=== PATIENT | female | born 1965 | race Caucasian/White ===

== ENCOUNTER → 2016-08-06 | Outpatient (CLI) | payer MEDICAID, OTHER ==
[~2016-08-06] MED LIST: AMIT50TA3 PO; AZIT250T5 PO; BPR75T PO; BSP10T PO; BUDE10.22; BUDE10.22 IH; BUSP30TA2 PO; BUSPAR; CETI10CA PO; CIPR500T78 PO; COMPOUND; CRAN450C PO; CYCL10TA9 PO; DESIPRAMINE; DICY20TA10 PO; DOXE10CA29 PO; FAMO-119 PO; FEXO1TAB40 PO; FLC100T1 PO; FLUO40CA PO; FLUT16SP22; HORMONE; HYDR-2890 PO; KETO-22 PO; LORA10TA7; METO-333; MONT10TA24; NF-ESOM40C PO; NITR100C10 PO; OMEP-83 PO; OMEP20CA12 PO; ONDAN4ODT PO; OXYB10TA PO; OXYB5TAB9 PO; PANT20TA3 PO; PERM60CR4 TP; PRAV40TA PO; PRD20T PO; PRM25T PO; RANITIDINE; RT-ALBUINH INH; SOLI5TAB4 PO; SULF-222 PO; SULF1TAB38 PO; THYROID; TOLT1TAB PO; TRAM50TA2 PO; VILA20TA PO; [UNRECOGNIZED DRUG - CODE] PO
--- NOTE | 2016-08-11 08:15 | ECHOCARDIOGRAPHY REPORT ---
PROCEDURE PHYSICIAN: FABIO MEDINA DATE OF PROCEDURE: 08/06/2016 TWO DIMENSIONAL ECHOCARDIOGRAM REPORT PRIMARY PHYSICIAN: Dr. Feliz OTHER PHYSICIAN: REFERRING PHYSICIAN: ORDERING PHYSICIAN: Meagan Shearer APRN INDICATION FOR THE PROCEDURE: Chest pain. MEASUREMENTS DERIVED VALUES LV DIAMETER (LAX) NORMALS NORMALS Diastolic 4.1 (3.6-5.2) Eject. Fract. (60%+/-6%) Systolic (2.3-3.9) Diastolic Vol. % Shortening (0.22-0.42) Systolic Vol. Aortic Root 3.3 IVS THICKNESS Diastolic 1.2 (0.6-1.1) LVPW THICKNESS Diastolic 1.2 (0.6-1.1) LA DIAMETER Systolic 3.2 (2.1-3.7) DESCRIPTION: This is a technically somewhat difficult study and is not ideal for wall motion analysis. Global left ventricular systolic function appears normal. Left ventricular ejection fraction is approximately 65 to 70%. Aortic, mitral and tricuspid valve leaflets, to the extent visualized, seem to have good leaflet excursion. There appears to be mild mitral annular calcification. There does not appear to be any significant pericardial effusion. Doppler imaging shows mild tricuspid regurgitation and pulmonary artery systolic pressure is estimated to be 50 mmHg. There is no Doppler evidence of significant valvular stenosis. Mitral inflow is consistent with grade 1 diastolic dysfunction of the left ventricle. There is no evidence of intracardiac shunt on this transthoracic echocardiographic study. CONCLUSIONS: 1. Technically difficult study. 2. Normal global left ventricular systolic function with an ejection fraction of 65 to 70%. 3. Mild tricuspid regurgitation. 4. Pulmonary artery systolic pressure is estimated to be approximately 50 mmHg. 5. No evidence of significant valvular stenosis on this study. 6. Mild diastolic dysfunction of the left ventricle. Job ID: [id number] Dictated Date: 08/10/2016 15:34:12 Baggagemaster Date: 08/11/2016 08:08:17 / christina
== END ==
LOC: CARD 11:50
PROVIDERS: ATTEND Nurse Practitioner Family
DX: R07.9 Chest pain, unspecified (principal)
CPT/HCPCS: 93225; 93226; 93306

== ENCOUNTER → 2016-08-10 | Outpatient (CLI) | payer MEDICAID ==
[~2016-08-10] MED LIST changes: +REGADENOSON 0.4 MG/5 ML SYR (LEXISCAN) IV ONE
[2016-08-10] MEDS: CATHETER FLUSH 10 ML SYR IV PRN ×2 (12:12→13:04)
[2016-08-10 13:03] VITALS: BP 146/89
--- NOTE | 2016-08-13 07:39 | STRESS TEST ---
PROCEDURE PHYSICIAN: FABIO MEDINA RESTING AND POST REGADENOSON TECHNETIUM 99M TETROFOSMIN SPECT CT IMAGING DATE OF PROCEDURE: 08/10/2016 REFERRING PHYSICIAN: Meagan Shearer APRN PRIMARY PHYSICIAN: Dr. Feliz CLINICAL DIAGNOSIS: Chest pain. Baseline images were carried out after injection of 10.65 mCi technetium 99m tetrofosmin. This was followed by 0.4 mg of regadenoson and 32.3 mCi technetium 99m tetrofosmin for stress imaging. The electrocardiogram showed sinus rhythm at baseline. It did not change with regadenoson infusion. The patient tolerated the procedure well. Review of images at rest and following stress, does not indicate any significant perfusion defect consistent with myocardial ischemia or infarction. Gated images show normal global left ventricular systolic function with normal regional wall motion. Left ventricular ejection fraction is calculated to be 72%. Left end-diastolic volume is 48 mL. TID is absent (0.99). CONCLUSION: 1. No evidence of significant myocardial ischemia or infarction on this study. 2. Normal global left ventricular systolic function with a calculated ejection fraction of 72%. 3. Normal regional wall motion. 4. Normal left ventricular cavity size. Job ID: [id number] Dictated Date: 08/12/2016 15:34:23 Plugger Man Date: 08/13/2016 07:35:12 / nan
== END ==
LOC: CARD 11:45
PROVIDERS: ATTEND Nurse Practitioner Family
DX: R07.9 Chest pain, unspecified (principal)
CPT/HCPCS: 78452; 93017

== ENCOUNTER 2016-08-19 21:14 | Emergency (ER) | payer MEDICAID, OTHER ==
[~2016-08-19] VITALS: Ht 170.2 cm; Wt 96.6 kg
[~2016-08-19 21:14] MED LIST changes: -PERM60CR4 TP; -REGADENOSON 0.4 MG/5 ML SYR (LEXISCAN) IV ONE
[2016-08-19] MEDS ORDERED: PERM60CR4 TP (21:26)
--- NOTE | 2016-08-19 21:26 | ED Integumentary General ---
General Chief Complaint: Skin/Wound Problems Stated Complaint: SKIN RASH Source: patient Exam Limitations: no limitations History of Present Illness Time seen by provider: 21:23 Initial Comments To ER with reports of a skin rash for 1.[address] Feliz 2 days ago and was given permethrin which only made it "half better". It is unclear why she presented tonight as her symptoms are actually improved from baseline. Timing/Duration: constant Severity: moderate Location: generalized Associated Symptoms: denies symptoms Allergies and Home Medications Allergies Coded Allergies: Penicillins (Unverified Allergy, Unknown, 12/30/15) Home Medications Albuterol Sulfate 8.5 Gm Hfa.aer.ad 2 PUFF INH Q4H PRN PRN SHORTNESS OF BREATH ( Reported) Amitriptyline HCl 50 Mg Tablet #30 50 MG PO HS Prescribed by: ANTHONY FELIZ on 07/07/16 1015 Budesonide/Formoterol Fumarate 10.2 Gm Hfa.aer.ad 2 PUFF IH BID (Reported) LAST FILLED 03-30-16 Cranberry Fruit Concentrate 450 Mg Capsule 450 MG PO DAILY (Reported) Dicyclomine HCl 20 Mg Tablet #120 20 MG PO QID Prescribed by: ANTHONY FELIZ on 07/07/16 1015 Doxepin HCl 10 Mg Capsule 10 MG PO HS (Reported) Pantoprazole Sodium 20 Mg Tablet.dr 20 MG PO DAILY (Reported) Permethrin 60 Gm Cream..g. #1 60 GM TP ONCE Cover entire body, leave in place for 8 hours, then wash off. Repeat in one week if no improvement. Prescribed by: YOBANI DEL TORO on 08/19/162125 Pravastatin Sodium 40 Mg Tablet 40 MG PO HS (Reported) Vilazodone Hydrochloride 20 Mg Tablet 20 MG PO HS (Reported) Constitutional: see HPI EENTM: see HPI Respiratory: no symptoms reported Cardiovascular: no symptoms reported Genitourinary: no symptoms reported Musculoskeletal: no symptoms reported Skin: see HPI pruritus rash Psychiatric/Neurological: No Symptoms Reported Endocrine: No Symptoms Reported Past Dnivawc-Ayxksk-Ujintx Hx Patient Social History Type Used: Cigarettes Former Smoker/When Quit: Jan 31, 2006 Recent Foreign Travel: No Contact w/Someone Who Travel: No Recent Hopitalizations: Yes (; suicide attempts x 2 2011 LAST ONE) Immunizations Up To Date Tetanus Booster (TDap): Unknown Seasonal Allergies Seasonal Allergies: Yes Surgeries HX Surgeries: Yes (LASER CONE) Surgeries: Adenoidectomy, Section, Ear Surgery, Orthopedic, Tonsillectomy, Tubal Ligation Respiratory Hx Respiratory Disorders: Yes Respiratory Disorders: Asthma Cardiovascular Hx Cardiac Disorders: Yes Cardiac Disorders: High Cholesterol, Hypertension Neurological Hx Neurological Disorders: No 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 System Hx 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 Disorders: No Sexually Transmitted Disease: No HIV/AIDS: No Female 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 Disorders: Denies 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 Genitourinary Hx Genitourinary Disorders: Yes (OVERACTIVE BLADDER) Genitourinary Disorders: UTI-Chronic Gastrointestinal Hx Gastrointestinal Disorders: Yes (IBS) Musculoskeletal Hx Musculoskeletal Disorders: Yes (KNEES) Musculoskeletal Disorders: Arthritis Endocrine Hx Endocrine Disorders: Yes Endocrine Disorders: Hypothyroidsim HEENT HX ENT Disorders: No Cancer Hx Cancer: Yes Cancer: Cervical Psychosocial Hx Psychiatric Problems: Yes Behavioral Health Disorders: Sleep Difficulties, Anxiety, Bipolar, Depression Integumentary HX Skin/Integumentary Disorder: No Blood Transfusions Hx Blood Disorders: No Family Medical History Significant Family History: Diabetes Family Medial History: Diabetes mellitus 19 MOTHER Physical Exam Vital Signs Capillary Refill : General Appearance: WD/WN no apparent distress HEENT: PERRL/EOMI normal ENT inspection Neck: non-tender full range of motion Respiratory: no respiratory distress no accessory muscle use Extremities: normal range of motion non-tender Neurologic/Psychiatric: alert normal mood/affect oriented x 3 other (hostile and angry towards staff stating "I thought this was an emergency room not a daycare!") Skin: normal color warm/dry Skin Problem Location: torso, lower extremities Skin Problem Character: other (diffuse papular rash to the torso and proximal thighs. She was treated with permethrin and this did improve symptoms. I would agree with a scabies diagnosis.) Comments Patient is cursing on her cell phone at someone upon arrival to ER room 5 which persisted for several minutes before the call ended. Progress/Results/Core Measures Progress Note : Progress Note Patient requests permethrin cream here because she cannot afford it. Departure Communication Progress Notes Patient reports that she'll be calling administration tomorrow to complain because she does not feel that she did not help she wanted tonight. She believes this to be an allergic reaction rather than scabies because she believes a scabies rash would be confined to the region between the fingers. Advised sometimes the permethrin takes more than one application to resolve her issues and since she stated that her symptoms only got half better after one application we should repeat this. If this was an allergic reaction permethrin would not have helped. When advised that it takes more than one dose sometimes to cure this she states "why?!". Advised her to take benadryl for itching. Impression Impression: Primary Impression: Scabies Disposition: HOME, SELF-CARE Condition: Stable Departure-Patient Inst. Decision time for Depature: 21:25 Referrals: ANTHONY FELIZ MD (PCP/Family) Primary Care Physician Patient Instructions: Scabies Add. Discharge Instructions: 1. Cream as directed 2. Return to ER for any concerns All discharge instructions reviewed with patient and/or family. Voiced understanding. Scripts Permethrin 60 Gm Cream..g.60 Gm TP ONCE #1 TUBE Ref 1 Cover entire body, leave in place for 8 hours, then wash off. Repeat in one week if no improvement. Prov:YOBANI DEL TORO APRN 08/19/16 YOBANI DEL TORO APRN Aug 19, 2016 21:26
[2016-08-19 21:27] VITALS: BP 0/0
== END 2016-08-19 21:27 | disposition home or self-care (01) ==
LOC: EDUNIT# 21:14 → ER 21:15
DX: B86 Scabies (principal); I10 Essential (primary) hypertension
CPT/HCPCS: 99281

== ENCOUNTER → 2016-10-18 | Outpatient (CLI) | payer MEDICAID ==
[~2016-10-18] MED LIST changes: +PERM60CR4 TP
--- NOTE | 2016-10-19 18:23 | Diagnostic Imaging Report ---
EXAMINATION: Digital mammogram bilateral screening. INDICATION: Screening. COMPARISON: This study was compared to the prior exams of 10/15/2015, 08/29/2014, and 09/13/2013. At this time, there are no current complaints. The current study was also evaluated with a Computer Aided Detection (CAD) system. FINDINGS: There are scattered fibroglandular densities in both breasts which could obscure a lesion. Overall, there does not appear to have been any significant change when compared to the prior exam. No primary or secondary sign of malignancy is noted. IMPRESSION: There is no radiographic evidence for malignancy. ACR BI-RADS Category 1: Negative.. Result letter will be mailed to the patient. Note: At least 10% of breast cancer is not imaged by mammography. Dictated by: Dictated on workstation # [id number]
== END ==
LOC: RAD 14:36
PROVIDERS: ATTEND Family Medicine
DX: Z12.31 Encounter for screening mammogram for malignant neoplasm of breast (principal)
CPT/HCPCS: 77067

== ENCOUNTER → 2017-11-21 | Outpatient (CLI) | payer MEDICAID ==
[~2017-11-21] MED LIST changes: +ALBU2.5V4 IH; +ASPI-586 PO; +AZIT250T12 PO; -AZIT250T5 PO; +BLAC200C3 PO; +CYAN250010 PO; +FLUT16SP22 NS; +FOLI-88 PO; +MAGN30TA3 PO; +METO-333 PO; +MONT10TA24 PO; +OMEP40CA36 PO; +VERA40TA2 PO
--- NOTE | 2017-11-22 09:29 | Diagnostic Imaging Report ---
EXAMINATION: Digital mammogram bilateral screening with 3D tomosynthesis and CAD. INDICATION: Screening. COMPARISON: 10/18/2016, 10/15/2015, and 08/29/2014. PERSONAL HISTORY: At this time, there are no current complaints. FINDINGS: There are scattered fibroglandular densities in both breasts which could obscure a lesion. Overall, there does not appear to have been any significant change when compared to the prior exam. No primary or secondary sign of malignancy is noted. IMPRESSION: There is no radiographic evidence for malignancy. ACR BI-RADS Category 1: Negative. Result letter will be mailed to the patient. Note: At least 10% of breast cancer is not imaged by mammography. Dictated by: Dictated on workstation # [id number]
== END ==
LOC: RAD 14:59
PROVIDERS: ATTEND Family Medicine
DX: Z12.31 Encounter for screening mammogram for malignant neoplasm of breast (principal)
CPT/HCPCS: 77067

== ENCOUNTER 2017-12-11 13:20 | Observation (INO) | payer MEDICAID ==
[~2017-12-11] VITALS: Ht 170.2 cm; Wt 106.6 kg
[2017-12-11] VITALS (10 sets, daily range): BP systolic 147–202; BP diastolic 82–102
[~2017-12-11 13:20] MED LIST changes: -ALBU2.5V4 IH; -ASPI-586 PO; -BLAC200C3 PO; -CYAN250010 PO; -FLUT16SP22 NS; -FOLI-88 PO; -MAGN30TA3 PO; -METO-333 PO; -MONT10TA24 PO; -OMEP40CA36 PO; -VERA40TA2 PO
[2017-12-11] MEDS ORDERED: NITROGLYCERIN 0.4 MG SL TABS BTL 25'S SL PRN ×2 (14:00→20:15)
[2017-12-11] MEDS ORDERED: ASPIRIN 81 MG CHEW (CHILDREN'S ASA) PO ONE (14:00)
[2017-12-11 14:12] LABS: BASOPHILS # (AUTO) 0.1 10^3/uL (0.0-0.1); BASOPHILS % (AUTO) 1 % (0-10); EOSINOPHILS # (AUTO) 0.2 10^3/uL (0.0-0.3); EOSINOPHILS % (AUTO) 2 % (0-10); HEMATOCRIT 42 % (35-52); HEMOGLOBIN 14.4 G/DL (11.5-16.0); LYMPHOCYTES # (AUTO) 2.2 X 10^3 (1.0-4.0); LYMPHOCYTES % (AUTO) 24 % (12-44); MEAN CORPUSCULAR HEMOGLOBIN 29 PG (25-34); MEAN CORPUSCULAR HGB CONC 34 G/DL (32-36); MEAN CORPUSCULAR VOLUME 85 FL (80-99); MEAN PLATELET VOLUME 9.9 FL (7.4-10.4); MONOCYTES # (AUTO) 0.8 X 10^3 (0.0-1.0); MONOCYTES % (AUTO) 9 % (0-12); NEUTROPHILS # (AUTO) 5.7 X 10^3 (1.8-7.8); NEUTROPHILS % (AUTO) 64 % (42-75); PLATELET COUNT 279 10^3/uL (130-400); RED BLOOD COUNT 4.98 10^6/uL (4.35-5.85); RED CELL DISTRIBUTION WIDTH 13.6 % (10.0-14.5)
[2017-12-11 14:24] LABS: INR 0.9 (0.8-1.4); PROTHROMBIN TIME PATIENT 12.5 SEC (12.2-14.7)
[2017-12-11 14:30] LABS: ALANINE AMINOTRANSFERASE 24 U/L (0-55); ALBUMIN 4.3 GM/DL (3.2-4.5); ALKALINE PHOSPHATASE 96 U/L (40-136); BILIRUBIN,TOTAL 0.4 MG/DL (0.1-1.0); BUN/CREATININE RATIO 14; CALCIUM 9.3 MG/DL (8.5-10.1); CARBON DIOXIDE 20 MMOL/L (21-32); CHLORIDE 110 MMOL/L (98-107); CREATININE SERUM 0.91 MG/DL (0.60-1.30); GFR ESTIMATED > 60; GLUCOSE 100 MG/DL (70-105); MAGNESIUM 3.4 MG/DL (1.8-2.4); SODIUM 140 MMOL/L (135-145); TOTAL PROTEIN 8.5 GM/DL (6.4-8.2)
[2017-12-11 14:36] LABS: MYOGLOBIN SERUM 48.3 NG/ML (10.0-92.0)
[2017-12-11] MEDS ORDERED: NS IV 1000 ML 1,000 ML IV ONE (14:42)
[2017-12-11 15:13] LABS: POTASSIUM 4.4 MMOL/L (3.6-5.0)
--- NOTE | 2017-12-11 15:43 | Diagnostic Imaging Report ---
EXAMINATION: PA and lateral chest. COMPARISON: Prior study from 07/10/2016. INDICATION: Cough and shortness of breath. FINDINGS: Lungs appear clear without focal pulmonary infiltrate or consolidation. There is no effusion. There is no pneumothorax. Heart size and mediastinal contours appear appropriate. Pulmonary vascularity appears within normal limits. IMPRESSION: No radiographic evidence of an acute cardiopulmonary process. Dictated by: Dictated on workstation # [id number]
[2017-12-11] MEDS ORDERED: RT-ALBUTEROL/IPRATROPIUM 3 ML (DUONEB) VIAL INH ONE (15:45)
--- NOTE | 2017-12-11 16:44 | ED Chest Pain ---
General Chief Complaint: Respiratory Problems Stated Complaint: TROUBLE BREATHING,POSS BRONCHITIS,FEVER Nursing Triage Note: pt presents to ed with complaints of soa and cough with chest tightness. Pt reports soa x 3 days and chest tightness starting at 1300 today. Nursing Sepsis Screen: No Definite Risk Source: patient, old records Exam Limitations: no limitations History of Present Illness Date Seen by Provider: December 11, 2017 Time Seen by Provider: 14:12 Initial Comments This 52-year-old woman presents to the emergency room with 2-3 days of shortness of air and chest pain since about 13:00. The chest pain is described as tightness or pressure, worse on the right and worse with activity. She has had some sweats at night the last couple of nights. She has had some cough and states it hurts to cough. Patient does have a history of asthma and has not been using her nebulizer machine. Review of her chart notes a negative stress test in July 2016. Echocardiogram also in 2017 showed mild valvular problems with an ejection fraction of 60 percent. Patient has no known heart disease and does not smoke. Allergies and Home Medications Allergies Coded Allergies: Penicillins (Unverified Allergy, Unknown, 12/30/15) Home Medications Albuterol Sulfate 8.5 Gm Hfa.aer.ad, 2 PUFF INH Q4H PRN for SHORTNESS OF BREATH, (Reported) Amitriptyline HCl 50 Mg Tablet, 50 MG PO HS Prescribed by: ANTHONY MORRISON on 07/07/16 1015 Budesonide/Formoterol Fumarate 10.2 Gm Hfa.aer.ad, 2 PUFF IH BID, (Reported) LAST FILLED 03-30-16 Cranberry Fruit Concentrate 450 Mg Capsule, 450 MG PO DAILY, (Reported) Dicyclomine HCl 20 Mg Tablet, 20 MG PO QID Prescribed by: ANTHONY MORRISON on 07/07/16 1015 Doxepin HCl 10 Mg Capsule, 10 MG PO HS, (Reported) Pantoprazole Sodium 20 Mg Tablet.dr, 20 MG PO DAILY, (Reported) Permethrin 60 Gm Cream..g., 60 GM TP ONCE Cover entire body, leave in place for 8 hours, then wash off. Repeat in one week if no improvement. Prescribed by: YOBANI DEL TORO on 08/19/162125 Pravastatin Sodium 40 Mg Tablet, 40 MG PO HS, (Reported) Vilazodone Hydrochloride 20 Mg Tablet, 20 MG PO HS, (Reported) Patient Home Medication List Home Medication List Reviewed: Yes Review of Systems Constitutional: no symptoms reported EENTM: No Symptoms Reported Respiratory: See HPI Cardiovascular: See HPI Gastrointestinal: No Symptoms Reported Genitourinary: No Symptoms Reported Musculoskeletal: no symptoms reported Skin: no symptoms reported Psychiatric/Neurological: No Symptoms Reported Endocrine: No Symptoms Reported Past Vqfxqzs-Cehxry-Hvhndx Hx Patient Social History Alcohol Use: Rarely Uses Recreational Drug Use: No Smoking Status: Former Smoker Type Used: Cigarettes Former Smoker, Quit: Jul 06, 2000 Recent Foreign Travel: No Contact w/Someone Who Travel: No Recent Infectious Disease Expo: No Recent Hopitalizations: No Physical Abuse: No Sexual Abuse: No Mistreated: No Fear: No Immunizations Up To Date Tetanus Booster (TDap): Unknown Seasonal Allergies Seasonal Allergies: Yes Past Medical History Surgeries: Yes (LASER CONE) Adenoidectomy, Section, Ear Surgery, Orthopedic, Tonsillectomy, Tubal Ligation Respiratory: Yes Asthma, Chronic Bronchitis Cardiac: Yes High Cholesterol, Hypertension Neurological: No 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 Disorders: No Female 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 Disorders: 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 Sexually Transmitted Disease: No HIV/AIDS: No Genitourinary: Yes UTI-Chronic Gastrointestinal: Yes (IBS) Gastroesophageal Reflux Musculoskeletal: Yes (KNEES) Arthritis Endocrine: Yes Hypothyroidsim Cancer: Yes Cervical Psychosocial: Yes Sleep Difficulties, Anxiety, Bipolar, Depression Nursing Suicide Risk Score: 0 Integumentary: No Blood Disorders: No Family Medical History Diabetes mellitus 19 MOTHER Diabetes, Hypertension Physical Exam Vital Signs Vital Signs - First Documented 12/11/17 12/11/17 13:57 15:44 Temp 98.1 Pulse 89 Resp 14 B/P (MAP) 125/88 (100) Pulse Ox 97 O2 Delivery Room Air Capillary Refill : Less Than 3 Seconds General Appearance: WD/WN, Mild Distress, Obese HEENT: PERRL/EOMI, Normal ENT Inspection Neck: Normal Inspection, Supple Respiratory: Chest Non Tender, Lungs Clear, Normal Breath Sounds, No Accessory Muscle Use, No Respiratory Distress Cardiovascular: Regular Rate, Rhythm, No Edema, No Murmur Gastrointestinal: Normal Bowel Sounds, Non Tender, Soft Extremity: Normal Capillary Refill, Normal Inspection, Non Tender, No Calf Tenderness, No Pedal Edema, Other (Negative Kade) Neurologic/Psychiatric: Alert, Oriented x3, No Motor/Sensory Deficits, Normal 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/Affect, 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 Norm as Tested Skin: Normal Color, Warm/Dry Progress/Results/Core Measures Results/Orders Lab Results Laboratory Tests Test 12/11/17 13:55 Range/Units White Blood Count 9.0 4.3-11.0 10^3/uL Red Blood Count 4.98 4.35-5.85 10^6/uL Hemoglobin 14.4 11.5-16.0 G/DL Hematocrit 42 35-52 % Mean Corpuscular Volume 85 80-99 FL Mean Corpuscular Hemoglobin 29 25-34 PG Mean Corpuscular Hemoglobin Concent 34 32-36 G/DL Red Cell Distribution Width 13.6 10.0-14.5 % Platelet Count 279 130-400 10^3/uL Mean Platelet Volume 9.9 7.4-10.4 FL Neutrophils (%) (Auto) 64 42-75 % Lymphocytes (%) (Auto) 24 12-44 % Monocytes (%) (Auto) 9 0-12 % Eosinophils (%) (Auto) 2 0-10 % Basophils (%) (Auto) 1 0-10 % Neutrophils # (Auto) 5.7 1.8-7.8 X 10^3 Lymphocytes # (Auto) 2.2 1.0-4.0 X 10^3 Monocytes # (Auto) 0.8 0.0-1.0 X 10^3 Eosinophils # (Auto) 0.2 0.0-0.3 10^3/uL Basophils # (Auto) 0.1 0.0-0.1 10^3/uL Prothrombin Time 12.5 12.2-14.7 SEC INR Comment 0.9 0.8-1.4 Activated Partial Thromboplast Time 26 24-35 SEC Sodium Level 140 135-145 MMOL/L Potassium Level 4.4 3.6-5.0 MMOL/L Chloride Level 110 H 98-107 MMOL/L Carbon Dioxide Level 20 L 21-32 MMOL/L Anion Gap 10 5-14 MMOL/L Blood Urea Nitrogen 13 7-18 MG/DL Creatinine 0.91 0.60-1.30 MG/DL Estimat Glomerular Filtration Rate > 60 BUN/Creatinine Ratio 14 Glucose Level 100 70-105 MG/DL Calcium Level 9.3 8.5-10.1 MG/DL Magnesium Level 3.4 H 1.8-2.4 MG/DL Total Bilirubin 0.4 0.1-1.0 MG/DL Aspartate Amino Transf (AST/SGOT) 43 H 5-34 U/L Alanine Aminotransferase (ALT/SGPT) 24 0-55 U/L Alkaline Phosphatase 96 40-136 U/L Myoglobin 48.3 10.0-92.0 NG/ML Troponin I < 0.30 <0.30 NG/ML Total Protein 8.5 H 6.4-8.2 GM/DL Albumin 4.3 3.2-4.5 GM/DL My Orders Orders - RAUL JOE MD Cbc With Automated Diff (12/11/17 13:55) Magnesium (12/11/17 13:55) Ekg Tracing (12/11/17 13:55) Cardiac Profile 1 (12/11/17 13:55) Comprehensive Metabolic Panel (12/11/17 13:55) Myoglobin Serum (12/11/17 13:55) Protime With Inr (12/11/17 13:55) Partial Thromboplastin Time (12/11/17 13:55) O2 (12/11/17 13:55) Monitor-Rhythm Ecg Trace Only (12/11/17 13:55) Lipid Panel (12/12/17 06:00) Aspirin Chewable Tablet (Baby Aspirin Ch (12/11/17 14:00) Saline Lock/Iv-Start (12/11/17 13:55) Chest Pa/Lat (2 View) (12/11/17 13:55) Nitroglycerin 0.4 Mg Btl 25's (Nitrostat (12/11/17 14:00) Saline Lock/Iv-Start (12/11/17 14:42) Ns Iv 1000 Ml (Sodium Chloride 0.9%) (12/11/17 14:42) Albuterol/Ipra Inhalation Soln (Duoneb I (12/11/17 15:45) Svn Small Volume Nebulizer (12/11/17 15:34) Medications Given in ED Current Medications Medications Dose Ordered Sig/Matthias Route Start Time Stop Time Status Last Admin Dose Admin Albuterol/ Ipratropium 3 ml ONCE ONCE INH 12/11/17 15:45 12/11/17 15:46 DC 12/11/17 15:44 3 ML Aspirin 243 mg ONCE ONCE PO 12/11/17 14:00 12/11/17 14:01 DC 12/11/17 14:10 243 MG Nitroglycerin 0.4 mg UD PRN SL 12/11/17 14:00 12/11/17 14:10 0.4 MG Sodium Chloride 1,000 ml @ 0 mls/hr Q0M ONCE IV 12/11/17 14:42 12/11/17 14:43 DC 12/11/17 14:55 0 MLS/HR Vital Signs/I&O 12/11/17 12/11/17 13:57 15:44 Temp 98.1 Pulse 89 Resp 14 B/P (MAP) 125/88 (100) Pulse Ox 97 97 O2 Delivery Room Air Blood Pressure Mean: 100 Progress Progress Note : Progress Note Patient reported resolution of the right-sided chest pain immediately after receiving nitroglycerin. Patient was also given the balance of her aspirin dose. She still complained of congestion and an uncomfortable feeling in the central chest which she thought was either GERD or inability to cough up congestion. This was treated with DuoNeb which improved her symptoms further. Case was discussed with Dr. Zapien who would like to patient admitted for observation and cardiac rule out. Initial ECG Impression Date: December 11, 2017 Initial ECG Impression Time: 14:12 Initial ECG Rate: 95 Initial ECG Rhythm: Normal Sinus Comment Sinus rhythm with no ST elevation or depression. No abnormal intervals or axis deviation. Diagnostic Imaging Diagonstic Imaging: Xray Plain Films/CT/US/NM/MRI: chest Comments Chest x-ray viewed by me and report reviewed. See report below: NAME: JUAN CRUZ [facility] REC#: [id number] PT STATUS: ADM Hernando : 1965 PHYSICIAN: RAUL JOE MD ADMIT DATE: 12/11/17/ICU Signed Date of Exam: 12/11/17 CHEST PA/LAT (2 VIEW) EXAMINATION: PA and lateral chest. COMPARISON: Prior study from 07/10/2016. INDICATION: Cough and shortness of breath. FINDINGS: Lungs appear clear without focal pulmonary infiltrate or consolidation. There is no effusion. There is no pneumothorax. Heart size and mediastinal contours appear appropriate. Pulmonary vascularity appears within normal limits. IMPRESSION: No radiographic evidence of an acute cardiopulmonary process. Dictated by: Dictated on workstation # [id number] Dict: 12/11/17 1539 Trans: 12/11/171706 Interpreted by: EVER GALLAGHER MD Electronically signed by: EVER GALLAGHER MD 12/11/177 Departure Communication (Admissions) Time/Spoke to Admitting Phy: 16:15 Dr. Day Time/Spoke to Consulting Phy: 16:10 Dr. Zapien Impression Primary Impression: Chest pain Qualified Codes: R07.9 - Chest pain, unspecified Additional Impression: Asthma exacerbation Qualified Codes: J45.901 - Unspecified asthma with (acute) exacerbation Disposition: ADMITTED INPATIENT Condition: Improved Admissions Decision to Admit Reason: Admit from ER (General) Decision to Admit/Date: December 11, 2017 Time/Decision to Admit Time: 16:10 Departure-Patient Inst. Referrals: NAYE SHAH MD (PCP/Family) Primary Care Physician RAUL JOE MD December 11, 2017 16:44
--- OUTSIDE RECORDS SUMMARY | 2017-12-11 17:14 | XMS REPORT ---
Author Author TAMIKO ANTHONY [facility] Address [address] [place] [address] Care Team Providers Care User Interface Designer Name Role Phone ANTHONY MORRISON Unavailable PROBLEMS Type Condition ICD9-CM Code [id number] Code Onset Dates Condition Status SNOMED Code Problem Cannabis dependence, uncomplicated F12.20 Active 66649136 Problem Depressive disorder, not elsewhere classified F32.9 Active 47014111 Problem Anxiety disorder, unspecified F41.9 Active 900918277 Problem Pulmonary hypertension I27.2 Active 23797715 Problem Obesity (BMI 30.0-34.9) E66.9 Active 107011625111800 Problem Chronic tension-type headache, intractable G44.221 Active 004549440 Problem Gastroesophageal reflux disease, esophagitis presence not specified K21.9 Active 080928858 Problem Hyperlipidemia, unspecified hyperlipidemia type E78.5 Active 71009654 Problem Essential hypertension I10 Active 05389632 Problem History of cocaine abuse Z87.898 Active 522107801850648 Problem Irritable bowel syndrome K58.9 Active 38291225 Problem Moderate persistent asthma, uncomplicated J45.40 Active 585575602 Problem Hypertension I10 Active 49819510 Problem Hyperlipidemia E78.5 Active 98564904 Problem Urge incontinence N39.41 Active 653639312 Problem Allergic rhinitis J30.9 Active 71328312 ALLERGIES Substance Reaction Event Type Date Status Penicillin V Potassium Unknown Drug Allergy Jun, Active multiple enviromental allergies Unknown Non Drug Allergy Jun, Active SOCIAL HISTORY No smoking Hx information available PLAN OF CARE Activity Details Follow Up after hospitalization Reason: VITAL SIGNS Height 67 in 2016-07-06 Weight 214.2 lbs 2016-07-06 Temperature 98.2 degrees Fahrenheit 2016-07-06 Heart Rate 96 bpm 2016-07-06 Respiratory Rate 20 2016-07-06 BMI 33.54 kg/m2 2016-07-06 Blood pressure systolic 156 mmHg 2016-07-06 Blood pressure diastolic 98 mmHg 2016-07-06 MEDICATIONS Medication Instructions Dosage Frequency Start Date End Date Duration Status Pravastatin Sodium 40 mg Orally Once a day 1 tablet 24h May, 90 days Active Symbicort 80-4.5 mcg/actuation inhale 2 puffs by inhalation route 2 times per day in the morning and evening Jul, Active Pantoprazole Sodium 20 mg Orally Once a day 1 tablet 24h May, 90 days Active Doxepin HCl 10 MG Orally Once a day 1 capsule at bedtime 24h Active Cranberry 250 MG Active ProAir HFA 90 mcg/actuation inhale 2 puffs by inhalation route every 4 hours as needed Jul, Active RESULTS No Results PROCEDURES Procedure Date Ordered Related Diagnosis Body Site EKG, TRACING (IN-HOUSE) 2016-07-06 N/A ELECTROCARDIOGRAM, TRACING Jul 06, 2016 Office Visit, Est Pt., Level 3 Jul 06, 2016 IMMUNIZATIONS No Known Immunizations
--- OUTSIDE RECORDS SUMMARY | 2017-12-11 17:14 | XMS REPORT ---
Author Author TAMIKO ANTHONY [facility] Address [address] [place] [address] Care Team Providers Care Pressing Machine Operator Name Role Phone TAMIKOSANDRA BOWLINGHANY Unavailable PROBLEMS Type Condition ICD9-CM Code [id number] Code Onset Dates Condition Status SNOMED Code Problem Depressive disorder, not elsewhere classified F32.9 Active 65499489 Problem Cannabis dependence, uncomplicated F12.20 Active 97558147 Problem Anxiety disorder, unspecified F41.9 Active 778913486 Problem Obesity (BMI 30.0-34.9) E66.9 Active 579784796411226 Problem Pulmonary hypertension I27.2 Active 11972867 Problem Chronic tension-type headache, intractable G44.221 Active 381319651 Problem Gastroesophageal reflux disease, esophagitis presence not specified K21.9 Active 796542690 Problem Hyperlipidemia, unspecified hyperlipidemia type E78.5 Active 14678703 Problem Essential hypertension I10 Active 70415530 Problem History of cocaine abuse Z87.898 Active 036123531620462 Problem Hypertension I10 Active 55701572 Problem Urge incontinence N39.41 Active 939954931 Problem Hyperlipidemia E78.5 Active 04961992 Problem Moderate persistent asthma, uncomplicated J45.40 Active 101645866 Problem Irritable bowel syndrome K58.9 Active 86614400 Problem Allergic rhinitis J30.9 Active 07749800 ALLERGIES Unknown Allergies SOCIAL HISTORY No smoking Hx information available PLAN OF CARE VITAL SIGNS MEDICATIONS Medication Instructions Dosage Frequency Start Date End Date Duration Status ProAir HFA 90 mcg/actuation inhale 2 puffs by inhalation route every 4 hours as needed Jul, Active Symbicort 80-4.5 mcg/actuation inhale 2 puffs by inhalation route 2 times per day in the morning and evening Jul, Active Nasacort Allergy 24HR 55 MCG/ACT Nasally Once a day 1 puff in each nostril 24h Active Pravastatin Sodium 40 mg Orally Once a day 1 tablet 24h May, 90 days Active Pantoprazole Sodium 20 mg Orally Once a day 1 tablet 24h May, 90 days Active Cranberry 250 MG Active Doxepin HCl 10 MG Orally Once a day 1 capsule at bedtime 24h Active RESULTS No Results PROCEDURES No Known procedures IMMUNIZATIONS No Known Immunizations
--- OUTSIDE RECORDS SUMMARY | 2017-12-11 17:14 | XMS REPORT ---
Author Author ANTHONY MORRISON Organization [facility] Address [address] [place] [address] Care Team Providers Care Guest Services Name Role Phone ANTHONY MORRISON Unavailable PROBLEMS Type Condition ICD9-CM Code [id number] Code Onset Dates Condition Status SNOMED Code Problem Hypertension I10 Active 04459145 Problem Irritable bowel syndrome K58.9 Active 22275915 Problem Urge incontinence N39.41 Active 872078881 Problem History of cocaine abuse Z87.898 Active 556256202947908 Problem Depressive disorder, not elsewhere classified F32.9 Active 91849785 Problem Anxiety disorder, unspecified F41.9 Active 980152843 Problem Hyperlipidemia E78.5 Active 94281400 Problem Moderate persistent asthma, uncomplicated J45.40 Active 602159876 Problem Cannabis dependence, uncomplicated F12.20 Active 90115010 Problem Allergic rhinitis J30.9 Active 65585421 ALLERGIES No Known Allergies SOCIAL HISTORY No smoking Hx information available PLAN OF CARE VITAL SIGNS MEDICATIONS Medication Instructions Dosage Frequency Start Date End Date Duration Status ProAir HFA 90 mcg/actuation inhale 2 puffs by inhalation route every 4 hours as needed Jul, Active RESULTS No Results PROCEDURES No Known procedures IMMUNIZATIONS No Known Immunizations
--- OUTSIDE RECORDS SUMMARY | 2017-12-11 17:14 | XMS REPORT ---
Author Author FABIO MEDINA [facility] Address [address], [place] [address] Care Team Providers Care Tank Hoop Bender Name Role Phone FABIO MEDINA Unavailable PROBLEMS Type Condition ICD9-CM Code [id number] Code Onset Dates Condition Status SNOMED Code Problem Depressive disorder, not elsewhere classified F32.9 Active 81262484 Problem Cannabis dependence, uncomplicated F12.20 Active 08086589 Problem Anxiety disorder, unspecified F41.9 Active 686371971 Problem Obesity (BMI 30.0-34.9) E66.9 Active 412713304771574 Problem Pulmonary hypertension I27.2 Active 66293777 Problem Chronic tension-type headache, intractable G44.221 Active 874183022 Problem Gastroesophageal reflux disease, esophagitis presence not specified K21.9 Active 162881356 Problem Hyperlipidemia, unspecified hyperlipidemia type E78.5 Active 10958619 Problem Essential hypertension I10 Active 39258491 Problem History of cocaine abuse Z87.898 Active 691250530483429 Problem Hypertension I10 Active 29531450 Problem Urge incontinence N39.41 Active 441013595 Problem Hyperlipidemia E78.5 Active 22538960 Problem Moderate persistent asthma, uncomplicated J45.40 Active 273315018 Problem Irritable bowel syndrome K58.9 Active 97914134 Problem Allergic rhinitis J30.9 Active 21982855 ALLERGIES Substance Reaction Event Type Date Status Penicillin V Potassium Unknown Drug Allergy Aug, Active multiple enviromental allergies Unknown Non Drug Allergy Aug, Active SOCIAL HISTORY Never Assessed PLAN OF CARE Activity Details Follow Up 2 Months Reason: VITAL SIGNS Height 67 in 2016-08-25 Weight 217 lbs 2016-08-25 Heart Rate 74 bpm 2016-08-25 Respiratory Rate 18 2016-08-25 Oximetry 96 % 2016-08-25 BMI 33.98 kg/m2 2016-08-25 Blood pressure systolic 138 mmHg 2016-08-25 Blood pressure diastolic 86 mmHg 2016-08-25 MEDICATIONS Medication Instructions Dosage Frequency Start Date End Date Duration Status Pantoprazole Sodium 20 mg Orally Once a day 1 tablet 24h May, 90 days Active Pravastatin Sodium 40 mg Orally Once a day 1 tablet 24h May, 135 days Active ProAir HFA 90 mcg/actuation inhale 2 puffs by inhalation route every 4 hours as needed Jul, Active Cranberry 250 MG Active Symbicort 80-4.5 mcg/actuation inhale 2 puffs by inhalation route 2 times per day in the morning and evening Jul, Active Doxepin HCl 10 MG Orally Once a day 1 capsule at bedtime 24h Active Nasacort Allergy 24HR 55 MCG/ACT Nasally Once a day 1 puff in each nostril 24h Active Permethrin 5 % Externally Once a day 1 application to affected area 24h Jul, 1 dose Active Metoprolol Tartrate 25 MG Orally Twice a day 12h Active RESULTS No Results PROCEDURES Procedure Date Ordered Result Body Site MEASURE BLOOD OXYGEN LEVEL Aug 25, 2016 IMMUNIZATIONS No Known Immunizations MEDICAL (GENERAL) HISTORY Type Description Date Medical History Seasonal Allergies Medical History Asthma Medical History Depression Medical History Anxiety Medical History ADHD Medical History Bipolar Medical History HTN Medical History IBS Medical History GERD Medical History Urge incontinence Medical History HLD Surgical History Tubal Ligation Surgical History Section x4 Surgical History Laser surgery for cervial cancer @ [facility] [place] 1990 Surgical History L ankle surgery @ [facility] Surgical History tonsillectomy Hospitalization History Elevated BP
--- OUTSIDE RECORDS SUMMARY | 2017-12-11 17:14 | XMS REPORT ---
Author Author ANTHONY MORRISON [employer] Address Unknown Phone Unavailable Care Team Providers Care Fieldwork Coordinator Name Role Phone ANTHONY MORRISON Unavailable Allergies No Known Allergies Problems Problem Type Condition Code Onset Dates Condition Status Problem History of cocaine abuse Z87.898 Active Problem Urge incontinence N39.41 Active Problem Hypertension I10 Active Problem Anxiety disorder, unspecified F41.9 Active Problem Cannabis dependence, uncomplicated F12.20 Active Problem Depressive disorder, not elsewhere classified F32.9 Active Problem Moderate persistent asthma, uncomplicated J45.40 Active Problem Irritable bowel syndrome K58.9 Active Problem Allergic rhinitis J30.9 Active Problem Hyperlipidemia E78.5 Active Medications Medication Code System Code Instructions Start Date End Date Status Dosage Omeprazole [facility] [address]-63 20 mg Aug 31, 2013 take 1 capsule ( 20 mg) by oral route once daily before a meal Nasacort Allergy 24HR [facility] [address] 55 MCG/ACT Nasally Once a day 1 puff in each nostril Cetirizine HCl [facility] [address]-16 10 mg Orally Once a day Feb 20, 2016 1 tablet Results No Known Results Summary Purpose [employer] Submission
--- OUTSIDE RECORDS SUMMARY | 2017-12-11 17:14 | XMS REPORT ---
Author Author AMBIKA BRAMBILA Organization [employer] Address Unknown Phone Unavailable Care Team Providers Care Professional Architect Name Role Phone AMBIKA BRAMBILA CP Unavailable Allergies No Known Allergies Problems Problem Type Condition ICD-9 Code Onset Dates Condition Status Problem Obesity, unspecified 278.00 Active Problem Pain in joint, ankle and foot 719.47 Active Problem Irritable bowel syndrome 564.1 Active Problem Allergic rhinitis due to pollen 477.0 Active Assessment Dental examination V72.2 Active Medications No Known Medications Procedures Procedure Coding System Code Date INTRAORL-PERIAPICAL 1 FILM 00154 CPT-4 D0220 November 20, 2014 INTRAORL-PERIAPICAL EA ADD FILM CPT-4 D0230 November 20, 2014 COMP ORAL EVALUATION - NEW/EST PT CPT-4 D0150 November 20, 2014 BITEWINGS - FOUR FILMS CPT-4 D0274 November 20, 2014 INTRAORL-PERIAPICAL EA ADD FILM CPT-4 D0230 November 20, 2014 PANORAMIC FILM SEE ALSO CODE 03018 CPT-4 D0330 November 20, 2014 Results No Known Results Summary Purpose [employer] Submission
--- OUTSIDE RECORDS SUMMARY | 2017-12-11 17:14 | XMS REPORT ---
Author Author ANTHONY MORRISON [employer] Address Unknown Phone Unavailable Care Team Providers Care Moving Consultant Name Role Phone ANTHONY MORRISON CP Unavailable Allergies No Known Allergies Problems [...] rhinitis J30.9 Active Problem Hyperlipidemia E78.5 Active Assessment Obesity, unspecified obesity severity, unspecified obesity type E66.9 Active Assessment Hypertension I10 Active Assessment Hyperlipidemia E78.5 Active Medications No Known Medications Procedures Procedure Coding System Code Date VENIPUNCT, ROUTINE* CPT-4 82862 November 19, 2015 LAB [facility] CPT-4 NOBLL November 19, 2015 Results Name Result Date Reference Range Unit Abnormality Flag ROUTINE VENIPUNCTURE Summary Purpose [employer] Submission
--- OUTSIDE RECORDS SUMMARY | 2017-12-11 17:15 | XMS REPORT ---
Author Author ANTHONY MORRISON [employer] Address Unknown Phone Unavailable Care Team Providers Care Engine Repairer Name Role Phone ANTHONY MORRISON CP Unavailable Allergies, Adverse Reactions, Alerts Substance Reaction Event Type Penicillin V Potassium Info Not Available Drug Allergy multiple enviromental allergies Info Not Available Non Drug Allergy Problems Problem Type Condition Code Onset Dates Condition Status Assessment Allergic rhinitis J30.9 Active Problem History of cocaine abuse Z87.898 Active Assessment Hyperlipidemia E78.5 Active Problem Allergic rhinitis J30.9 Active Problem Hyperlipidemia E78.5 Active Problem Cannabis dependence, uncomplicated F12.20 Active Problem Urge incontinence N39.41 Active Problem Hypertension I10 Active Problem Moderate persistent asthma, uncomplicated J45.40 Active Problem Irritable bowel syndrome K58.9 Active Assessment Depressive disorder, not elsewhere classified F32.9 Active Assessment Urge incontinence N39.41 Active Assessment Hypertension I10 Active Assessment Irritable bowel syndrome K58.9 Active Assessment Anxiety disorder, unspecified F41.9 Active Assessment Moderate persistent asthma, uncomplicated J45.40 Active Medications Medication Code System Code Instructions Start Date End Date Status Dosage Pravastatin Sodium [facility] [address]-02 40 MG Orally Once a day 1 tablet Cranberry [facility] [address]-52 250 MG Orally not defined ProAir HFA [facility] [address]-47 90 mcg/actuation Jul 20, 2013 inhale 2 puffs by inhalation route every 4 hours as needed Omeprazole [facility] [address]-53 20 mg Aug 31, 2013 take 1 capsule ( 20 mg) by oral route once daily before a meal Cetirizine HCl [facility] [address]-38 not defined Colace Adult NDC 0 not defined Nasacort Allergy 24HR [facility] [address] 55 MCG/ACT Nasally Once a day 1 puff in each nostril BuSpar NDC 0 30 MG Orally Twice a day 1 tablet Desipramine HCl [facility] [address]-22 100 MG Orally Once a day 2.5 tablet Dicyclomine HCl NDC [address]-33 20 MG Orally 3 times a day 1 tablet Montelukast Sodium [facility] [address]-40 10 MG Orally Once a day 1 tablet in the evening Oxybutynin Chloride [facility] [address]-39 5 MG Orally 3 times a day 1 tablet Symbicort [facility] [address]-62 80-4.5 mcg/actuation Jul 20, 2013 inhale 2 puffs by inhalation route 2 times per day in the morning and evening Procedures Procedure Coding System Code Date Office Visit, Est Pt., Level 4 CPT-4 07781 November 12, 2015 Vital Signs Date/Time: November 12, 2015 Temperature 97.4 F Weight 196.4 lbs Height 67 in BMI 30.76 Index Blood Pressure Diastolic 72 mmHg Blood Pressure Systolic 120 mmHg Cardiac Monitoring Heart Rate 88 bpm Results No Known Results Summary Purpose eClinicalWorks Submission
--- OUTSIDE RECORDS SUMMARY | 2017-12-11 17:15 | XMS REPORT ---
Author Author ANTHONY MORRISON [employer] Address Unknown Phone Unavailable Care Team Providers Care Brake Operator Sheet Metal Name Role Phone ANTHONY MORRISON CP Unavailable Allergies, Adverse Reactions, Alerts Substance Reaction Event Type Penicillin V Potassium Info Not Available Drug Allergy multiple enviromental allergies Info Not Available Non Drug Allergy Problems Problem Type Condition Code Onset Dates Condition Status Problem Hypertension I10 Active Problem Irritable bowel syndrome K58.9 Active Problem Urge incontinence N39.41 Active Problem Depressive disorder, not elsewhere classified F32.9 Active Problem Anxiety disorder, unspecified F41.9 Active Problem Gastroesophageal reflux disease, esophagitis presence not specified K21.9 Active Problem Hyperlipidemia E78.5 Active Problem Moderate persistent asthma, uncomplicated J45.40 Active Problem Cannabis dependence, uncomplicated F12.20 Active Problem Allergic rhinitis J30.9 Active Assessment Gastroesophageal reflux disease, esophagitis presence not specified K21.9 Active Assessment Acute intractable tension-type headache G44.201 Active Assessment Insurance coverage problems Z59.8 Active Assessment Urge incontinence N39.41 Active Assessment Exposure to STD Z20.2 Active Assessment Allergic rhinitis J30.9 Active Problem History of cocaine abuse Z87.898 Active Medications Medication Code System Code Instructions Start Date End Date Status Dosage Pantoprazole Sodium [facility] [address]-72 20 mg Orally Once a day May 19, 2016 1 tablet Oxybutynin Chloride [facility] [address]-29 5 MG Orally 3 times a day 1 tablet ProAir HFA [facility] [address]-70 90 mcg/actuation Jul 20, 2013 inhale 2 puffs by inhalation route every 4 hours as needed Pravastatin Sodium [facility] [address]-50 40 mg Orally Once a day May 19, 2016 1 tablet Cranberry [facility] [address]-58 250 MG Orally not defined Symbicort [facility] [address]-18 80-4.5 mcg/actuation Jul 20, 2013 inhale 2 puffs by inhalation route 2 times per day in the morning and evening BuSpar NDC 0 30 MG Orally Twice a day 1 tablet Desipramine HCl NDC [address]-51 100 MG Orally Once a day 2.5 tablet Colace Adult NDC 0 not defined Procedures Procedure Coding System Code Date ACUTE HEPATITIS PANEL CPT-4 64837 May 19, 2016 Office Visit, Est Pt., Level 3 CPT-4 70372 May 19, 2016 No Charge CPT-4 87333 May 19, 2016 VENIPUNCT, ROUTINE* CPT-4 00475 May 19, 2016 Vital Signs Date/Time: May 19, 2016 Cardiac Monitoring Heart Rate 78 bpm Weight 207.4 lbs Height 67 in BMI 32.48 Index Blood Pressure Diastolic 78 mmHg Blood Pressure Systolic 136 mmHg Results Name Result Date Reference Range Unit Abnormality Flag ROUTINE VENIPUNCTURE Summary Purpose eClinicalWorks Submission
--- OUTSIDE RECORDS SUMMARY | 2017-12-11 17:16 | XMS REPORT ---
Author Author AYLA GRAVES [employer] Address Unknown Phone Unavailable Care Team Providers Care Network Cabler Name Role Phone AYLA GRAVES CP Unavailable Allergies, Adverse Reactions, Alerts Substance Reaction Event Type Penicillin V Potassium Info Not Available Drug Allergy multiple enviromental allergies Info Not Available Non Drug Allergy Problems Problem Type Condition Code Onset Dates Condition Status Problem History of cocaine abuse Z87.898 Active Problem Urge incontinence N39.41 Active Problem Hypertension I10 Active Assessment Dental examination Z01.20 Active Problem Anxiety disorder, unspecified F41.9 Active Problem Cannabis dependence, uncomplicated F12.20 Active Problem Depressive disorder, not elsewhere classified F32.9 Active Problem Moderate persistent asthma, uncomplicated J45.40 Active Problem Irritable bowel syndrome K58.9 Active Problem Allergic rhinitis J30.9 Active Problem Hyperlipidemia E78.5 Active Medications Medication Code System Code Instructions Start Date End Date Status Dosage Colace Adult NDC 0 not defined Nasacort Allergy 24HR [facility] [address] 55 MCG/ACT Nasally Once a day 1 puff in each nostril Symbicort [facility] [address]-41 80-4.5 mcg/actuation Jul 20, 2013 inhale 2 puffs by inhalation route 2 times per day in the morning and evening BuSpar NDC 0 30 MG Orally Twice a day 1 tablet Cranberry [facility] [address]-80 250 MG Orally not defined Montelukast Sodium [facility] [address]-68 10 mg Orally Once a day 1 tablet in the evening Cetirizine HCl [facility] [address]-59 not defined ProAir HFA [facility] [address]-83 90 mcg/actuation Jul 20, 2013 inhale 2 puffs by inhalation route every 4 hours as needed Dicyclomine HCl [facility] [address]-82 20 MG Orally 3 times a day 1 tablet Oxybutynin Chloride [facility] [address]-85 5 MG Orally 3 times a day 1 tablet Desipramine HCl [facility] [address]-23 100 MG Orally Once a day 2.5 tablet Pravastatin Sodium [facility] [address]-22 40 MG Orally Once a day 1 tablet Omeprazole [facility] [address]-08 20 mg Aug 31, 2013 take 1 capsule ( 20 mg) by oral route once daily before a meal Procedures Procedure Coding System Code Date RESIN COMPOS - 3 SURFACES ANTERIOR CPT-4 D2332 February 11, 2016 Vital Signs Date/Time: February 11, 2016 Blood Pressure Diastolic 77 mmHg Blood Pressure Systolic 117 mmHg Height 67 in Results No Known Results Summary Purpose eClinicalWorks Submission
--- OUTSIDE RECORDS SUMMARY | 2017-12-11 17:16 | XMS REPORT ---
Author Author ANTHONY MORRISON [employer] Address Unknown Phone Unavailable Care Team Providers Care Regional Engineer Name Role Phone ANTHONY MORRISON CP Unavailable [...] Instructions Start Date End Date Status Dosage Cetirizine HCl [facility] [address]-64 10 mg Orally Once a day Feb 20, 2016 1 tablet Results No Known Results Summary Purpose [employer]ClinicalWorks Submission
--- OUTSIDE RECORDS SUMMARY | 2017-12-11 17:16 | XMS REPORT ---
Author Author TAMIKO ANTHONY [facility] Address [address] [place] [address] Care Team Providers Care Food And Beverage Associate Name Role Phone TAMIKO ANTHONY Unavailable PROBLEMS Type Condition ICD9-CM Code [id number] Code Onset Dates Condition Status SNOMED Code Problem Depressive disorder, not elsewhere classified F32.9 Active 79332927 Problem Cannabis dependence, uncomplicated F12.20 Active 08466580 Problem Anxiety disorder, unspecified F41.9 Active 623846765 Problem Obesity (BMI 30.0-34.9) E66.9 Active 644219009999298 Problem Pulmonary hypertension I27.2 Active 33664118 Problem Chronic tension-type headache, intractable G44.221 Active 773184751 Problem Gastroesophageal reflux disease, esophagitis presence not specified K21.9 Active 751078060 Problem Hyperlipidemia, unspecified hyperlipidemia type E78.5 Active 39563707 Problem Essential hypertension I10 Active 07073664 Problem History of cocaine abuse Z87.898 Active 826187070213499 Problem Hypertension I10 Active 83878538 Problem Urge incontinence N39.41 Active 244257227 Problem Hyperlipidemia E78.5 Active 14074946 Problem Moderate persistent asthma, uncomplicated J45.40 Active 701498166 Problem Irritable bowel syndrome K58.9 Active 97332981 Problem Allergic rhinitis J30.9 Active 45601596 ALLERGIES Substance Reaction Event Type Date Status Penicillin V Potassium Unknown Drug Allergy Jul, Active multiple enviromental allergies Unknown Non Drug Allergy Jul, Active SOCIAL HISTORY No smoking Hx information available PLAN OF CARE Activity Details Follow Up 3 Months Reason: VITAL SIGNS Height 67 in 2016-08-17 Weight 217 lbs 2016-08-17 Temperature 98.0 degrees Fahrenheit 2016-08-17 Heart Rate 72 bpm 2016-08-17 Respiratory Rate 18 2016-08-17 BMI 33.98 kg/m2 2016-08-17 Blood pressure systolic 132 mmHg 2016-08-17 Blood pressure diastolic 84 mmHg 2016-08-17 MEDICATIONS Medication Instructions Dosage Frequency Start Date End Date Duration Status Cranberry 250 MG Active Pravastatin Sodium 40 mg Orally Once a day 1 tablet 24h May, 135 days Active Permethrin 5 % Externally Once a day 1 application to affected area 24h Jul, 1 dose Active ProAir HFA 90 mcg/actuation inhale 2 puffs by inhalation route every 4 hours as needed Jul, Active Nasacort Allergy 24HR 55 MCG/ACT Nasally Once a day 1 puff in each nostril 24h Active Pantoprazole Sodium 20 mg Orally Once a day 1 tablet 24h May, 90 days Active Doxepin HCl 10 MG Orally Once a day 1 capsule at bedtime 24h Active Symbicort 80-4.5 mcg/actuation inhale 2 puffs by inhalation route 2 times per day in the morning and evening Jul, Active RESULTS No Results PROCEDURES Procedure Date Ordered Related Diagnosis Body Site Office Visit, Est Pt., Level 3 Aug 17, 2016 IMMUNIZATIONS No Known Immunizations
--- OUTSIDE RECORDS SUMMARY | 2017-12-11 17:16 | XMS REPORT ---
Author Author NISHI MONTANO Organization [employer] Address Unknown Phone Unavailable Care Team Providers Care Research Executive Name Role Phone NISHI MONTANO CP Unavailable Allergies No Known Allergies Problems Problem Type Condition Code Onset Dates Condition Status Problem Pain in joint, ankle and foot 719.47 Active Problem Irritable bowel syndrome 564.1 Active Problem Obesity, unspecified 278.00 Active Problem Anxiety disorder, unspecified F41.9 Active Problem Cannabis dependence, uncomplicated F12.20 Active Problem Depressive disorder, not elsewhere classified F32.9 Active Problem Urge incontinence 788.31 Active Problem Anxiety 300.00 Active Problem Hyperlipidemia 272.4 Active Problem Asthma 493.90 Active Assessment Cannabis dependence, uncomplicated F12.20 Active Assessment Anxiety disorder, unspecified F41.9 Active Assessment Depressive disorder, not elsewhere classified F32.9 Active Problem Allergic rhinitis due to pollen 477.0 Active Medications No Known Medications Procedures Procedure Coding System Code Date Psychotherapy, patient &/family, 30 minutes, established patient CPT-4 95201 November 07, 2015 Results No Known Results Summary Purpose [employer] Submission
--- OUTSIDE RECORDS SUMMARY | 2017-12-11 17:17 | XMS REPORT ---
Author Author KIT FERREIRA [facility] Address [address] [place] [address] Care Team Providers Care Dimension Specification Inspector Name Role Phone KIT FERREIRA Unavailable PROBLEMS Type Condition ICD9-CM Code [id number] Code Onset Dates Condition Status SNOMED Code Problem Depressive disorder, not elsewhere classified F32.9 Active 83368422 Problem Cannabis dependence, uncomplicated F12.20 Active 01391928 Problem Anxiety disorder, unspecified F41.9 Active 563060268 Problem Obesity (BMI 30.0-34.9) E66.9 Active 539646237894783 Problem Pulmonary hypertension I27.2 Active 16152088 Problem Chronic tension-type headache, intractable G44.221 Active 506293664 Problem Gastroesophageal reflux disease, esophagitis presence not specified K21.9 Active 540757501 Problem Hyperlipidemia, unspecified hyperlipidemia type E78.5 Active 09432868 Problem Essential hypertension I10 Active 78945411 Problem History of cocaine abuse Z87.898 Active 735608715652463 Problem Hypertension I10 Active 82773488 Problem Urge incontinence N39.41 Active 676601966 Problem Hyperlipidemia E78.5 Active 78429833 Problem Moderate persistent asthma, uncomplicated J45.40 Active 771252192 Problem Irritable bowel syndrome K58.9 Active 93364978 Problem Allergic rhinitis J30.9 Active 98676606 ALLERGIES Substance Reaction Event Type Date Status Penicillin V Potassium Unknown Drug Allergy Jul, Active multiple enviromental allergies Unknown Non Drug Allergy Jul, Active SOCIAL HISTORY No smoking Hx information available PLAN OF CARE Activity Details Follow Up 4 Weeks Reason: VITAL SIGNS Height 67 in 2016-07-28 Weight 213 lbs 2016-07-28 Heart Rate 80 bpm 2016-07-28 Oximetry 98 % 2016-07-28 BMI 33.36 kg/m2 2016-07-28 Blood pressure systolic 118 mmHg 2016-07-28 Blood pressure diastolic 80 mmHg 2016-07-28 MEDICATIONS Medication Instructions Dosage Frequency Start Date End Date Duration Status Pantoprazole Sodium 20 mg Orally Once a day 1 tablet 24h May, 90 days Active Cranberry 250 MG Active Nasacort Allergy 24HR 55 MCG/ACT Nasally Once a day 1 puff in each nostril 24h Active Pravastatin Sodium 40 mg Orally Once a day 1 tablet 24h May, 90 days Active Doxepin HCl 10 MG Orally Once a day 1 capsule at bedtime 24h Active ProAir HFA 90 mcg/actuation inhale 2 puffs by inhalation route every 4 hours as needed Jul, Active Symbicort 80-4.5 mcg/actuation inhale 2 puffs by inhalation route 2 times per day in the morning and evening Jul, Active RESULTS Name Result Date Reference Range Lexiscan Stress Nuclear Test 2016-08-10 Echo 2D 2016-08-06 PROCEDURES Procedure Date Ordered Related Diagnosis Body Site HOLTER MONITOR (OUTPATIENT) 2016-07-28 N/A MEASURE BLOOD OXYGEN LEVEL Jul 28, 2016 Office Visit, Est Pt., Level 5 Jul 28, 2016 IMMUNIZATIONS No Known Immunizations
[2017-12-11] MEDS ORDERED: meTOproloL SUCCINATE 50 MG (TOPROL XL) TAB PO ONE (20:15)
[2017-12-12] VITALS: BP 124/74
[2017-12-12 04:00] VITALS: BP 129/85
[2017-12-12 06:52] LABS: CHOLESTEROL 192 MG/DL (< 200); HDL CHOLESTEROL 35 MG/DL (40-60); TRIGLYCERIDES 133 MG/DL (<150); VLDL CHOLESTEROL 27 MG/DL (5-40)
[2017-12-12] MEDS ORDERED: PANTOPRAZOLE 20 MG TABLET (PROTONIX) PO SCH (07:00)
[2017-12-12] MEDS ORDERED: ASPIRIN E.C. 325 MG (ECOTRIN) TABLET PO SCH (09:00)
[2017-12-12] MEDS ORDERED: meTOproloL SUCCINATE 50 MG (TOPROL XL) TAB PO SCH (09:00)
[2017-12-12] MEDS ORDERED: OMEP40CA36 PO (09:03)
[2017-12-12] MEDS ORDERED: DICY20TA10 PO (09:09)
[2017-12-12] MEDS ORDERED: MAGN30TA3 PO (09:09)
[2017-12-12] MEDS ORDERED: VERA40TA2 PO (09:09)
[2017-12-12] MEDS ORDERED: BLAC200C3 PO (09:09)
[2017-12-12] MEDS ORDERED: CYAN250010 PO (09:09)
[2017-12-12] MEDS ORDERED: FOLI-88 PO (09:09)
[2017-12-12] MEDS ORDERED: OXYB5TAB9 PO (09:09)
[2017-12-12] MEDS ORDERED: ASPI-586 PO (09:09)
[2017-12-12] MEDS ORDERED: FLUT16SP22 NS (09:09)
[2017-12-12] MEDS ORDERED: MONT10TA24 PO (09:09)
[2017-12-12] MEDS ORDERED: METO-333 PO (09:09)
[2017-12-12] MEDS ORDERED: ASPIRIN 81 MG CHEW (CHILDREN'S ASA) PO SCH (09:30)
--- NOTE | 2017-12-12 11:00 | Consultation-Cardiology ---
HPI-Cardiology Cardiology Consultation: Date of Consultation 12/12/17 Time Seen by Provider: 11:15 Date of Admission 12/11/17 Attending Physician Esequiel Day MD Admitting Physician Nikolai Vences MD Consulting Physician FABIO MEDINA MD, MA, FACP, FACC, FSCAI, CCDS HPI: Chief Complaint: CC: Chest congestion and discomfort 52 yo woman admitted through ER yesterday with several days of a feeling chest congestion and intermittent cough that has been productive of small to mod amt of yellowish sputum. Along with the above, she has had a feeling of chest discomfort: a feeling of congestion, mild, continuous, w/o radiation, w/o aggravating or relieving factors (except that nitro in the ER may have helped "some'" according to her), present of several days, worse yesterday, better today, experienced previously with episodes of bronchitis (none in the recent past) Has chronic mod exertional shortness of breath Denies palp or syncope or leg swelling Review of Systems-Cardiology Review of Systems Constitutional: malaise, tiredness Eyes: No vision change Ears/Nose/Throat: No ear discharge, No nasal drainage, No recent hearing loss Respiratory: As described under HPI Cardiovascular: As described under HPI Gastrointestinal: No constipation, No diarrhea, No nausea, No vomiting Genitourinary: No dysuria, No hematuria Musculoskeletal: back pain (chronic, mild); No joint pain Skin: No rash, No ulcerations Psychiatric/Neurological: No focal weakness, No syncope Hematologic: No bleeding abnormalities GBV-Ecpcll-Lkdvou Hx Patient Social History Alcohol Use: Rarely Uses Recreational Drug Use: No Smoking Status: Never a Smoker Former smoker/When Quit: Jan 31, 2006 Type Used: Cigarettes Recent Foreign Travel: No Recent Infectious Disease Expo: No Physical Abuse Screen: No Sexual Abuse: No Immunizations Up To Date Tetanus Booster (TDap): Unknown Past Medical History PMH As described under Assessment. Family Medical History Family History: Diabetes mellitus 19 MOTHER Allergies and Home Medications Allergies Coded Allergies: Penicillins (Unverified Allergy, Unknown, 12/30/15) Home Medications Albuterol Sulfate 8.5 Gm Hfa.aer.ad, 2 PUFF INH Q4H PRN for SHORTNESS OF BREATH, (Reported) Aspirin 81 Mg Tablet.dr, 81 MG PO DAILY, (Reported) Black Cohosh Root 200 Mg Capsule, 200 MG PO BID, (Reported) Budesonide/Formoterol Fumarate 10.2 Gm Hfa.aer.ad, 2 PUFF IH BID, (Reported) LAST FILLED 03-30-16 Cranberry Fruit Concentrate 450 Mg Capsule, 450 MG PO DAILY, (Reported) Cyanocobalamin (Vitamin B-12) 2,500 Mcg Tablet, 2,500 MCG PO DAILY, (Reported) Dicyclomine HCl 20 Mg Tablet, 20 MG PO BID, (Reported) Doxepin HCl 10 Mg Capsule, 10-30 MG PO HS, (Reported) Fluticasone Propionate 16 Gm [place]land.susp, 2 SPRAYS NS BID, (Reported) Folic Acid/Multivit-Min/Lutein 1 Each Tab.chew, 1 EACH PO DAILY, (Reported) Magnesium 30 Mg Tablet, 30 MG PO DAILY, (Reported) Metoprolol Tartrate 25 Mg Tablet, 25 MG PO BID, (Reported) Montelukast Sodium 10 Mg Tablet, 10 MG PO HS, (Reported) Omeprazole 40 Mg Capsule.dr, 40 MG PO DAILY, (Reported) Oxybutynin Chloride 5 Mg Tablet, 5 MG PO BID, (Reported) Pravastatin Sodium 40 Mg Tablet, 40 MG PO HS, (Reported) Verapamil HCl 40 Mg Tablet, 20 MG PO DAILY, (Reported) Vilazodone Hydrochloride 20 Mg Tablet, 20 MG PO HS, (Reported) Patient Home Medication List Home Medication List Reviewed: Yes Physical Exam-Cardiology Physical Exam Vital Signs/I&O 12/12/17 12/12/17 12/12/17 12/12/17 01:00 04:00 07:00 08:40 Temp 98.7 99.4 Pulse 71 71 72 Resp 22 B/P (MAP) 129/85 (100) Pulse Ox 93 O2 Delivery Room Air Room Air 12/12/17 08:40 Pulse Ox 96 O2 Delivery Room Air 12/12/17 00:00 Intake Total 1100 ml Output Total 1 ml Balance 1099 ml Capillary Refill : Less Than 3 Seconds Constitutional: AAO x 3, well-developed, well-nourished, other (Obese) HEENT: PERRL, EOMI, hearing is well preserved; No xanthelasmas are seen Neck: carotid bruit, carotid pulses are 2 + bilaterally, with good upstrokes Respiratory: No accessory muscle use; other (fair to good bilat air entry; some rhonchi over large air way; no basal crackles) Cardiovascular: regular rate-rhythm, S1 and S2, systolic murmur (faint JOAN at card base) Gastrointestinal: No tender; soft; No guarding, No rebound; audible bowel sounds Extremities: No clubbing, No cyanosis, No significant edema Neurologic/Psychiatric: oriented x 3, grossly intact, power is 5/5 both on sides Data Review Labs Laboratory Tests 12/11/17 13:55: White Blood Count 9.0, Red Blood Count 4.98, Hemoglobin 14.4, Hematocrit 42, Mean Corpuscular Volume 85, Mean Corpuscular Hemoglobin 29, Mean Corpuscular Hemoglobin Concent 34, Red Cell Distribution Width 13.6, Platelet Count 279, Mean Platelet Volume 9.9, Neutrophils (%) (Auto) 64, Lymphocytes (%) (Auto) 24, Monocytes (%) (Auto) 9, Eosinophils (%) (Auto) 2, Basophils (%) (Auto) 1, Neutrophils # (Auto) 5.7, Lymphocytes # (Auto) 2.2, Monocytes # (Auto) 0.8, Eosinophils # (Auto) 0.2, Basophils # (Auto) 0.1, Prothrombin Time 12.5, INR Comment 0.9, Activated Partial Thromboplast Time 26, Sodium Level 140, Potassium Level 4.4, Chloride Level 110H, Carbon Dioxide Level 20L, Anion Gap 10 , Blood Urea Nitrogen 13, Creatinine 0.91, Estimat Glomerular Filtration Rate > 60, BUN/Creatinine Ratio 14, Glucose Level 100, Calcium Level 9.3, Magnesium Level 3.4H, Total Bilirubin 0.4, Aspartate Amino Transf (AST/SGOT) 43H, Alanine Aminotransferase (ALT/SGPT) 24, Alkaline Phosphatase 96, Myoglobin 48.3, Troponin I < 0.30, Total Protein 8.5H, Albumin 4.3 12/11/17 23:55: Troponin I < 0.30 12/12/17 05:35: Triglycerides Level 133, Cholesterol Level 192, LDL Cholesterol Direct 143H, VLDL Cholesterol 27, HDL Cholesterol 35L Laboratory Tests 12/11/17 13:55 A/P-Cardiology Assessment/Admission Diagnosis Chest discomfort, nonspecific, w/o any evidence of ACS Probable acute bronchitis, managed by the [facility] MPI of 08/10/16 did not show any ischemia or infarction; LVEF 72 % Chronic multifactorial shortness of breath (see below) Bronchial asthma with prob acute exacerbation, being managed by the [facility] Obesity (BMI approx 37) with obesity-hypoventilation syndrome Probable sleep apnea Moderate pulmonary hypertension, probably related to obesity-hypoventilation and sleep apnea Echo of 08/06/16: PASP 50 mmHg, mild caba dysfunction of LV, LVEF 65-70% H/o cocaine and marijuana use; cessation has been advised H/o Hypertension H/o Hyperlipidemia H/o IBS H/o GERD Discussion and Recomendations * We reviewed and discussed risk factor mod * Management of asthma/bronchitis is with the [facility] * Outpt f/u is advised * We have advised sleep studies * We have advised avoidance of street drug use * We have advised return to ER for recurrent symptoms or new symptoms Clinical Quality Measures DVT/VTE Risk/Contraindication: Risk Factor Score Per Nursin RFS Level Per Nursing on Admit: 2=Moderate FABIO MEDINA MD FACP FACC CCDS December 12, 2017 11:00
--- NOTE | 2017-12-12 13:16 | Short Stay Summary-Hospitalist ---
History of Present Illness HPI/Chief Complaint The patient is a 52-year-old white female. She presented to the emergency room last evening with complaints of cough and wheezing and shortness of breath plus chest pain. THe ER workup could not clearly rule out myocardial causes. She has had bronchitis for many years associated with wheezing at times. She states she takes to oral medicines as prophylaxis. She has previously had albuterol to be used in a nebulizer. She is currently out. She has been seen by FABIO Land and cleared for discharge. Date Seen 12/12/17 Time Seen by Provider: 13:11 Attending Physician Corby Iverson MD PCP Nikolai Vences MD Referring Physician Date of Admission December 11, 2017 at 16:40 Home Medications & Allergies Home Medications Reviewed patient Home Medication Reconciliation performed by pharmacy medication reconciliations physics technician and/or nursing. Patients Allergies have been reviewed. Allergies Allergies Coded Allergies Penicillins (Unverified Allergy, Unknown, 12/30/15) Past Bhuscdw-Caiusz-Jfvytv Hx Past Med/Social Hx: Reviewed Nursing Past Med/Soc Hx Patient Social History Alcohol Use: Rarely Uses Number of Drinks Today: DD Recreational Drug Use: No Smoking Status: Never a Smoker Former Smoker, Quit: Jul 06, 2000 Type Used: Cigarettes Physical Abuse Screen: No Sexual Abuse: No Recent Foreign Travel: No Contact w/other who traveled: No Recent Hopitalizations: No Recent Infectious Disease Expo: No Immunizations Up To Date Tetanus Booster (TDap): Unknown Seasonal Allergies Seasonal Allergies: Yes Past Medical History Surgeries: Adenoidectomy, Section, Ear Surgery, Orthopedic, Tonsillectomy, Tubal Ligation Currently Using CPAP: No Currently Using BIPAP: No Cardiac: High Cholesterol, Hypertension 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: No Sexually Transmitted Disease: No HIV/AIDS: No Female 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 Disorders: Denies Tubal Ligation Genitourinary: UTI-Chronic Gastrointestinal: Gastroesophageal Reflux Musculoskeletal: Arthritis Endocrine: Hypothyroidsim Cancer: Cervical Psychosocial: Sleep Difficulties, Anxiety, Bipolar, Depression History of Blood Disorders: No Family History Diabetes mellitus 19 MOTHER Diabetes, Hypertension Review of Systems Constitutional: see HPI EENTM: no symptoms reported Respiratory: cough, dyspnea on exertion, wheezing Cardiovascular: chest pain Gastrointestinal: no symptoms reported Genitourinary: no symptoms reported Musculoskeletal: no symptoms reported Skin: no symptoms reported Psychiatric/Neurological: No Symptoms Reported Physical Exam Physical Exam Vital Signs Vital Signs - First Documented 12/11/17 12/11/17 13:57 15:44 Temp 98.1 Pulse 89 Resp 14 B/P (MAP) 125/88 (100) Pulse Ox 97 O2 Delivery Room Air Capillary Refill : Less Than 3 Seconds General Appearance: No Apparent Distress HEENT: Normal ENT Inspection Neck: Full Range of Motion, Normal Inspection, Non Tender, Supple, Carotid Bruit Respiratory: Chest Non Tender, Lungs Clear, Normal Breath Sounds, No Accessory Muscle Use, No Respiratory Distress Cardiovascular: Regular Rate, Rhythm, No Edema, No Gallop, No JVD, No Murmur, Normal Peripheral Pulses Gastrointestinal: Normal Bowel Sounds, No Organomegaly, No Pulsatile Mass, Non Tender, Soft Back: Normal Inspection, No CVA Tenderness, No Vertebral Tenderness Extremity: Normal Capillary Refill Neurologic/Psychiatric: Alert, Oriented x3, No Motor/Sensory Deficits, Normal Mood/Affect Skin: Normal Color, Warm/Dry Lymphatic: No Adenopathy Results Results/Procedures Labs Laboratory Tests 12/11/17 13:55 Patient resulted labs reviewed. Short Stay Diagnosis Discharge Diagnosis-Short Stay Admission Diagnosis 1.chest pain 2.bronchospasm Final Discharge Diagnosis Chest pain without evidence of myocardial origin. 2.acute asthma Conclusion Plan Discharge. 2.arrange a new prescription of albuterol for nebulizer. Clinical Quality Measures DVT/VTE Risk/Contraindication: Risk Factor Score Per Nursin RFS Level Per Nursing on Admit: 2=Moderate CORBY IVERSON MD December 12, 2017 13:16
[2017-12-12] MEDS ORDERED: ALBU2.5V4 IH (13:24)
--- NOTE | 2017-12-12 13:25 | Discharge Instructions ---
Discharge Instructions Discharge Medications New, Converted or Re-Newed RX: Transmitted to Pharmacy Patient Instructions Patient Instructions: Medications as listed on the discharge sequence. Albuterol has been transmitted to your pharmacy. He may use this 4-6 times daily as necessary with your nebulizer. Resume activities as tolerated. Activity & Diet Discharge Diet: No Restrictions Activity as Tolerated: Yes CORBY IVERSON MD December 12, 2017 13:25
== END 2017-12-12 13:24 | disposition home or self-care (01) ==
LOC: EDUNIT# 13:20 → ER 13:24 → UNDOADMOB 16:40 → ICU 16:40 → UNDODISOB 12-12 13:40
PROVIDERS: ADMIT Internal Medicine; ATTEND Internal Medicine
DX: R07.89 Other chest pain (principal); J45.901 Unspecified asthma with (acute) exacerbation; I10 Essential (primary) hypertension; E78.5 Hyperlipidemia, unspecified; E03.9 Hypothyroidism, unspecified; K21.9 Gastro-esophageal reflux disease without esophagitis; E66.2 Morbid (severe) obesity with alveolar hypoventilation; Z68.37 Body mass index [BMI] 37.0-37.9, adult; Z79.899 Other long term (current) drug therapy; Z87.891 Personal history of nicotine dependence
CPT/HCPCS: 36415; 71046; 80053; 80061; 83735; 83874; 84484; 85025; 85610; 85730; 93005; 93041; 94640; 96360; 96361

== ENCOUNTER → 2018-08-17 | Outpatient (CLI) | payer MEDICAID ==
[~2018-08-17] MED LIST changes: +ALBU2.5V4 IH; +ASPI-586 PO; +BLAC200C3 PO; +CYAN250010 PO; +FLUT16SP22 NS; +FOLI-88 PO; +MAGN30TA3 PO; +METO-333 PO; +MONT10TA24 PO; +OMEP40CA36 PO; +VERA40TA2 PO
== END ==
LOC: CARD 09:53
PROVIDERS: ATTEND Internal Medicine Cardiovascular Disease
DX: I27.21 Secondary pulmonary arterial hypertension (principal); I10 Essential (primary) hypertension; R06.02 Shortness of breath
CPT/HCPCS: 93306

== ENCOUNTER → 2018-10-04 | Outpatient (CLI) | payer MEDICAID ==
[~2018-10-04] MED LIST changes: +BARIUM SUSPENSION 105% (LIQUID POLIBAR PLUS) 240 ML/DOSE PO ONE; +BARIUM SUSPENSION 60% (LIQUID EZ PAQUE) 240 ML DOSE PO ONE
--- NOTE | 2018-10-04 12:09 | Diagnostic Imaging Report ---
INDICATION: Dysphagia. TECHNIQUE: Patient ingested effervescent crystals as well as thin and thick barium and imaging of the esophagus was performed. Total of 1 minute 25 seconds of fluoroscopy was utilized. FINDINGS: Preliminary radiograph of the chest is unremarkable. The lateral view does show prominence of the cricopharyngeus muscle, which can be seen with cricopharyngeus dysfunction. Esophagus has a smooth contour. No mass or stricture is seen. No gastroesophageal reflux or hiatal hernia is identified. IMPRESSION: Mildly prominent cricopharyngeus bar. The study is otherwise unremarkable. Dictated by: Dictated on workstation # [id number]
== END ==
LOC: RAD 08:38
PROVIDERS: ATTEND Otolaryngology Otolaryngology/Facial Plastic Surgery
DX: J39.2 Other diseases of pharynx (principal); R13.10 Dysphagia, unspecified
CPT/HCPCS: 74220

== ENCOUNTER 2018-10-12 06:33 | Outpatient (CLI) | payer MEDICAID ==
[~2018-10-12] VITALS: Ht 170.2 cm; Wt 111.6 kg
[~2018-10-12 06:33] MED LIST changes: -BARIUM SUSPENSION 105% (LIQUID POLIBAR PLUS) 240 ML/DOSE PO ONE; -BARIUM SUSPENSION 60% (LIQUID EZ PAQUE) 240 ML DOSE PO ONE
[2018-10-12] MEDS ORDERED: LISI10TA2 PO (10:21)
[2018-10-12] MEDS ORDERED: METO100T12 PO (10:21)
[2018-10-12] MEDS ORDERED: LEVO50TA6 PO (10:21)
[2018-10-12] MEDS ORDERED: CETI10TA17 PO (10:21)
== END 2018-10-12 10:27 | disposition home or self-care (01) ==
LOC: PREOP 06:33
PROVIDERS: ATTEND Surgery
DX: Z01.818 Encounter for other preprocedural examination (principal)

== ENCOUNTER 2018-10-13 12:00 | Day surgery (SDC) | payer MEDICAID ==
[~2018-10-13] VITALS: Ht 170.2 cm; Wt 111.6 kg
[~2018-10-13 12:00] MED LIST changes: +CETI10TA17 PO; +LEVO50TA6 PO; +LISI10TA2 PO; +METO100T12 PO
[2018-10-13] MEDS ORDERED: NS IV 500 ML 500 ML ONE (12:12)
[2018-10-13] MEDS ORDERED: NS IV 500 ML 500 ML IV PRN (12:22)
[2018-10-13 12:28] VITALS: BP 129/75
[2018-10-13] MEDS ORDERED: MIDAZOLAM 2 MG/2 ML (VERSED) VIAL IVP ONE (12:30)
[2018-10-13] MEDS ORDERED: fentaNYL INJECTION 100 MCG/2 ML AMP IVP ONE (12:30)
[2018-10-13] MEDS ORDERED: HURRICAINE EXT TUBE (BENZOCAINE) XX PRN (12:30)
[2018-10-13] MEDS ORDERED: LIDOCAINE JELLY 2% 6 ML SYRINGE MM PRN (12:30)
--- NOTE | 2018-10-13 12:54 | Conscious Sedation/ASA ---
Conscious Sedation Pre-Proced Time 12:30 ASA Score 2 For ASA 3 and 4: Consider anesthesia and medical clearance. Also, for patients with a history of failed moderate sedation consider anesthesia. Airway Lungs Heart ASA score ASA 1: a normal healthy patient ASA 2: a patient with a mild systemic disease (mid diabetes, controlled hypertension, obesity ASA 3: a patient with a severe systemic disease that limits activity (angina , COPD, prior Myocardial infarction) ASA 4: a patient with an incapacitating disease that is a constant threat to life (CHF, renal failure) ASA 5: a moribund patient not expected to survive 24 hrs. (ruptured aneurysm) ASA 6: a declared brain- patient whose organs are being harvested. For emergent operations, add the letter E after the classification Mallampati Classification Grade 3 Sedation Plan Analgesia, Amnesia, Plan communicated to team members, Discussed options with patient/fam, Discussed risks with patient/fam The patient is an appropriate candidate to undergo the planned procedure, sedation, and anesthesia. The patient immediately re-assessed prior to indication. RICHARD LOWE MD Oct 13, 2018 12:54
--- NOTE | 2018-10-13 12:55 | Progress Note-Pre Operative ---
Pre-Operative Progress Note H&P Reviewed The H&P was reviewed, patient examined and no changes noted. Date Seen by Provider: Oct 13, 2018 Time Seen by Provider: 12:30 Date H&P Reviewed: Oct 13, 2018 Time H&P Reviewed: :30 Pre-Operative Diagnosis: dysphagia RICHARD LOWE MD Oct 13, 2018 12:55
--- NOTE | 2018-10-13 12:57 | Discharge Inst-Surgical ---
D/C Lap Instructions-CHRISSY Follow Up Appt in 6 weeks Activity as tolerated High Fiber Diet 25g or more per day Avoid Alcohol, Caffeine, Spicy [place] and Acid foods. Drink 64 fluid oz or more of fluids per day. Symptoms to Report: Fever over 101 degree F, Nausea/Vomiting If any problems/questions: Contact your physician or go to Emergency Room RICHARD LOWE MD Oct 13, 2018 12:57
[2018-10-13] MEDS ORDERED: ACETAMINOPHEN 325 MG TABLET PO PRN (13:00)
[2018-10-13] MEDS ORDERED: ONDANSETRON 4 MG/2 ML (SDV) Z0FRAN IV PRN (13:00)
[2018-10-13] MEDS ORDERED: HYDROcodone/APAP 5 MG/325 MG (LORTAB) TAB PO PRN (13:00)
[2018-10-13] MEDS ORDERED: morphine INJ 10 MG/ML 1ML (SYR OR VIAL) IV PRN (13:00)
[2018-10-13] MEDS ORDERED: MIDAZOLAM 2 MG/2 ML (VERSED) VIAL ONE ×4 (13:36→13:37)
[2018-10-13] MEDS ORDERED: LIDOCAINE JELLY 2% 6 ML SYRINGE ONE (13:37)
[2018-10-13] MEDS ORDERED: fentaNYL INJECTION 100 MCG/2 ML AMP ONE (13:37)
[2018-10-13] MEDS ORDERED: HURRICAINE EXT TUBE (BENZOCAINE) ONE (13:38)
[2018-10-13 14:30] VITALS: BP 135/77
--- NOTE | 2018-10-13 14:35 | Progress Note-Post Operative ---
Post-Operative Progess Note Surgeon (s)/Pulp Refiner Operator (s) Surgeon RICHARD LOWE MD Pulp Refiner Operator: none Pre-Operative Diagnosis dysphagia Post-Operative Diagnosis reflux esophagitis(stage 2), mild distal esphageal stricture, moderate HH(3cm), mild gastritis. Procedure & Operative Findings Date of Procedure 10/13/18 Procedure Performed/Findings EGD with bx and dilatation. Anesthesia Type CS Estimated Blood Loss Estimated blood loss (mL): minimal Specimens/Packing Specimens Removed ge jxn, antrum RICHARD LOWE MD Oct 13, 2018 14:35
[2018-10-13 15:00] VITALS: BP 137/68
[2018-10-13 15:25] VITALS: BP 137/68
--- NOTE | 2018-10-13 23:07 | OPERATIVE REPORT ---
DATE OF SERVICE: 10/13/2018 ATTENDING PRIMARY CARE PHYSICIAN: Dr. Vences. PREOPERATIVE DIAGNOSES: Gastroesophageal reflux disease and dysphagia. POSTOPERATIVE DIAGNOSES: Reflux esophagitis stage II with a mild distal esophageal stricture, moderate size hiatal hernia approximately 3 cm in size and mild to moderate gastritis. PROCEDURE: EGD with biopsy and balloon dilatation. SURGEON: Richard Lowe MD ANESTHESIA: Conscious sedation. ESTIMATED BLOOD LOSS: Minimal. FINDINGS: As above in the postoperative diagnoses. DISPOSITION: The patient tolerated the procedure well. INDICATIONS: The patient is a 53-year-old female known to us. We had initially seen in 2011 for dysphagia as well as gastroesophageal reflux disease. EGD did show small superficial pyloric erosions as well as a moderate size hiatal hernia and a reflux esophagitis stage II. Biopsies were negative for H. pylori as well as negative for Weir esophagus. Since that time, she has had progressive dysphagia and gastroesophageal reflux disease. She states that she has developed dysphagia for us lean meats as well as raw vegetables and dry breads. She is currently on omeprazole 20 mg daily. She is also previous smoker; however, she does drink significant amounts of caffeine daily. DESCRIPTION OF PROCEDURE: The patient was brought to the endoscopy suite, laid in left lateral decubitus position. After adequate IV pain and sedating medications and conscious sedation anesthesia, the mouthpiece was applied. The endoscope was placed in the mouth, visualizing the pharynx and hypopharyngeal region. Vocal cords, epiglottis and vallecula identified and appeared to be normal. Endoscope was then gently intubated at the esophageal opening and esophagus insufflated. The endoscope was then advanced to the first, second and third portion of the esophagus at the level of the GE junction, a reflux esophagitis stage II identified. The GE junction was also intrathoracic consistent with a hiatal hernia. There was also a mild distal esophageal stricture identified and Schatzki's ring. A biopsy was taken of the GE junction with visualization of good hemostasis. The endoscope was then placed in the mouth, was then advanced into the stomach and endoscope retroflexed, visualizing a moderate sized hiatal hernia approximately 3 cm in size. Schatzki's ring was also identified through this view. There was a mild to moderate gastritis. No formal ulcerations, polyps or any neoplasms. A biopsy was taken with forceps with visualization of good hemostasis. Endoscope was then advanced to the pylorus and the first and second portion of the duodenum, which appeared normal with no distal obstructions. We then proceeded with a balloon dilatation of the distal esophageal stricture. The balloon was placed in the stomach and pulled back to the area of stricture. The balloon was first insufflated, two atmospheres of pressure with no resistance. We then proceeded to 4 atmospheres of pressure with a mild resistance. We then proceeded to 6 atmospheres of pressure or 20 mm in luminal diameter with mild to moderate resistance and left this in place for approximately 60 seconds. The balloon was then desufflated and removed with visualization of good hemostasis as well as no mucosal tears. The endoscope was then slowly withdrawn while taking a second look and suctioning residual air with no additional findings. The patient tolerated the procedure well. We will recommend the necessary lifestyle and diet accommodation including small and more frequent meals, avoidance of eating at night as well as head elevation while lying supine. She also needs to avoid caffeinated beverages, spicy, greasy and acidic foods. She does have a stricture; however, this may be secondary to a hiatal hernia and atypical reflux. We did proceed with a balloon dilatation; however, the root of this dysphagia may be due to the hiatal hernia. If she does have a recurrence of symptoms, we may proceed with an esophageal manometry study to see if she has any esophageal dysmotility disorders. If not, she may be a candidate for a hiatal hernia repair. However, we would want to maximize her medical status as well as recommend weight loss before proceeding with this type of surgery. Job ID: [id number] DocumentID: [id number] Dictated Date: 10/13/2018 14:19:41 [employer]eration Plant [employer] Insulator Date: 10/13/2018 23:07:16 Dictated By: RICHARD LOWE MD
== END 2018-10-13 15:15 | disposition home or self-care (01) ==
LOC: ENDO 12:00
PROVIDERS: ATTEND Surgery
DX: K21.0 Gastro-esophageal reflux disease with esophagitis (principal); K22.2 Esophageal obstruction; K44.9 Diaphragmatic hernia without obstruction or gangrene; K29.70 Gastritis, unspecified, without bleeding; F41.9 Anxiety disorder, unspecified; F32.9 Major depressive disorder, single episode, unspecified; N39.3 Stress incontinence (female) (male); Z87.891 Personal history of nicotine dependence; Z79.899 Other long term (current) drug therapy

== ENCOUNTER 2018-11-02 20:03 | Outpatient (CLI) | payer MEDICAID, OTHER | END 2018-11-03 06:35 | disposition home or self-care (01) | LOC: RAD 20:03 | PROVIDERS: ATTEND Nurse Practitioner | DX: G47.33 Obstructive sleep apnea (adult) (pediatric) (principal) | CPT/HCPCS: 95811 ==

== ENCOUNTER 2019-03-07 20:48 | Outpatient (CLI) | payer MEDICAID | END 2019-03-08 06:45 | disposition home or self-care (01) | LOC: SLEEP 20:48 | PROVIDERS: ATTEND Nurse Practitioner | DX: G47.33 Obstructive sleep apnea (adult) (pediatric) (principal); G47.10 Hypersomnia, unspecified; R09.02 Hypoxemia | CPT/HCPCS: 95811 ==

== ENCOUNTER 2019-04-26 08:44 | Emergency (ER) | payer MEDICAID ==
[~2019-04-26] VITALS: Ht 170.1 cm; Wt 95.0 kg
[2019-04-26] MEDS ORDERED: ASPIRIN 81 MG CHEW (CHILDREN'S ASA) PO ONE (09:15)
--- NOTE | 2019-04-26 09:23 | ED Respiratory ---
General Chief Complaint: Respiratory Problems Stated Complaint: SOA Nursing Triage Note: PT AMB TO RM 10 WITH COMPLAINT OF SOA SINCE TUESDAY. STATES SHE VAPED TUESDAY NIGHT AND STARTED FEELING SOA ON TUESDAY. STATES HAS TRIED SELF MEDICATING AT HOME, BUT IS NOT IMPROVING. Source: patient Exam Limitations: no limitations History of Present Illness Date Seen by Provider: Apr 26, 2019 Time Seen by Provider: 09:03 Initial Comments Patient presents to ER by private conveyance from home with chief complaint of shortness of breath, cough sometimes productive of mucus starting about Tuesday but especially bad on Tuesday, 4 days ago. He does not have any better since then. She was having malaise sweats chills but no fever. She's had a sore throat. She has a history of asthma and uses a CPAP and oxygen sleep at night. It was set up by Dr. Chandler. She was known to Dr. Shah for primary care. She's been using her albuterol twice a day. She does not feel wheezy. No chest pain and no history of coronary disease but she has high blood pressure. She is not diabetic but she does have hyperlipidemia. [place]. Allergies and Home Medications Allergies Coded Allergies: Penicillins (Unverified Allergy, Unknown, 10/12/18) Home Medications Albuterol Sulfate 8.5 Gm Hfa.aer.ad, 2 PUFF INH Q4H PRN for SHORTNESS OF BREATH, (Reported) Albuterol Sulfate 2.5 Mg/3 Ml Vial.neb, 2.5 MG IH 4 times a day PRN for wheezing Prescribed by: CORBY IVERSON on 12/12/17 1324 Aspirin 81 Mg Tablet.dr, 81 MG PO DAILY, (Reported) Black Cohosh Root 200 Mg Capsule, 200 MG PO BID, (Reported) Budesonide/Formoterol Fumarate 10.2 Gm Hfa.aer.ad, 2 PUFF IH BID, (Reported) LAST FILLED 03-30-16 Cetirizine HCl 10 Mg Tablet, 10 MG PO DAILY, (Reported) Cranberry Fruit Concentrate 450 Mg Capsule, 450 MG PO DAILY, (Reported) Cyanocobalamin (Vitamin B-12) 2,500 Mcg Tablet, 2,500 MCG PO DAILY, (Reported) Dicyclomine HCl 20 Mg Tablet, 20 MG PO QID, (Reported) Doxepin HCl 10 Mg Capsule, 10-30 MG PO HS, (Reported) Fluticasone Propionate 16 Gm [place]mita.susp, 2 SPRAYS NS BID, (Reported) Folic Acid/Multivit-Min/Lutein 1 Each Tab.chew, 1 EACH PO DAILY, (Reported) Levothyroxine Sodium 50 Mcg Tablet, 50 MCG PO DAILY, (Reported) Lisinopril 10 Mg Tablet, 10 MG PO DAILY, (Reported) Magnesium 30 Mg Tablet, 30 MG PO DAILY, (Reported) Metoprolol Tartrate 100 Mg Tablet, 100 MG PO BID, (Reported) Montelukast Sodium 10 Mg Tablet, 10 MG PO HS, (Reported) Omeprazole 40 Mg Capsule.dr, 40 MG PO DAILY, (Reported) Oxybutynin Chloride 5 Mg Tablet, 5 MG PO BID, (Reported) Vilazodone Hydrochloride 20 Mg Tablet, 20 MG PO HS, (Reported) Patient Home Medication List Home Medication List Reviewed: Yes Review of Systems Review of Systems Constitutional: chills; No fever; malaise EENTM: No ear discharge, No ear pain Respiratory: cough, phlegm, short of breath; No wheezing Cardiovascular: No chest pain, No edema, No Hx of Intervention, No palpitations, No vascular heart diseas Gastrointestinal: No abdominal pain, No constipation, No diarrhea Genitourinary: No discharge, No dysuria Musculoskeletal: No back pain, No joint pain Past Tgipzrk-Kyixyl-Axnpis Hx Patient Social History Alcohol Use: Denies Use Recreational Drug Use: Yes Smoking Status: Current Everyday Smoker Type Used: Electronic/Vapor Former Smoker, Quit: Jul 06, 2000 2nd Hand Smoke Exposure: Yes Recent Foreign Travel: No Contact w/Someone Who Travel: No Recent Infectious Disease Expo: No Recent Hopitalizations: No Physical Abuse: No Sexual Abuse: No Mistreated: No Fear: No Immunizations Up To Date Tetanus Booster (TDap): Unknown Seasonal Allergies Seasonal Allergies: Yes Past Medical History Surgeries: Yes (LASER CONE, CS X4, ANKLE FX ) Section, Ear Surgery, Orthopedic, Tonsillectomy, Tubal Ligation Respiratory: Yes (11/02/18-GETTING SLEEP TEST) Asthma, Chronic Bronchitis Currently Using CPAP: No Currently Using BIPAP: No Cardiac: Yes High Cholesterol, Hypertension Neurological: No 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 Disorders: No Female 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 Disorders: 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 Sexually Transmitted Disease: No HIV/AIDS: No Genitourinary: No UTI-Chronic Gastrointestinal: Yes (DYSPHAGIA) Gastroesophageal Reflux, Chronic Constipation, Chronic Diarrhea, Irritable Bowel Musculoskeletal: Yes (KNEES) Arthritis Endocrine: Yes Hypothyroidsim HEENT: No Loss of Vision: Denies Hearing Impairment: Denies Cancer: Yes Cervical What Type of Treatment Did You: Surgical Intervention Psychosocial: Yes Sleep Difficulties, Anxiety, Bipolar, Depression Integumentary: No Blood Disorders: No Adverse Reaction/Blood Tranf: No Family Medical History Diabetes mellitus 19 MOTHER Diabetes, Hypertension Physical Exam Vital Signs - First Documented 04/26/19 08:47 Temp 37.1 Pulse 76 Resp 12 B/P (MAP) 110/73 (85) Pulse Ox 96 O2 Delivery Room Air Capillary Refill : Less Than 3 Seconds Height: 5'7.00" Weight: 246lbs. 0.0oz. 111.116239uq; 32.00 BMI Method:Stated General Appearance: WD/WN, no apparent distress Eyes: Bilateral Eye Normal Inspection, Bilateral Eye PERRL, Bilateral Eye EOMI HEENT: PERRL/EOMI, normal ENT inspection, TMs normal (bilateral TMs with otosclerosis mild), pharynx normal (mucosa is moist nonerythematous without exudate) Neck: non-tender, normal inspection Respiratory: lungs clear, no respiratory distress, no accessory muscle use, decreased breath sounds Cardiovascular: normal peripheral pulses, regular rate, rhythm, no edema Neurologic/Psychiatric: alert, normal mood/affect, oriented x 3 Skin: normal color, warm/dry Progress/Results/Core Measures Suspected Sepsis Recent Fever Within 48 Hours: No Infection Criteria Present: None New/Unexplained Altered Menta: No Sepsis Screen: No Definite Risk SIRS Temperature: Pulse: 76 Respiratory Rate: 12 Laboratory Tests 04/26/19 09:40: White Blood Count 9.5 Blood Pressure 110 /73 Mean: 85 Laboratory Tests 04/26/19 09:40: Creatinine 0.78, Platelet Count 306, Total Bilirubin 0.7 Results/Orders Lab Results Laboratory Tests Test 04/26/19 09:21 04/26/19 09:40 Range/Units Group A Streptococcus Screen NEGATIVE NEGATIVE White Blood Count 9.5 4.3-11.0 10^3/uL Red Blood Count 4.86 4.35-5.85 10^6/uL Hemoglobin 13.3 11.5-16.0 G/DL Hematocrit 41 35-52 % Mean Corpuscular Volume 85 80-99 FL Mean Corpuscular Hemoglobin 27 25-34 PG Mean Corpuscular Hemoglobin Concent 32 32-36 G/DL Red Cell Distribution Width 13.7 10.0-14.5 % Platelet Count 306 130-400 10^3/uL Mean Platelet Volume 9.7 7.4-10.4 FL Neutrophils (%) (Auto) 71 42-75 % Lymphocytes (%) (Auto) 20 12-44 % Monocytes (%) (Auto) 7 0-12 % Eosinophils (%) (Auto) 2 0-10 % Basophils (%) (Auto) 1 0-10 % Neutrophils # (Auto) 6.7 1.8-7.8 X 10^3 Lymphocytes # (Auto) 1.9 1.0-4.0 X 10^3 Monocytes # (Auto) 0.7 0.0-1.0 X 10^3 Eosinophils # (Auto) 0.2 0.0-0.3 10^3/uL Basophils # (Auto) 0.1 0.0-0.1 10^3/uL Sodium Level 139 135-145 MMOL/L Potassium Level 4.6 3.6-5.0 MMOL/L Chloride Level 103 98-107 MMOL/L Carbon Dioxide Level 28 21-32 MMOL/L Anion Gap 8 5-14 MMOL/L Blood Urea Nitrogen 16 7-18 MG/DL Creatinine 0.78 0.60-1.30 MG/DL Estimat Glomerular Filtration Rate > 60 BUN/Creatinine Ratio 21 Glucose Level 95 70-105 MG/DL Calcium Level 9.7 8.5-10.1 MG/DL Corrected Calcium 9.7 8.5-10.1 MG/DL Total Bilirubin 0.7 0.1-1.0 MG/DL Aspartate Amino Transf (AST/SGOT) 16 5-34 U/L Alanine Aminotransferase (ALT/SGPT) 16 0-55 U/L Alkaline Phosphatase 106 40-136 U/L Troponin I < 0.028 <0.028 NG/ML B-Type Natriuretic Peptide < 10.0 <100.0 PG/ML Total Protein 7.4 6.4-8.2 GM/DL Albumin 4.0 3.2-4.5 GM/DL Micro Results Microbiology 04/26/19 Influenza Types A,B Antigen (TATIANA) - Final, Complete My Orders Orders - FELICIA BOSWELL Continuous Ekg Monitoring (04/26/19 08:50) Ekg Tracing (04/26/19 08:50) Cbc With Automated Diff (04/26/19 09:13) Comprehensive Metabolic Panel (04/26/19 09:13) Troponin I (04/26/19 09:13) Aspirin Chewable Tablet (Baby Aspirin Ch (04/26/19 09:15) BNP (04/26/19 09:13) Influenza A And B Antigens (04/26/19 09:13) Rapid Strep A Screen (04/26/19 09:13) Chest Pa/Lat (2 View) (04/26/19 09:23) Medications Given in ED Current Medications Medications Dose Ordered Sig/Matthias Route Start Time Stop Time Status Last Admin Dose Admin Aspirin 324 mg ONCE ONCE PO 04/26/19 09:15 04/26/19 09:17 DC 04/26/19 09:19 324 MG Vital Signs/I&O 04/26/19 08:47 Temp 37.1 Pulse 76 Resp 12 B/P (MAP) 110/73 (85) Pulse Ox 96 O2 Delivery Room Air Capillary Refill : Less Than 3 Seconds Blood Pressure Mean: 85 Progress Note : Time: 09:21 Progress Note Could potentially be a atypical coronary presentation. He was management check an EKG. Sounds more infectious although she has no fever and has aseptic vital signs at present. She is not wheezing to suggest is having an asthma attack. This could be because she recently took her albuterol. Plan check labs and a chest x-ray. ECG Initial ECG Impression Date: Apr 26, 2019 Initial ECG Impression Time: 09:22 Initial ECG Rate: 70 Initial ECG Rhythm: Normal Sinus Initial ECG Intervals: Normal Initial ECG Impression: Normal, Nonspecific Changes Comment Normal sinus rhythm with some one half to one block and ST depression in the anterior leads and lateral weakness V1 through the V5. No clinically significant ST elevation or depression indicative of STEMI. Diagnostic Imaging Diagonstic Imaging: Xray Plain Films/CT/US/NM/MRI: chest Comments NAME: JUAN CRUZ [facility] REC#: [id number] PT STATUS: REG ER : 1965 PHYSICIAN: FELICIA BOSWELL MD ADMIT DATE: 04/26/19/ER Draft Date of Exam:04/26/19 CHEST PA/LAT (2 VIEW) EXAMINATION: PA and lateral chest at 942h. INDICATION: Fever The heart size is within normal limits and stable when compared to 12/11/2017. The lungs are clear. There is no sign of failure, pneumonia or a pleural effusion to indication an acute abnormality. The mediastinum is not widened. The osseous structures are intact. IMPRESSION: There is no evidence for an acute cardiopulmonary abnormality. When compared to the prior study there has been no significant change. Dictated on workstation # [id number] Dict: 04/26/1945 Trans: 04/26/19 [id number] BANNER [id number] Interpreted by: VERONIQUE FINNEY MD Electronically signed by: Reviewed: Reviewed by Me Departure Impression Primary Impression: Bronchitis Disposition: 01 HOME, SELF-CARE Condition: Stable Departure-Patient Inst. Decision time for Depature: 10:55 Referrals: NAYE SHAH MD (PCP/Family) Primary Care Physician Patient Instructions: Acute Bronchitis, Adult (DC) Add. Discharge Instructions: Continue to use your albuterol as prescribed. Use the Tessalon Perles one or 2 capsules every 6 hours as needed for coughing. Drink plenty of fluids and use hot tea with honey, Vicks vapor rub, humidifiers etc. If still having symptoms next week follow-up with primary care. All discharge instructions reviewed with patient and/or family. Voiced understanding. Scripts Benzonatate (TESSALON PERLES) 100 Mg Capsule 100 MG PO Q6H PRN for COUGH, #20 CAP 0 Refills Prov: FELICIA BOSWELL 04/26/19 Work/School Note: Work Release Form Date Seen in the Emergency Department: Apr 26, 2019 Return to Work: Apr 27, 2019 Restrictions: No Restrictions FELICIA BOSWELL Apr 26, 2019 09:23
--- NOTE | 2019-04-26 09:55 | Diagnostic Imaging Report ---
EXAMINATION: PA and lateral chest at 942h. INDICATION: Fever The heart size is within normal limits and stable when compared to 12/11/2017. The lungs are clear. There is no sign of failure, pneumonia or a pleural effusion to indication an acute abnormality. The mediastinum is not widened. The osseous structures are intact. IMPRESSION: There is no evidence for an acute cardiopulmonary abnormality. When compared to the prior study there has been no significant change. Dictated by: Dictated on workstation # [id number]
[2019-04-26 09:58] LABS: BASOPHILS # (AUTO) 0.1 10^3/uL (0.0-0.1); BASOPHILS % (AUTO) 1 % (0-10); EOSINOPHILS # (AUTO) 0.2 10^3/uL (0.0-0.3); EOSINOPHILS % (AUTO) 2 % (0-10); HEMATOCRIT 41 % (35-52); HEMOGLOBIN 13.3 G/DL (11.5-16.0); LYMPHOCYTES # (AUTO) 1.9 X 10^3 (1.0-4.0); LYMPHOCYTES % (AUTO) 20 % (12-44); MEAN CORPUSCULAR HEMOGLOBIN 27 PG (25-34); MEAN CORPUSCULAR HGB CONC 32 G/DL (32-36); MEAN CORPUSCULAR VOLUME 85 FL (80-99); MEAN PLATELET VOLUME 9.7 FL (7.4-10.4); MONOCYTES # (AUTO) 0.7 X 10^3 (0.0-1.0); MONOCYTES % (AUTO) 7 % (0-12); NEUTROPHILS # (AUTO) 6.7 X 10^3 (1.8-7.8); NEUTROPHILS % (AUTO) 71 % (42-75); PLATELET COUNT 306 10^3/uL (130-400); RED CELL DISTRIBUTION WIDTH 13.7 % (10.0-14.5); WHITE BLOOD COUNT 9.5 10^3/uL (4.3-11.0)
[2019-04-26 10:17] LABS: ALANINE AMINOTRANSFERASE 16 U/L (0-55); ALKALINE PHOSPHATASE 106 U/L (40-136); BILIRUBIN,TOTAL 0.7 MG/DL (0.1-1.0); BUN/CREATININE RATIO 21; CALCIUM 9.7 MG/DL (8.5-10.1); CARBON DIOXIDE 28 MMOL/L (21-32); CHLORIDE 103 MMOL/L (98-107); CREATININE SERUM 0.78 MG/DL (0.60-1.30); GFR ESTIMATED > 60; GLUCOSE 95 MG/DL (70-105); POTASSIUM 4.6 MMOL/L (3.6-5.0); SODIUM 139 MMOL/L (135-145); TOTAL PROTEIN 7.4 GM/DL (6.4-8.2)
[2019-04-26] MEDS ORDERED: BENZ100C18 PO (10:56)
[2019-04-26 11:10] VITALS: BP 112/75
== END 2019-04-26 11:10 | disposition home or self-care (01) ==
LOC: EDUNIT# 08:44 → ER 08:46
DX: J45.909 Unspecified asthma, uncomplicated (principal); I10 Essential (primary) hypertension; E78.5 Hyperlipidemia, unspecified; E78.00 Pure hypercholesterolemia, unspecified; G47.30 Sleep apnea, unspecified; E03.9 Hypothyroidism, unspecified; F41.9 Anxiety disorder, unspecified; F31.9 Bipolar disorder, unspecified; K21.9 Gastro-esophageal reflux disease without esophagitis; K58.9 Irritable bowel syndrome, unspecified; F17.290 Nicotine dependence, other tobacco product, uncomplicated; Z90.89 Acquired absence of other organs; Z87.440 Personal history of urinary (tract) infections; Z98.51 Tubal ligation status; Z88.0 Allergy status to penicillin; Z79.82 Long term (current) use of aspirin; Z79.51 Long term (current) use of inhaled steroids; Z99.89 Dependence on other enabling machines and devices; Z99.81 Dependence on supplemental oxygen; Z85.41 Personal history of malignant neoplasm of cervix uteri; Z82.49 Family history of ischemic heart disease and other diseases of the circulatory system
CPT/HCPCS: 36415; 71046; 80053; 83880; 84484; 85025; 87430; 87804; 93005

== ENCOUNTER → 2019-05-15 | Outpatient (CLI) | payer MEDICAID ==
[~2019-05-15] MED LIST changes: +BENZ100C18 PO
--- NOTE | 2019-05-15 15:45 | Diagnostic Imaging Report ---
INDICATION: Routine screening. COMPARISON: 11/21/2017 and 10/18/2016. TECHNIQUE: 2D and 3D bilateral screening mammography was performed with CAD. FINDINGS: Scattered fibroglandular densities are identified bilaterally. Benign-appearing calcifications are noted bilaterally. The benign-appearing nodule in the upper outer left breast appears stable. No new mass or malignant appearing microcalcifications are seen. The axillae are unremarkable. IMPRESSION: No mammographic features suspicious for malignancy are identified. ACR BI-RADS Category 2: Benign findings. Result letter will be mailed to the patient. Note: At least 10% of breast cancer is not imaged by mammography. Dictated by: Dictated on workstation # [id number]
== END ==
LOC: RAD 13:59
PROVIDERS: ATTEND Nurse Practitioner
DX: Z12.31 Encounter for screening mammogram for malignant neoplasm of breast (principal)
CPT/HCPCS: 77067

== ENCOUNTER → 2019-09-04 | Outpatient (CLI) | payer MEDICAID ==
[~2019-09-04] VITALS: Ht 170 cm; Wt 107.0 kg
[~2019-09-04] MED LIST changes: +CATHETER FLUSH 10 ML SYR IV PRN; +OMEP40CA27 PO; -OMEP40CA36 PO; +OXYB5TAB13 PO; +REGADENOSON 0.4 MG/5 ML SYR (LEXISCAN) IV ONE
--- NOTE | 2019-09-05 12:04 | STRESS TEST ---
DATE OF SERVICE: 09/04/2019 RESTING AND POST REGADENOSON TECHNETIUM-99M TETROFOSMIN SPECT CT IMAGING ORDERING PHYSICIAN: Dr. Zapien. PRIMARY PHYSICIAN: Jennifer Payan APRN CLINICAL DIAGNOSES: Shortness of breath, hypertension. Baseline images were carried out after injection of 10.39 mCi of technetium-99m Tetrofosmin. This was followed by 0.4 mg regadenoson and 30.5 mCi of technetium-99m Tetrofosmin for stress imaging. The electrocardiogram showed sinus rhythm at baseline and did not change significantly with regadenoson infusion. The electrocardiogram had baseline ST and T-wave abnormality, nonspecific. This remained unchanged. The patient tolerated the procedure well. There was considerable patient motion during image acquisition, especially during stress image acquisition. This impairs the quality of the study. On review of images, there does not appear to be distinct evidence of ischemia or infarction. Gated images show normal global left ventricular systolic function with an ejection fraction of 83%. Left ventricular end diastolic volume is 38 mL. TID is absent (0.95). CONCLUSIONS: 1. No evidence of significant myocardial ischemia or infarction on this study. 2. Technically somewhat difficult study because of patient motion during the stress image acquisition. 3. Normal to hyperdynamic left ventricular systolic function with ejection fraction 83%. 4. No significant regional wall motion abnormality is seen on this study. Job ID: [id number] DocumentID: [id number] Dictated Date: 09/05/2019 09:51:17 Lead Pressman Date: 09/05/2019 12:03:18 Dictated By: FABIO ZAPIEN MD, MA, FACP, FACC,
== END ==
LOC: CARD 11:56
PROVIDERS: ATTEND Internal Medicine Cardiovascular Disease
DX: I10 Essential (primary) hypertension (principal); R06.02 Shortness of breath; G47.33 Obstructive sleep apnea (adult) (pediatric)
CPT/HCPCS: 78452; 93017

== ENCOUNTER 2019-12-01 17:24 | Emergency (ER) | payer MEDICAID ==
[~2019-12-01] VITALS: Ht 170 cm; Wt 107.0 kg
[~2019-12-01 17:24] MED LIST changes: -CATHETER FLUSH 10 ML SYR IV PRN; -MONT10TA24 PO; +MONT10TA26 PO; -REGADENOSON 0.4 MG/5 ML SYR (LEXISCAN) IV ONE
[2019-12-01 17:28] VITALS: BP 121/76
[2019-12-01] MEDS ORDERED: TETANUS,DIPTH,PERTUSS P/F (BOOSTRIX) 0.5 ML VIAL IM ONE ×2 (17:28→17:45)
--- OUTSIDE RECORDS SUMMARY | 2019-12-01 17:32 | XMS REPORT ---
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 [Mass/Vol] 20: [facility] () Lymphocytes 1.19 10*3/uL (no code) 0.9 - 2.9 11-26-2018 Hospita l (Bld) [#/Vol] 10*3/uL 20: [facility] ([id number]) Lymphocytes/100 17.3 % (no code) 20 - 40 % 11-26-2018 Hospit al WBC (Bld) 20: [facility] () MCH (RBC) 28.1 pg (no code) 27 - 31 pg 11-26-2018 Hospital [Entitic mass] 20: [facility] () MCV (RBC) 84.9 fL (no code) 80 - 100 fL 11-26-2018 Hospital [Entitic vol] 20: [facility] () Monocytes (Bld) 0.6 10*3/uL (no code) 0.3 - 0.9 11-26-2018 Hosp ital [#/Vol] 10*3/uL 20: [facility] (48363) Monocytes/100 8.5 % (no code) 2 - 8 % 11-26-2018 Hospital WBC (Bld) 20: [facility] (88570) Neutrophils 4.95 10*3/uL (no code) 1.7 - 7 10*3/uL 11-26-2018 H ospital (Bld) [#/Vol] 20: [facility] (22435) Neutrophils/100 72.2 % (no code) 40 - 60 % 11-26-2018 Hospit al WBC (Bld) 20: [facility] (72760) Platelets (Bld) 267 10*3/uL (no code) 150 - 450 11-26-2018 Hosp ital [#/Vol] 10*3/uL 20: [facility] (23901) RBC (Bld) 4.69 10*6/uL (no code) 4.2 - 6.1 11-26-2018 Hospital [#/Vol] 10*6/uL 20: [facility] (58195) WBC (Bld) 6.86 10*3/uL (no code) 3.5 - 10.5 11-26-2018 Hospital [#/Vol] 10*3/uL 20: [facility] (39864) cardiac on 2018-11-26 CRP [Mass/Vol] 0.59 (H) 11-26-2018 Hospital 20: [facility] (23407) urinalysis on 2018-09-12 Clarity (U) Clear (no code) 09-12-2018 Hospital 09: [facility] ([id number]) Color (U) Yellow (no code) 09-12-2018 Hospital 09: [facility] (11811) Epithelial 0-5/HPF (A) 09-12-2018 Hospital cells.squamous 09: [facility] LM.HPF (Urine [facility] sed) [#/Area] (70631) Leukocyte Negative (no code) 09-12-2018 Hospital esterase Test 09: [facility] strip Ql (U) [facility] ([id number]) Protein (U) Negative (no code) 0 - 20 mg/dL 09-12-2018 Hospita l [Mass/Vol] 09: [facility] (56087) RBC LM.HPF Negative (no code) 0 - 4 /[HPF] 09-12-2018 Hospital (Urine sed) 09: [facility] [#/Area] [facility] (07240) Specific gravity 1.020 (no code) 09-12-2018 Hospital (U) [Rel 09: [facility] density] [facility] (54846) WBC LM.HPF Negative (no code) 0 - 5 /[HPF] 09-12-2018 Hospital (Urine sed) 09: [facility] [#/Area] [facility] (00931) thyroid on 2018-09-12 TSH Qn 2.24 (no code) 09-12-2018 Hospital 09: [facility] (25689) other on 2018-09-12 Albumin BCG dye 4.2 (no code) 09-12-2018 Hospital [Mass/Vol] 09: [facility] (75335) Bacteria LM Ql Negative (no code) 09-12-2018 Hospital (Urine sed) 09: [facility] (24433) Bilirubin N/A (A) 09-12-2018 Hospital Confirm Ql (U) 09: [facility] (96093) Bilirubin Ql (U) Negative (no code) 09-12-2018 Hospital 09: [facility] (05580) Cholesterol in 30 mg/dL (no code) 09-12-2018 Hospital VLDL [Mass/Vol] 09: [facility] (44635) Cholesterol.tota 5.2 {ratio} (no code) 09-12-2018 Hospital l/Cholesterol in 09: [facility] HDL [Mass ratio] [facility] ([id number]) Erythrocyte 13.9 % (no code) 11.6 - 14.6 % 09-12-2018 Hospit al distribution 09: [facility] width (RBC) [facility] [Ratio] (90054) GFR/1.73 sq 72 (no code) 90 - 120 09-12-2018 Hospital M.predicted MDRD mL/min/{1.73_m2} mL/min/{1.73_m2} 09: [facility] (S/P/Bld) [Vol [facility] rate/Area] ([id number]) Globulin (S) 2.8 g/dL (no code) 2 - 3.5 g/dL 09-12-2018 Hospit al [Mass/Vol] 09: [facility] (85758) Glucose Test Negative (no code) 09-12-2018 Hospital strip (U) 09: [facility] [Mass/Vol] [facility] (54280) HCO3 (P) 26 (no code) 09-12-2018 Hospital [Moles/Vol] 09: [facility] (16065) Hemoglobin Ql Negative (no code) 09-12-2018 Hospital (U) 09: [facility] (49178) Ketones (U) Negative (no code) 09-12-2018 Hospital [Mass/Vol] 09: [facility] (49707) MCHC (RBC) 32.2 g/dL (no code) 32 - 36 g/dL 09-12-2018 Hospital [Mass/Vol] 09: [facility] (76641) Nitrite Ql (U) Negative (no code) 09-12-2018 Hospital 09: [facility] (45700) Osmolality Calc 293 (no code) 09-12-2018 Hospital [Osmolality] 09: [facility] (91904) pH (U) 7.5 [pH] (no code) 4.6 - 8 [pH] 09-12-2018 Hospital 09: [facility] (77530) Platelet mean 11.3 fL (H) 7.2 - 11.7 fL 09-12-2018 Hosp ital volume (Bld) 09: [facility] [Entitic vol] [facility] (22867) Urine Volume Urine Volume (no code) 09-12-2018 Hospital Sufficient 09: [facility] (10mL) [facility] (93512) Urobilinogen Qn 0.2 (A) 09-12-2018 Hospital (U) {Octavio'U}/dL 09: [facility] (60323) no information Urine Saved if (A) 09-12-2018 Hospital Culture Needed 09: [facility] (48hrs from time [facility] of collection) ([id number]) metabolic panel on 2018-09-12 ALP [Catalytic 109 U/L (no code) 44 - 147 U/L 09-12-2018 Hosp ital activity/Vol] 09: [facility] (73250) ALT [Catalytic 16 U/L (no code) 4 - 40 U/L 09-12-2018 Hospit al activity/Vol] 09: [facility] (63311) Anion gap 14 mmol/L (no code) 3 - 11 mmol/L 09-12-2018 Hospital [Moles/Vol] 09: [facility] (91721) AST [Catalytic 19 U/L (no code) 10 - 34 U/L 09-12-2018 Hospi ryan activity/Vol] 09: [facility] (74064) Bilirubin 0.6 mg/dL (no code) 0.1 - 1.2 mg/dL 09-12-2018 Hospit al [Mass/Vol] 09: [facility] (32398) Calcium 9.3 mg/dL (no code) 8.5 - 10.2 mg/dL 09-12-2018 Hospi ryan [Mass/Vol] 09: [facility] (18404) Chloride 105 mmol/L (no code) 95 - 106 mmol/L 09-12-2018 Hospi ryan [Moles/Vol] 09: [facility] (23118) Creatinine 0.83 mg/dL (no code) 09-12-2018 Hospital [Mass/Vol] 09: [facility] (14600) Glucose 114 mg/dL (H) 60 - 125 mg/dL 09-12-2018 Hospita l [Mass/Vol] 09: [facility] (55460) Potassium 4.4 mmol/L (no code) 3.7 - 5.2 mmol/L 09-12-2018 Hosp ital [Moles/Vol] 09: [facility] (19811) Protein 7.0 g/dL (no code) 6.4 - 8.3 g/dL 09-12-2018 Hospita l [Mass/Vol] 09: [facility] (14140) Sodium 141 mmol/L (no code) 135 - 145 mmol/L 09-12-2018 Hosp ital [Moles/Vol] 09: [facility] (26448) Urea nitrogen 15 mg/dL (no code) 7 - 20 mg/dL 09-12-2018 Hospi ryan [Mass/Vol] 09: [facility] (61014) hematology on 2018-09-12 Basophils (Bld) 0.1 10*3/uL (no code) 0 - 0.3 10*3/uL 09-12-2018 Hospital [#/Vol] 09: [facility] (29140) Basophils/100 0.80 % (no code) 0.5 - 1 % 09-12-2018 Hospital WBC (Bld) 09: [facility] (18669) Eosinophils 0.2 10*3/uL (no code) 0.05 - 0.5 09-12-2018 Hospita l (Bld) [#/Vol] 10*3/uL 09: [facility] (21171) Eosinophils/100 2.3 % (no code) 1 - 4 % 09-12-2018 Hospit al WBC (Bld) 09: [facility] (22329) Hematocrit (Bld) 45.0 % (no code) 36.1 - 50.3 % 09-12-2018 H ospital [Volume 09: [facility] fraction] [facility] (86098) Hemoglobin (Bld) 14.5 g/dL (no code) 12.1 - 17.2 g/dL 09-12-2018 Hospital [Mass/Vol] 09: [facility] (59411) Lymphocytes 2.03 10*3/uL (no code) 0.9 - 2.9 09-12-2018 Hospita l (Bld) [#/Vol] 10*3/uL 09: [facility] (66808) Lymphocytes/100 27.7 % (no code) 20 - 40 % 09-12-2018 Hospit al WBC (Bld) 09: [facility] (65741) MCH (RBC) 27.7 pg (no code) 27 - 31 pg 09-12-2018 Hospital [Entitic mass] 09: [facility] (20867) MCV (RBC) 86.0 fL (no code) 80 - 100 fL 09-12-2018 Hospital [Entitic vol] 09: [facility] (23318) Monocytes (Bld) 0.5 10*3/uL (no code) 0.3 - 0.9 09-12-2018 Hosp ital [#/Vol] 10*3/uL 09: [facility] (97275) Monocytes/100 6.1 % (no code) 2 - 8 % 09-12-2018 Hospital WBC (Bld) 09: [facility] (79470) Neutrophils 4.63 10*3/uL (no code) 1.7 - 7 10*3/uL 09-12-2018 H ospital (Bld) [#/Vol] 09: [facility] (96623) Neutrophils/100 63.1 % (no code) 40 - 60 % 09-12-2018 Hospit al WBC (Bld) 09: [facility] (10843) Platelets (Bld) 327 10*3/uL (no code) 150 - 450 09-12-2018 Hosp ital [#/Vol] 10*3/uL 09: [facility] (12925) RBC (Bld) 5.23 10*6/uL (H) 4.2 - 6.1 09-12-2018 Hospital [#/Vol] 10*6/uL 09: [facility] (88930) WBC (Bld) 7.34 10*3/uL (no code) 3.5 - 10.5 09-12-2018 Hospital [#/Vol] 10*3/uL 09: [facility] (42798) cardiac on 2018-09-12 Cholesterol 207 mg/dL (no code) 180 - 200 mg/dL 09-12-2018 Hosp ital [Mass/Vol] 09: [facility] (19390) Cholesterol in 40 mg/dL (no code) 09-12-2018 Hospital HDL [Mass/Vol] 09: [facility] (85942) Cholesterol in 137 mg/dL (H) 0 - 100 mg/dL 09-12-2018 Hos pital LDL [Mass/Vol] 09: [facility] (97422) CRP [Mass/Vol] 0.94 (H) 09-12-2018 Hospital 09:15-0500 [facility] (38370) Triglyceride 150 mg/dL (no code) 0 - 150 mg/dL 09-12-2018 Hospi ryan [Mass/Vol] 09:15-0500 [facility] (09397) serum or plasma troponin i.cardiac measurement (mass/volume) on 2017-12-12 Troponin I no information (no code) Via [facility] (85482) serum or plasma triglyceride measurement (mass/volume) on 2017-12-12 Triglyceride 133 mg/dL (no code) 0 - 150 mg/dL Via [facility] (02120) serum or plasma cholesterol measurement (mass/volume) on 2017-12-12 Cholesterol 192 mg/dL (no code) 0 - 240 mg/dL Via [facility] (49308) serum or plasma cholesterol in vldl measurement (mass/volume) on 2017-12-12 Serum or plasma 27 (no code) Via [facility] in [facility] VLDL measurement [place] (mass/volume) (50005) serum or plasma cholesterol in hdl measurement (mass/volume) on 2017-12-12 HDL Cholesterol 35 mg/dL (L) Via [facility] (94698) cholesterol in ldl [mass/volume] in serum or plasma by direct assay on 2017-12-12 LDL Cholesterol 143 mg/dL (H) 0 - 100 mg/dL Via [facility] (30521) venous blood hemoglobin measurement (mass/volume) on 2017-12-11 Hemoglobin (HGB) 14.4 g/dL (no code) 12 - 18 g/dL Via [facility] (80488) serum or plasma urea nitrogen/creatin ine mass ratio on 2017-12-11 BUN/Creatinine 14 mg/mg (no code) 10 - 20 mg/mg Via [facility] (77466) serum or plasma urea nitrogen measurement (mass/volume) on 2017-12-11 Urea nitrogen 13 mg/dL (no code) 7 - 20 mg/dL Via [facility] (95739) serum or plasma troponin i.cardiac measurement (mass/volume) on 2017-12-11 Troponin I no information (no code) Via [facility] (89273) serum or plasma total bilirubin measurement (mass/volume) on 2017-12-11 Bilirubin 0.4 mg/dL (no code) 0.3 - 1.9 mg/dL Via [facility] (total) [facility] (69670) serum or plasma sodium measurement (moles/volume) on 2017-12-11 Sodium 140 mmol/L (no code) 135 - 147 mmol/L Via [facility] (04024) serum or plasma protein measurement (mass/volume) on 2017-12-11 Protein 8.5 g/dL (H) 6.4 - 8.3 g/dL Via [facility] (18426) serum or plasma potassium measurement (moles/volume) on 2017-12-11 Potassium 4.4 mmol/L (no code) 3.5 - 5.1 mmol/L Via [facility] (75918) serum or plasma glucose measurement (mass/volume) on 2017-12-11 Glucose 100 mg/dL (no code) 60 - 125 mg/dL Via [facility] (87128) serum or plasma creatinine measurement with calculation of estimated glomerular filtration rate on 2017-12-11 eGFR (non-black) no information (no code) Via [facility] (16938) serum or plasma creatinine measurement (mass/volume) on 2017-12-11 Creatinine 0.91 mg/dL (no code) Via [facility] (77889) serum or plasma chloride measurement (moles/volume) on 2017-12-11 Chloride 110 mmol/L (H) 95 - 106 mmol/L Via [facility] (31103) serum or plasma calcium measurement (mass/volume) on 2017-12-11 Calcium 9.3 mg/dL (no code) 9 - 11 mg/dL Via [facility] (35992) serum or plasma aspartate aminotransferase measurement (enzymatic activity/volume) on 2017-12-11 Aspartate 43 U/L (H) 10 - 34 U/L Via [facility] aminotransferase [facility] (AST) [place] (46022) serum or plasma anion gap determination (moles/volume) on 2017-12-11 Anion gap 10 mmol/L (no code) 3 - 11 mmol/L Via [facility] (32815) serum or plasma alkaline phosphatase measurement (enzymatic activity/volume) on 2017-12-11 Alkaline 96 U/L (no code) 44 - 147 U/L Via [facility] phosphatase [facility] (ALP) [place] ([id number]) serum or plasma albumin measurement (mass/volume) on 2017-12-11 Albumin 4.3 g/dL (no code) 3.5 - 5.5 g/dL Via [facility] (69312) serum or plasma alanine aminotransferase measurement (enzymatic activity/volume) on 2017-12-11 Alanine 24 U/L (no code) 10 - 40 U/L Via [facility] aminotransferase [facility] (ALT) [place] (71109) prothrombin time (pt) in platelet poor plasma by coagulation assay on 2017-12-11 Coagulation 12.5 s (no code) Via [facility] tissue factor [facility] induced in [place] platelet poor (61531) plasma myoglobin, serum on 2017-12-11 Myoglobin 48.3 ng/mL (no code) Via [facility] (06753) magnesium on 2017-12-11 Magnesium 3.4 mg/dL (H) 1.8 - 3.6 mg/dL Via [facility] (88489) inr in platelet poor plasma or blood by coagulation assay on 2017-12-11 INR in blood by 0.9 {INR} (no code) 0.9 - 1.1 {INR} Via [facility] coagulation [facility] (23354) carbon dioxide on 2017-12-11 CO2 20 mmol/L (L) 23 - 29 mmol/L Via [facility] (66078) blood neutrophils automated count (number/volume) on 2017-12-11 Neutrophils 5.7 10*3/uL (no code) 1.5 - 7.8 Via [facility] 10*3/uL [facility] (48238) blood monocytes/100 leukocytes on 2017-12-11 Monocytes/100 9 % (no code) 2 - 8 % Via [facility] (55557) blood monocytes automated count (number/volume) on 2017-12-11 Monocytes 0.8 10*3/uL (no code) 0.2 - 1.1 Via [facility] 10*3/uL [facility] (78941) blood lymphocytes automated count (number/volume) on 2017-12-11 Lymphocytes 2.2 10*3/uL (no code) 0.85 - 4.1 Via [facility] 10*3/uL [facility] (89804) blood leukocytes automated count (number/volume) on 2017-12-11 WBC (Leukocytes) 9.0 10*3/uL (no code) 3.8 - 10.8 Via [facility] 10*3/uL [facility] (76951) blood hematocrit (volume fraction) on 2017-12-11 Hematocrit (HCT) 42 % (no code) 39 - 51 % Via [facility] (80984) blood erythrocytes automated count (number/volume) on 2017-12-11 Erythrocytes 4.98 10*6/uL (no code) 4.2 - 6.1 Via [facility] (RBC) 10*6/uL [facility] (87042) automated erythrocyte mean corpuscular volume on 2017-12-11 MCV 85 fL (no code) 80 - 100 fL Via [facility] (18613) automated erythrocyte mean corpuscular hemoglobin concentration measurement (mass/volume) on 2017-12-11 MCHC 34 g/dL (no code) 32 - 36 g/dL Via [facility] (51668) automated erythrocyte mean corpuscular hemoglobin (mass per erythrocyte) on 2017-12-11 MCH 29 pg (no code) 27 - 31 pg Via [facility] (02511) automated erythrocyte distribution width ratio on 2017-12-11 RDW-CA 13.6 % (no code) 11 - 15 % Via [facility] (98732) automated eosinophil count on 2017-12-11 Eosinophils 0.2 10*3/uL (no code) 0.05 - 1.5 Via [facility] 10*3/uL [facility] (48231) automated blood platelet mean volume measurement on 2017-12-11 Platelet mean 9.9 fL (no code) 7.2 - 11.7 fL Via [facility] volume (PMV) [facility] (19168) automated blood platelet count (count/volume) on 2017-12-11 Platelets 279 10*3/uL (no code) 150 - 400 Via [facility] 10*3/uL [facility] (83819) automated blood neutrophils/100 leukocytes on 2017-12-11 Neutrophils/100 64 % (no code) 40 - 60 % Via [facility] leukocytes [facility] (18497) automated blood lymphocytes/100 leukocytes on 2017-12-11 Lymphocytes/100 24 % (no code) 20 - 40 % Via [facility] (09524) automated blood eosinophils/100 leukocytes on 2017-12-11 Eosinophils/100 2 % (no code) 1 - 4 % Via [facility] (05524) automated blood basophils/100 leukocytes on 2017-12-11 Basophils/100 1 % (no code) 0.5 - 1 % Via [facility] (21962) automated blood basophil count (count/volume) on 2017-12-11 Basophils 0.1 10*3/uL (no code) 0 - 0.2 10*3/uL Via [facility] (18295) activated partial thromboplastin time (aptt) in platelet poor plasma bycoagulation assay on 2017-12-11 aPTT 26 s (no code) 25 - 35 s Via [facility] (16479) Vital Signs Vital Sign Value Interpretation Reference Date Time [facility] (Normalized[facility] (Normalized) Range Body height 170.18 cm (no code) cm 11-08-2013 SAIRA [facility] 17:39-[address] ([id number]) Body height 170.18 cm (no code) cm 09-10-2013 [facility] 14:57-[address] [place] [address] ([id number]) Body height 170.18 cm (no code) cm 08-31-2013 [facility] 11:57-[address] [place] [address] ([id number]) Body height 170.18 cm (no code) cm 07-20-2013 [facility] 14:02-[address] [place] [address] ([id number]) Body 98 [degF] (no code) 97.8 - 99.0 10-08-2014 [facility] Temperature [degF] 11:17-[address] [place] [address] ([id number]) Body 98 [degF] (no code) 97.8 - 99.0 10-03-2014 [facility] Temperature [degF] 17:27-[address] [place] [address] ([id number]) Body 98.9 [degF] (no code) 97.8 - 99.0 [facility]-05-[facility] 16:00-0400 [address] [facility] ([id number]) Body 98.5 [degF] (no code) 97.8 - 99.0 03-12-2014 ANTHONY [facility] Temperature [degF] 15:52-0400 [address] [facility] ([id number]) Body 98.7 [degF] (no code) 97.8 - 99.0 11-08-2013 SAIRA [facility] temperature [degF] 17:39-0400 [facility] [address] ([id number]) Body 98.6 [degF] (no code) 97.8 - 99.0 09-10-2013 TRACYSHANTANU Alarcon [facility] temperature [degF] 14:57-0500 [address] [facility] ([id number]) Body 97.2 [degF] (no code) 97.8 - 99.0 08-31-2013 [facility] 11:57-0500 62017 [facility] ([id number]) Body 97 [degF] (no code) 97.8 - 99.0 07-20-2013 [facility] temperature [degF] 14:02-0500 [address] [facility] ([id number]) Body weight 90.95 kg (no code) kg 10-08-2014 [facility] 11:17-0400 [address] [facility] ([id number]) Body weight 90.27 kg (no code) kg 10-03-2014 TRACYSHANTANU Quigley [facility] 17:27-0400 23631 [facility] ([id number]) Body weight 105.77 kg (no code) kg 04-05-2014 ANTHONY [facility] 16:00-0400 16[address] [facility] ([id number]) Body weight 102.47 kg (no code) kg 03-12-2014 ANTHONY [facility] 15:52-0400 23843 [facility] ([id number]) Body weight 102.7 kg (no code) kg 11-08-2013 SAIRA [facility] 17:39-0400 [facility] ([id number]) Body weight 102.24 kg (no code) kg 09-10-2013 TRACY Pedro Pablo [facility] 14:57-0500 675[address] [facility] ([id number]) Body weight 103.62 kg (no code) kg 08-31-2013 [facility] 11:57-[address] [place] [address] ([id number]) Body weight 103.15 kg (no code) kg 07-20-2013 [facility] 14:02-[address] [place] [address] ([id number]) Height 170.18 cm (no code) cm 10-08-2014 DAMON HAYNES [facility] 11:17-[address] [place] [address] ([id number]) Height 170.18 cm (no code) cm 10-03-2014 [facility] 17:27-[address] [place] [address] ([id number]) Height 170.18 cm (no code) cm 04-05-2014 [facility] 16:00-[address] [place] [address] ([id number]) Height 170.18 cm (no code) cm 03-12-2014 [facility] 15:52-[address] [place] [address] ([id number]) Interventions No Information Plan of Treatment Normalized Care Care Detail Care Activity Date Care Provider F acility Activity Patient Education Acute Bronchitis, no information NAYE Villa [id number] Adult (DC) [facility] ([id number]) Patient referral no information no information NAYE SHAH [phone] [facility] ([id number]) S. pyogenes Ag no information no information NAYE SHAH [phone] IA.rapid Ql (Throat) [facility] ([id number]) Goals Patient Goal Desired Goal no information no information Social History Normalized Code Original Code Date Value Tobacco smoking status Tobacco smoking status no information Smokes tobacco daily NHIS NHIS (finding) no information no information 01-18-2016 Denies Use no information no information 01-18-2016 No no information no information 04-26-2019 Denies no information no information 04-26-2019 Current Everyda y Smoker no information no information 04-26-2019 Electronic/Vapo r Sex Assigned At Sex Assigned At no information F emale Functional Status The data below is from unstructured sources Query Response Date Joe rded Patient Orientation Person Place Time Situation July 07, 2016 1:40pm Comprehension Ability Understands Co ncepts July 07, 2016 8:00am Query Response Date Joe rded Comprehension Ability Understands Co ncepts December 12, 2017 8:40am Query Response Date Joe rded Pasero Opioid-induced Sedation Scale (POSS) Awake and alert October 13, 2018 12:27pm Mental Status The data below is from unstructured sourcesNo Mental Status Information Available Encounters Encounter Normalized Encounter Encounter Diagnosis Care Provi karson Organization Date Type 07-06-2016 (ACUTE) Acute Visit Syncope and collapse ANTHONY BOWLING (no [facility] - phone) (no phone) 07-06-2016 - 07-06-2016 01-06-2016 (ACUTE) Acute Visit Chronic serous otitis ANTHONY E NOCH (no [facility] - media, right ear phone) (no phone) 01-06-2016 - 01-06-2016 11-07-2015 (BH-INTAKE) Behavioral Major depressive NISHI RAPHAEL ([facility] - Health Intake disorder, single phone) (no gregg ne) 11-07-2015 episode, unspecified - 11-07-2015 05-19-2016 ([facility]) Chronic Health Contact with and ANTHONY MORRISON (no [facility] - Maintenance (suspected) exposure phone) (no p liz) 05-19-2016 to infections with a - predominantly sexual 05-19-2016 mode of transmission 11-12-2015 ([facility]) Chronic Health Hyperlipidemia, ANTHONY MORRISON (no [facility] - Maintenance unspecified phone) (no phone) 11-12-2015 - 11-12-2015 02-07-2015 ([facility]) Chronic Health Irritable bowel ANTHONY MORRISON (no [facility] - Maintenance syndrome phone) (no phone) 02-07-2015 - 02-07-2015 02-11-2016 (D-E/F/S) Encounter for dental AYLA Paula (no [facility] - Extraction/Filling/SSC examination and phone) DENTAL (no phone) 02-11-2016 cleaning without - abnormal findings 02-11-2016 12-27-2014 (D-HYG/13/A) Hygiene Dental examination AMBIKA MYLES (no [facility] - 13 and above phone) DENTAL (no phon e) 12-27-2014 - 12-27-2014 11-20-2014 (D-HYG/13/A) Hygiene Dental examination AMBIKA MYLES (no [facility] - 13 and above phone) DENTAL (no phon e) 11-20-2014 - 11-20-2014 09-14-2017 (D-PAIN/HOANG) Pain/HOANG Encounter for dental STANISLAV JUMANA BECERRA (no [facility] - examination and phone) DENTAL (no gregg ne) 09-14-2017 cleaning without - abnormal findings 09-14-2017 05-02-2015 (OPTOMETRY) Optometry no information EILEENTia DOMINGUEZ (no phone) [facility] - (no phone) 05-02-2015 - 05-02-2015 02-05-2016 (PSY-INTAKE) Major depressive ROBERTA Jose (no [facility] - Psychiatry Intake disorder, single phone) (no phone) 02-05-2016 episode, unspecified - 02-05-2016 10-13-2018 Admission to day no information [employer] 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 Phone: 10-13-2018 [employer] 10-08-2014 [facility] no information Doctor Migrati on (no [facility] - phone) DAMON HAYNES (no (no phone) 10-08-2014 phone) - 10-08-2014 10-07-2014 [facility] no information Doctor Migrati on (no [facility] - phone) TRACY Manzanares (no phone) 10-07-2014 (no phone) - 10-07-2014 10-03-2014 [facility] no information Doctor Migrati on (no [facility] - phone) TRACY Manzanares (no phone) 10-03-2014 (no phone) - 10-03-2014 10-01-2014 [facility] no information Doctor Migrati on (no [facility] - phone) ANTHONY MORRISON (no phone) 10-01-2014 (no phone) - 10-01-2014 08-13-2014 [facility] no information ANTHONY TAMIKO (no [facility] - phone) Doctor (no phone) 08-13-2014 [facility] (no phone) - 08-13-2014 07-25-2014 [facility] no information Doctor Migrati on (no [facility] - phone) ANTHONY MORRISON (no phone) 07-25-2014 (no phone) - 07-25-2014 06-17-2014 [facility] no information SAIRA Richter (no [facility] - phone) Doctor (no phone) 06-17-2014 [facility] (no phone) - 06-17-2014 05-28-2014 [facility] no information SAIRA Richter (no [facility] - phone) Doctor (no phone) 05-28-2014 [facility] (no phone) - 05-28-2014 05-21-2014 [facility] no information Doctor Migrati on (no [facility] - phone) SAIRA Haynes (no phone) 05-21-2014 (no phone) - 05-21-2014 05-01-2014 [facility] no information ANTHONY TAMIKO (no [facility] - phone) Doctor (no phone) 05-01-2014 [facility] (no phone) - 05-01-2014 04-05-2014 [facility] no information ANTHONY TAMIKO (no [facility] - phone) Doctor (no phone) 04-05-2014 [facility] (no phone) - 04-05-2014 04-01-2014 [facility] no information Doctor Migrati on (no [facility] - phone) ANTHONY TAMIKO (no phone) 04-01-2014 (no phone) - 04-01-2014 03-19-2014 [facility] no information ANTHONY TAMIKO (no [facility] - phone) Doctor (no phone) 03-19-2014 [facility] (no phone) - 03-19-2014 03-15-2014 [facility] no information ANTHONY TAMIKO (no [facility] - phone) Doctor (no phone) 03-15-2014 [facility] (no phone) - 03-15-2014 03-12-2014 [facility] no information Doctor Migrati on (no [facility] - phone) ANTHONY TAMIKO (no phone) 03-12-2014 (no phone) - 03-12-2014 01-31-2014 [facility] no information ANTHONY TAMIKO (no [facility] - phone) Doctor (no phone) 01-31-2014 [facility] (no phone) - 01-31-2014 01-30-2014 [facility] no information Doctor Migrati on (no [facility] - phone) ANTHONY TAMIKO (no phone) 01-30-2014 (no phone) - 01-30-2014 01-29-2014 [facility] no information Doctor Migrati on (no [facility] - phone) ANTHONY TAMIKO (no phone) 01-29-2014 (no phone) - 01-29-2014 01-11-2014 [facility] no information SAIRA Zelalem Z (no [facility] - phone) Doctor (no phone) 01-11-2014 [facility] (no phone) - 01-11-2014 01-08-2014 [facility] no information SAIRA zzSANCHE Z (no [facility] - phone) Doctor (no phone) 01-08-2014 [facility] (no phone) - 01-08-2014 01-07-2014 [facility] no information Doctor Migrati on (no [facility] - phone) SAIRA PanchitoHEZ (no phone) 01-07-2014 (no phone) - 01-07-2014 11-08-2013 [facility] no information SAIRA Richter (no [facility] - phone) Doctor (no phone) 11-08-2013 [facility] (no phone) - 11-08-2013 10-18-2013 [facility] no information ANTHONY TAMIKO (no [facility] - phone) Doctor (no phone) 10-18-2013 [facility] (no phone) - 10-18-2013 10-11-2013 [facility] no information ANTHONY TAMIKO (no [facility] - phone) Doctor (no phone) 10-11-2013 [facility] (no phone) - 10-11-2013 09-24-2013 [facility] no information TRACY Manzanares (no [facility] - phone) Doctor (no phone) 09-24-2013 [facility] (no phone) - 09-24-2013 09-18-2013 [facility] no information TRACY Manzanares (no [facility] - phone) Doctor (no phone) 09-18-2013 [facility] (no phone) - 09-18-2013 09-10-2013 [facility] no information TRACY Manzanares (no [facility] - phone) Doctor (no phone) 09-10-2013 [facility] (no phone) - 09-10-2013 09-07-2013 [facility] no information ANTHONY TAMIKO (no [facility] - phone) Doctor (no phone) 09-07-2013 [facility] (no phone) - 09-07-2013 09-03-2013 [facility] no information ANTHONY TAMIKO (no [facility] - phone) Doctor (no phone) 09-03-2013 [facility] (no phone) - 09-03-2013 08-31-2013 [facility] no information ANTHONY TAMIKO (no [facility] - phone) Doctor (no phone) 08-31-2013 [facility] (no phone) - 08-31-2013 07-20-2013 [facility] no information ANTHONY TAMIKO (no [facility] - phone) Doctor (no phone) 07-20-2013 [facility] (no phone) - 07-20-2013 07-04-2013 [facility] no information ANTHONY MORRISON (no [facility] - phone) Doctor (no phone) 07-04-2013 [facility] (no phone) - 07-04-2013 08-20-2011 [facility] no information EILEEN DOMINGUEZ (no phone) [facility] - (no phone) 08-20-2011 - 08-20-2011 06-17-2009 [facility] no information Doctor Migrati on (no [facility] - phone) (no phone) 06-17-2009 - 06-17-2009 06-16-2009 [facility] no information Doctor Migrati on (no [facility] - phone) (no phone) 06-16-2009 - 06-16-2009 11-19-2015 Consultation for Hyperlipidemia, ANTHONY MORRISON (no [facility] - laboratory medicine unspecified phone) (no ph one) 11-19-2015 - 11-19-2015 04-26-2019 Emergency department no information (no phone) [facility] Emergency Department patient [facility] (no phone) 04-26-2019 04-26-2019 Emergency department no information no name no organization name - patient visit 04-26-2019 12-11-2017 Emergency department no information no name no organization name patient visit 08-19-2016 Emergency department no information no name no organization name - patient visit 08-19-2016 08-19-2016 Emergency department no information no name no organization name - patient visit 08-19-2016 01-18-2016 Emergency department no information no name no organization name - patient visit 01-18-2016 12-30-2015 Emergency department no information no name no organization name - patient visit 12-30-2015 12-14-2015 Emergency department no information no name no organization name - patient visit 12-14-2015 02-27-2015 Emergency department no information no name no organization name - patient visit 02-27-2015 04-25-2012 Emergency department no information no name no organization name - patient visit 04-25-2012 04-15-2012 Emergency department no information no name no organization name - patient visit 04-15-2012 02-03-2012 Emergency department no information no name no organization name - patient visit 02-03-2012 08-08-2011 Emergency department no information no name no organization name - patient visit 08-08-2011 06-20-2011 Emergency department no information no name no organization name - patient visit 06-20-2011 12-11-2017 Evaluation and Bronchitis CORBY K ZAYRA Work no organization name - management of Phone: 12-12-2017 inpatient 12-11-2017 Evaluation and no information no name no organ ization name - management of 12-12-2017 inpatient 08-25-2016 Follow-up encounter Shortness of breath FABIO MEDINA (no phone) [facility] - (no phone) 08-25-2016 - 08-25-2016 08-17-2016 Follow-up encounter Scabies ANTHONY MORRISON (no [facility] - phone) (no phone) 08-17-2016 - 08-17-2016 12-11-2017 Patient encounter no information no name no or ganization name - 12-12-2017 11-21-2017 Patient encounter no information NAYE SHAH Work no organization name 06-28-2017 Patient encounter no information no name no or ganization name - 06-28-2017 11-12-2019 Patient encounter no information PAYTON PORTER (no [facility] phone[facility] of [facility] (no 11-12-2019 phone) 09-20-2019 Patient encounter no information PAYTON PORTER (no [facility] procedure phone[facility] of [facility] (no 09-20-2019 phone) 09-04-2019 Patient encounter no information FABIO MEDINA MA FSCA I [facility] procedure (no phone) [facility] (no phone) 05-15-2019 Patient encounter no information no name no or ganization name procedure 05-11-2019 Patient encounter no information no name no or ganization name - procedure 05-12-2019 05-08-2019 Patient encounter no information no name no or ganization name - procedure 05-09-2019 04-26-2019 Patient encounter no information no name no or ganization name procedure 04-26-2019 Patient encounter no information no name no or ganization name procedure 04-12-2019 Patient encounter no information no name no or ganization name - procedure 04-13-2019 04-12-2019 Patient encounter no information no name no or ganization name - procedure 04-13-2019 03-07-2019 Patient encounter no information LUISFrancisco Rasmussen APRN SOLO S no organization name - procedure Work Phone: 03-08-2019 03-07-2019 Patient encounter no information no name no or ganization name - procedure 03-08-2019 11-26-2018 Patient encounter no information no name no or ganization name - procedure 11-26-2018 11-02-2018 Patient encounter no information LUIS Rasmussen APRN JAYLENERI S no organization name - procedure Work Phone: 11-03-2018 11-02-2018 Patient encounter no information no name no or ganization name - procedure 11-03-2018 10-31-2018 Patient encounter no information no name no or ganization name - procedure 11-01-2018 10-13-2018 Patient encounter no information no name no or ganization name - procedure 10-13-2018 10-12-2018 Patient encounter no information [employer] Work no organization name - procedure Phone: 10-12-2018 [facility] [employer] 10-12-2018 Patient encounter no information no name no or ganization name - procedure 10-12-2018 10-04-2018 Patient encounter no information JASON RAJPUT Wo rk no organization name procedure JASON RAJPUT JASON RAJPUT 10-04-2018 Patient encounter no information no name no or ganization name procedure 09-29-2018 Patient encounter no information no name no or ganization name - procedure 09-30-2018 09-12-2018 Patient encounter no information no name no or ganization name - procedure 09-13-2018 09-12-2018 Patient encounter no information no name no or ganization name - procedure 09-13-2018 08-17-2018 Patient encounter no information no name no or ganization name procedure 08-17-2018 Patient encounter no information no name no or ganization name procedure 08-08-2018 Patient encounter no information no name no or ganization name - procedure 08-09-2018 05-23-2018 Patient encounter no information no name no or ganization name - procedure 05-24-2018 05-10-2018 Patient encounter no information no name no or ganization name - procedure 05-11-2018 05-02-2018 Patient encounter no information no name no or ganization name - procedure 05-03-2018 11-21-2017 Patient encounter no information no name no or ganization name procedure 10-25-2017 Patient encounter no information no name no or ganization name - procedure 10-26-2017 09-06-2017 Patient encounter no information no name no or ganization name - procedure 09-07-2017 07-05-2017 Patient encounter no information no name no or ganization name - procedure 07-06-2017 04-06-2017 Patient encounter no information no name no or ganization name - procedure 04-07-2017 04-06-2017 Patient encounter no information no name no or ganization name - procedure 04-07-2017 10-18-2016 Patient encounter no information no name no or ganization name procedure 10-18-2016 Patient encounter no information no name no or ganization name procedure 08-19-2016 Patient encounter no information no name no or ganization name procedure 08-10-2016 Patient encounter no information no name no or ganization name procedure 08-10-2016 Patient encounter no information no name no or ganization name procedure 08-06-2016 Patient encounter no information no name no or ganization name procedure 08-06-2016 Patient encounter no information no name no or ganization name procedure 07-28-2016 Patient encounter Chest pain, KIT BAIMA (no [facility] - procedure unspecified phone) (no phone) 07-28-2016 - 07-28-2016 10-15-2015 Patient encounter no information no name no or ganization name procedure 10-15-2015 Patient encounter no information no name no or ganization name procedure 09-13-2013 Patient encounter no information no name no or ganization name procedure 01-17-2013 Patient encounter no information no name no or ganization name procedure 11-12-2011 Patient encounter no information no name no or ganization name - procedure 11-12-2011 11-10-2011 Patient encounter no information no name no or ganization name procedure 07-26-2018 Telephone encounter no information ANTHONY TAMIKO (n o [facility] - phone) (no phone) 07-26-2018 - 07-26-2018 02-09-2017 Telephone encounter no information ANTHONY TAMIKO (n o [facility] - phone) (no phone) 02-09-2017 - 02-09-2017 08-03-2016 Telephone encounter no information ANTHONY TAMIKO (n o [facility] - phone) (no phone) 08-03-2016 - 08-03-2016 07-28-2016 Telephone encounter no information ANTHONY TAMIKO (n o [facility] - phone) (no phone) 07-28-2016 - 07-28-2016 04-26-2016 Telephone encounter no information ANTHONY TAMIKO (n o [facility] - phone) (no phone) 04-26-2016 - 04-26-2016 04-05-2016 Telephone encounter no information ANTHONY TAMIKO (n o [facility] - phone) (no phone) 04-05-2016 - 04-05-2016 02-20-2016 Telephone encounter no information ANTHONY TAMIKO ([facility] - phone) (no phone) 02-20-2016 - 02-20-2016 12-17-2015 Telephone encounter no information ANTHONY TAMIKO ([facility] - phone) (no phone) 12-17-2015 - 12-17-2015 11-20-2015 Telephone encounter no information ANTHONY TAMIKO (n o [facility] - phone) (no phone) 11-20-2015 - 11-20-2015 02-07-2015 Telephone encounter no information ANTHONY TAMIKO (n [facility] - phone) (no phone) 02-07-2015 - 02-07-2015 10-29-2014 Telephone encounter no information Doctor Migration (no [facility] - phone) (no phone) 10-29-2014 - 10-29-2014 10-28-2014 Telephone encounter no information Doctor Migration (no [facility] - phone) (no phone) 10-28-2014 - 10-28-2014 10-14-2014 Telephone encounter no information Doctor Migration (no [facility] - phone) (no phone) 10-14-2014 - 10-14-2014 10-10-2014 Telephone encounter no information Doctor [facility] ([facility] (no phone) 10-10-2014 - 10-10-2014 10-06-2014 Telephone encounter no information [facility] ([facility] 10-06-2014 - 10-06-2014 09-13-2013 Telephone encounter no information Doctor Migration (no [facility] (no phone) 09-13-2013 - 09-13-2013 09-12-2013 Telephone encounter no information Doctor Migration (no [employer] [facility] - phone) (no phone) 09-12-2013 - 09-12-2013 09-11-2013 Telephone encounter no information Doctor Migration [facility] (no [facility]) 09-11-2013 - 09-11-2013 09-06-2013 Telephone encounter no information Doctor Migration ([facility] (no phone) 09-06-2013 - 09-06-2013 09-05-2013 Telephone encounter no information Doctor Migration (no [facility] - phone) (no phone) 09-05-2013 - 09-05-2013 no information Pre-operative no name no organization name cardiovascular examination no information Encounter for dental no name no organi zation name examination and cleaning without abnormal findings no information Dental examination no name no organiza tion name no information Pre-operative no name no organization name examination, unspecified no information Encounter for general no name no organ ization name adult medical examination without abnormal findings no information Encounter for other no name no organiz ation name preprocedural examination Medical Equipment The data below is from unstructured sourcesNo Medical Equipment Information available Payers Normalized Payer Value Unknown no information ([id number]) Private Health Insurance no information History general Narrative - Reported Note Type Note Facility History general Narrative - Reported Type Medical Seasonal Allergies History Medical Asthma History Medical Depression History Medical Anxiety History Medical ADHD History Medical Bipolar History Medical HTN History Medical IBS History Medical GERD History Medical Urge incontinence History Medical HLD History Surgical Tubal Ligation History Surgical Section x4 History Surgical Laser surgery for cervial cancer @ [facility] [place] History Surgical L ankle surgery @ [facility] Jop robb History Surgical tonsillectomy History Hospitaliz Elevated BP ation [facility] ([id number]) Summary Purpose eClinicalWorks SubmissioneClinicalWorks SubmissioneClinicalWorks SubmissioneClinicalWorks SubmissioneClinicalWorks Submission Advance Directives Directive Response Recor ded Date/Time Advance Directives No 5:37pm Health Care Power of Storage Brine Worker No 07/06/16 5:37pm Organ Donor No 07/06/16 5:37pm Resuscitation Status Full Code 07/06/16 5:37pm Directive Response Recor ded Date/Time Advance Directives No 6:56pm Health Care Power of Storage Brine Worker No 12/14/15 6:56pm Organ Donor No 12/14/15 6:56pm Resuscitation Status Full Code 12/14/15 6:56pm Directive Response Recor ded Date/Time Advance Directives No 1:49pm Health Care Power of Storage Brine Worker No 01/18/16 1:49pm Organ Donor No 01/18/16 1:49pm Resuscitation Status Full Code 01/18/16 1:49pm Directive Response Recor ded Date Advance Directives N 08/30 12:27am Health Care Power of Storage Brine Worker N 02/16/13 12:27am Organ Donor N 02/16/13 1 2:27am Directive Response Recor ded Date/Time Advance Directives No 2:01am Health Care Power of Storage Brine Worker No 09/03/14 2:01am Organ Donor No 09/03/14 2:01am Resuscitation Status Full Code 09/03/14 2:01am Directive Response Recor ded Date/Time Advance Directives No 5:26pm Health Care Power of Storage Brine Worker No 01/10/15 5:26pm Organ Donor No 01/10/15 5:26pm Resuscitation Status Full Code 01/10/15 5:26pm Directive Response Recor ded Date/Time Advance Directives No 5:26pm Health Care Power of Storage Brine Worker No 01/10/15 5:26pm Organ Donor No 01/10/15 5:26pm Directive Response Recor ded Date/Time Advance Directives No 11:01am Health Care Power of Storage Brine Worker No 06/13/14 11:01am Organ Donor No 06/13/14 11:01am Resuscitation Status Full Code 06/13/14 11:01am Directive Response Recor ded Date/Time Advance Directives No 5:29pm Health Care Power of Storage Brine Worker No 12/11/17 5:29pm Organ Donor No 12/11/17 5:29pm Resuscitation Status Full Code 12/11/17 5:29pm Directive Response Recor ded Date/Time Advance Directives No 10:15am Health Care Power of Storage Brine Worker No 10/12/18 10:15am Organ Donor No 10/12/18 10:15am Resuscitation Status Full Code 10/12/18 10:15am Directive Response Recor ded Date/Time Advance Directives No 12:29pm Health Care Power of Storage Brine Worker No 10/13/18 12:29pm Organ Donor No 10/13/18 12:29pm Resuscitation Status Full Code 10/13/18 12:29pm Directive Response Recor ded Date/Time Advance Directives No 12:29pm Health Care Power of Storage Brine Worker No 10/13/18 12:29pm Organ Donor No 10/13/18 12:29pm Advance Directive Response Recorded Date/Time Advance Directives No Oc er 2018 8:47am Health Care Power of Storage Brine Worker No April 26, 2019 8:47am Organ Donor No April 172018 8:47am Resuscitation Status Full Code April 26, 2019 8:47am Discharge Instructions Patient Instructions Physician Instructions New, Converted or Re-Newed RX: Other (Will be given from repository medications at [facility]- go to Family Medicine at [facility] to pick them up) Goal/Follow Up Appt: Follow up with Dr. Morrison on 07/28 at 8:20 am. You should receive a phone call about appointments with Cardiology and Podiatry. Return to The Hospital For: Seizure like activity, passing out, inability to keep down liquids, dizziness Discharge Diet: Regular Diet Activity as Tolerated: Yes Pneu Vac Indicated: Yes Care Plan Goal:: Follow up with Dr. Morrison on 07/28 at 8:20 am.You should receive a phone call about appointments with Cardiology andPodiatry. No hospital discharge instructions.No hospital discharge instructions.No hospital discharge instructions.No hospital discharge instructions.No hospital discharge instructions.No hospital discharge instructions.No hospital discharge instruction information available.No hospital discharge instruction information available.No hospital discharge instruction information available.No hospital discharge instruction information available.No hospital discharge instruction information available. Chief Complaint and Reason for Visit Chief Complaint Respiratory Problems Reason for Visit [id number] Assessments No Assessments Information Available Additional Source Comments This clinical document has been generated using [employer] software that has been certified by the Office of the National Coordinator for Health Information Technology (ONC 15.99.04.3023.Diam.[id number]) and the National Committee for [employer] (NCQA, as an eMeasure certified technology). FOR RECORDS PERTAINING TO PATIENTS WHO ARE OR HAVE BEEN ENROLLED IN A CHEMICAL D EPENDENCY/SUBSTANCE ABUSE PROGRAM, SOME INFORMATION MAY BE OMITTED. This clinica l summary was aggregated from multiple sources. Caution should be exercised in using it in the provision of clinical care. This summary normalizes information from multiple sources, and as a consequence, information in this document may ma terially change the coding, format and clinical context of patient data. In jamal tion, data may be omitted in some cases. CLINICAL DECISIONS SHOULD BE BASED ON T HE PRIMARY CLINICAL RECORDS. [employer] provides no warranty or guara ntee of the accuracy or completeness of information in this document.The followi ng information is based on time limited clinical information UNRECOGNIZED CONTENT PROVIDED BELOW FOR UNRECOGNIZED SECTION MEDICAL (GENERAL) HISTORY Type Description Date Medical History Seasonal Allergies Medical History Asthma Medical History Depression Medical History Anxiety Medical History ADHD Medical History Bipolar Medical History HTN Medical History IBS Medical History GERD Medical History Urge incontinence Medical History HLD Surgical History Tubal Ligation Surgical History Section x4 Surgical History Laser surgery for c ervial cancer @ [facility] [place] Surgical History L ankle surgery @ [facility] Surgical History tonsillectomy Hospitalization History Elevated BP UNRECOGNIZED CONTENT PROVIDED BELOW FOR UNRECOGNIZED SECTION REASON FOR VISIT [id number]
--- OUTSIDE RECORDS SUMMARY | 2019-12-01 17:32 | XMS REPORT | Encounter Summary ---
Author Author [facility] Celi Holcomb, [place], [place], [place] Robert Organization [facility] Celi Holcomb [place], [place], [facility] Address Unknown Phone Unavailable Care Team Providers Care Third Hand Name Role Phone Ruben Conner MD PCP Reason for Visit * Auth/Cert Referred By Contact Referred To Contact Status Reason Specialty Diagnoses / Procedures [facility] [address] [place] [address] [place] [address] Closed Diagnoses Ankle instability CAVUS ANKLE/FOOT INSTABILITY P rocedures ANKLE OPEN REDUCTION INTERNAL FIXATION Encounter Details Care Team Description Date Type Department David Cai, DPM [address] [facility] [address] [place] [address] Ankle instability 08/30/2014 [facility] in - Encounter Medical Surgical A 08/31/[address] [place] [id number] Social History Date Tobacco Use Types Packs/Day Years Used Never Smoker Drinks/Week oz/Week Comments Alcohol Use occ. Yes Sex Assigned at Date Recorded Not on file Industry Job Start Date Occupation Not on file Not on file Not on file Travel End Travel History Travel Start No recent travel history available. documented as of this encounter Last Filed Vital Signs Reading Time Taken Comments Vital Sign 136/78 08/31/2014 12:00 PM [employer]AINABLE COMMUNIT[employer] DES[employer]ER Blood Pressure 102 08/31/2014 12:00 PM SU[employer]AINABLE COMMUNITIES DESIGNER Pulse 36.9 C (98.5 F) 08/31/2014 12:00 PM SUSTAINABLE COMMUNITIES DESIGNER Temperature 18 08/31/2014 12:00 PM SUSTAINABLE COMMUNITIES DESIGNER Respiratory Rate 98% 08/31/2014 12:00 PM SUSTAINABLE COMMUNITIES DESIGNER Oxygen Saturation - - Inhaled Oxygen Concentration 91.6 kg (202 lb) 08/30/2014 12:10 PM SUSTAINABLE COMMUNITIES DESIGNER Weight 170.2 cm (5' 7") 08/30/2014 12:10 PM SUSTAINABLE COMMUNITIES DESIGNER Height 31.64 08/30/2014 12:10 PM SUSTAINABLE COMMUNITIES DESIGNER Body Mass Index documented in this encounter Discharge Summaries * David Cai DPM - 09/24/2014 7:08 PM [facility] [address] NAME: JUAN CRUZ CSN: [id number] : 1965 PHYSICIAN: David Cai DPM ADMISSION DATE: 08/30/2014 DISCHARGE DATE: 08/31/2014 DISCHARGE SUMMARY REASON FOR THE PATIENT'S ADMISSION: The patient Juan Cruz is a 49-year-ol d female, who was admitted postoperatively for observation for ambulatory dysfun ction and pain management. She had an extensive surgical reconstruction of her left foot on June 29, 2015. PAST MEDICAL HISTORY: Includes hypothyroidism, depression, anxiety, asthma, can cer, GERD, chronic headaches, hyperlipidemia, irritable bowel syndrome, and hist ory of substance abuse. PAST SURGICAL HISTORY: Tonsillectomy, tympanostomy, and x4. MEDICATIONS PRIOR TO ADMISSION: The patient is not on any medications. ALLERGIES: Penicillin. FAMILY HISTORY: Noncontributory. REVIEW OF SYSTEMS: The patient denied any constitutional symptoms prior to admission. PHYSICAL EXAMINATION: On day of discharge, the patient had a cast to her left lower extremity. Capill betty refill time was within normal limits. Gross sensation was intact to the dig its of the left lower extremity. She had no calf pain or tenderness to the left lower extremity. The patient was seen by Physical Therapy and cleared for discharge to home with immobilization using crutches. The patient will be discharged with pain medicat ions and DVT anticoagulants. She will follow up with me in the office in 2 week s or call with any questions or concerns that arise. David Cai DPM DB/medq VOICE JOB ID: [id number] DOCUMENT ID: [id number] cc: David Cai DPM documented in this encounter Discharge Instructions * Instructions* David Cai DPM - 08/30/2014 Keep Dressing Clean, Dry, & Intact to the foot/ankle. Do not remove dressing. Do not get dressing wet or soiled. Remain Non-weightbearing to the post operative leg with the use of crutches/walk er. Ice and Elevate postoperative foot/ankle for 15 minutes every hour for the next 48-72 hours. Call [phone] for follow up appointment in [address] David Cai DPM [facility] [place] [phone] * Attachments The following attachments cannot be sent through Care Everywhere.* CAST CARE (KINYARWANDA) * ANKLE FRACTURE (KINYARWANDA) documented in this encounter Medications at Time of Discharge Start Date End Date Medication Sig Dispensed Refills OTHER 4 mg daily. 0 Christine-viest Compunding formula from [employer]. pravastatin (PRAVACHOL) Take 40 mg by 0 40 mg tablet mouth daily at bedtime. omeprazole (PRILOSEC) 20 Take 20 mg by 0 mg Capsule, Delayed mouth daily Release(E.C.) e commerce analyst. busPIRone (BUSPAR) 30 mg Take 30 mg by 0 Tablet mouth 2 times daily. montelukast (SINGULAIR) Take 10 mg by 0 10 mg tablet mouth daily at bedtime. loratadine (CLARITIN) 10 Take 10 mg by 0 mg tablet mouth daily e commerce analyst. oxybutynin chloride Take 10 mg by 0 (DITROPAN XL) 10 mg mouth daily Extended Release 24 hour early tablet morning. dicyclomine (BENTYL) 10 Take 10 mg by 0 mg capsule mouth 3 times daily. desipramine (NORPRAMIN) Take 200 mg 0 100 mg Tablet by mouth daily at bedtime. levothyroxine 88 mcg Oral Take 88 mcg 0 tablet by mouth daily e commerce analyst. budesonide-formoterol Take 2 Puffs 0 (SYMBICORT) 160-4.5 by inhalation mcg/actuation HFA Aerosol 2 times Inhaler daily. documented as of this encounter Progress Notes * Bruce Peters PA - 08/31/2014 8:35 AM SUSTAINABLE COMMUNITIES DESIGNER ORTHO PROGRESS NOTE 1 Day Post-Op S/P Procedure(s): ANKLE STABILIZATION, CAVUS FOOT RECONSTRUCTION, VSS, Patient is alert, No complaints Last 8 hours Objective No results for input(s): WBC, HGB, PLT, GLUCOSE, CREAT, BUN, K, INR in the last 72 hours. Patient Vitals for the past 8 hrs: BP Temp Temp src Pulse Resp SpO2 08/31/14 0700 130/81 mmHg 98.3 F (36.8 C) Oral 99 18 97 % 08/31/14 0325 141/71 mmHg 98.6 F (37 C) Oral 86 16 95 % Intake/Output Summary (Last 24 hours) at 08/31/14 0835 Last data filed at 08/31/14 0700 Gross per 24 hour Intake 593 ml Output 800 ml Net -207 ml Dressing is clean and dry. Incision without s/sx of infection. right arm, left arm, right hand, left hand, right leg, left leg, right foot , left foot motor/sensation intact Calves soft, non tender Capillary refill < 3 seconds. Left foot in cast. No calf pain Impression S/P Procedure(s): ANKLE STABILIZATION, CAVUS FOOT RECONSTRUCTION, Plan DC Home AINABLE COMMUNITIES DESIGNER * Deana Vasquez RN - 08/30/2014 7:00 PM SUSTAINABLE COMMUNITIES DESIGNER Pt settled into room 102-1. Pt resting quietly with eyes closed, no distress no bob. RN will continue to monitor. AINABLE COMMUNITIES DESIGNER documented in this encounter H&P Notes * Farhad Louie MD - 09/03/2014 9:14 AM SUSTAINABLE COMMUNITIES DESIGNER History and Physical Subjective: Patient is a 49 y.o. female scheduled for Procedure(s): ANKLE STABILIZATION, CAVUS FOOT RECONSTRUCTION, . Indications for procedure are dental caries. Pt uncooperative in dental office Past Medical History Diagnosis Date Hypothyroidism Depression Anxiety Asthma Cancer 1990 cervical GERD (gastroesophageal reflux disease) Headache(784.0) cluster headaches during summer Hyperlipidemia IBS (irritable bowel syndrome) Substance abuse Past Surgical History Procedure Laterality Date Hx tonsillectomy Hx tympanostomy Hx surgical other 1990 laser conization Hx section 86, 87, 91, 95 X 4 Hx tubal ligation 1994 No prescriptions prior to admission Allergies Allergen Reactions Penicillins Unknown Family History Problem Relation Age of Onset Unknown Father Unknown Mother Pt lives at home with family Review of Systems Discussed medical history and plan of anesthetic: patient Negative medical/family/surgical history No family hx of anesthetic related problems No recent URI s/s Negative ROS Objective: No data found. Lungs: clear to auscultation bilaterally, normal respiratory effort Heart: regular rate and rhythm, S1, S2 normal, no murmur, click, rub or gallop Assessment: Dental Caries in need of [place] for dental rehab Plan: Scheduled for surgery, risk and benefits discussed with patient Farhad Louie MD AINABLE COMMUNITIES DESIGNER documented in this encounter OR Notes * Operative Report - David Cai DPM - 09/24/2014 11:02 [place] [address] NAME: JUAN CRUZ CSN: [id number] : 1965 ADMISSION DATE: 08/30/2014 OPERATIVE REPORT DATE: 08/30/2014 SURGEON: David Cai DPM VOLLEYBALL ASSISTANT COACH: None. PREOPERATIVE DIAGNOSES: 1. Chronic lateral ankle instability. 2. Cavus foot deformity. 3. Gastroc equinus deformity of the left lower extremity. POSTOPERATIVE DIAGNOSES: 1. Chronic lateral ankle instability. 2. Cavus foot deformity. 3. Gastroc equinus deformity of the left lower extremity. PROCEDURES PERFORMED: 1. Lateral ankle stabilization with an allograft tendon. 2. Ortiz calcaneal osteotomy. 3. Gastroc recession of the left lower extremity. ANESTHESIA: General anesthesia. HEMOSTASIS: Pneumatic thigh tourniquet at 300 mmHg. ESTIMATED BLOOD LOSS: 50 mL. MATERIALS USED: Manton screw system, allograft tendon, and Arthrex Bio-Tenodes is screws, 3-0 Vicryl, 3-0 nylon. INTRAOPERATIVE INJECTABLES: 20 mL of Marcaine plain. COMPLICATIONS: None. INDICATION FOR THE PROCEDURE: The patient, Juan Curz, is a 49-year-old fe male with chronic lateral ankle instability and pain to her left ankle as well a s the cavus foot deformity and equinus deformity. The patient has exhausted all conservative measures at this time. She is requesting surgical intervention. She has signed consent prior to being taken back to the OR. DESCRIPTION OF PROCEDURE: Under mild sedation, the patient was placed brought t o the OR and placed on the operating table in supine position. Following admini stration of general anesthesia, a pneumatic thigh tourniquet was placed to the l eft lower extremity. The left lower extremity was scrubbed prepped and draped i n the aseptic manner. A proper time-out was performed. The left lower extremit y was identified as a surgical site. Next, the pneumatic thigh tourniquet was i nflated, and then an approximately 4 cm incision was made over the area of the d istal fibula extending anteriorly over the anterior talofibular ligament. The t alofibular ligament split was noted. There was significant laxity within the an kle. Prior to the incision, fluoroscopic views were also taken in multiple plan es, chronic tears of the ATFL and calcaneofibular ligaments. Next, approximatel y 4 cm incision was made obliquely over the lateral aspect of the calcaneus. Th is incision was deepened down to subcutaneous tissue with care being taken to av oid damage to neurovascular structures. All bleeders were ligated as necessary. The incision was deepened down. The calcaneus was identified. Using a Casanova el evator, the periosteal tissues were freed of the lateral aspect of the calcaneus . Next, an approximately 1 cm laterally based wedge was resected out of the rita caneus using a sagittal saw. Care was taken to maintain the medial cortex of th e calcaneus. The posterior tracking calcaneus was then compressed where the wed ge was removed, and three 6.5 mm screws were placed under fluoroscopy for adequa te fixation. There was good fixation of the osteotomy at that time. Attention was then redirected back to the anterior aspect of the ankle. Using an appropri ate-sized Bio-Tenodesis drill and reamer, the area was reamed just anterior at t he anterior aspect and ATFL ligament insertion into the talus. The allograft te ndon was then inserted into distal aspect of the talus. The ankle split was in a corrected position and then the appropriate-sized drill was also used to drill from anterior fibula to the posterior fibular with care being taken to maintain the peroneal tendons. The allograft tendon was then passed through this drill hole. The ankle was again made sure that was placed in appropriate position, an d a Bio-Tenodesis screw was placed into the fibula. Next, the tendon was transf erred on to the subcutaneous tissues, then the deep layers down the level of the plantar calcaneus towards the incision of the prior osteotomy. The appropriate placement was determined and the ankle was held in valgus rotation abduction for fixation of the allograft tendon in the calcaneus. The ankle was put through a range of motion. There was no laxity noted within the ankle joint. At that t joaquin, the Ortiz calcaneal osteotomy corrected for the cavus foot deformity. Ther e were no further osteotomies that were necessitated at this time and a correcte d position. The ankle was then put through range of motion with the knee extend ed and knee bend. There was noted there was gastroc strike equinus deformity af ter performance of Silfverskiold test. So, an approximate 4 cm incision was mad e to the medial aspect of the leg just distal to the gastroc muscle bellies. Th e incision was deepened down to the level of the deep fascia with care being cesar en to avoid all major neurovascular structures of the leg. The deep fascia was incised. The aponeurosis was identified. The aponeurosis was then incised from medial to lateral with dorsiflexion progressed across the ankle. There was sig nificant increase in dorsiflexion of the ankle joint to a level of 10 degrees do rsiflexion. All the wounds were then flushed with copious amounts of sterile sa line. Deep tissues were reapproximated and closed using 3-0 Vicryl. Subcutaneo us tissues were reapproximated with 3-0 Vicryl. Skin was reapproximated with 3- 0 nylon. The foot was then dressed with a dry sterile dressing consisting of 4 x 4s and sterile web roll. Next, a stockinette and a fiberglass cast was then p laced over the left foot to just below the level of the knee with care being cesar en foot to well padding the bony prominences and fully dilate the common peronea l nerve. The patient was transferred from OR to Recovery with vital signs stabl e. Neurovascular status intact to left foot. [facility] following written and oral postoperative instructions. The patient is to keep the dressing clean, dry, and intact. She is to be nonwe ightbearing to left lower extremity. David Cai DPM DB/medq VOICE JOB ID: [id number] DOCUMENT ID: [id number] cc: David Cai DPM * Anesthesia Post Evaluation - Eloy Brumfield MD - 08/30/2014 5:56 PM SUSTAINABLE COMMUNITIES DESIGNER Juan Cruz is a 49 y.o. female The patient is sufficiently recovered from the acute administration of the anest hesia so as to participate in the evaluation of neurologic status has returned t o pre-operative or expected level of consciousness. The post-anesthesia assessment was completed based upon the elements below. The patient is stable and has adequately recovered from anesthesia unless otherwise noted. Post - Op Evaluation: Vitals Temp: 98.4 F (36.9 C) (08/30/141709) Temp src: Temporal (08/30/141709) Pulse: 107 (08/30/141709) Heart Rate (Monitored): 103 bpm (08/30/141744) Cardiac Rhythm (ECG): Sinus tachycardia (08/30/141709) BP: 136/71 mmHg (08/30/141744) Mean Arterial Pressure: 96 MM HG (08/30/141744) BP Location: Left arm (08/30/141709) Resp: 24 (08/30/141744) SpO2: 97 % (08/30/141744) Patient Position: Supine (08/30/141744) Oxygen Therapy O2 Device: nasal cannula (08/30/141744) Oxygen Therapy Flow (L/min): 3 (08/30/141744) Respiratory Function: normal Cardiac Function: stable Mental Status: awake and alert; oriented to person, place, and time Pain: no Nausea/ Vomiting: none Post Procedure Hydration:adequate Other Complications: A post-op evaluation was preformed on the patient with the following assessment: No Apparent Anesthesia Complications; Vital Signs and Neur ologic Status, which has returned to level at Preop. Unless otherwise indicated, the patient is being discharged from anesthesia care . Eloy Brumfield MD AINABLE COMMUNITIES DESIGNER * OR Anesthesia - Farhad Louie MD - 08/30/2014 12:26 PM SUSTAINABLE COMMUNITIES DESIGNER Evaluated By: Farhad Louie MD, 08/30/2014 12:26 PM, seen in Pre-Op Juan Cruz is a 49 y.o. female Purpose: Scheduled Procedure: Procedure(s): ANKLE STABILIZATION, CAVUS FOOT RECONSTRUCTION, Hospital Problem List There is no problem list on file for this patient. Past Medical History Past Medical History Diagnosis Date Hypothyroidism Depression Anxiety Asthma Cancer 1990 cervical GERD (gastroesophageal reflux disease) Headache(784.0) cluster headaches during summer Hyperlipidemia IBS (irritable bowel syndrome) Substance abuse Past Surgical History Past Surgical History Procedure Laterality Date Hx tonsillectomy Hx tympanostomy Hx surgical other 1990 laser conization Hx section 86, 87, 91, 95 X 4 Hx tubal ligation 1994 Allergies Penicillins Meds Prescriptions prior to admission Medication Sig Dispense Refill OTHER 4 mg daily. Christine-viest Compunding formula from [employer]. pravastatin (PRAVACHOL) 40 mg tablet Take 40 mg by mouth daily at bedtime. omeprazole (PRILOSEC) 20 mg Capsule, Delayed Release(E.C.) Take 20 mg by isak th daily e commerce analyst. busPIRone (BUSPAR) 30 mg Tablet Take 30 mg by mouth 2 times daily. montelukast (SINGULAIR) 10 mg tablet Take 10 mg by mouth daily at bedtime. loratadine (CLARITIN) 10 mg tablet Take 10 mg by mouth daily e commerce analyst. oxybutynin chloride (DITROPAN XL) 10 mg Extended Release 24 hour tablet Take 10 mg by mouth daily e commerce analyst. dicyclomine (BENTYL) 10 mg capsule Take 10 mg by mouth 3 times daily. desipramine (NORPRAMIN) 100 mg Tablet Take 200 mg by mouth daily at bedtime. levothyroxine 88 mcg Oral tablet Take 88 mcg by mouth daily e commerce analyst. budesonide-formoterol (SYMBICORT) 160-4.5 mcg/actuation HFA Aerosol Inhaler Take 2 Puffs by inhalation 2 times daily. Current Facility-Administered Medications Medication Dose Route Frequency Provider Last Rate Last Dose ceFAZolin (ANCEF) IVPB 2,000 mg 2,000 mg IV Pre-Proc Once David Cai DPM lactated ringers solution IV Continuous Farhad Louie MD 40 mL/hr a t 08/30/14 121 lactated ringers solution IV Post-Proc Continuous Farhad Louie MD fentaNYL PF (SUBLIMAZE) 50 mcg/mL injection 25 mcg 25 mcg IV Post-Proc q 3 min PRN Farhad Louie MD Past Social History History Social History Marital Status: Spouse Name: N/A Number of Children: N/A Years of Education: N/A Occupational History Not on file. Social History Main Topics Smoking status: Never Smoker Smokeless tobacco: Not on file Alcohol Use: Yes Comment: occ. Drug Use: Yes Special: IV, Cocaine Sexual Activity: Not on file Comment: last time used IV 2001; smoking 2006 Other Topics Concern Not on file Social History Narrative Lab Results No results for input(s): WBC, HGB, HCT in the last 72 hours. Invalid input(s): PLTCOUNT No results for input(s): CO2, BUN, GLUCOSE in the last 72 hours. Invalid input(s): SODIUM, POTASSIUM, CHLORIDE, CREATININE, CALCIUM @FLOWDATE(2706:LAST)@ No results for input(s): INR, PT in the last 72 hours. Invalid input(s): PTT No results for input(s): TROPONIN in the last 72 hours. Pre-Eval Exam:Pre-Eval Exam: I have reviewed previous documentation YES Last Vital Signs Vitals Temp: 97.7 F (36.5 C) (08/30/14 1210) Temp src: Temporal (08/30/141209) Pulse: 87 (08/30/14 1210) BP: 117/86 mmHg (08/30/14 1210) BP Location: Left arm (08/30/141209) Resp: 18 (08/30/14 121) SpO2: 100 % (02/13/15 1210) Patient Position: Sitting (08/30/14 1210) Oxygen Therapy O2 Device: Room air (08/30/14 1210) NPO Status: Longer than 8 hours Last Food Intake (Date): 08/29/14 (08/30/14 1204) Last Food Intake (hh:mm): 1900 (08/30/14 1204) Last Fluid Intake (Date): 08/29/14 (08/30/14 1204) Last Fluid Intake (hh:mm): 2100 (08/30/14 1204) PHYSICAL EXAM: Heart Sounds: S1 and S2 normal, no murmur, click, gallop or rub Respiratory Pattern/Effort: CTA Oriented x3: Yes Airway: Teeth: OK NO, Dentures: No Capped/Crowned Incisors: one chipped tooth left upper central incisor. Airway Class: H/O Difficult airway management: No Facial hair: No, TMD more than three finger breadths: YES Inter-incisor distance more than two finger breadths: YES Neck ROM Full:NO Mallampati class: 3 ANESTHESIA ASA: ASA 3 - Patient with moderate systemic disease with functional limitations Anesthesia Choices: General Post-Op Plan: PACU AINABLE COMMUNITIES DESIGNER * Adriana-OP - Jaz Arredondo RN - 07/15/2014 10:58 AM SUSTAINABLE COMMUNITIES DESIGNER In computer patient listed at Jaems Juan. Patient says she hasn't gone by that name since 1997, last name is now Darryl. Told her to bring ID to hospital when she checks in registration. Also asked patient to bring medications with her, as she did not know all of them at the time of PAT phone visit. Called Elena in scheduling about name discrepancy. AINABLE COMMUNITIES DESIGNER documented in this encounter Miscellaneous Notes * Therapy Evaluation - Svitlana Trammell, Physical Therapist - 08/31/2014 8:55 AM SUSTAINABLE COMMUNITIES DESIGNER Acute Therapy Services Dena Ph. Ph. For questions regarding this patient's status or care, please call [phone]. Acute Physical Therapy Evaluation 08/31/2014 (Evaluation CPT Code--50034) Room: [place] [address] Name: Juan Cruz Age: 49 y.o. Date of : 1965 Insurance: [facility] / Plan: [facility] [employer] / Product Type: Medicaid Managed Care / Patient Class: Observation Confirmed patient's identification of name and date of : on name band, by patient report Consent to treatment given by patient and nurse with results as follows: Onset of illness/injury or date of surgery: 08/30/2014 PT Evaluation Time PT Evaluation Start Time: 829 (08/31/14852) PT Evaluation Stop Time: 852 (08/31/14852) Physical Therapy Assessment Therapeutic Diagnosis: Juan Cruz is a 49 y.o. female referred for ph ysical therapy. Patient presents with balance deficits, decreased activity to[place], decreased range of motion, decreased strength, gait disturbance, pain and risk for falls which limits her independence with transfers and mobility within the discharge environment. Skilled Physical Therapy is recommended to address: balance training, equipme nt training, functional transfer training, gait training, home safety instructio n, patient/family education and strengthening exercises Rehabilitation Potential: Good Participation level: Good Patient seen for skilled therapy to address her decreased functional strength , mobility, and activity tolerance post left ankle reconstruction. Patient curr ently requires supervision to modified independence for bed mobility, transfers, and gait training with use of WWR. Patient ambulated 25 feet x2 with WWR and t ransferred on/off multiple height surfaces. Patient educated over stair techniq ues, walker height, and safety within the discharge environment. Mobility Precautions Patient precautions: fall precautions Weight Bearing: NWB LLE Other pertinent findings: IV Prior Level of Function Prior level of function: independent Patient does not have a history of falls. Assist available at home: Son and other family members available for assist ance. Home environment: [facility] home Recommendations Anticipated discharge disposition: Home with assistance Equipment needed at discharge: rolling walker Recommendations for referral to another service: watch case polisher/care coordinato r and occupational therapy Plan of Care Therapy Frequency: Will follow 7 times per week, BID Tuesday through y and daily on Tuesday Discussed PT plan of care with the patient, who is in agreement, and also neil h their RN Subjective Information Provided by: patient states she may go home either before or after lunch. Pain: Refer to Doc Flowsheet for documented pain levels. 5/10 left ankle. Patient/Family Goals Statement: To return home. Cognition Level of alertness: alert Orientation: Person, Place, Date and Situation Ability to follow commands: Good Ability to Learn: Good Safety Awareness: good Objective Information Upper Extremity Function: Left: ROM: WNL Strength: adequate ROM, adequate strength Right: ROM: WNL Strength: adequate ROM, adequate strength Lower Extremity Function: Left: ROM: moderately impaired due to cast on left ankle. Knee and hip within nor mal limits. Strength: normal Right: ROM: normal Strength: normal Neuro Status: Muscle Tone: normal Coordination: WFL Sensation: WFL Gait/Stairs Ambulation distance of 25 feet x2 with rolling walker with supervision Notable Deviations: ambulates appropriately using WWR to maintain her NWB sta tus on the left. Patient ascended and descended: Unable to ascend/descend stairs at this time. Vitals Vitals: Patient on room air At Rest: HR: 71 O2 Sat: 98% During/After: HR: 90 activity O2 Sat: 98% Balance Sitting Static:independent Sitting Dynamic: independent Standing Static: supervision Standing Dynamic: supervision Functional Mobility Rolling: supervision Scooting: supervision Supine to sit: minimal assistance Sit to supine: supervision Sit to stand: supervision Bed to chair: supervision with use of WWR Education Method: demonstration and verbal Provided to: patient Regarding physical therapy evaluation, progression of therapy, safety within the discharge environment Response to learning: verbalizes understanding Disposition Before treatment session: Patient found lying in bed. After treatment session: Patient left lying in bed with call light and phone within reach Current Diagnoses Ankle reconstruction Past Medical History has a past medical history of Hypothyroidism; Depression; Anxiety; Asthma; Canc er (1990); GERD (gastroesophageal reflux disease); Headache(784.0); Hyperlipidem ia; IBS (irritable bowel syndrome); and Substance abuse. Prior to PT session a thorough chart review was completed including prior PT notes as applicable. Further treatment notes and therapeutic goals can be found in Care Plan Notes . Thank you for this referral, Svitlana Trammell, MPT AINABLE COMMUNITIES DESIGNER documented in this encounter Plan of Treatment Not on filedocumented as of this encounter Procedures Comments Procedure Name Priority Date/Time Associated Diag nosis XR ANKLE 3+ VW LEFT Routine 08/30/2014 5:30 PM SUSTAINABLE COMMUNITIES DESIGNER XR FLUORO LESS THAN 1 Routine 08/30/2014 HOUR 4:00 PM SUSTAINABLE COMMUNITIES DESIGNER XR CALCANEUS 2+ VW LEFT Routine 08/30/2014 3:59 PM SUSTAINABLE COMMUNITIES DESIGNER ANKLE OPEN REDUCTION 08/30/2014 Ankle instabilit y INTERNAL FIXATION 1:22 PM SUSTAINABLE COMMUNITIES DESIGNER documented in this encounter Results * XR ANKLE 3+ VW LEFT (08/30/2014 5:30 PM SUSTAINABLE COMMUNITIES DESIGNER) Specimen Narrative Performed At Left ankle three views. Comparison study from [facility] today. INTERFACE SYSTEM Postreduction. In plaster cast images were obtained. Postsurgical changes of recent open reduction internal fixation of ost eotomy and internal fixation of calcaneus with three lag screws. Amilcar ical offset again noted along the plantar and dorsal surface. Rest of the visualized osseous structures are intact. Degenerative saadia nges at tibiotalar joint. Procedure Note Interface, [facility] Incoming Radiology Results - 08/30/2014 5:43 PM SUSTAINABLE COMMUNITIES DESIGNER Left ankle three views. Comparison study from earlier today. Postreduction. In plaster cast images were obtained. Postsurgical changes of recent open reduction internal fixation of osteotomy and internal fixation of calcaneus with three lag screws. Cortical offset again noted along the plantar and dorsal surface. Rest of the visualized osseous structures are intact. Degenerative changes at tibiotalar joint. Performing Organization Address City/State/Zipcode Ph one Number INTERFACE SYSTEM INTERFACE SYSTEM Refer to clinic/hospital department * XR FLUORO LESS THAN 1 HOUR (08/30/2014 4:00 PM SUSTAINABLE COMMUNITIES DESIGNER) Specimen Narrative Performed At Order information only. Exam was auto -finalized. * XR CALCANEUS 2+ VW LEFT (08/30/2014 3:59 PM SUSTAINABLE COMMUNITIES DESIGNER) Specimen Narrative Performed At History: Fracture followup. INTERFACE SYSTEM Two view right calcaneus: Images from C -arm fluoroscopic unit show apparent osteotomy and internal fixatio n of calcaneus with placement of three lag screws. Cortical offset along the plantar and dorsal surfaces. Please refer to the surgeon's transcrib ed report for additional detailed information. Conclusion: Osteotomy with ORIF of the calcaneus. Procedure Note Interface, [facility] Incoming Radiology Results - 08/30/2014 4:37 PM SUSTAINABLE COMMUNITIES DESIGNER History: Fracture followup. Two view right calcaneus: Images from C-arm fluoroscopic unit show apparent osteotomy and internal fixation of calcaneus with placement of three lag screws. Cortical offset along the plantar and dorsal surfaces. Please refer to the surgeon's transcribed report for additional detailed information. Conclusion: Osteotomy with ORIF of the calcaneus. Performing Organization Address City/State/[facility] one Number INTERFACE SYSTEM INTERFACE SYSTEM Refer to clinic/hospital department documented in this encounter Visit Diagnoses Not on filedocumented in this encounter Administered Medications Action Date Dose Rate Site Medication Order MAR Action 08/30/2014 9:00 PM SUSTAINABLE COMMUNITIES DESIGNER 10 mg atorvastatin (LIPITOR) tablet 10 mg Given 10 mg, Oral, DAILY AT BEDTIME, First dose on Tue08/30/14 at 2100, Until Discontinued, Routine 08/31/2014 8:33 AM SUSTAINABLE COMMUNITIES DESIGNER 30 mg busPIRone (BUSPAR) tablet 30 mg Given 30 mg, Oral, TWO TIMES DAILY, First dos e on Tue08/30/14 at 2100, Until Discontinued, Routine 30 mg Given 08/30/2014 9:15 PM SUSTAINABLE COMMUNITIES DESIGNER 08/30/2014 1:45 PM SUSTAINABLE COMMUNITIES DESIGNER 2,000 mg ceFAZolin (ANCEF) IVPB 2,000 mg New Bag 2,000 mg, IV, PRE-PROCEDURE ONCE, 1 dose, Starting Tue08/30/14 at 1142, Until Tue08/30/14 at 1415, Routine, Antibiotic Indication: Surgical prophylaxis 08/31/2014 5:53 AM SUSTAINABLE COMMUNITIES DESIGNER 2,000 mg ceFAZolin (ANCEF) IVPB 2,000 mg New Bag 2,000 mg, IV, POST-PROCEDURE Q 8 HOURS, 2 doses, First dose on Tue08/30/14 at 2200, Last dose on Tue08/31/14 at 0600, Routine, Post-op - Floor, Antibiotic Indication: Surgical prophylaxis 2,000 mg New Bag 08/30/2014 9:19 PM SUSTAINABLE COMMUNITIES DESIGNER 08/31/2014 5:53 AM SUSTAINABLE COMMUNITIES DESIGNER 10 mg cetirizine (ZYRTEC) tablet 10 mg Given 10 mg, Oral, DAILY EARLY, First dose on Tue08/31/14 at 0600, Until Discontinued , Routine 08/30/2014 10:11 PM SUSTAINABLE COMMUNITIES DESIGNER 200 mg desipramine (NORPRAMIN) tablet 200 mg Given 200 mg, Oral, DAILY AT BEDTIME, First dose on Tue08/30/14 at 2100, Until Discontinued, Routine 08/31/2014 1:20 PM SUSTAINABLE COMMUNITIES DESIGNER 10 mg dicyclomine (BENTYL) capsule 10 mg Given 10 mg, Oral, THREE TIMES DAILY, First dose on Tue08/30/14 at 1915, Until Discontinued, Routine 10 mg Given 08/31/2014 8:33 AM SUSTAINABLE COMMUNITIES DESIGNER 08/31/2014 5:54 AM SUSTAINABLE COMMUNITIES DESIGNER 40 mg Abdomina l Tissue enoxaparin (LOVENOX) injection 40 mg Given 40 mg, subCUT, DAILY, First dose on 08/31/14 at 0600, Until Discontinued, Routine, Post-op - Floor 08/31/2014 8:34 AM SUSTAINABLE COMMUNITIES DESIGNER 2 Puffs fluticasone-salmeterol (ADVAIR HFA) Given 230-21 mcg/actuation inhaler 2 Puff 2 Puff, Inhalation, TWO TIMES DAILY, First dose on Tue08/30/14 at 2100, Unti l Discontinued, Routine 2 Puffs Given 08/30/2014 9:19 PM SUSTAINABLE COMMUNITIES DESIGNER 08/31/2014 1:20 PM SUSTAINABLE COMMUNITIES DESIGNER 1 Tablet HYDROcodone-acetaminophen (NORCO) 10-325 Given mg per tablet 1 Tab 1 Tablet, Oral, EVERY 4 HOURS PRN, Starting Tue08/30/14 at 1912, Until 08/31/14 at 1618, Pain, Severe, For Pain Scale 7-10, Routine, Post-op - Floor 1 Tablet Given 08/31/2014 8:33 AM SUSTAINABLE COMMUNITIES DESIGNER 1 Tablet Given 08/31/2014 2:57 AM SUSTAINABLE COMMUNITIES DESIGNER 08/30/2014 10:36 PM SUSTAINABLE COMMUNITIES DESIGNER 1 Tablet HYDROcodone-acetaminophen (NORCO) 5-325 Given mg per tablet 1 Tab 1 Tablet, Oral, EVERY 4 HOURS PRN, Starting Tue08/30/14 at 1912, Until 08/31/14 at 1618, Pain, Mild, For Pain Scale 1-3, Routine, Post-op - Floor 08/30/2014 12:10 PM SUSTAINABLE COMMUNITIES DESIGNER 40 mL/hr lactated ringers solution New Bag IV, at 40 mL/hr, CONTINUOUS, Starting Tue08/30/14 at 1200, Until 08/31/14 at 1618, Routine 08/30/2014 6:20 PM SUSTAINABLE COMMUNITIES DESIGNER 125 mL/hr lactated ringers solution New Bag IV, at 125 mL/hr, POST-PROCEDURE CONTINUOUS, Starting Tue08/30/14 at 1230, Until Tue08/31/14 at 1618, Routin e 125 mL/hr Started by Another Clinician 08/30/2014 5:10 PM SUSTAINABLE COMMUNITIES DESIGNER 08/31/2014 5:53 AM SUSTAINABLE COMMUNITIES DESIGNER 88 mcg levothyroxine (SYNTHROID) tablet 88 mcg Given 88 mcg, Oral, DAILY EARLY, First dose o n Tue08/31/14 at 0600, Until Discontinued , Routine 08/30/2014 9:00 PM SUSTAINABLE COMMUNITIES DESIGNER 10 mg montelukast (SINGULAIR) 10 mg tablet 10 Given mg 10 mg, Oral, DAILY AT BEDTIME, First dose on Tue08/30/14 at 2100, Until Discontinued, Routine 08/31/2014 8:33 AM SUSTAINABLE COMMUNITIES DESIGNER 5 mg oxybutynin chloride (DITROPAN) tablet 5 Given mg 5 mg, Oral, TWO TIMES DAILY, First dose on Tue08/31/14 at 0900, Until Discontinued, Routine 08/31/2014 5:53 AM SUSTAINABLE COMMUNITIES DESIGNER 40 mg pantoprazole (PROTONIX) tablet 40 mg Given 40 mg, Oral, DAILY EARLY, First dose on Tue08/31/14 at 0600, Until Discontinued , Routine documented in this encounter
--- OUTSIDE RECORDS SUMMARY | 2019-12-01 17:32 | XMS REPORT | Clinical Summary ---
Author Author [employer] [facility], [place], [place], [place], [place] Organization [facility], [employer], [place], [place], [place] Address Unknown Phone Unavailable Care Team Providers Care Research Professor Of Biostatistics Name Role Phone Ruben Conner MD PCP Allergies Comments Active Allergy Reactions Severity Noted Date Penicillins Unknown 07/15/2014 Medications End Date Status Medication Sig Dispensed Refills Start Date Active omeprazole (PRILOSEC) 20 Take 20 mg by 0 mg Capsule, Delayed mouth daily Release(E.C.) 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 Active busPIRone (BUSPAR) 30 mg Take 30 mg by 0 Tablet mouth 2 times daily. Active montelukast (SINGULAIR) Take 10 mg by 0 10 mg tablet mouth daily at bedtime. 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 Active oxybutynin chloride Take 10 mg by 0 (DITROPAN XL) 10 mg mouth daily Extended Release 24 hour early tablet morning. Active dicyclomine (BENTYL) 10 Take 10 mg by 0 mg capsule mouth 3 times daily. Active desipramine (NORPRAMIN) Take 200 mg 0 100 mg Tablet by mouth daily at bedtime. 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 Active budesonide-formoterol Take 2 Puffs 0 (SYMBICORT) 160-4.5 by inhalation mcg/actuation HFA Aerosol 2 times Inhaler daily. Active OTHER 4 mg daily. 0 Christine-viest Compunding formula from [facility]. Active pravastatin (PRAVACHOL) Take 40 mg by 0 40 mg tablet mouth daily at bedtime. Active Problems Not on file Family History Medical History Relation Name Comments Unknown Father Unknown Mother Relation Name Status Comments Father Other Mother Social History Date Tobacco Use Types Packs/Day Years Used Never Smoker Drinks/Week oz/Week Comments Alcohol Use occ. Yes Sex Assigned at Date Recorded Not on file Industry Job Start Date Occupation Not on file Not on file Not on file Travel End Travel History Travel Start No recent travel history available. Last Filed Vital Signs Reading Time Taken Comments Vital Sign 136/78 08/31/2014 12:00 PM PATENT LAW SPECIALIST Blood Pressure 102 08/31/2014 12:00 PM PATENT LAW SPECIALIST Pulse 36.9 C (98.5 F) 08/31/2014 12:00 PM PATENT LAW SPECIALIST Temperature 18 08/31/2014 12:00 PM PATENT LAW SPECIALIST Respiratory Rate 98% 08/31/2014 12:00 PM PATENT LAW SPECIALIST Oxygen Saturation - - Inhaled Oxygen Concentration 91.6 kg (202 lb) 08/30/2014 12:10 PM PATENT LAW SPECIALIST Weight 170.2 cm (5' 7") 08/30/2014 12:10 PM PATENT LAW SPECIALIST Height 31.64 08/30/2014 12:10 PM PATENT LAW SPECIALIST Body Mass Index Plan of Treatment Health Maintenance Due Date Last Done Comments CERVICAL CANCER SCREENING 1994 BREAST CANCER SCREENING 2004 COLORECTAL SCREENING 2014 ZOSTER VACCINE (1 of 2) 2014 INFLUENZA VACCINE 02/15/2019 PNEUMOCOCCAL VACCINE 0-64 Aged Out No longer el igible based YEARS on patient's age to complete this topic Implants Device Identifier Shelf Expiration Date Model / Serial / L ot Implanted Type Area Manufactur er 05/30/2016 [id number] / / [id number] Renwick Sut Bio-Suturetak Mini Renwick Left: Ankle ARTHREX [id number] - [id number] Implanted: Qty: 2 on 08/30/2014 by David Cai DPM at [facility] 04/29/2016 [id number] / / [id number] Screws Ankle Lat Rcnstrctn Screw Left: Ankle ART HREX [id number] - [id number] Implanted: Qty: 1 on 08/30/2014 by David Cai DPM at [facility] [id number] / / Screw Asnis Pt 6.5x60mm [id number] - Screw Left: Ankle EDDIE- [id number] ORTHOPAEDI Implanted: Qty: 2 on 08/30/2014 by David Dixon DPM at [facility] [id number] / / Screw Asnis Pt 8.0x50mm [id number] - Screw Left: Ankle EDDIE- [id number] ORTHOPAEDI Implanted: Qty: 1 on 08/30/2014 by David Dixon DPM at [facility] [id number] 02/15/2019 [id number] / / [id number] Staple Easyclip [id number] Staple Left: Ankl e EDDIE- - [id number] ORTHOPAEDI Implanted: Qty: 1 on 08/30/2014 by David Dixon DPM at [facility] 02/27/2017 [facility] / [id number] / Tendon Flxgrft Lat Ankle Presut Tendon Left: Ankle LIFENET [facility] - [id number] Implanted: Qty: 1 on 08/30/2014 by David Cai DPM at [facility] Device Identifier Shelf Expiration Date Model / Serial / L ot Explanted Type Area Manufactur er [id number] / / Screw Asnis Pt 6.5x55mm [id number] Screw Left: Ankle EDDIE- ([id number]) - [id number] - Explanted: Qty: 1 on 08/30/2014 by David Pinzon, GERA at [facility] Results Not on filefrom Last 3 Months Insurance Type Payer Benefit Subscriber ID Effective Phone Address Plan / Dates Group Medicaid Managed Care [facility] [id number] 2013-P [facility] [place] [address] Advance Directives For more information, please contact: [phone] Patient Process Excellence Manager Explanation Type Date Recorded Advance Directive 08/30/2014 11:08 AM POA Advance Directive 08/30/2014 11:08 AM Living Will Date Inactivated Comments Code Status Date Activated 08/31/2014 4:18 PM Full Code 08/30/2014 7:12 PM
--- OUTSIDE RECORDS SUMMARY | 2019-12-01 17:32 | XMS REPORT | Encounter Summary ---
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 Name Role Phone Ruben Conner MD PCP Reason for Visit * Auth/Cert Referred By Contact Referred To Contact Status Reason Specialty Diagnoses / Procedures [facility] Operating Room [address] [place] [id number] Closed Diagnoses Ankle instability CAVUS ANKLE/FOOT INSTABILITY P rocedures ANKLE OPEN REDUCTION INTERNAL FIXATION Encounter Details Care Team Description Date Type Department David Cai, DPM [address] [facility] [address] [place] [address] ANKLE STABILIZATION, CAVUS FOOT RECONSTR UCTION, 08/30/2014 Surgery [facility] in Operating Room [address] [place] [phone] Social History Date Tobacco Use Types [...] Comments Vital Sign 136/78 08/31/2014 12:00 PM EMBLEM MAKER Blood Pressure 102 08/31/2014 12:00 PM EMBLEM MAKER Pulse 36.9 C (98.5 F) 08/31/2014 12:00 PM EMBLEM MAKER Temperature 18 08/31/2014 12:00 PM EMBLEM MAKER Respiratory Rate 98% 08/31/2014 12:00 PM EMBLEM MAKER Oxygen Saturation - - Inhaled Oxygen Concentration 91.6 kg (202 lb) 08/30/2014 12:10 PM EMBLEM MAKER Weight 170.2 cm (5' 7") 08/30/2014 12:10 PM EMBLEM MAKER Height 31.64 08/30/2014 12:10 PM EMBLEM MAKER Body Mass Index documented in this encounter Discharge Summaries * David Cai DPM - 09/24/2014 7:08 PM [facility] [address] NAME: JUAN CRUZ CSN: [id number] : 1965 PHYSICIAN: David Cai DPM ADMISSION [...] David Cai DPM DB/medq VOICE JOB ID: [id number] DOCUMENT ID: [id number] cc: David Cai DPM documented in this [...] hour for the next 48-72 hours. Call [phone] for follow up appointment in [address] David Cai DPM [facility] [place] [phone] * Attachments The following attachments cannot be sent through Care Everywhere.* CAST CARE (MALAWIAN) * ANKLE FRACTURE (MALAWIAN) documented in this encounter Medications at Time of Discharge Start Date End Date Medication Sig Dispensed Refills OTHER 4 mg daily. 0 Christine-viest Compunding formula from [employer]. pravastatin (PRAVACHOL) Take 40 mg by 0 40 mg tablet mouth daily at bedtime. omeprazole (PRILOSEC) 20 Take 20 mg by 0 mg Capsule, Delayed mouth daily Release(E.C.) cashier host/hostess. busPIRone (BUSPAR) 30 mg Take 30 mg by 0 Tablet mouth 2 times daily. montelukast (SINGULAIR) Take 10 mg by 0 10 mg tablet mouth daily at bedtime. loratadine (CLARITIN) 10 Take 10 mg by 0 mg tablet mouth daily cashier host/hostess. oxybutynin chloride Take 10 mg by 0 (DITROPAN XL) 10 mg mouth daily Extended Release 24 hour early tablet morning. dicyclomine (BENTYL) 10 Take 10 mg by 0 mg capsule mouth 3 times daily. desipramine (NORPRAMIN) Take 200 mg 0 100 mg Tablet by mouth daily at bedtime. levothyroxine 88 mcg Oral Take 88 mcg 0 tablet by mouth daily cashier host/hostess. budesonide-formoterol Take 2 Puffs 0 (SYMBICORT) 160-4.5 by inhalation mcg/actuation HFA Aerosol 2 times Inhaler daily. documented as of this encounter Progress Notes * Bruce Peters PA - 08/31/2014 8:35 AM EMBLEM MAKER ORTHO PROGRESS NOTE 1 Day Post-Op S/P [...] STABILIZATION, CAVUS FOOT RECONSTRUCTION, Plan DC Home EM MAKER * Deana Vasquez RN - 08/30/2014 7:00 PM EMBLEM MAKER Pt settled into room 102-1. Pt resting quietly with eyes closed, no distress no bob. RN will continue to monitor. EM MAKER documented in this encounter H&P Notes * Farhad Louie MD - 09/03/2014 9:14 AM EMBLEM MAKER History and Physical Subjective: Patient is a [...] benefits discussed with patient Farhad Louie MD EM MAKER documented in this encounter OR Notes * Operative Report - David Cai DPM - 09/24/2014 11:02 [place] [address] NAME: JUAN CRUZ CSN: [id number] : 1965 ADMISSION DATE: 08/30/2014 OPERATIVE REPORT DATE: 08/30/2014 SURGEON: David Cai DPM JUDO INSTRUCTOR: None. PREOPERATIVE DIAGNOSES: 1. Chronic lateral ankle [...] ESTIMATED BLOOD LOSS: 50 mL. MATERIALS USED: [place] screw system, allograft tendon, and [employer]Ten[employer] is screws, 3-0 Vicryl, 3-0 nylon. INTRAOPERATIVE INJECTABLES: 20 mL of Marcaine plain. COMPLICATIONS: None. INDICATION FOR THE PROCEDURE: The patient, Juan Cruz, is a 49-year-old fe male with chronic [...] foot. She will be admitted to the [facility] for observation with following written and oral postoperative instructions. The patient is to keep the dressing clean, dry, and intact. She is to be nonwe ightbearing to left lower extremity. David Cai DPM DB/medq VOICE JOB ID: [id number] DOCUMENT ID: [id number] cc: David Cai DPM * Anesthesia Post Evaluation - Eloy Brumfield MD - 08/30/2014 5:56 PM EMBLEM MAKER Juan Cruz is a 49 y.o. female [...] from anesthesia care . Eloy Brumfield MD EM MAKER * OR Anesthesia - Farhad Louie MD - 08/30/2014 12:26 PM EMBLEM MAKER Evaluated By: Farhad Louie MD, 08/30/2014 12:26 [...] 4 mg daily. Christine-viest Compunding formula from [employer] [facility]. pravastatin (PRAVACHOL) 40 mg tablet Take 40 mg by mouth daily at bedtime. omeprazole (PRILOSEC) 20 mg Capsule, Delayed Release(E.C.) Take 20 mg by isak th daily cashier host/hostess. busPIRone (BUSPAR) 30 mg Tablet Take 30 mg by mouth 2 times daily. montelukast (SINGULAIR) 10 mg tablet Take 10 mg by mouth daily at bedtime. loratadine (CLARITIN) 10 mg tablet Take 10 mg by mouth daily cashier host/hostess. oxybutynin chloride (DITROPAN XL) 10 mg Extended Release 24 hour tablet Take 10 mg by mouth daily cashier host/hostess. dicyclomine (BENTYL) 10 mg capsule Take 10 mg by mouth 3 times daily. desipramine (NORPRAMIN) 100 mg Tablet Take 200 mg by mouth daily at bedtime. levothyroxine 88 mcg Oral tablet Take 88 mcg by mouth daily cashier host/hostess. budesonide-formoterol (SYMBICORT) 160-4.5 mcg/actuation HFA Aerosol Inhaler [...] limitations Anesthesia Choices: General Post-Op Plan: PACU EM MAKER * Adriana-OP - Jaz Arredondo RN - 07/15/2014 10:58 AM EMBLEM MAKER In computer patient listed at [facility]. Patient says she hasn't gone by that name since 1997, last name is now Darryl. Told her to bring ID to hospital when she checks in registration. Also asked patient to bring medications with her, as she did not know all of them at the time of PAT phone visit. Called Elena in scheduling about name discrepancy. EM MAKER documented in this encounter Miscellaneous Notes * Therapy Evaluation - Svitlana Trammell, Physical Therapist - 08/31/2014 8:55 AM EMBLEM MAKER Acute Therapy Services Dena Ph. Ph. For questions regarding this patient's status or care, please call [phone]. Acute Physical Therapy Evaluation 08/31/2014 (Evaluation CPT Code--39673) Room: [place] [address] Name: Juan Cruz Age: 49 y.o. Date of : 1965 [facility]: [facility] lettrs CAR E / Product Type: Medicaid Managed [...] walker Recommendations for referral to another service: case assistant/care coordinato r and occupational therapy Plan of [...] you for this referral, Svitlana Trammell, MPT EM MAKER documented in this encounter Plan of Treatment Not on filedocumented as of this encounter Procedures Comments Procedure Name Priority Date/Time Associated Diag nosis XR ANKLE 3+ VW LEFT Routine 08/30/2014 5:30 PM EMBLEM MAKER XR FLUORO LESS THAN 1 Routine 08/30/2014 HOUR 4:00 PM EMBLEM MAKER XR CALCANEUS 2+ VW LEFT Routine 08/30/2014 3:59 PM EMBLEM MAKER ANKLE OPEN REDUCTION 08/30/2014 Ankle instabilit y INTERNAL FIXATION 1:22 PM EMBLEM MAKER documented in this encounter Results * XR ANKLE 3+ VW LEFT (08/30/2014 5:30 PM EMBLEM MAKER) Specimen Narrative Performed At Left ankle three views. Comparison study from [facility] today. INTERFACE SYSTEM Postreduction. In plaster cast images were obtained. Postsurgical changes of recent open reduction internal fixation of ost eotomy and internal fixation of calcaneus with three lag screws. Amilcar ical offset again noted along the plantar and dorsal surface. Rest of the visualized osseous structures are intact. Degenerative saadia nges at tibiotalar joint. Procedure Note [place], [facility] [place] Results - 08/30/2014 5:43 PM EMBLEM MAKER Left ankle three views. Comparison study from [...] LESS THAN 1 HOUR (08/30/2014 4:00 PM EMBLEM MAKER) Specimen Narrative Performed At Order information only. Exam was auto -finalized. * XR CALCANEUS 2+ VW LEFT (08/30/2014 3:59 PM EMBLEM MAKER) Specimen Narrative Performed At History: Fracture followup. [...] ORIF of the calcaneus. Procedure Note [place], [facility] [place] Results - 08/30/2014 4:37 PM EMBLEM MAKER History: Fracture followup. Two view right calcaneus: Images from C-arm fluoroscopic unit show apparent osteotomy and internal fixation of calcaneus with placement of three lag screws. Cortical offset along the plantar and dorsal surfaces. Please refer to the surgeon's transcribed report for additional detailed information. Conclusion: Osteotomy with ORIF of the calcaneus. Performing Organization Address [facility] one Number INTERFACE SYSTEM INTERFACE SYSTEM Refer to clinic/hospital department documented in this encounter Visit Diagnoses Diagnosis Ankle instability Other joint derangement, not elsewhere classified, ankle and foot documented in this encounter Administered Medications Action Date Dose Rate Site Medication Order MAR Action 08/30/2014 9:00 PM EMBLEM MAKER 10 mg atorvastatin (LIPITOR) tablet 10 mg Given 10 mg, Oral, DAILY AT BEDTIME, First dose on Tue08/30/14 at 2100, Until Discontinued, Routine 08/30/2014 2:19 PM EMBLEM MAKER Operativ e Site bacitracin (BACI-IM) 50,000 Units in Given sodium chloride 0.9 % irrigation 1,000 mL IRRIGATION INTRA-PROCEDURE PRN, Starting Tue08/30/14 at 1419, Until Tue08/30/14 at 1710, Routine, Intra-op 08/30/2014 4:49 PM EMBLEM MAKER 20 mL Operativ e Site bupivacaine PF 0.5 % (SENSORCAINE MPF) Given injection INTRA-PROCEDURE PRN, Starting Tue08/30/14 at 1420, Until Tue08/30/14 at 1710, Routine, Intra-op 30 mL Operative Site Given 08/30/2014 2:20 PM EMBLEM MAKER 08/31/2014 8:33 AM EMBLEM MAKER 30 mg busPIRone (BUSPAR) tablet 30 mg Given 30 mg, Oral, TWO TIMES DAILY, First dos e on Tue08/30/14 at 2100, Until Discontinued, Routine 30 mg Given 08/30/2014 9:15 PM EMBLEM MAKER 08/30/2014 1:45 PM EMBLEM MAKER 2,000 mg ceFAZolin (ANCEF) IVPB 2,000 mg New Bag 2,000 mg, IV, PRE-PROCEDURE ONCE, 1 dose, Starting Tue08/30/14 at 1142, Until Tue08/30/14 at 1415, Routine, Antibiotic Indication: Surgical prophylaxis 08/31/2014 5:53 AM EMBLEM MAKER 2,000 mg ceFAZolin (ANCEF) IVPB 2,000 mg New Bag 2,000 mg, IV, POST-PROCEDURE Q 8 HOURS, 2 doses, First dose on Tue08/30/14 at 2200, Last dose on Tue08/31/14 at 0600, Routine, Post-op - Floor, Antibiotic Indication: Surgical prophylaxis 2,000 mg New Bag 08/30/2014 9:19 PM EMBLEM MAKER 08/31/2014 5:53 AM EMBLEM MAKER 10 mg cetirizine (ZYRTEC) tablet 10 mg Given 10 mg, Oral, DAILY EARLY, First dose on 08/31/14 at 0600, Until Discontinued , Routine 08/30/2014 10:11 PM EMBLEM MAKER 200 mg desipramine (NORPRAMIN) tablet 200 mg Given 200 mg, Oral, DAILY AT BEDTIME, First dose on Tue08/30/14 at 2100, Until Discontinued, Routine 08/31/2014 1:20 PM EMBLEM MAKER 10 mg dicyclomine (BENTYL) capsule 10 mg Given 10 mg, Oral, THREE TIMES DAILY, First dose on Tue08/30/14 at 1915, Until Discontinued, Routine 10 mg Given 08/31/2014 8:33 AM EMBLEM MAKER 08/31/2014 5:54 AM EMBLEM MAKER 40 mg Abdomina l Tissue enoxaparin (LOVENOX) injection 40 mg Given 40 mg, subCUT, DAILY, First dose on Tue08/31/14 at 0600, Until Discontinued, Routine, Post-op - Floor 08/31/2014 8:34 AM EMBLEM MAKER 2 Puffs fluticasone-salmeterol (ADVAIR HFA) Given 230-21 mcg/actuation inhaler 2 Puff 2 Puff, Inhalation, TWO TIMES DAILY, First dose on Tue08/30/14 at 2100, Unti l Discontinued, Routine 2 Puffs Given 08/30/2014 9:19 PM EMBLEM MAKER 08/31/2014 1:20 PM EMBLEM MAKER 1 Tablet HYDROcodone-acetaminophen (NORCO) 10-325 Given mg per tablet 1 Tab 1 Tablet, Oral, EVERY 4 HOURS PRN, Starting Tue08/30/14 at 1912, Until Tue08/31/14 at 1618, Pain, Severe, For Pain Scale 7-10, Routine, Post-op - Floor 1 Tablet Given 08/31/2014 8:33 AM EMBLEM MAKER 1 Tablet Given 08/31/2014 2:57 AM EMBLEM MAKER 08/30/2014 10:36 PM EMBLEM MAKER 1 Tablet HYDROcodone-acetaminophen (NORCO) 5-325 Given mg per tablet 1 Tab 1 Tablet, Oral, EVERY 4 HOURS PRN, Starting Tue08/30/14 at 1912, Until Tue08/31/14 at 1618, Pain, Mild, For Pain Scale 1-3, Routine, Post-op - Floor 08/30/2014 12:10 PM EMBLEM MAKER 40 mL/hr lactated ringers solution New Bag IV, at 40 mL/hr, CONTINUOUS, Starting Tue08/30/14 at 1200, Until 08/31/14 at 1618, Routine 08/30/2014 6:20 PM EMBLEM MAKER 125 mL/hr lactated ringers solution New Bag IV, at 125 mL/hr, POST-PROCEDURE CONTINUOUS, Starting Tue08/30/14 at 1230, Until Tue08/31/14 at 1618, Routin e 125 mL/hr Started by Another Clinician 08/30/2014 5:10 PM EMBLEM MAKER 08/31/2014 5:53 AM EMBLEM MAKER 88 mcg levothyroxine (SYNTHROID) tablet 88 mcg Given 88 mcg, Oral, DAILY EARLY, First dose o n 08/31/14 at 0600, Until Discontinued , Routine 08/30/2014 9:00 PM EMBLEM MAKER 10 mg montelukast (SINGULAIR) 10 mg tablet 10 Given mg 10 mg, Oral, DAILY AT BEDTIME, First dose on Tue08/30/14 at 2100, Until Discontinued, Routine 08/31/2014 8:33 AM EMBLEM MAKER 5 mg oxybutynin chloride (DITROPAN) tablet 5 Given mg 5 mg, Oral, TWO TIMES DAILY, First dose on Tue08/31/14 at 0900, Until Discontinued, Routine 08/31/2014 5:53 AM EMBLEM MAKER 40 mg pantoprazole (PROTONIX) tablet 40 mg Given 40 mg, Oral, DAILY EARLY, First dose on 08/31/14 at 0600, Until Discontinued , Routine 08/30/2014 2:19 PM EMBLEM MAKER 1,000 mL Operativ e Site water sterile irrigation irrigation Given INTRA-PROCEDURE PRN, Starting Tue08/30/14 at 1419, Until Tue08/30/14 at 1710, Routine, Intra-op documented in this encounter
--- OUTSIDE RECORDS SUMMARY | 2019-12-01 17:33 | XMS REPORT ---
Author Author Manide Haynes Organization [facility] Address [address] [place] [address] Care Team Providers Care Head Filter Press Tender Name Role Phone SAIRA Haynes Unavailable PROBLEMS Type Condition ICD9-CM Code [id number] Code Onset Dates Condition S tatus SNOMED Code Problem History of cocaine abuse Z87.898 Activ e 161810120515402 Problem Irritable bowel syndrome K58.9 Activ e 62731678 Problem Hyperlipidemia E78.5 Active 16966 004 Problem Urge incontinence N39.41 Active 16 7084948 Problem Hypertension I10 Active 9355148 3 Problem Depressive disorder, not elsewhere classified F32. 9 Active 89943767 Problem Anxiety disorder, unspecified F41.9 Active 960726538 Problem Cannabis dependence, uncomplicated F12.20 Active 98324874 Problem Pulmonary hypertension I27.2 Active 08743330 Problem Allergic rhinitis J30.9 Active 61 310952 Problem Obesity (BMI 30.0-34.9) E66.9 Active 884607679672360 Problem Moderate persistent asthma, uncomplicated J45.40 Active 206336267 Problem Gastroesophageal reflux disease, esophagitis pre sence not specified K21.9 Active 200198955 Problem Chronic tension-type headache, intractable G44.221 Active 580109601 Problem Essential hypertension I10 Active 81708979 Problem Hyperlipidemia, unspecified hyperlipidemia type E7 8.5 Active 16994124 ALLERGIES No Information ENCOUNTERS Encounter Location Date Diagnosis [facility] [address] [facility] [id number] [address] [place] [address] Jul, [facility] [address] [facility] [id number] [address] [place] [id number] Aug, Dental examination Z01.20 [facility] [address] [facility] [id number] [address] [place] [address] Jan, [place] [address] [address] 08 Aug, 2016 Shortness of breath R06.02 ; Pulmonary hypertension I27.2 and Obesity (BMI 30.0-34.9) E66.9 [place] [address] [address] 31 Jul, 2016 Scabies B86 ; Hyperlipidemia E78.5 and Syncope, unspecified syncope type R55 [place] [address] [address] Jul, [address] [address] Jul, Chest pain, unspecified type R07.9 ; Dyspnea on exertion R06.09 ; Syncope, unspecified syncope type R55 ; Hyperlipidemia, unspecified hyperlipidemia type E78.5 and Essential hypertension I10 [address] [address] Jul, [place] [address] [address] Jun, Vasovagal syncope R55 ; Irri table bowel syndrome K58.9 ; Chronic tension-type headache, intractable G44.221 ; Pain in right foot M79.671 and Pain of left foot M79.[address] [address] 02 May, 2016 Exposure to STD Z20.2 ; Insu [place] coverage problems Z59.8 ; Acute intractable tension-type headache G44.201 ; Allergic rhinitis J30.9 ; Urge incontinence N39.41 and Gastroesophageal reflux disease, esophagitis presence not specified K21.[address] [address] 10 Apr, 2016 [place] [address] [address] Mar, [address] [place] [address] Feb, [facility] [address] [id number] [address] [place] [id number] Jan, Dental examination Z01.20 [facility] [address] 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 [id number] [address] [place] [address] Dec, Right chronic serous otitis media H65.21 and Asthma exacerbation J45.901 [facility] [address] [place] [id number] [address] [place] [address] Dec, [facility] [address] [address] November, [facility] [address] [address] November, [facility] [address] [address] November, Hyperlipidemia E78.5 ; Hyper tension I10 and Obesity, unspecified obesity severity, unspecified obesity type E66.9 [facility] [address] [address] Oct, Hyperlipidemia E78.5 ; Aller gic rhinitis J30.9 ; Moderate persistent asthma, uncomplicated J45.40 ; Irritable bowel syndrome K58.9 ; Urge incontinence N39.41 ; Depressive disorder, not elsewhere classified F32.9 ; Anxiety disorder, unspecified F41.9 and Hypertension I10 [facility] [address] [place] [id number] [address] [place] [phone] Oct, Depressive disorder, not els ewhere classified F32.9 ; Anxiety disorder, unspecified F41.9 and Cannabis dependence, uncomplicated F12.20 [facility] [address] [place] [id number] [address] [place] [address] Apr, [facility] [address] [id number] [address] [place] [address] Jan, [facility] [address] [id number] [address] [place] [address] Jan, Irritable bowel syndrome 564 .1 ; Hyperlipidemia 272.4 ; Obesity, unspecified 278.00 ; Asthma 493.90 ; Urge incontinence 788.31 ; Anxiety 300.00 and GERD (gastroesophageal reflux disease) 530.81 [facility] [address] [id number] [address] [place] [id number] Dec, Dental examination V72.2 [facility] [address] [id number] [address] [place] [id number] November, Dental examination V72.2 [facility] [address] [id number] [address] [place] [address] Oct, [facility] [address] [id number] [address] [place] [address] Oct, [facility] [address] [id number] [address] [place] [address] Sep, [facility] [address] [id number] [address] [place] [address] Sep, [facility] [address] [id number] [address] [place] [address] Sep, [facility] [address] [id number] [address] [place] [address] Sep, [facility] [address] [id number] [address] [place] [address] Sep, [facility] [address] [id number] [address] [place] [address] Sep, [facility] [address] [id number] [address] [place] [address] Sep, [facility] [address] [id number] [address] [place] [address], [place] [address] 23 Sep, 2014 [facility] [address] [id number] [address] [place] [address], [place] [address] 22 Sep, 2014 [facility] [address] [id number] [address] [place] [address], [place] [address] 19 Sep, 2014 [facility] [address] [id number] [address] [place] [address], [place] [address] 19 Sep, 2014 [facility] [address] [id number] [address] [place] [address], [place] [address] Sep, [facility] [address] [id number] [address] [place] [address], [place] [address] Sep, [facility] [address] [id number] [address] [place] [address], [place] [address] Jul, [facility] [address] [id number] [address] [place] [address], [place] [address] Jul, [facility] [address] [id number] [address] [place] [address], [place] [address] Jul, [facility] [address] [id number] [address] [place] [address], [place] [address] Jul, [facility] [address] [id number] [address] [place] [address], [place] [address] Jun, [facility] [address] [id number] [address] [place] [address], [place] [address] Jun, [facility] [address] [id number] [address] [place] [address], [place] [address] May, [facility] [address] [id number] [address] [place] [address], [place] [address] May, [facility] [address] [id number] [address] [place] [address], [place] [address] May, [facility] [address] [id number] [address] [place] [address], [place] [address] May, [facility] [address] [id number] [address] [place] [address], [place] [address] Apr, [facility] [place] [address] [id number] [address] [place] [address], [place] [address] Apr, [facility] [place] [address] [id number] [address] [place] [address], [place] [address] Mar, [facility] [place] [address] [id number] [address] [place] [address], [place] [address] Mar, [facility] [place] [address] [id number] [address] [place] [address], [place] [address] 15 Mar, 2014 [facility] [place] [address] [id number] [address] [place] [address], [place] [address] Mar, [facility] [place] [address] [id number] [address] [place] [address], [place] [address] Mar, [facility] [place] [facility] [address] [id number] [address] [place] [address], [place] [address] Mar, [facility] [place] [facility] [address] [id number] [address] [place] [address], [place] [address] Feb, [facility] [place] [facility] [address] [id number] [address] [place] [address], [place] [address] Feb, [facility] [place] [facility] [address] [id number] [address] [place] [address], [place] [address] Feb, [facility] [place] [facility] [address] [id number] [address] [place] [address], [place] [address] Feb, [facility] [place] [facility] [address] [id number] [address] [place] [address], [place] [address] Jan, [facility] [place] [facility] [address] [id number] [address] [place] [address], [place] [address] Jan, [facility] [place] [facility] [address] [id number] [address] [place] [address], [place] [address] Jan, [facility] [place] [facility] [address] [id number] [address] [place] [address], [place] [address] 16 Jan, 2014 [facility] [address] [id number] [facility] [place] [address] Jan, [facility] [address] [id number] [address] [place] [address], [place] [address] Jan, [facility] [address] [id number] [address] [place] [address], [place] [address] Dec, [facility] [place] [facility] [address] [id number] [address] [place] [address], [place] [address] Dec, [facility] [address] [id number] [address] [place] [address], [place] [address] Dec, [facility] [address] [id number] [address] [place] [address], [place] [address] Dec, [facility] [address] [id number] [address] [place] [address], [place] [address] Dec, [facility] [address] [id number] [address] [place] [address], [place] [address] Dec, [facility] [address] [id number] [address] [place] [address], [place] [address] Oct, [facility] [address] [id number] [address] [place] [address], [place] [address] Oct, [facility] [address] [id number] [address] [place] [address], [place] [address] Oct, [facility] [place] [facility] [address] [id number] [address] [place] [address], [place] [address] Oct, [facility] [place] [facility] [address] [id number] [address] [place] [address], [place] [address] Sep, [facility] [place] [facility] [address] [id number] [address] [place] [address], [place] [address] Sep, [facility] [place] [facility] [address] [id number] [address] [place] [address], [place] [address] Sep, [facility] [place] [facility] [address] [id number] [facility] [place] [address] Sep, [facility] [place] [facility] [address] [id number] [address] [place] [address], [place] [address] Sep, [facility] [place] [facility] [address] [id number] [facility] [place] [address] Sep, [facility] [place] [facility] [address] [id number] [address] [place] [address], [place] [address] Aug, [facility] [place] [facility] [address] [id number] [address] [place] [address], [place] [address] Aug, [facility] [place] [facility] [address] [id number] [address] [place] [address], [place] [address] Aug, [facility] [address] [id number] [address] [place] [address], [place] [address] Aug, [facility] [place] [facility] [address] [id number] [address] [place] [address], [place] [address] Aug, [facility] [place] [facility] [address] [id number] [address] [place] [address], [place] [address] Aug, [facility] [place] [facility] [address] [id number] [address] [place] [address], [place] [address] Aug, [facility] [place] [facility] [address] [id number] [address] [place] [address], [place] [address] Aug, [facility] [place] [facility] [address] [id number] [address] [place] [address], [place] [address] Aug, [facility] [place] [facility] [address] [id number] [address] [place] [address], [place] [address] 17 Aug, 2013 [facility] [place] [facility] [address] [id number] [address] [place] [address], [place] [address] 17 Aug, 2013 [facility] [place] [facility] [address] [id number] [address] [place] [address], [place] [address] 14 Aug, 2013 [facility] [place] [facility] [address] [id number] [address] [place] [address] 14 Aug, 2013 [facility] [address] [id number] [address] [place] [address] Jul, [facility] [address] [id number] [address] [place] [address] Jul, [facility] [address] [id number] [address] [place] [address] Jun, [facility] [address] [id number] [address] [place] [address] Jun, [facility] [address] [id number] [address] [place] [address] Jun, [facility] [address] [id number] [address] [place] [address] Jun, [facility] [address] [id number] [address] [place] [address] Aug, [facility] [address] [id number] [address] [place] [address] Jun, [facility] [address] [id number] [address] [place] [address] May, IMMUNIZATIONS No Known Immunizations SOCIAL HISTORY Never Assessed REASON FOR VISIT PLAN OF CARE VITAL SIGNS MEDICATIONS Unknown Medications RESULTS No Results PROCEDURES No Known procedures INSTRUCTIONS MEDICATIONS ADMINISTERED No Known Medications MEDICAL (GENERAL) HISTORY Type Description Date Medical History Seasonal Allergies Medical History Asthma Medical History Depression Medical History Anxiety Medical History ADHD Medical History Bipolar Medical History HTN Medical History IBS Medical History GERD Medical History Urge incontinence Medical History HLD Surgical History Tubal Ligation Surgical History Section x4 Surgical History Laser surgery for cervial cancer @ [facility] [place] 1990 Surgical History L ankle surgery @ [facility] Surgical History tonsillectomy Hospitalization History Elevated BP
--- OUTSIDE RECORDS SUMMARY | 2019-12-01 17:33 | XMS REPORT | Encounter Summary ---
Author Author [facility], [place], [place], [place], [place] [facility] Organization [facility] [place], [place], [place], [facility] Address Unknown Phone Unavailable Care Team Providers Care Engineering Lecturer Name Role Phone Ruben Conner MD PCP Encounter Details Care Team Description Date Type Department Eloy Bone Jr., MD [facility] [address] [place] [address] DR GROSSMAN [address] [place] [address] Lumbago (Primary Dx) 10/24/1997 Inpatient Historical Dena mcclelland Historical Pro Fee Social History Date Tobacco Use Types Packs/Day Years Used Never Assessed Sex Assigned at Date Recorded Not on file Industry Job Start Date Occupation Not on file Not on file Not on file Travel End Travel History Travel Start No recent travel history available. documented as of this encounter Plan of Treatment Not on filedocumented as of this encounter Visit Diagnoses Diagnosis Lumbago - Primary documented in this encounter
--- OUTSIDE RECORDS SUMMARY | 2019-12-01 17:33 | XMS REPORT | Encounter Summary ---
Author Author [facility] [place], [place], [place], [place] Organization [facility], [place], [place], [facility] Address Unknown Phone Unavailable Care Team Providers Care Director Of Religious Activities Name Role Phone Ruben Conner MD PCP Encounter Details Care Team Description Date Type Department Ruben Conner MD [address] [address] Unspecified symptom associated with fema le genital organs (Primary Dx) 01/28/1998 Inpatient Historical Dena mcclelland Historical Pro Fee [...] as of this encounter Visit Diagnoses Diagnosis Unspecified symptom associated with fem elyssa genital organs - Primary documented in this encounter
--- OUTSIDE RECORDS SUMMARY | 2019-12-01 17:33 | XMS REPORT ---
Author Author TAMIKOMandie BOWLING Organization [facility] Address [address] [place] [address] Care Team Providers Care Database Administration Manager Name Role Phone ANTHONY MORRISON Unavailable PROBLEMS Type Condition ICD9-CM Code KGT52-TQ Code Onset Dates Condition S tatus SNOMED Code Problem History of cocaine abuse Z87.898 Activ e 709928934333948 Problem Irritable bowel syndrome K58.9 Activ e 83472240 Problem Hyperlipidemia E78.5 Active 25641 004 Problem Urge incontinence N39.41 Active 16 4249794 Problem Hypertension I10 Active 6851371 3 Problem Depressive disorder, not elsewhere classified F32. 9 Active 03136369 Problem Anxiety disorder, unspecified F41.9 Active 595095667 Problem Cannabis dependence, uncomplicated F12.20 Active 17022589 Problem Pulmonary hypertension I27.2 Active 06050341 Problem Allergic rhinitis J30.9 Active 61 730847 Problem Obesity (BMI 30.0-34.9) E66.9 Active 828631074254452 Problem Moderate persistent asthma, uncomplicated J45.40 Active 934887123 Problem Gastroesophageal reflux disease, esophagitis pre sence not specified K21.9 Active 851865039 Problem Chronic tension-type headache, intractable G44.221 Active 895236421 Problem Essential hypertension I10 Active 32853056 Problem Hyperlipidemia, unspecified hyperlipidemia type E7 8.5 Active 08290878 ALLERGIES No Information ENCOUNTERS Encounter Location Date Diagnosis [facility] [address] [id number] [place] [address] Jul, [facility] [address] [facility] [place] [id number] Aug, Dental examination Z01.20 [facility] [address] [id number] [place] [address] Jan, [facility] [address] [address] 08 Aug, 2016 Shortness of breath R06.02 ; Pulmonary h ypertension I27.2 and Obesity (BMI 30.0-34.9) E66.9 [place] [address] [address] Jul, Scabies B86 ; Hyperlipidemia E78.5 and S yncope, unspecified syncope type R55 [place] [address] [address] Jul, [place] [address] [address] Jul, Chest pain, unspecified type R07.9 ; Dys pnea on exertion R06.09 ; Syncope, unspecified syncope type R55 ; Hyperlipidemia, unspecified hyperlipidemia type E78.5 and Essential hypertension I10 [address] [address] Jul, [place] [address] [address] Jun, Vasovagal syncope R55 ; Irritable bowel syndrome K58.9 ; Chronic tension-type headache, intractable G44.221 ; Pain in right foot M79.671 and Pain of left foot M79.[address] [address] May, Exposure to STD Z20.2 ; Insurance covera ge problems Z59.8 ; Acute intractable tension-type headache G44.201 ; Allergic rhinitis J30.9 ; Urge incontinence N39.41 and Gastroesophageal reflux disease, esophagitis presence not specified K21.[address] [address] Apr, [place] [address] [address] Mar, [place] [address] [address] Feb, [facility] [address] [place] [id number] [place] [id number] Jan, Dental examination Z01.20 [place] [address] [address] Jan, Depressive disorder, not elsewhere class ified F32.9 ; Anxiety disorder, unspecified F41.9 and 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 terminal 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 (current) drug therapy Z79.899 [place] [address] [address] Dec, Right chronic serous otitis media H65.21 and Asthma exacerbation J45.901 [place] [address] [address] Dec, [place] [address] [address] November, [place] [address] [address] November, [place] [address] [address] November, Hyperlipidemia E78.5 ; Hypertension I10 and Obesity, unspecified obesity severity, unspecified obesity type E66.9 [place] [address] [address] Oct, Hyperlipidemia E78.5 ; Allergic rhinitis J30.9 ; Moderate persistent asthma, uncomplicated J45.40 ; Irritable bowel syndrome K58.9 ; Urge incontinence N39.41 ; Depressive disorder, not elsewhere classified F32.9 ; Anxiety disorder, unspecified F41.9 and Hypertension I10 [place] [address] [address] Oct, Depressive disorder, not elsewhere class ified F32.9 ; Anxiety disorder, unspecified F41.9 and Cannabis dependence, uncomplicated F12.20 [place] [address] [address] Apr, [place] [address] [address] Jan, [place] [id number] [place] [id number] [place] [address] Jan, Irritable bowel syndrome 564.1 ; Hyperli pidemia 272.4 ; Obesity, unspecified 278.00 ; Asthma 493.90 ; Urge incontinence 788.31 ; Anxiety 300.00 and GERD (gastroesophageal reflux disease) 530.81 [facility] [address] [facility] [place] [id number] Dec, Dental examination V72.2 [facility] [address] [id number] November, Dental examination V72.2 [facility] [address] [address] Oct, [facility] [address] [address] Oct, [facility] [address] [address] Sep, [facility] [address] [address] Sep, [facility] [address] [address] Sep, [facility] [address] [address] Sep, [facility] [address] [address] Sep, [facility] [address] [address] Sep, [facility] [address] [address] Sep, [facility] [address] [address] Sep, [facility] [address] [address] Sep, [facility] [address] [address] Sep, [facility] [address] [id number] [place] [address] Sep, [facility] [address] [id number] [place] [address] Sep, [facility] [address] [id number] [place] [address] Sep, [facility] [address] [id number] [place] [address] Jul, [facility] [address] [id number] [place] [address] Jul, [facility] [address] [id number] [place] [address] Jul, [facility] [address] [id number] [place] [address] Jul, [facility] [address] [id number] [place] [address] Jun, [facility] [address] [id number] [place] [address] Jun, [facility] [address] [id number] [place] [address] May, [facility] [address] [id number] [place] [address] May, [facility] [address] [id number] [place] [address] May, [facility] [address] [id number] [place] [address] May, [facility] [address] [id number] [place] [address] Apr, [facility] [address] [id number] [place] [address] Apr, [facility] [address] [id number] [place] [address] Mar, [facility] [address] [id number] [place] [address] 19 Mar, 2014 [facility] [address] [id number] [place] [address] 15 Mar, 2014 [facility] [address] [facility] [id number] [place] [address] Mar, [facility] [address] [id number] [place] [address] Mar, [facility] [address] [facility] [id number] [place] [address] Mar, [facility] [address] [id number] [place] [address] Feb, [facility] [address] [id number] [place] [address] Feb, [facility] [address] [id number] [place] [address] Feb, [facility] [address] [id number] [place] [address] Feb, [facility] [address] [id number] [place] [address] Jan, [facility] [address] [id number] [place] [address] Jan, [facility] [address] [id number] [place] [address] Jan, [facility] [address] [id number] [place] [address] Jan, [facility] [address] [id number] [place] [address] Jan, [facility] [address] [id number] [place] [address] Jan, [facility] [address] [id number] [place] [address] Dec, [facility] [address] [id number] [place] [address] Dec, [facility] [address] [id number] [place] [address] Dec, [facility] [address] [id number] [place] [address] Dec, [facility] [address] [id number] [place] [address] Dec, [facility] [address] [id number] [place] [address] Dec, [facility] [address] [id number] [place] [address] Oct, [facility] [address] [id number] [place] [address] Oct, [facility] [address] [id number] [place] [address] Oct, [facility] [address] [id number] [place] [address] Oct, [facility] [address] [id number] [place] [address] Sep, [facility] [address] [id number] [place] [address] Sep, [facility] [address] [id number] [place] [address] Sep, [facility] [address] [id number] [place] [address] Sep, [facility] [address] [id number] [place] [address] Sep, [facility] [address] [id number] [place] [address] Sep, [facility] [address] [id number] [place] [address] Aug, [facility] [address] [id number] [place] [address] Aug, [facility] [address] [id number] [place] [address] Aug, [facility] [address] [id number] [place] [address] Aug, [facility] [address] [id number] [place] [address] Aug, [facility] [address] [id number] [place] [address] Aug, [facility] [address] [id number] [place] [address] Aug, [facility] [address] [id number] [place] [address] Aug, [facility] [address] [id number] [place] [address] Aug, [facility] [address] [id number] [place] [address] Aug, [facility] [address] [id number] [place] [address] Aug, [facility] [address] [id number] [place] [address] Aug, [facility] [address] [id number] [place] [address] Aug, [facility] [address] [id number] [place] [address] Jul, [facility] [address] [id number] [place] [address] Jul, [facility] [address] [id number] [place] [address] Jun, [facility] [address] [place] [id number] [place] [address] Jun, [facility] [address] [id number] [place] [address] Jun, [facility] [address] [place] [id number] [place] [address] Jun, [facility] [address] [facility] [id number] [place] [address] Aug, [facility] [address] [facility] [id number] [place] [address] Jun, [facility] [address] [facility] [id number] [place] [address] May, IMMUNIZATIONS No Known Immunizations SOCIAL HISTORY Never Assessed REASON FOR VISIT PLAN OF CARE VITAL SIGNS Height 67 in 2013-07-20 Weight 227.4 lbs 2013-07-20 Temperature 97 degrees Fahrenheit 2013-07-20 Heart Rate 108 bpm 2013-07-20 Respiratory Rate 20 2013-07-20 Blood pressure systolic 120 mmHg 2013-07-20 Blood pressure diastolic 82 mmHg 2013-07-20 MEDICATIONS Unknown Medications RESULTS No Results PROCEDURES [...] [facility] [place] [facility] Surgical History tonsillectomy Hospitalization History Elevated BP
--- OUTSIDE RECORDS SUMMARY | 2019-12-01 17:33 | XMS REPORT | Encounter Summary ---
Author Author [facility] [place], [place], [place] [facility] [place], [place], [facility] Address Unknown Phone Unavailable Care Team Providers Care Liquid Hydrogen Plant Operator Name Role Phone Ruben Conner MD PCP Encounter Details Care Team Description Date Type Department Ruben Conner MD [address] [address] Cough (Primary Dx) 03/10/1998 Inpatient Historical Dena mcclelland Historical Pro Fee [...] as of this encounter Visit Diagnoses Diagnosis Cough - Primary documented in this encounter
--- OUTSIDE RECORDS SUMMARY | 2019-12-01 17:33 | XMS REPORT | Encounter Summary ---
Author Author [facility] [employer], [place], [place], [facility] Organization [facility] [employer], [place], [place], [facility] Address Unknown Phone Unavailable Care Team Providers Care Recreation Clerk Name Role Phone Ruben Conner MD PCP Encounter Details Care Team Description Date Type Department Josy Campo, DO [address] [place] [address] 12/11/1992 Inpatient Historical Social History Date Tobacco Use Types Packs/Day Years Used Never Assessed Sex Assigned at Date Recorded Not on file Industry Job Start Date Occupation Not on file Not on file Not on file Travel End Travel History Travel Start No recent travel history available. documented as of this encounter Plan of Treatment Not on filedocumented as of this encounter Visit Diagnoses Not on filedocumented in this encounter
--- OUTSIDE RECORDS SUMMARY | 2019-12-01 17:33 | XMS REPORT ---
Author Author Mandie Manzanares Organization [facility] Address [address] [place] [address] Care Team Providers Care Mass Spec Name Role Phone TRACY Manzanares Unavailable PROBLEMS Type Condition ICD9-CM Code [id number] Code Onset Dates Condition S tatus SNOMED Code Problem History of cocaine abuse Z87.898 Activ e [id number] Problem Irritable bowel syndrome K58.9 Activ e 93349808 Problem Hyperlipidemia E78.5 Active 70943 004 Problem Urge incontinence N39.41 Active 16 3013172 Problem Hypertension I10 Active 8053219 3 Problem Depressive disorder, not elsewhere classified F32. 9 Active 13585925 Problem Anxiety disorder, unspecified F41.9 Active 607479626 Problem Cannabis dependence, uncomplicated F12.20 Active 75247419 Problem Pulmonary hypertension I27.2 Active 23708705 Problem Allergic rhinitis J30.9 Active 61 578464 Problem Obesity (BMI 30.0-34.9) E66.9 Active 351120216646822 Problem Moderate persistent asthma, uncomplicated J45.40 Active 914575057 Problem Gastroesophageal reflux disease, esophagitis pre sence not specified K21.9 Active 181238581 Problem Chronic tension-type headache, intractable G44.221 Active 689241187 Problem Essential hypertension I10 Active 12413872 Problem Hyperlipidemia, unspecified hyperlipidemia type E7 8.5 Active 52132722 ALLERGIES No Information ENCOUNTERS Encounter Location Date Diagnosis [facility] [address] [id number] [place] [address] Jul, [facility] [address] [id number] [place] [id number] Aug, Dental examination Z01.20 [facility] [address] [id number] [place] [address] Jan, [facility] [address] [address] 08 Aug, 2016 Shortness of breath R06.02 ; Pulmonary h ypertension I27.2 and Obesity (BMI 30.0-34.9) E66.9 [place] [address] [address] Jul, Scabies B86 ; Hyperlipidemia E78.5 and S yncope, unspecified syncope type R55 [place] [address] [address] Jul, [place] [address] [address] Jul, Chest pain, unspecified type R07.9 ; Dys pnea on exertion R06.09 ; Syncope, unspecified syncope type R55 ; Hyperlipidemia, unspecified hyperlipidemia type E78.5 and Essential hypertension I10 [place] [address] [address] Jul, [place] [address] [address] Jun, Vasovagal syncope R55 ; Irritable bowel syndrome K58.9 ; Chronic tension-type headache, intractable G44.221 ; Pain in right foot M79.671 and Pain of left foot M79.672 [place] [address] [address] May, Exposure to STD Z20.2 ; Insurance covera ge problems Z59.8 ; Acute intractable tension-type headache G44.201 ; Allergic rhinitis J30.9 ; Urge incontinence N39.41 and Gastroesophageal reflux disease, esophagitis presence not specified K21.9 [place] [address] [address] Apr, [place] [address] [address] Mar, [place] [address] [address] Feb, [facility] [address] [facility] [place] [id number] Jan, Dental examination Z01.20 [place] [address] [address] Jan, Depressive disorder, not elsewhere class ified F32.9 ; Anxiety disorder, unspecified F41.9 and Other usp (current) drug therapy Z79.899 [place] [address] [address] Dec, Right chronic serous otitis media H65.21 and Asthma exacerbation J45.901 [place] [address] [address] Dec, [place] [address] [address] November, [place] [address] [address] November, [place] [address] [address] November, Hyperlipidemia E78.5 ; Hypertension I10 and Obesity, unspecified obesity severity, unspecified obesity type E66.9 [place] [address] [address] Oct, Hyperlipidemia E78.5 ; Allergic rhinitis J30.9 ; Moderate persistent asthma, uncomplicated J45.40 ; Irritable bowel syndrome K58.9 ; Urge incontinence N39.41 ; Depressive disorder, not elsewhere classified F32.9 ; Anxiety disorder, unspecified F41.9 and Hypertension I10 [place] [address] [address] Oct, Depressive disorder, not elsewhere class ified F32.9 ; Anxiety disorder, unspecified F41.9 and Cannabis dependence, uncomplicated F12.20 [place] [address] [address] Apr, [place] [address] [address] Jan, [facility] [address] [place] [id number] [place] [address] Jan, Irritable bowel syndrome 564.1 ; Hyperli pidemia 272.4 ; Obesity, unspecified 278.00 ; Asthma 493.90 ; Urge incontinence 788.31 ; Anxiety 300.00 and GERD (gastroesophageal reflux disease) 530.81 [facility] [address] [id number] [place] [id number] Dec, Dental examination V72.2 [facility] [address] [id number] November, Dental examination V72.2 [facility] [address] [address] Oct, [facility] [address] [address] Oct, [facility] [address] [address] Sep, [facility] [address] [address] Sep, [facility] [address] [address] Sep, [facility] [address] [address] Sep, [facility] [address] [address] Sep, [facility] [address] [address] Sep, [facility] [address] [address] Sep, [facility] [address] [address] Sep, [facility] [address] [address] Sep, [facility] [address] [address] Sep, [facility] [address] [id number] [place] [address] Sep, [facility] [address] [id number] [place] [address] Sep, [facility] [address] [id number] [place] [address] Sep, [facility] [address] [id number] [place] [address] Jul, [facility] [address] [facility] [id number] [place] [address] Jul, [facility] [address] [id number] [place] [address] Jul, [facility] [address] [id number] [place] [address] Jul, [facility] [address] [id number] [place] [address] Jun, [facility] [address] [id number] [place] [address] Jun, [facility] [address] [id number] [place] [address] May, [facility] [address] [id number] [place] [address] May, [facility] [address] [id number] [place] [address] May, [facility] [address] [id number] [place] [address] May, [facility] [address] [id number] [place] [address] Apr, [facility] [address] [id number] [place] [address] Apr, [facility] [address] [id number] [place] [address] Mar, [facility] [address] [id number] [place] [address] 19 Mar, 2014 [facility] [address] [id number] [place] [address] 15 Mar, 2014 [facility] [address] [id number] [place] [address] 15 Mar, 2014 [facility] [address] [id number] [place] [address] Mar, [facility] [address] [id number] [place] [address] Mar, [facility] [address] [facility] [id number] [place] [address] Feb, [facility] [address] [id number] [place] [address] Feb, [facility] [address] [id number] [place] [address] Feb, [facility] [address] [id number] [place] [address] Feb, [facility] [address] [id number] [place] [address] Jan, [facility] [address] [id number] [place] [address] Jan, [facility] [address] [id number] [place] [address] Jan, [facility] [address] [id number] [place] [address] Jan, [facility] [address] [id number] [place] [address] Jan, [facility] [address] [id number] [place] [address] Jan, [facility] [address] [id number] [place] [address] Dec, [facility] [address] [id number] [place] [address] Dec, [facility] [address] [id number] [place] [address] Dec, [facility] [address] [id number] [place] [address] Dec, [facility] [address] [id number] [place] [address] Dec, [facility] [address] [id number] [place] [address] Dec, [facility] [address] [id number] [place] [address] Oct, [facility] [address] [id number] [place] [address] Oct, [facility] [address] [id number] [place] [address] Oct, [facility] [address] [id number] [place] [address] Oct, [facility] [address] [id number] [place] [address] Sep, [facility] [address] [id number] [place] [address] Sep, [facility] [address] [id number] [place] [address] Sep, [facility] [address] [id number] [place] [address] Sep, [facility] [address] [id number] [place] [address] Sep, [facility] [address] [id number] [place] [address] Sep, [facility] [address] [id number] [place] [address] Aug, [facility] [address] [id number] [place] [address] Aug, [facility] [address] [id number] [place] [address] Aug, [facility] [address] [id number] [place] [address] Aug, [facility] [address] [id number] [place] [address] Aug, [facility] [address] [id number] [place] [address] Aug, [facility] [address] [id number] [place] [address] Aug, [facility] [address] [id number] [place] [address] Aug, [facility] [address] [id number] [place] [address] Aug, [facility] [address] [id number] [place] [address] Aug, [facility] [address] [id number] [place] [address] Aug, [facility] [address] [id number] [place] [address] Aug, [facility] [address] [id number] [place] [address] Aug, [facility] [address] [id number] [place] [address] Jul, [facility] [address] [id number] [place] [address] Jul, [facility] [address] [id number] [place] [address] Jun, [facility] [address] [id number] [place] [address] Jun, [facility] [address] [id number] [place] [address] Jun, [facility] [address] [id number] [place] [address] Jun, [facility] [address] [facility] [id number] [place] [address] Aug, [facility] [address] [id number] [place] [address] Jun, [facility] [address] [facility] [id number] [place] [address] May, IMMUNIZATIONS No Known Immunizations SOCIAL HISTORY [...] History Laser surgery for cervial cancer @ [facility] 1990 Surgical History L ankle surgery @ [facility] Surgical History tonsillectomy Hospitalization History Elevated BP
--- OUTSIDE RECORDS SUMMARY | 2019-12-01 17:33 | XMS REPORT ---
Author Author TAMIKOMandie BOWLING [facility] Address [address] [place] [address] Care Team Providers Care Dispatcher Maintenance Service Name Role Phone ANTHONY MORRISON Unavailable PROBLEMS Type Condition ICD9-CM Code XRO19-BF Code Onset Dates Condition S tatus SNOMED Code Problem History of cocaine abuse Z87.898 Activ e [id number] Problem Irritable bowel syndrome K58.9 Activ e 30369852 Problem Hyperlipidemia E78.5 Active 68072 004 Problem Urge incontinence N39.41 Active 16 6194636 Problem Hypertension I10 Active 8398978 3 Problem Depressive disorder, not elsewhere classified F32. 9 Active 85071033 Problem Anxiety disorder, unspecified F41.9 Active 416032365 Problem Cannabis dependence, uncomplicated F12.20 Active 43610150 Problem Pulmonary hypertension I27.2 Active 34731374 Problem Allergic rhinitis J30.9 Active 61 095193 Problem Obesity (BMI 30.0-34.9) E66.9 Active 989078632848509 Problem Moderate persistent asthma, uncomplicated J45.40 Active 668629563 Problem Gastroesophageal reflux disease, esophagitis pre sence not specified K21.9 Active 010791283 Problem Chronic tension-type headache, intractable G44.221 Active 584911383 Problem Essential hypertension I10 Active 48011849 Problem Hyperlipidemia, unspecified hyperlipidemia type E7 8.5 Active 55290360 ALLERGIES No Information ENCOUNTERS Encounter Location Date Diagnosis [facility] [address] [facility] [id number] [address] [place] [address] Jul, [facility] [address] [facility] [id number] [address] [place] [id number] Aug, Dental examination Z01.20 [facility] [address] [facility] [id number] [address] [place] [address] Jan, [facility] [address] [address] 08 Aug, 2016 Shortness of breath R06.02 ; Pulmonary hypertension I27.2 and Obesity (BMI 30.0-34.9) E66.9 [place] [address] [address] 31 Jul, 2016 Scabies B86 ; Hyperlipidemia E78.5 and Syncope, unspecified syncope type R55 [place] [address] [address] Jul, [address] [address] Jul, Chest pain, unspecified type R07.9 ; Dyspnea on exertion R06.09 ; Syncope, unspecified syncope type R55 ; Hyperlipidemia, unspecified hyperlipidemia type E78.5 and Essential hypertension I10 [address] [address] Jul, [address] [address] Jun, Vasovagal syncope R55 ; Irri table bowel syndrome K58.9 ; Chronic tension-type headache, intractable G44.221 ; Pain in right foot M79.671 and Pain of left foot M79.[address] [address] 02 May, 2016 Exposure to STD Z20.2 ; Insu [place] coverage problems Z59.8 ; Acute intractable tension-type headache G44.201 ; Allergic rhinitis J30.9 ; Urge incontinence N39.41 and Gastroesophageal reflux disease, esophagitis presence not specified K21.[address] [address] Apr, [place] [address] [address] Mar, [address] [address] Feb, [facility] [address] [id number] [address] [place] [id number] Jan, Dental examination Z01.20 [facility] [address] [facility] [id number] [address] [place] [address] Jan, Depressive disorder, not els ewhere classified F32.9 ; Anxiety disorder, unspecified F41.9 and Other care home (current) drug therapy Z79.899 [facility] [address] [place] [id number] [address] [place] [address] Dec, Right chronic serous otitis media H65.21 and Asthma exacerbation J45.901 [facility] [address] [place] [id number] [address] [place] [address] Dec, [facility] [address] [address] November, [facility] [address] [place] [id number] [address] [place] [address] November, [facility] [address] [place] [id number] [address] [place] [address] November, Hyperlipidemia E78.5 ; Hyper tension I10 and Obesity, unspecified obesity severity, unspecified obesity type E66.9 [facility] [address] [place] [id number] [address] [place] [address] Oct, Hyperlipidemia E78.5 ; Aller gic rhinitis J30.9 ; Moderate persistent asthma, uncomplicated J45.40 ; Irritable bowel syndrome K58.9 ; Urge incontinence N39.41 ; Depressive disorder, not elsewhere classified F32.9 ; Anxiety disorder, unspecified F41.9 and Hypertension I10 [facility] [address] [facility] [id number] [address] [place] [address] Oct, Depressive disorder, not els ewhere classified F32.9 ; Anxiety disorder, unspecified F41.9 and Cannabis dependence, uncomplicated F12.20 [facility] [address] [place] [id number] [address] [place] [address] Apr, [facility] [address] [id number] [address] [place] [address] Jan, [facility] [address] [id number] [address] [place] [address] Jan, Irritable bowel syndrome 564 .1 ; Hyperlipidemia 272.4 ; Obesity, unspecified 278.00 ; Asthma 493.90 ; Urge incontinence 788.31 ; Anxiety 300.00 and GERD (gastroesophageal reflux disease) 530.81 [facility] [address] [id number] [address] [place] [id number] Dec, Dental examination V72.2 [facility] [address] [id number] [address] [place] [id number] November, Dental examination V72.2 [facility] [address] [id number] [address] [place] [address] Oct, [facility] [address] [id number] [address] [place] [address] Oct, [facility] [address] [id number] [address] [place] [address] Sep, [facility] [address] [id number] [address] [place] [address] Sep, [facility] [address] [id number] [address] [place] [address] Sep, [facility] [address] [id number] [address] [place] [address] Sep, [facility] [address] [id number] [address] [place] [address] Sep, [facility] [address] [id number] [address] [place] [address] Sep, [facility] [address] [id number] [address] [place] [address] Sep, [facility] [address] [id number] [address] [place] [address], [place] [address] 23 Sep, 2014 [facility] [address] [id number] [address] [place] [address], [place] [address] Sep, [facility] [address] [id number] [address] [place] [address], [place] [address] Sep, [facility] [address] [id number] [address] [place] [address], [place] [address] Sep, [facility] [address] [id number] [address] [place] [address], [place] [address] Sep, [facility] [address] [id number] [address] [place] [address], [place] [address] Sep, [facility] [address] [id number] [address] [place] [address], [place] [address] Jul, [facility] [address] [id number] [address] [place] [address], [place] [address] Jul, [facility] [address] [id number] [address] [place] [address], [place] [address] Jul, [facility] [address] [id number] [address] [place] [address], [place] [address] Jul, [facility] [address] [id number] [address] [place] [address], [place] [address] Jun, [facility] [address] [id number] [address] [place] [address], [place] [address] Jun, [facility] [address] [id number] [address] [place] [address], [place] [address] May, [facility] [address] [id number] [address] [place] [address], [place] [address] May, [facility] [address] [id number] [address] [place] [address], [place] [address] May, [facility] [address] [id number] [address] [place] [address], [place] [address] May, [facility] [address] [id number] [address] [place] [address], [place] [address] Apr, [facility] [address] [id number] [address] [place] [address], [place] [address] Apr, [facility] [address] [id number] [address] [place] [address], [place] [address] Mar, [facility] [address] [id number] [address] [place] [address], [place] [address] Mar, [facility] [address] [id number] [address] [place] [address], [place] [address] 15 Mar, 2014 [facility] [address] [id number] [address] [place] [address], [place] [address] 15 Mar, 2014 [facility] [address] [id number] [address] [place] [address], [place] [address] Mar, [facility] [address] [id number] [address] [place] [address], [place] [address] Mar, [facility] [address] [id number] [address] [place] [address], [place] [address] Feb, [facility] [address] [id number] [address] [place] [address], [place] [address] Feb, [facility] [address] [id number] [address] [place] [address], [place] [address] Feb, [facility] [address] [id number] [address] [place] [address], [place] [address] Feb, [facility] [address] [id number] [address] [place] [address], [place] [address] Jan, [facility] [address] [id number] [address] [place] [address], [place] [address] Jan, [facility] [address] [id number] [address] [place] [address], [place] [address] 16 Jan, 2014 [facility] [address] [id number] [address] [place] [address], [place] [address] 16 Jan, 2014 [facility] [address] [id number] [facility] [place] [address] Jan, [facility] [address] [id number] [address] [place] [address], [place] [address] Jan, [facility] [address] [id number] [address] [place] [address], [place] [address] Dec, [facility] [address] [id number] [address] [place] [address], [place] [address] Dec, [facility] [address] [id number] [address] [place] [address], [place] [address] Dec, [facility] [address] [id number] [address] [place] [address], [place] [address] Dec, [facility] [address] [id number] [address] [place] [address], [place] [address] Dec, [facility] [address] [id number] [address] [place] [address], [place] [address] Dec, [facility] [address] [id number] [address] [place] [address], [place] [address] Oct, [facility] [address] [id number] [address] [place] [address], [place] [address] Oct, [facility] [address] [id number] [address] [place] [address], [place] [address] Oct, [facility] [address] [id number] [address] [place] [address], [place] [address] Oct, [facility] [address] [id number] [address] [place] [address], [place] [address] Sep, [facility] [address] [id number] [address] [place] [address], [place] [address] Sep, [facility] [address] [id number] [address] [place] [address], [place] [address] Sep, [facility] [address] [id number] [address] [place] [address], [place] [address] Sep, [facility] [address] [id number] [address] [place] [address], [place] [address] Sep, [facility] [address] [id number] [address] [place] [address], [place] [address] Sep, [facility] [address] [id number] [address] [place] [address], [place] [address] Aug, [facility] [address] [id number] [address] [place] [address], [place] [address] Aug, [facility] [address] [id number] [address] [place] [address], [place] [address] Aug, [facility] [address] [id number] [address] [place] [address], [place] [address] Aug, [facility] [address] [id number] [address] [place] [address], [place] [address] Aug, [facility] [address] [id number] [address] [place] [address], [place] [address] Aug, [facility] [address] [id number] [address] [place] [address], [place] [address] Aug, [facility] [address] [id number] [address] [place] [address], [place] [address] Aug, [facility] [address] [id number] [address] [place] [address], [place] [address] Aug, [facility] [address] [id number] [address] [place] [address], [place] [address] 17 Aug, 2013 [facility] [address] [id number] [address] [place] [address], [place] [address] 17 Aug, 2013 [facility] [address] [id number] [address] [place] [address], [place] [address] 14 Aug, 2013 [facility] [address] [id number] [address] [place] [address] 14 Aug, 2013 [facility] [address] [id number] [address] [place] [address] Jul, [facility] [address] [id number] [address] [place] [address] Jul, [facility] [address] [id number] [address] [place] [address] Jun, [facility] [address] [id number] [address] [place] [address] Jun, [facility] [address] [id number] [address] [place] [address] Jun, [facility] [address] [id number] [address] [place] [address] Jun, [facility] [address] [id number] [address] [place] [address] Aug, [facility] [address] [id number] [address] [place] [address] Jun, [facility] [address] [id number] [address] [place] [address] May, IMMUNIZATIONS No Known Immunizations SOCIAL HISTORY [...] surgery for cervial cancer @ [facility] [place] 1990 Surgical History L ankle surgery @ [facility] Surgical History tonsillectomy Hospitalization History Elevated BP
--- OUTSIDE RECORDS SUMMARY | 2019-12-01 17:33 | XMS REPORT ---
Author Author TAMIKOMandie BOWLING Organization [facility] Address [address] [place] [address] Care Team Providers Care Emblem Drawer In Name Role Phone ANTHONY MORRISON Unavailable PROBLEMS Type Condition ICD9-CM Code LIX67-RA Code Onset Dates Condition S tatus SNOMED Code Problem History of cocaine abuse Z87.898 Activ e 489224242970043 Problem Irritable bowel syndrome K58.9 Activ e 11702061 Problem Hyperlipidemia E78.5 Active 95351 004 Problem Urge incontinence N39.41 Active 16 4196081 Problem Hypertension I10 Active 6095303 3 Problem Depressive disorder, not elsewhere classified F32. 9 Active 80445826 Problem Anxiety disorder, unspecified F41.9 Active 380471158 Problem Cannabis dependence, uncomplicated F12.20 Active 71359394 Problem Pulmonary hypertension I27.2 Active 13373759 Problem Allergic rhinitis J30.9 Active 61 022981 Problem Obesity (BMI 30.0-34.9) E66.9 Active 181146981921993 Problem Moderate persistent asthma, uncomplicated J45.40 Active 301281593 Problem Gastroesophageal reflux disease, esophagitis pre sence not specified K21.9 Active 639745602 Problem Chronic tension-type headache, intractable G44.221 Active 879329785 Problem Essential hypertension I10 Active 05695584 Problem Hyperlipidemia, unspecified hyperlipidemia type E7 8.5 Active 36609258 ALLERGIES No Information ENCOUNTERS Encounter Location Date Diagnosis [facility] [address] [id number] [place] [address] Jul, [facility] [address] [facility] [place] [id number] Aug, Dental examination Z01.20 [facility] [id number] [place] [address] Jan, [facility] [address] [address] [address] 08 Aug, 2016 Shortness of breath R06.02 ; Pulmonary h ypertension I27.2 and Obesity (BMI 30.0-34.9) E66.9 [place] [address] [address] Jul, Scabies B86 ; Hyperlipidemia E78.5 and S yncope, unspecified syncope type R55 [place] [address] [address] Jul, [place] [address] [address] Jul, Chest pain, unspecified type R07.9 ; Dys pnea on exertion R06.09 ; Syncope, unspecified syncope type R55 ; Hyperlipidemia, unspecified hyperlipidemia type E78.5 and Essential hypertension I10 [address] [address] Jul, [place] [address] [address] Jun, Vasovagal syncope R55 ; Irritable bowel syndrome K58.9 ; Chronic tension-type headache, intractable G44.221 ; Pain in right foot M79.671 and Pain of left foot M79.[address] [address] May, Exposure to STD Z20.2 ; Insurance covera ge problems Z59.8 ; Acute intractable tension-type headache G44.201 ; Allergic rhinitis J30.9 ; Urge incontinence N39.41 and Gastroesophageal reflux disease, esophagitis presence not specified K21.[address] [address] Apr, [place] [address] [address] Mar, [place] [address] [address] Feb, [facility] [address] [place] [id number] [place] [id number] Jan, Dental examination Z01.20 [place] [address] [address] Jan, Depressive disorder, not elsewhere class ified F32.9 ; Anxiety disorder, unspecified F41.9 and 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 [place] [address] [address] Dec, Right chronic serous otitis media H65.21 and Asthma exacerbation J45.901 [place] [address] [address] Dec, [place] [address] [address] November, [place] [address] [address] November, [place] [address] [address] November, Hyperlipidemia E78.5 ; Hypertension I10 and Obesity, unspecified obesity severity, unspecified obesity type E66.9 [place] [address] [address] Oct, Hyperlipidemia E78.5 ; Allergic rhinitis J30.9 ; Moderate persistent asthma, uncomplicated J45.40 ; Irritable bowel syndrome K58.9 ; Urge incontinence N39.41 ; Depressive disorder, not elsewhere classified F32.9 ; Anxiety disorder, unspecified F41.9 and Hypertension I10 [place] [address] [address] Oct, Depressive disorder, not elsewhere class ified F32.9 ; Anxiety disorder, unspecified F41.9 and Cannabis dependence, uncomplicated F12.20 [place] [address] [address] Apr, [place] [address] [address] Jan, [place] [id number] [place] [id number] [place] [address] Jan, Irritable bowel syndrome 564.1 ; Hyperli pidemia 272.4 ; Obesity, unspecified 278.00 ; Asthma 493.90 ; Urge incontinence 788.31 ; Anxiety 300.00 and GERD (gastroesophageal reflux disease) 530.81 [facility] [address] [facility] [place] [id number] Dec, Dental examination V72.2 [facility] [address] [id number] November, Dental examination V72.2 [facility] [address] [address] Oct, [facility] [address] [address] Oct, [facility] [address] [address] Sep, [facility] [address] [address] Sep, [facility] [address] [address] Sep, [facility] [address] [address] Sep, [facility] [address] [address] Sep, [facility] [address] [address] Sep, [facility] [address] [address] Sep, [facility] [address] [address] Sep, [facility] [address] [address] Sep, [facility] [address] [address] Sep, [facility] [id number] [place] [address] Sep, [facility] [id number] [place] [address] Sep, [facility] [id number] [place] [address] Sep, [facility] [address] [place] [address] Jul, [facility] [address] [place] [address] Jul, [facility] [address] [place] [address] Jul, [facility] [id number] [place] [address] Jul, [facility] [id number] [place] [address] Jun, [facility] [id number] [place] [address] Jun, [facility] [id number] [place] [address] May, [facility] [address] [id number] [place] [address] May, [facility] [id number] [place] [address] May, [facility] [id number] [place] [address] May, [facility] [id number] [place] [address] Apr, [facility] [id number] [place] [address] Apr, [facility] [id number] [place] [address] Mar, [facility] [id number] [place] [address] 19 Mar, 2014 [facility] [address] [id number] [place] [address] 15 Mar, 2014 [facility] [address] [facility] [id number] [place] [address] Mar, [facility] [address] [id number] [place] [address] Mar, [facility] [address] [facility] [id number] [place] [address] Mar, [facility] [address] [id number] [place] [address] Feb, [facility] [id number] [place] [address] Feb, [facility] [address] [facility] [facility] [id number] [place] [address] Feb, [facility] [id number] [place] [address] Feb, [facility] [id number] [place] [address] Jan, [facility] [address] [id number] [place] [address] Jan, [facility] [address] [facility] [id number] [place] [address] Jan, [facility] [id number] [place] [address] Jan, [facility] [address] [id number] [place] [address] Jan, [facility] [address] [facility] [facility] [id number] [place] [address] Jan, [facility] [id number] [place] [address] Dec, [facility] [id number] [place] [address] Dec, [facility] [address] [id number] [place] [address] Dec, [facility] [id number] [place] [address] Dec, [facility] [id number] [place] [address] Dec, [facility] [address] [id number] [place] [address] Dec, [facility] [id number] [place] [address] Oct, [facility] [id number] [place] [address] Oct, [facility] [address] [facility] [id number] [place] [address] Oct, [facility] [address] [id number] [place] [address] Oct, [facility] [address] [id number] [place] [address] Sep, [facility] [address] [id number] [place] [address] Sep, [facility] [address] [facility] [facility] [id number] [place] [address] Sep, [facility] [address] [id number] [place] [address] Sep, [facility] [id number] [place] [address] Sep, [facility] [id number] [place] [address] Sep, [facility] [id number] [place] [address] Aug, [facility] [address] [id number] [place] [address] Aug, [facility] [address] [facility] [id number] [place] [address] Aug, [facility] [address] [facility] [facility] [id number] [place] [address] Aug, [facility] [address] [facility] [id number] [place] [address] Aug, [facility] [address] [facility] [id number] [place] [address] Aug, [facility] [address] [facility] [facility] [id number] [place] [address] Aug, [facility] [address] [facility] [facility] [id number] [place] [address] Aug, [facility] [address] [facility] [id number] [place] [address] Aug, [facility] [address] [facility] [id number] [place] [address] Aug, [facility] [address] [facility] [facility] [id number] [place] [address] Aug, [facility] [address] [facility] [facility] [id number] [place] [address] Aug, [facility] [address] [id number] [place] [address] Aug, [facility] [id number] [place] [address] Jul, [facility] [address] [facility] [id number] [place] [address] Jul, [facility] [id number] [place] [address] Jun, [facility] [address] [place] [id number] [place] [address] Jun, [facility] [id number] [place] [address] Jun, [facility] [address] [place] [id number] [place] [address] Jun, [facility] [address] [facility] [id number] [place] [address] Aug, [facility] [address] [facility] [id number] [place] [address] Jun, [facility] [address] [facility] [id number] [place] [address] May, IMMUNIZATIONS No Known Immunizations SOCIAL HISTORY Never Assessed REASON FOR VISIT PLAN OF CARE VITAL SIGNS MEDICATIONS Unknown Medications RESULTS No Results PROCEDURES Procedure Date Ordered Result Body Site ASSAY OF GAMMAGLOBULIN IGM Sep 03, 2013 LIPID PANEL Sep 03, 2013 VENIPUNCT, ROUTINE* Sep 03, 2013 INSTRUCTIONS MEDICATIONS ADMINISTERED No Known Medications MEDICAL (GENERAL) HISTORY Type Description Date Medical History Seasonal Allergies Medical History Asthma Medical History Depression Medical History Anxiety Medical History ADHD Medical History Bipolar Medical History HTN Medical History IBS Medical History GERD Medical History Urge incontinence Medical History HLD Surgical History Tubal Ligation Surgical History Section x4 Surgical History Laser surgery for cervial cancer @ [facility] [place] 1990 Surgical History L ankle surgery @ [facility] Surgical History tonsillectomy Hospitalization History Elevated BP
--- OUTSIDE RECORDS SUMMARY | 2019-12-01 17:33 | XMS REPORT | Encounter Summary ---
Author Author [facility], [place], [place], [place], [place] Organization [facility], [place], [place], [place], [place] Address Unknown Phone Unavailable Care Team Providers Care Reclamation Worker Name Role Phone PCP Unavailable Encounter Details Care Team Description Date Type Department Ruben Conner MD [facility] [address] [address] 08/23/2014 Orders Only Marla PreOp Preadmi ssion Screening [place] [address] [place] [address] Social History Date Tobacco Use Types Packs/Day [...] Procedure Name Priority Date/Time Associated Diag nosis HI ELECTROCARDIOGRAM, Routine 08/23/2014 COMPLETE documented in this encounter Results * EKG 12-LEAD (08/23/2014) Narrative Performed At This result has an attachment that is n ot available. documented in this encounter Visit Diagnoses Not on filedocumented in this encounter
--- OUTSIDE RECORDS SUMMARY | 2019-12-01 17:34 | XMS REPORT ---
Author Author Mandie Haynes Organization [facility] Address [address] [place] [address] Care Team Providers Care Qa Test Lead Name Role Phone SAIRA Haynes Unavailable PROBLEMS Type Condition ICD9-CM Code QIG20-NG Code Onset Dates Condition S tatus SNOMED Code Problem History of cocaine abuse Z87.898 Activ e 207123221978029 Problem Irritable bowel syndrome K58.9 Activ e 11144342 Problem Hyperlipidemia E78.5 Active 18740 004 Problem Urge incontinence N39.41 Active 16 0816134 Problem Hypertension I10 Active 5280522 3 Problem Depressive disorder, not elsewhere classified F32. 9 Active 12151764 Problem Anxiety disorder, unspecified F41.9 Active 124047639 Problem Cannabis dependence, uncomplicated F12.20 Active 22067601 Problem Pulmonary hypertension I27.2 Active 01331868 Problem Allergic rhinitis J30.9 Active 61 547709 Problem Obesity (BMI 30.0-34.9) E66.9 Active 650881579522755 Problem Moderate persistent asthma, uncomplicated J45.40 Active 754744506 Problem Gastroesophageal reflux disease, esophagitis pre sence not specified K21.9 Active 821418489 Problem Chronic tension-type headache, intractable G44.221 Active 657201440 Problem Essential hypertension I10 Active 36058941 Problem Hyperlipidemia, unspecified hyperlipidemia type E7 8.5 Active 46796596 ALLERGIES No Information ENCOUNTERS Encounter Location Date Diagnosis [facility] [address] [id number] [place] [address] Jul, [facility] [address] [id number] [place], [place] [id number] Aug, Dental examination Z01.20 [facility] [id number] [place] [address] Jan, [facility] [address] [address] 08 Aug, 2016 Shortness of breath R06.02 ; Pulmonary h ypertension I27.2 and Obesity (BMI 30.0-34.9) E66.9 [place] [address] [address] 31 Jul, 2016 Scabies B86 ; Hyperlipidemia E78.5 and S yncope, unspecified syncope type R55 [address] [address] Jul, [address] [address] Jul, Chest pain, unspecified type R07.9 ; Dys pnea on exertion R06.09 ; Syncope, unspecified syncope type R55 ; Hyperlipidemia, unspecified hyperlipidemia type E78.5 and Essential hypertension I10 [address] [address] Jul, [address] [address] Jun, Vasovagal syncope R55 ; Irritable bowel syndrome K58.9 ; Chronic tension-type headache, intractable G44.221 ; Pain in right foot M79.671 and Pain of left foot M79.[address] [address] May, Exposure to STD Z20.2 ; Insurance covera ge problems Z59.8 ; Acute intractable tension-type headache G44.201 ; Allergic rhinitis J30.9 ; Urge incontinence N39.41 and Gastroesophageal reflux disease, esophagitis presence not specified K21.[address] [address] Apr, [address] [address] Mar, [address] [address] Feb, [facility] [address] [id number] [place] [id number] Jan, Dental examination Z01.20 [place] [address] [address] Jan, Depressive disorder, not elsewhere class ified F32.9 ; Anxiety disorder, unspecified F41.9 and 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 Z79.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 [place] [address] [address] Dec, Right chronic serous otitis media H65.21 and Asthma exacerbation J45.901 [place] [address] [address] Dec, [place] [address] [address] November, [place] [address] [address] November, [place] [address] [address] November, Hyperlipidemia E78.5 ; Hypertension I10 and Obesity, unspecified obesity severity, unspecified obesity type E66.9 [place] [address] [address] Oct, Hyperlipidemia E78.5 ; Allergic rhinitis J30.9 ; Moderate persistent asthma, uncomplicated J45.40 ; Irritable bowel syndrome K58.9 ; Urge incontinence N39.41 ; Depressive disorder, not elsewhere classified F32.9 ; Anxiety disorder, unspecified F41.9 and Hypertension I10 [place] [address] [address] Oct, Depressive disorder, not elsewhere class ified F32.9 ; Anxiety disorder, unspecified F41.9 and Cannabis dependence, uncomplicated F12.20 [place] [address] [address] Apr, [address] [address] Jan, [facility] [address] [place] [id number] [place] [address] Jan, Irritable bowel syndrome 564.1 ; Hyperli pidemia 272.4 ; Obesity, unspecified 278.00 ; Asthma 493.90 ; Urge incontinence 788.31 ; Anxiety 300.00 and GERD (gastroesophageal reflux disease) 530.81 [facility] [address] [id number] Dec, Dental examination V72.2 [facility] [address] [id number] November, Dental examination V72.2 [facility] [address] [address] Oct, [facility] [address] [address] Oct, [facility] [address] [address] Sep, [facility] [address] [address] Sep, [facility] [address] [address] Sep, [facility] [address] [address] Sep, [facility] [address] [address] Sep, [facility] [address] [address] Sep, [facility] [address] [address] Sep, [facility] [address] [address] Sep, [facility] [address] [address] Sep, [facility] [address] [address] Sep, [facility] [address] [facility] [id number] [place] [address] Sep, [facility] [address] [id number] [place] [address] Sep, [facility] [address] [id number] [place] [address] Sep, [facility] [address] [id number] [place] [address] Jul, [facility] [address] [id number] [place] [address] Jul, [facility] [address] [id number] [place] [address] Jul, [facility] [address] [id number] [place] [address] Jul, [facility] [address] [id number] [place] [address] Jun, [facility] [address] [id number] [place] [address] Jun, [facility] [address] [id number] [place] [address] May, [facility] [address] [id number] [place] [address] May, [facility] [address] [facility] [id number] [place] [address] May, [facility] [address] [id number] [place] [address] May, [facility] [address] [id number] [place] [address] Apr, [facility] [address] [id number] [place] [address] Apr, [facility] [address] [id number] [place] [address] Mar, [facility] [address] [facility] [id number] [place] [address] 19 Mar, 2014 [facility] [address] [facility] [id number] [place] [address] 15 Mar, 2014 [facility] [address] [facility] [id number] [place] [address] Mar, [facility] [address] [id number] [place] [address] Mar, [facility] [address] [facility] [id number] [place] [address] Mar, [facility] [address] [facility] [id number] [place] [address] Feb, [facility] [address] [id number] [place] [address] Feb, [facility] [address] [id number] [place] [address] Feb, [facility] [address] [id number] [place] [address] Feb, [facility] [address] [id number] [place] [address] Jan, [facility] [address] [id number] [place] [address] Jan, [facility] [address] [id number] [place] [address] Jan, [facility] [address] [id number] [place] [address] Jan, [facility] [address] [id number] [place] [address] Jan, [facility] [address] [id number] [place] [address] Jan, [facility] [address] [id number] [place] [address] Dec, [facility] [address] [id number] [place] [address] Dec, [facility] [address] [id number] [place] [address] Dec, [facility] [address] [id number] [place] [address] Dec, [facility] [address] [id number] [place] [address] Dec, [facility] [address] [id number] [place] [address] Dec, [facility] [address] [id number] [place] [address] Oct, [facility] [address] [id number] [place] [address] Oct, [facility] [address] [id number] [place] [address] Oct, [facility] [address] [id number] [place] [address] Oct, [facility] [address] [id number] [place] [address] Sep, [facility] [address] [id number] [place] [address] Sep, [facility] [address] [id number] [place] [address] Sep, [facility] [address] [id number] [place] [address] Sep, [facility] [address] [id number] [place] [address] Sep, [facility] [address] [id number] [place] [address] Sep, [facility] [address] [id number] [place] [address] Aug, [facility] [address] [id number] [place] [address] Aug, [facility] [address] [id number] [place] [address] Aug, [facility] [address] [facility] [id number] [place] [address] Aug, [facility] [address] [id number] [place] [address] Aug, [facility] [address] [id number] [place] [address] Aug, [facility] [address] [id number] [place] [address] Aug, [facility] [address] [id number] [place] [address] Aug, [facility] [address] [id number] [place] [address] Aug, [facility] [address] [id number] [place] [address] Aug, [facility] [address] [id number] [place] [address] Aug, [facility] [address] [id number] [place] [address] Aug, [facility] [address] [id number] [place] [address] Aug, [facility] [address] [id number] [place] [address] Jul, [facility] [address] [id number] [place] [address] Jul, [facility] [address] [id number] [place] [address] Jun, [facility] [address] [id number] [place] [address] Jun, [facility] [address] [id number] [place] [address] Jun, [facility] [address] [id number] [place] [address] Jun, [facility] [address] [facility] [id number] [place] [address] Aug, [facility] [address] [facility] [id number] [place] [address] Jun, [facility] [address] [facility] [id number] [place] [address] May, IMMUNIZATIONS No Known Immunizations SOCIAL HISTORY Never Assessed REASON FOR VISIT PLAN OF CARE VITAL SIGNS Height 67 in 2013-11-08 Weight 226.4 lbs 2013-11-08 Temperature 98.7 degrees Fahrenheit 2013-11-08 Heart Rate 80 bpm 2013-11-08 Respiratory Rate 18 2013-11-08 Blood pressure systolic 154 mmHg 2013-11-08 Blood pressure diastolic 100 mmHg 2013-11-08 MEDICATIONS Unknown Medications RESULTS No Results PROCEDURES [...] [facility] tonsillectomy Hospitalization History Elevated BP
--- OUTSIDE RECORDS SUMMARY | 2019-12-01 17:34 | XMS REPORT ---
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 9 Active 01244288 Problem Anxiety disorder, unspecified F41.9 Active 159646091 Problem Cannabis dependence, uncomplicated F12.20 Active 53613751 Problem Pulmonary hypertension I27.2 Active 08681110 Problem Allergic rhinitis J30.9 Active 61 442450 Problem Obesity (BMI 30.0-34.9) E66.9 Active 061977966081889 Problem Moderate persistent asthma, uncomplicated J45.40 Active 747908287 Problem Gastroesophageal reflux disease, esophagitis pre sence not specified K21.9 Active 755413270 Problem Chronic tension-type headache, intractable G44.221 Active 664229668 Problem Essential hypertension I10 Active 89889359 Problem Hyperlipidemia, unspecified hyperlipidemia type E7 8.5 Active 99763894 ALLERGIES No Information ENCOUNTERS Encounter Location Date Diagnosis [facility] [place] [address] [id number] [place] [address] Jul, [facility] [address] [id number] [place] [id number] Aug, Dental examination Z01.20 [facility] [address] [id number] [place] [address] Jan, [facility] [place] [address] [address] 08 Aug, 2016 Shortness of breath R06.02 ; Pulmonary h ypertension I27.2 and Obesity (BMI 30.0-34.9) E66.9 [place] [address] [address] Jul, Scabies B86 ; Hyperlipidemia E78.5 and S yncope, unspecified syncope type R55 [place] [address] [address] Jul, [place] [address] [address] Jul, Chest pain, unspecified type R07.9 ; Dys pnea on exertion R06.09 ; Syncope, unspecified syncope type R55 ; Hyperlipidemia, unspecified hyperlipidemia type E78.5 and Essential hypertension I10 [address] [address] Jul, [place] [address] [address] Jun, Vasovagal syncope R55 ; Irritable bowel syndrome K58.9 ; Chronic tension-type headache, intractable G44.221 ; Pain in right foot M79.671 and Pain of left foot M79.[address] [address] May, Exposure to STD Z20.2 ; Insurance covera ge problems Z59.8 ; Acute intractable tension-type headache G44.201 ; Allergic rhinitis J30.9 ; Urge incontinence N39.41 and Gastroesophageal reflux disease, esophagitis presence not specified K21.[address] [address] Apr, [place] [address] [address] Mar, [place] [address] [address] Feb, [facility] [address] [place] [id number] [place] [id number] Jan, Dental examination Z01.20 [place] [address] [address] Jan, Depressive disorder, not elsewhere class ified F32.9 ; Anxiety disorder, unspecified F41.9 and 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 [place] [address] [address] Dec, Right chronic serous otitis media H65.21 and Asthma exacerbation J45.901 [place] [address] [address] Dec, [place] [address] [address] November, [place] [address] [address] November, [place] [address] [address] November, Hyperlipidemia E78.5 ; Hypertension I10 and Obesity, unspecified obesity severity, unspecified obesity type E66.9 [place] [address] [address] Oct, Hyperlipidemia E78.5 ; Allergic rhinitis J30.9 ; Moderate persistent asthma, uncomplicated J45.40 ; Irritable bowel syndrome K58.9 ; Urge incontinence N39.41 ; Depressive disorder, not elsewhere classified F32.9 ; Anxiety disorder, unspecified F41.9 and Hypertension I10 [place] [address] [address] Oct, Depressive disorder, not elsewhere class ified F32.9 ; Anxiety disorder, unspecified F41.9 and Cannabis dependence, uncomplicated F12.20 [place] [address] [address] Apr, [place] [address] [address] Jan, [place] [address] [place] [id number] [place] [address] Jan, Irritable bowel syndrome 564.1 ; Hyperli pidemia 272.4 ; Obesity, unspecified 278.00 ; Asthma 493.90 ; Urge incontinence 788.31 ; Anxiety 300.00 and GERD (gastroesophageal reflux disease) 530.81 [facility] [address] [id number] [place] [id number] Dec, Dental examination V72.2 [facility] [address] [id number] November, Dental examination V72.2 [facility] [place] [address] [address] Oct, [facility] [place] [address] [address] Oct, [facility] [place] [address] [address] Sep, [facility] [place] [address] [address] Sep, [facility] [place] [address] [address] Sep, [facility] [place] [address] [address] Sep, [facility] [place] [address] [address] Sep, [facility] [place] [address] [address] Sep, [facility] [place] [address] [address] Sep, [facility] [place] [address] [address] Sep, [facility] [place] [address] [address] Sep, [facility] [place] [address] [address] Sep, [facility] [address] [id number] [place] [address] Sep, [facility] [address] [id number] [place] [address] Sep, [facility] [address] [id number] [place] [address] Sep, [facility] [address] [id number] [place] [address] Jul, [facility] [address] [id number] [place] [address] Jul, [facility] [address] [id number] [place] [address] Jul, [facility] [address] [id number] [place] [address] Jul, [facility] [address] [id number] [place] [address] Jun, [facility] [address] [id number] [place] [address] Jun, [facility] [address] [id number] [place] [address] May, [facility] [address] [id number] [place] [address] May, [facility] [address] [id number] [place] [address] May, [facility] [address] [id number] [place] [address] May, [facility] [address] [id number] [place] [address] Apr, [facility] [address] [id number] [place] [address] Apr, [facility] [address] [id number] [place] [address] Mar, [facility] [address] [id number] [place] [address] 19 Mar, 2014 [facility] [address] [id number] [place] [address] 15 Mar, 2014 [facility] [address] [facility] [id number] [place] [address] Mar, [facility] [address] [id number] [place] [address] Mar, [facility] [address] [facility] [id number] [place] [address] Mar, [facility] [address] [id number] [place] [address] Feb, [facility] [address] [id number] [place] [address] Feb, [facility] [address] [id number] [place] [address] Feb, [facility] [address] [id number] [place] [address] Feb, [facility] [address] [id number] [place] [address] Jan, [facility] [address] [id number] [place] [address] Jan, [facility] [address] [id number] [place] [address] Jan, [facility] [address] [id number] [place] [address] Jan, [facility] [address] [id number] [place] [address] Jan, [facility] [address] [id number] [place] [address] Jan, [facility] [address] [id number] [place] [address] Dec, [facility] [address] [id number] [place] [address] Dec, [facility] [address] [id number] [place] [address] Dec, [facility] [address] [id number] [place] [address] Dec, [facility] [address] [id number] [place] [address] Dec, [facility] [address] [id number] [place] [address] Dec, [facility] [address] [id number] [place] [address] Oct, [facility] [address] [id number] [place] [address] Oct, [facility] [address] [id number] [place] [address] Oct, [facility] [address] [id number] [place] [address] Oct, [facility] [address] [id number] [place] [address] Sep, [facility] [address] [id number] [place] [address] Sep, [facility] [address] [id number] [place] [address] Sep, [facility] [address] [id number] [place] [address] Sep, [facility] [address] [id number] [place] [address] Sep, [facility] [address] [id number] [place] [address] Sep, [facility] [address] [id number] [place] [address] Aug, [facility] [address] [id number] [place] [address] Aug, [facility] [address] [id number] [place] [address] Aug, [facility] [address] [id number] [place] [address] Aug, [facility] [address] [id number] [place] [address] Aug, [facility] [address] [id number] [place] [address] Aug, [facility] [address] [id number] [place] [address] Aug, [facility] [address] [id number] [place] [address] Aug, [facility] [address] [id number] [place] [address] Aug, [facility] [address] [id number] [place] [address] Aug, [facility] [address] [id number] [place] [address] Aug, [facility] [address] [id number] [place] [address] Aug, [facility] [address] [id number] [place] [address] Aug, [facility] [address] [id number] [place] [address] Jul, [facility] [address] [id number] [place] [address] Jul, [facility] [address] [id number] [place] [address] Jun, [facility] [address] [place] [id number] [place] [address] Jun, [facility] [address] [id number] [place] [address] Jun, [facility] [address] [place] [id number] [place] [address] Jun, [facility] [place] [address] [facility] [id number] [place] [address] Aug, [facility] [address] [id number] [place] [address] Jun, [facility] [address] [facility] [id number] [place] [address] May, IMMUNIZATIONS No Known Immunizations SOCIAL HISTORY [...] History Laser surgery for cervial cancer @ [facility] [place] 1990 [facility] History tonsillectomy Hospitalization History Elevated BP
--- OUTSIDE RECORDS SUMMARY | 2019-12-01 17:34 | XMS REPORT ---
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 9 Active 20860644 Problem Anxiety disorder, unspecified F41.9 Active 413808158 Problem Cannabis dependence, uncomplicated F12.20 Active 44497393 Problem Pulmonary hypertension I27.2 Active 21122068 Problem Allergic rhinitis J30.9 Active 61 185993 Problem Obesity (BMI 30.0-34.9) E66.9 Active 832177857265439 Problem Moderate persistent asthma, uncomplicated J45.40 Active 188917761 Problem Gastroesophageal reflux disease, esophagitis pre sence not specified K21.9 Active 229344519 Problem Chronic tension-type headache, intractable G44.221 Active 304860086 Problem Essential hypertension I10 Active 91583312 Problem Hyperlipidemia, unspecified hyperlipidemia type E7 8.5 Active 39929382 ALLERGIES No Information ENCOUNTERS Encounter Location Date Diagnosis [facility] [id number] [place] [address] Jul, [facility] [address] [facility] [place] [id number] Aug, Dental examination Z01.20 [facility] [id number] [place] [address] Jan, [facility] [address] [address] 08 Aug, 2016 Shortness of breath R06.02 ; Pulmonary h ypertension I27.2 and Obesity (BMI 30.0-34.9) E66.9 [place] [address] [address] [address] Jul, Scabies B86 ; Hyperlipidemia E78.5 and S yncope, unspecified syncope type R55 [place] [address] [address] Jul, [place] [address] [address] Jul, Chest pain, unspecified type R07.9 ; Dys pnea on exertion R06.09 ; Syncope, unspecified syncope type R55 ; Hyperlipidemia, unspecified hyperlipidemia type E78.5 and Essential hypertension I10 [address] [address] Jul, [place] [address] [address] Jun, Vasovagal syncope R55 ; Irritable bowel syndrome K58.9 ; Chronic tension-type headache, intractable G44.221 ; Pain in right foot M79.671 and Pain of left foot M79.[address] [address] May, Exposure to STD Z20.2 ; Insurance covera ge problems Z59.8 ; Acute intractable tension-type headache G44.201 ; Allergic rhinitis J30.9 ; Urge incontinence N39.41 and Gastroesophageal reflux disease, esophagitis presence not specified K21.[address] [address] Apr, [place] [address] [address] Mar, [place] [address] [address] Feb, [facility] [address] [place] [id number] [place] [id number] Jan, Dental examination Z01.20 [place] [address] [address] Jan, Depressive disorder, not elsewhere class ified F32.9 ; Anxiety disorder, unspecified F41.9 and 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 [place] [address] [address] Dec, Right chronic serous otitis media H65.21 and Asthma exacerbation J45.901 [place] [address] [address] Dec, [place] [address] [address] November, [place] [address] [address] November, [place] [address] [address] November, Hyperlipidemia E78.5 ; Hypertension I10 and Obesity, unspecified obesity severity, unspecified obesity type E66.9 [place] [address] [address] Oct, Hyperlipidemia E78.5 ; Allergic rhinitis J30.9 ; Moderate persistent asthma, uncomplicated J45.40 ; Irritable bowel syndrome K58.9 ; Urge incontinence N39.41 ; Depressive disorder, not elsewhere classified F32.9 ; Anxiety disorder, unspecified F41.9 and Hypertension I10 [place] [address] [address] Oct, Depressive disorder, not elsewhere class ified F32.9 ; Anxiety disorder, unspecified F41.9 and Cannabis dependence, uncomplicated F12.20 [place] [address] [address] Apr, [place] [address] [address] Jan, [place] [address] [place] [id number] [place] [address] Jan, Irritable bowel syndrome 564.1 ; Hyperli pidemia 272.4 ; Obesity, unspecified 278.00 ; Asthma 493.90 ; Urge incontinence 788.31 ; Anxiety 300.00 and GERD (gastroesophageal reflux disease) 530.81 [facility] [id number] [place] [id number] Dec, Dental examination V72.2 [facility] [address] [id number] November, Dental examination V72.2 [facility] [address] [address] Oct, [facility] [address] [address] Oct, [facility] [address] [address] Sep, [facility] [address] [address] Sep, [facility] [address] [address] Sep, [facility] [address] [address] Sep, [facility] [address] [address] Sep, [facility] [address] [address] Sep, [facility] [address] [address] Sep, [facility] [address] [address] Sep, [facility] [address] [address] Sep, [facility] [address] [address] Sep, [facility] [id number] [place] [address] Sep, [facility] [id number] [place] [address] Sep, [facility] [id number] [place] [address] Sep, [facility] [id number] [place] [address] Jul, [facility] [id number] [place] [address] Jul, [facility] [id number] [place] [address] Jul, [facility] [id number] [place] [address] Jul, [facility] [id number] [place] [address] Jun, [facility] [id number] [place] [address] Jun, [facility] [id number] [place] [address] May, [facility] [id number] [place] [address] May, [facility] [id number] [place] [address] May, [facility] [id number] [place] [address] May, [facility] [id number] [place] [address] Apr, [facility] [id number] [place] [address] Apr, [facility] [id number] [place] [address] Mar, [facility] [id number] [place] [address] 19 Mar, 2014 [facility] [address] [id number] [place] [address] 15 Mar, 2014 [facility] [address] [facility] [id number] [place] [address] Mar, [facility] [id number] [place] [address] Mar, [facility] [address] [facility] [id number] [place] [address] Mar, [facility] [address] [place] [id number] [place] [address] Feb, [facility] [id number] [place] [address] Feb, [facility] [id number] [place] [address] Feb, [facility] [id number] [place] [address] Feb, [facility] [id number] [place] [address] Jan, [facility] [id number] [place] [address] Jan, [facility] [id number] [place] [address] Jan, [facility] [id number] [place] [address] Jan, [facility] [id number] [place] [address] Jan, [facility] [id number] [place] [address] Jan, [facility] [id number] [place] [address] Dec, [facility] [id number] [place] [address] Dec, [facility] [id number] [place] [address] Dec, [facility] [id number] [place] [address] Dec, [facility] [id number] [place] [address] Dec, [facility] [id number] [place] [address] Dec, [facility] [id number] [place] [address] Oct, [facility] [id number] [place] [address] Oct, [facility] [id number] [place] [address] Oct, [facility] [id number] [place] [address] Oct, [facility] [id number] [place] [address] Sep, [facility] [id number] [place] [address] Sep, [facility] [id number] [place] [address] Sep, [facility] [id number] [place] [address] Sep, [facility] [id number] [place] [address] Sep, [facility] [id number] [place] [address] Sep, [facility] [id number] [place] [address] Aug, [facility] [id number] [place] [address] Aug, [facility] [id number] [place] [address] Aug, [facility] [id number] [place] [address] Aug, [facility] [id number] [place] [address] Aug, [facility] [id number] [place] [address] Aug, [facility] [id number] [place] [address] Aug, [facility] [id number] [place] [address] Aug, [facility] [id number] [place] [address] Aug, [facility] [id number] [place] [address] Aug, [facility] [id number] [place] [address] Aug, [facility] [id number] [place] [address] Aug, [facility] [id number] [place] [address] Aug, [facility] [id number] [place] [address] Jul, [facility] [id number] [place] [address] Jul, [facility] [id number] [place] [address] Jun, [facility] [address] [place] [id number] [place] [address] Jun, [facility] [id number] [place] [address] Jun, [facility] [address] [place] [id number] [place] [address] Jun, [facility] [address] [facility] [id number] [place] [address] Aug, [facility] [address] [facility] [id number] [place] [address] Jun, [facility] [address] [facility] [id number] [place] [address] May, IMMUNIZATIONS No Known Immunizations SOCIAL HISTORY Never Assessed REASON FOR VISIT PLAN OF CARE VITAL SIGNS Height 67 in 2013-08-31 Weight 228.44 lbs 2013-08-31 Temperature 97.2 degrees Fahrenheit 2013-08-31 Heart Rate 88 bpm 2013-08-31 Respiratory Rate 20 2013-08-31 Blood pressure systolic 126 mmHg 2013-08-31 Blood pressure diastolic 80 mmHg 2013-08-31 MEDICATIONS Unknown Medications RESULTS No Results PROCEDURES [...] History Laser surgery for cervial cancer @ [facility] [place] 1990 Surgical History L ankle surgery @ [facility] Surgical History tonsillectomy Hospitalization History Elevated BP
--- OUTSIDE RECORDS SUMMARY | 2019-12-01 17:34 | XMS REPORT ---
Author Author Mandie Haynes Organization [facility] Address [address] [place] [address] Care Team Providers Care Report Manager Name Role Phone SAIRA Haynes Unavailable PROBLEMS Type Condition ICD9-CM Code OUB11-YD Code Onset Dates Condition S tatus SNOMED Code Problem History of cocaine abuse Z87.898 Activ e [id number] Problem Irritable bowel syndrome K58.9 Activ e 58322108 Problem Hyperlipidemia E78.5 Active 50999 004 Problem Urge incontinence N39.41 Active 16 2567963 Problem Hypertension I10 Active 9868795 3 Problem Depressive disorder, not elsewhere classified F32. 9 Active 44873289 Problem Anxiety disorder, unspecified F41.9 Active 534435920 Problem Cannabis dependence, uncomplicated F12.20 Active 70704598 Problem Pulmonary hypertension I27.2 Active 62740415 Problem Allergic rhinitis J30.9 Active 61 748473 Problem Obesity (BMI 30.0-34.9) E66.9 Active 873660111016761 Problem Moderate persistent asthma, uncomplicated J45.40 Active 443228599 Problem Gastroesophageal reflux disease, esophagitis pre sence not specified K21.9 Active 595719376 Problem Chronic tension-type headache, intractable G44.221 Active 186691560 Problem Essential hypertension I10 Active 72746102 Problem Hyperlipidemia, unspecified hyperlipidemia type E7 8.5 Active 77820469 ALLERGIES No Information ENCOUNTERS Encounter Location Date Diagnosis [facility] [id number] [place] [address] Jul, [facility] [address] [id number] [place] [id number] Aug, Dental examination Z01.20 [facility] [id number] [place] [address] Jan, [facility] [address] [address] 08 Aug, 2016 Shortness of breath R06.02 ; Pulmonary h ypertension I27.2 and Obesity (BMI 30.0-34.9) E66.9 [place] [address] [address] 31 Jul, 2016 Scabies B86 ; Hyperlipidemia E78.5 and S yncope, unspecified syncope type R55 [address] [address] Jul, [address] [address] Jul, Chest pain, unspecified type R07.9 ; Dys pnea on exertion R06.09 ; Syncope, unspecified syncope type R55 ; Hyperlipidemia, unspecified hyperlipidemia type E78.5 and Essential hypertension I10 [address] [address] Jul, [address] [address] Jun, Vasovagal syncope R55 ; Irritable bowel syndrome K58.9 ; Chronic tension-type headache, intractable G44.221 ; Pain in right foot M79.671 and Pain of left foot M79.[address] [address] May, Exposure to STD Z20.2 ; Insurance covera ge problems Z59.8 ; Acute intractable tension-type headache G44.201 ; Allergic rhinitis J30.9 ; Urge incontinence N39.41 and Gastroesophageal reflux disease, esophagitis presence not specified K21.[address] [address] Apr, [address] [address] Mar, [address] [address] Feb, [facility] [address] [facility] [place] [id number] Jan, Dental examination Z01.20 [place] [address] [address] Jan, Depressive disorder, not elsewhere class ified F32.9 ; Anxiety disorder, unspecified F41.9 and Other correction (current) drug therapy Z79.899 [place] [address] [address] Dec, Right chronic serous otitis media H65.21 and Asthma exacerbation J45.901 [place] [address] [address] Dec, [place] [address] [address] November, [place] [address] [address] November, [place] [address] [address] November, Hyperlipidemia E78.5 ; Hypertension I10 and Obesity, unspecified obesity severity, unspecified obesity type E66.9 [place] [address] [address] Oct, Hyperlipidemia E78.5 ; Allergic rhinitis J30.9 ; Moderate persistent asthma, uncomplicated J45.40 ; Irritable bowel syndrome K58.9 ; Urge incontinence N39.41 ; Depressive disorder, not elsewhere classified F32.9 ; Anxiety disorder, unspecified F41.9 and Hypertension I10 [place] [address] [address] Oct, Depressive disorder, not elsewhere class ified F32.9 ; Anxiety disorder, unspecified F41.9 and Cannabis dependence, uncomplicated F12.20 [place] [address] [address] Apr, [address] [address] Jan, [facility] [address] [id number] [place] [address] Jan, Irritable bowel syndrome 564.1 ; Hyperli pidemia 272.4 ; Obesity, unspecified 278.00 ; Asthma 493.90 ; Urge incontinence 788.31 ; Anxiety 300.00 and GERD (gastroesophageal reflux disease) 530.81 [facility] [address] [id number] Dec, Dental examination V72.2 [facility] [address] [id number] November, Dental examination V72.2 [facility] [address] [address] Oct, [facility] [address] [address] Oct, [facility] [address] [address] Sep, [facility] [address] [address] Sep, [facility] [address] [address] Sep, [facility] [address] [address] Sep, [facility] [address] [address] Sep, [facility] [address] [address] Sep, [facility] [address] [address] Sep, [facility] [address] [address] Sep, [facility] [address] [address] Sep, [facility] [address] [address] Sep, [facility] [address] [facility] [id number] [place] [address] Sep, [facility] [id number] [place] [address] Sep, [facility] [id number] [place] [address] Sep, [facility] [id number] [place] [address] Jul, [facility] [id number] [place] [address] Jul, [facility] [id number] [place] [address] Jul, [facility] [id number] [place] [address] Jul, [facility] [id number] [place] [address] Jun, [facility] [id number] [place] [address] Jun, [facility] [id number] [place] [address] May, [facility] [id number] [place] [address] May, [facility] [id number] [place] [address] May, [facility] [id number] [place] [address] May, [facility] [id number] [place] [address] Apr, [facility] [id number] [place] [address] Apr, [facility] [id number] [place] [address] Mar, [facility] [address] [facility] [id number] [place] [address] 19 Mar, 2014 [facility] [address] [facility] [id number] [place] [address] 15 Mar, 2014 [facility] [address] [facility] [id number] [place] [address] Mar, [facility] [id number] [place] [address] Mar, [facility] [address] [facility] [id number] [place] [address] Mar, [facility] [address] [facility] [id number] [place] [address] Feb, [facility] [id number] [place] [address] Feb, [facility] [id number] [place] [address] Feb, [facility] [id number] [place] [address] Feb, [facility] [id number] [place] [address] Jan, [facility] [id number] [place] [address] Jan, [facility] [id number] [place] [address] Jan, [facility] [id number] [place] [address] Jan, [facility] [id number] [place] [address] Jan, [facility] [id number] [place] [address] Jan, [facility] [id number] [place] [address] Dec, [facility] [id number] [place] [address] Dec, [facility] [id number] [place] [address] Dec, [facility] [id number] [place] [address] Dec, [facility] [id number] [place] [address] Dec, [facility] [id number] [place] [address] Dec, [facility] [id number] [place] [address] Oct, [facility] [id number] [place] [address] Oct, [facility] [id number] [place] [address] Oct, [facility] [id number] [place] [address] Oct, [facility] [id number] [place] [address] Sep, [facility] [id number] [place] [address] Sep, [facility] [id number] [place] [address] Sep, [facility] [id number] [place] [address] Sep, [facility] [id number] [place] [address] Sep, [facility] [id number] [place] [address] Sep, [facility] [id number] [place] [address] Aug, [facility] [id number] [place] [address] Aug, [facility] [id number] [place] [address] Aug, [facility] [address] [facility] [id number] [place] [address] Aug, [facility] [id number] [place] [address] Aug, [facility] [id number] [place] [address] Aug, [facility] [id number] [place] [address] Aug, [facility] [id number] [place] [address] Aug, [facility] [id number] [place] [address] Aug, [facility] [id number] [place] [address] Aug, [facility] [id number] [place] [address] Aug, [facility] [id number] [place] [address] Aug, [facility] [id number] [place] [address] Aug, [facility] [id number] [place] [address] Jul, [facility] [id number] [place] [address] Jul, [facility] [id number] [place] [address] Jun, [facility] [id number] [place] [address] Jun, [facility] [id number] [place] [address] Jun, [facility] [id number] [place] [address] Jun, [facility] [address] [facility] [id number] [place] [address] Aug, [facility] [address] [facility] [id number] [place] [address] Jun, [facility] [address] [facility] [id number] [place] [address] May, IMMUNIZATIONS No Known Immunizations SOCIAL HISTORY [...] History [facility] [place] 1990 Surgical History L ankle surgery @ [facility] Surgical History tonsillectomy Hospitalization History Elevated BP
--- OUTSIDE RECORDS SUMMARY | 2019-12-01 17:34 | XMS REPORT ---
Author Author Mandie Manzanares Organization [facility] Address [address] [place] [address] Care Team Providers Care Sciences Dean Name Role Phone TRACY Manzanares Unavailable PROBLEMS Type Condition ICD9-CM Code YYN62-YG Code Onset Dates Condition S tatus SNOMED Code Problem History of cocaine abuse Z87.898 Activ e 400690681410705 Problem Irritable bowel syndrome K58.9 Activ e 71915741 Problem Hyperlipidemia E78.5 Active 30304 004 Problem Urge incontinence N39.41 Active 16 4976038 Problem Hypertension I10 Active 2490485 3 Problem Depressive disorder, not elsewhere classified F32. 9 Active 87197083 Problem Anxiety disorder, unspecified F41.9 Active 269291938 Problem Cannabis dependence, uncomplicated F12.20 Active 11304040 Problem Pulmonary hypertension I27.2 Active 95550973 Problem Allergic rhinitis J30.9 Active 61 679390 Problem Obesity (BMI 30.0-34.9) E66.9 Active 121927631480241 Problem Moderate persistent asthma, uncomplicated J45.40 Active 075525759 Problem Gastroesophageal reflux disease, esophagitis pre sence not specified K21.9 Active 213833924 Problem Chronic tension-type headache, intractable G44.221 Active 088356656 Problem Essential hypertension I10 Active 51761230 Problem Hyperlipidemia, unspecified hyperlipidemia type E7 8.5 Active 98569078 ALLERGIES No Information ENCOUNTERS Encounter Location Date Diagnosis [facility] [address] [id number] [place] [address] Jul, [facility] [address] [id number] [place] [id number] Aug, Dental examination Z01.20 [facility] [address] [id number] [place] [address] Jan, [facility] [address] [address] 08 Aug, 2016 Shortness of breath R06.02 ; Pulmonary h ypertension I27.2 and Obesity (BMI 30.0-34.9) E66.9 [place] [address] [address] Jul, Scabies B86 ; Hyperlipidemia E78.5 and S yncope, unspecified syncope type R55 [place] [address] [address] Jul, [place] [address] [address] Jul, Chest pain, unspecified type R07.9 ; Dys pnea on exertion R06.09 ; Syncope, unspecified syncope type R55 ; Hyperlipidemia, unspecified hyperlipidemia type E78.5 and Essential hypertension I10 [place] [address] [address] Jul, [place] [address] [address] Jun, Vasovagal syncope R55 ; Irritable bowel syndrome K58.9 ; Chronic tension-type headache, intractable G44.221 ; Pain in right foot M79.671 and Pain of left foot M79.672 [place] [address] [address] May, Exposure to STD Z20.2 ; Insurance covera ge problems Z59.8 ; Acute intractable tension-type headache G44.201 ; Allergic rhinitis J30.9 ; Urge incontinence N39.41 and Gastroesophageal reflux disease, esophagitis presence not specified K21.9 [place] [address] [address] Apr, [place] [address] [address] Mar, [place] [address] [address] Feb, [facility] [address] [id number] [place] [id number] Jan, Dental examination Z01.20 [place] [address] [address] Jan, Depressive disorder, not elsewhere class ified F32.9 ; Anxiety disorder, unspecified F41.9 and Other jail (current) drug therapy Z79.899 [place] [address] [address] Dec, Right chronic serous otitis media H65.21 and Asthma exacerbation J45.901 [place] [address] [address] Dec, [place] [address] [address] November, [place] [address] [address] November, [place] [address] [address] November, Hyperlipidemia E78.5 ; Hypertension I10 and Obesity, unspecified obesity severity, unspecified obesity type E66.9 [place] [address] [address] Oct, Hyperlipidemia E78.5 ; Allergic rhinitis J30.9 ; Moderate persistent asthma, uncomplicated J45.40 ; Irritable bowel syndrome K58.9 ; Urge incontinence N39.41 ; Depressive disorder, not elsewhere classified F32.9 ; Anxiety disorder, unspecified F41.9 and Hypertension I10 [place] [address] [address] Oct, Depressive disorder, not elsewhere class ified F32.9 ; Anxiety disorder, unspecified F41.9 and Cannabis dependence, uncomplicated F12.20 [place] [address] [address] Apr, [place] [address] [address] Jan, [facility] [address] [place] [id number] [place] [address] Jan, Irritable bowel syndrome 564.1 ; Hyperli pidemia 272.4 ; Obesity, unspecified 278.00 ; Asthma 493.90 ; Urge incontinence 788.31 ; Anxiety 300.00 and GERD (gastroesophageal reflux disease) 530.81 [facility] [address] [id number] [place] [id number] Dec, Dental examination V72.2 [facility] [address] [id number] November, Dental examination V72.2 [facility] [address] [address] Oct, [facility] [address] [address] Oct, [facility] [address] [address] Sep, [facility] [address] [address] Sep, [facility] [address] [address] Sep, [facility] [address] [address] Sep, [facility] [address] [address] Sep, [facility] [address] [address] Sep, [facility] [address] [address] Sep, [facility] [address] [address] Sep, [facility] [address] [address] Sep, [facility] [address] [address] Sep, [facility] [address] [id number] [place] [address] Sep, [facility] [address] [id number] [place] [address] Sep, [facility] [address] [id number] [place] [address] Sep, [facility] [address] [id number] [place] [address] Jul, [facility] [address] [facility] [id number] [place] [address] Jul, [facility] [address] [id number] [place] [address] Jul, [facility] [address] [id number] [place] [address] Jul, [facility] [address] [id number] [place] [address] Jun, [facility] [address] [id number] [place] [address] Jun, [facility] [address] [id number] [place] [address] May, [facility] [address] [id number] [place] [address] May, [facility] [address] [id number] [place] [address] May, [facility] [address] [id number] [place] [address] May, [facility] [address] [id number] [place] [address] Apr, [facility] [address] [id number] [place] [address] Apr, [facility] [address] [id number] [place] [address] Mar, [facility] [address] [id number] [place] [address] 19 Mar, 2014 [facility] [address] [id number] [place] [address] 15 Mar, 2014 [facility] [address] [id number] [place] [address] 15 Mar, 2014 [facility] [address] [id number] [place] [address] Mar, [facility] [address] [id number] [place] [address] Mar, [facility] [address] [facility] [id number] [place] [address] Feb, [facility] [address] [id number] [place] [address] Feb, [facility] [address] [id number] [place] [address] Feb, [facility] [address] [id number] [place] [address] Feb, [facility] [address] [id number] [place] [address] Jan, [facility] [address] [id number] [place] [address] Jan, [facility] [address] [id number] [place] [address] Jan, [facility] [address] [id number] [place] [address] Jan, [facility] [address] [id number] [place] [address] Jan, [facility] [address] [id number] [place] [address] Jan, [facility] [address] [id number] [place] [address] Dec, [facility] [address] [id number] [place] [address] Dec, [facility] [address] [id number] [place] [address] Dec, [facility] [address] [id number] [place] [address] Dec, [facility] [address] [id number] [place] [address] Dec, [facility] [address] [id number] [place] [address] Dec, [facility] [address] [id number] [place] [address] Oct, [facility] [address] [id number] [place] [address] Oct, [facility] [address] [id number] [place] [address] Oct, [facility] [address] [id number] [place] [address] Oct, [facility] [address] [id number] [place] [address] Sep, [facility] [address] [id number] [place] [address] Sep, [facility] [address] [id number] [place] [address] Sep, [facility] [address] [id number] [place] [address] Sep, [facility] [address] [id number] [place] [address] Sep, [facility] [address] [id number] [place] [address] Sep, [facility] [address] [id number] [place] [address] Aug, [facility] [address] [id number] [place] [address] Aug, [facility] [address] [id number] [place] [address] Aug, [facility] [address] [id number] [place] [address] Aug, [facility] [address] [id number] [place] [address] Aug, [facility] [address] [id number] [place] [address] Aug, [facility] [address] [id number] [place] [address] Aug, [facility] [address] [id number] [place] [address] Aug, [facility] [address] [id number] [place] [address] Aug, [facility] [address] [id number] [place] [address] Aug, [facility] [address] [id number] [place] [address] Aug, [facility] [address] [id number] [place] [address] Aug, [facility] [address] [id number] [place] [address] Aug, [facility] [address] [id number] [place] [address] Jul, [facility] [address] [id number] [place] [address] Jul, [facility] [address] [id number] [place] [address] Jun, [facility] [address] [id number] [place] [address] Jun, [facility] [address] [id number] [place] [address] Jun, [facility] [address] [id number] [place] [address] Jun, [facility] [address] [facility] [id number] [place] [address] Aug, [facility] [address] [facility] [id number] [place] [address] Jun, [facility] [address] [facility] [id number] [place] [address] May, IMMUNIZATIONS No Known Immunizations SOCIAL HISTORY Never Assessed REASON FOR VISIT PLAN OF CARE VITAL SIGNS Height 67 in 2013-09-10 Weight 225.4 lbs 2013-09-10 Temperature 98.6 degrees Fahrenheit 2013-09-10 Heart Rate 78 bpm 2013-09-10 Respiratory Rate 18 2013-09-10 Blood pressure systolic 130 mmHg 2013-09-10 Blood pressure diastolic 80 mmHg 2013-09-10 MEDICATIONS Unknown Medications RESULTS No Results PROCEDURES Procedure Date Ordered Result Body Site MAMMOGRAM, SCREENING Sep 10, 2013 TRICHOMONAS VAGIN, DIR PROBE Sep 10, 2013 SCR PAP SMER;NEW PT OBTAIN PREP&CONVY-LAB Sep 10, 2013 CYTOPATH C/V AUTO FLUID REDO Sep 10, 2013 CHYLMD TRACH, DNA, AMP PROBE Sep 10, 2013 CULTURE, BACTERIA, OTHER Sep 10, 2013 INSTRUCTIONS MEDICATIONS ADMINISTERED No Known Medications [...] History Laser surgery for cervial cancer @ [facility] [place] 1990 Surgical History L ankle surgery @ [facility] [place] Surgical History tonsillectomy Hospitalization History Elevated BP
--- OUTSIDE RECORDS SUMMARY | 2019-12-01 17:34 | XMS REPORT ---
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 9 Active 83758703 Problem Anxiety disorder, unspecified F41.9 Active 750850625 Problem Cannabis dependence, uncomplicated F12.20 Active 35779234 Problem Pulmonary hypertension I27.2 Active 63996925 Problem Allergic rhinitis J30.9 Active 61 353557 Problem Obesity (BMI 30.0-34.9) E66.9 Active 423965859564787 Problem Moderate persistent asthma, uncomplicated J45.40 Active 903991906 Problem Gastroesophageal reflux disease, esophagitis pre sence not specified K21.9 Active 567506610 Problem Chronic tension-type headache, intractable G44.221 Active 255815178 Problem Essential hypertension I10 Active 83644128 Problem Hyperlipidemia, unspecified hyperlipidemia type E7 8.5 Active 83536534 ALLERGIES No Information ENCOUNTERS Encounter Location Date Diagnosis [facility] [address] [id number] [place] [address] Jul, [facility] [address] [id number] [place] [id number] Aug, Dental examination Z01.20 [facility] [address] [id number] [place] [address] Jan, [facility] [address] [place] [address] [address] 08 Aug, 2016 Shortness of breath R06.02 ; Pulmonary h ypertension I27.2 and Obesity (BMI 30.0-34.9) E66.9 [place] [address] [address] Jul, Scabies B86 ; Hyperlipidemia E78.5 and S yncope, unspecified syncope type R55 [place] [address] [address] Jul, [place] [address] [address] Jul, Chest pain, unspecified type R07.9 ; Dys pnea on exertion R06.09 ; Syncope, unspecified syncope type R55 ; Hyperlipidemia, unspecified hyperlipidemia type E78.5 and Essential hypertension I10 [address] [address] Jul, [place] [address] [address] Jun, Vasovagal syncope R55 ; Irritable bowel syndrome K58.9 ; Chronic tension-type headache, intractable G44.221 ; Pain in right foot M79.671 and Pain of left foot M79.[address] [address] May, Exposure to STD Z20.2 ; Insurance covera ge problems Z59.8 ; Acute intractable tension-type headache G44.201 ; Allergic rhinitis J30.9 ; Urge incontinence N39.41 and Gastroesophageal reflux disease, esophagitis presence not specified K21.[address] [address] Apr, [place] [address] [address] Mar, [place] [address] [address] Feb, [facility] [address] [place] [id number] [place] [id number] Jan, Dental examination Z01.20 [place] [address] [address] Jan, Depressive disorder, not elsewhere class ified F32.9 ; Anxiety disorder, unspecified F41.9 and 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 [place] [address] [address] Dec, Right chronic serous otitis media H65.21 and Asthma exacerbation J45.901 [place] [address] [address] Dec, [place] [address] [address] November, [place] [address] [address] November, [place] [address] [address] November, Hyperlipidemia E78.5 ; Hypertension I10 and Obesity, unspecified obesity severity, unspecified obesity type E66.9 [place] [address] [address] Oct, Hyperlipidemia E78.5 ; Allergic rhinitis J30.9 ; Moderate persistent asthma, uncomplicated J45.40 ; Irritable bowel syndrome K58.9 ; Urge incontinence N39.41 ; Depressive disorder, not elsewhere classified F32.9 ; Anxiety disorder, unspecified F41.9 and Hypertension I10 [place] [address] [address] Oct, Depressive disorder, not elsewhere class ified F32.9 ; Anxiety disorder, unspecified F41.9 and Cannabis dependence, uncomplicated F12.20 [place] [address] [address] Apr, [place] [address] [address] Jan, [place] [address] [place] [id number] [place] [address] Jan, Irritable bowel syndrome 564.1 ; Hyperli pidemia 272.4 ; Obesity, unspecified 278.00 ; Asthma 493.90 ; Urge incontinence 788.31 ; Anxiety 300.00 and GERD (gastroesophageal reflux disease) 530.81 [facility] [address] [id number] [place] [id number] Dec, Dental examination V72.2 [facility] [address] [id number] November, Dental examination V72.2 [facility] [address] [address] Oct, [facility] [address] [address] Oct, [facility] [address] [address] Sep, [facility] [address] [address] Sep, [facility] [address] [address] Sep, [facility] [address] [address] Sep, [facility] [address] [address] Sep, [facility] [address] [address] Sep, [facility] [address] [address] Sep, [facility] [address] [address] Sep, [facility] [address] [address] Sep, [facility] [address] [address] Sep, [facility] [address] [id number] [place] [address] Sep, [facility] [address] [id number] [place] [address] Sep, [facility] [address] [id number] [place] [address] Sep, [facility] [address] [id number] [place] [address] Jul, [facility] [address] [id number] [place] [address] Jul, [facility] [address] [id number] [place] [address] Jul, [facility] [address] [id number] [place] [address] Jul, [facility] [address] [id number] [place] [address] Jun, [facility] [address] [id number] [place] [address] Jun, [facility] [address] [id number] [place] [address] May, [facility] [address] [id number] [place] [address] May, [facility] [address] [id number] [place] [address] May, [facility] [address] [id number] [place] [address] May, [facility] [address] [id number] [place] [address] Apr, [facility] [address] [id number] [place] [address] Apr, [facility] [address] [id number] [place] [address] Mar, [facility] [address] [id number] [place] [address] 19 Mar, 2014 [facility] [address] [id number] [place] [address] 15 Mar, 2014 [facility] [address] [facility]] [id number] [place] [address] Mar, [facility] [address] [id number] [place] [address] Mar, [facility] [address] [facility] [address]] [id number] [place] [address] Mar, [facility] [address] [id number] [place] [address] Feb, [facility] [address] [id number] [place] [address] Feb, [facility] [address] [id number] [place] [address] Feb, [facility] [address] [id number] [place] [address] Feb, [facility] [address] [id number] [place] [address] Jan, [facility] [address] [id number] [place] [address] Jan, [facility] [address] [id number] [place] [address] Jan, [facility] [address] [id number] [place] [address] Jan, [facility] [address] [id number] [place] [address] Jan, [facility] [address] [id number] [place] [address] Jan, [facility] [address] [id number] [place] [address] Dec, [facility] [address] [id number] [place] [address] Dec, [facility] [address] [id number] [place] [address] Dec, [facility] [address] [id number] [place] [address] Dec, [facility] [address] [id number] [place] [address] Dec, [facility] [address] [id number] [place] [address] Dec, [facility] [address] [id number] [place] [address] Oct, [facility] [address] [id number] [place] [address] Oct, [facility] [address] [id number] [place] [address] Oct, [facility] [address] [id number] [place] [address] Oct, [facility] [address] [id number] [place] [address] Sep, [facility] [address] [id number] [place] [address] Sep, [facility] [address] [id number] [place] [address] Sep, [facility] [address] [id number] [place] [address] Sep, [facility] [address] [id number] [place] [address] Sep, [facility] [address] [id number] [place] [address] Sep, [facility] [address] [id number] [place] [address] Aug, [facility] [address] [id number] [place] [address] Aug, [facility] [address] [id number] [place] [address] Aug, [facility] [address] [id number] [place] [address] Aug, [facility] [address] [id number] [place] [address] Aug, [facility] [address] [id number] [place] [address] Aug, [facility] [address] [id number] [place] [address] Aug, [facility] [address] [id number] [place] [address] Aug, [facility] [address] [id number] [place] [address] Aug, [facility] [address] [id number] [place] [address] Aug, [facility] [address] [id number] [place] [address] Aug, [facility] [address] [id number] [place] [address] Aug, [facility] [address] [id number] [place] [address] Aug, [facility] [address] [id number] [place] [address] Jul, [facility] [address] [id number] [place] [address] Jul, [facility] [address] [id number] [place] [address] Jun, [facility] [address] [place] [id number] [place] [address] Jun, [facility] [address] [id number] [place] [address] Jun, [facility] [address] [place] [id number] [place] [address] Jun, [facility] [address] [facility] [address] [id number] [place] [address] Aug, [facility] [address] [id number] [place] [address] Jun, [facility] [address] [facility] [address]] [id number] [place] [address] May, IMMUNIZATIONS No Known Immunizations SOCIAL HISTORY [...] History Laser surgery for cervial cancer @ [facility] [place] 1990 Surgical History L ankle surgery @ [facility] Surgical History tonsillectomy Hospitalization History Elevated BP
--- OUTSIDE RECORDS SUMMARY | 2019-12-01 17:34 | XMS REPORT ---
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 9 Active 47648858 Problem Anxiety disorder, unspecified F41.9 Active 799994763 Problem Cannabis dependence, uncomplicated F12.20 Active 36580797 Problem Pulmonary hypertension I27.2 Active 48969180 Problem Allergic rhinitis J30.9 Active 61 079891 Problem Obesity (BMI 30.0-34.9) E66.9 Active 136426091985507 Problem Moderate persistent asthma, uncomplicated J45.40 Active 461910033 Problem Gastroesophageal reflux disease, esophagitis pre sence not specified K21.9 Active 224437827 Problem Chronic tension-type headache, intractable G44.221 Active 615544833 Problem Essential hypertension I10 Active 73096716 Problem Hyperlipidemia, unspecified hyperlipidemia type E7 8.5 Active 83854177 ALLERGIES No Information ENCOUNTERS Encounter Location Date Diagnosis [facility] [address] [id number] [place] [address] Jul, [facility] [address] [id number] [place] [id number] Aug, Dental examination Z01.20 [facility] [address] [id number] [place] [address] Jan, [facility] [address] [address] 08 Aug, 2016 Shortness of breath R06.02 ; Pulmonary h ypertension I27.2 and Obesity (BMI 30.0-34.9) E66.9 [place] [address] [address] Jul, Scabies B86 ; Hyperlipidemia E78.5 and S yncope, unspecified syncope type R55 [place] [address] [address] Jul, [place] [address] [address] Jul, Chest pain, unspecified type R07.9 ; Dys pnea on exertion R06.09 ; Syncope, unspecified syncope type R55 ; Hyperlipidemia, unspecified hyperlipidemia type E78.5 and Essential hypertension I10 [address] [address] Jul, [place] [address] [address] Jun, Vasovagal syncope R55 ; Irritable bowel syndrome K58.9 ; Chronic tension-type headache, intractable G44.221 ; Pain in right foot M79.671 and Pain of left foot M79.[address] [address] May, Exposure to STD Z20.2 ; Insurance covera ge problems Z59.8 ; Acute intractable tension-type headache G44.201 ; Allergic rhinitis J30.9 ; Urge incontinence N39.41 and Gastroesophageal reflux disease, esophagitis presence not specified K21.[address] [address] Apr, [place] [address] [address] Mar, [place] [address] [address] Feb, [facility] [address] [place] [id number] [place] [id number] Jan, Dental examination Z01.20 [place] [address] [address] Jan, Depressive disorder, not elsewhere class ified F32.9 ; Anxiety disorder, unspecified F41.9 and 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 [place] [address] [address] Dec, Right chronic serous otitis media H65.21 and Asthma exacerbation J45.901 [place] [address] [address] Dec, [place] [address] [address] November, [place] [address] [address] November, [place] [address] [address] November, Hyperlipidemia E78.5 ; Hypertension I10 and Obesity, unspecified obesity severity, unspecified obesity type E66.9 [place] [address] [address] Oct, Hyperlipidemia E78.5 ; Allergic rhinitis J30.9 ; Moderate persistent asthma, uncomplicated J45.40 ; Irritable bowel syndrome K58.9 ; Urge incontinence N39.41 ; Depressive disorder, not elsewhere classified F32.9 ; Anxiety disorder, unspecified F41.9 and Hypertension I10 [place] [address] [address] Oct, Depressive disorder, not elsewhere class ified F32.9 ; Anxiety disorder, unspecified F41.9 and Cannabis dependence, uncomplicated F12.20 [place] [address] [address] Apr, [place] [address] [address] Jan, [place] [address] [place] [id number] [place] [address] Jan, Irritable bowel syndrome 564.1 ; Hyperli pidemia 272.4 ; Obesity, unspecified 278.00 ; Asthma 493.90 ; Urge incontinence 788.31 ; Anxiety 300.00 and GERD (gastroesophageal reflux disease) 530.81 [facility] [address] [facility] [place] [id number] Dec, Dental examination V72.2 [facility] [address] [id number] November, Dental examination V72.2 [facility] [address] [address] Oct, [facility] [address] [address] Oct, [facility] [address] [address] Sep, [facility] [address] [address] Sep, [facility] [address] [address] Sep, [facility] [address] [address] Sep, [facility] [address] [address] Sep, [facility] [address] [address] Sep, [facility] [address] [address] Sep, [facility] [address] [address] Sep, [facility] [address] [address] Sep, [facility] [address] [address] Sep, [facility] [address] [id number] [place] [address] Sep, [facility] [address] [id number] [place] [address] Sep, [facility] [address] [id number] [place] [address] Sep, [facility] [address] [id number] [place] [address] Jul, [facility] [address] [id number] [place] [address] Jul, [facility] [address] [id number] [place] [address] Jul, [facility] [address] [id number] [place] [address] Jul, [facility] [address] [id number] [place] [address] Jun, [facility] [address] [id number] [place] [address] Jun, [facility] [address] [id number] [place] [address] May, [facility] [address] [id number] [place] [address] May, [facility] [address] [id number] [place] [address] May, [facility] [address] [id number] [place] [address] May, [facility] [address] [id number] [place] [address] Apr, [facility] [address] [id number] [place] [address] Apr, [facility] [address] [id number] [place] [address] Mar, [facility] [address] [id number] [place] [address] 19 Mar, 2014 [facility] [address] [id number] [place] [address] 15 Mar, 2014 [facility] [address] [facility] [id number] [place] [address] Mar, [facility] [address] [id number] [place] [address] Mar, [facility] [address] [facility] [id number] [place] [address] Mar, [facility] [address] [id number] [place] [address] Feb, [facility] [address] [id number] [place] [address] Feb, [facility] [address] [id number] [place] [address] Feb, [facility] [address] [id number] [place] [address] Feb, [facility] [address] [id number] [place] [address] Jan, [facility] [address] [id number] [place] [address] Jan, [facility] [address] [id number] [place] [address] Jan, [facility] [address] [id number] [place] [address] Jan, [facility] [address] [id number] [place] [address] Jan, [facility] [address] [id number] [place] [address] Jan, [facility] [address] [id number] [place] [address] Dec, [facility] [address] [id number] [place] [address] Dec, [facility] [address] [id number] [place] [address] Dec, [facility] [address] [id number] [place] [address] Dec, [facility] [address] [id number] [place] [address] Dec, [facility] [address] [id number] [place] [address] Dec, [facility] [address] [id number] [place] [address] Oct, [facility] [address] [id number] [place] [address] Oct, [facility] [address] [id number] [place] [address] Oct, [facility] [address] [id number] [place] [address] Oct, [facility] [address] [id number] [place] [address] Sep, [facility] [address] [id number] [place] [address] Sep, [facility] [address] [id number] [place] [address] Sep, [facility] [address] [id number] [place] [address] Sep, [facility] [address] [id number] [place] [address] Sep, [facility] [address] [id number] [place] [address] Sep, [facility] [address] [id number] [place] [address] Aug, [facility] [address] [id number] [place] [address] Aug, [facility] [address] [id number] [place] [address] Aug, [facility] [address] [id number] [place] [address] Aug, [facility] [address] [id number] [place] [address] Aug, [facility] [address] [id number] [place] [address] Aug, [facility] [address] [id number] [place] [address] Aug, [facility] [address] [id number] [place] [address] Aug, [facility] [address] [id number] [place] [address] Aug, [facility] [address] [id number] [place] [address] Aug, [facility] [address] [id number] [place] [address] Aug, [facility] [address] [id number] [place] [address] Aug, [facility] [address] [id number] [place] [address] Aug, [facility] [address] [id number] [place] [address] Jul, [facility] [address] [id number] [place] [address] Jul, [facility] [address] [id number] [place] [address] Jun, [facility] [address] [place] [id number] [place] [address] Jun, [facility] [address] [id number] [place] [address] Jun, [facility] [address] [place] [id number] [place] [address] Jun, [facility] [address] [facility] [id number] [place] [address] Aug, [facility] [address] [id number] [place] [address] Jun, [facility] [address] [facility] [id number] [place] [address] May, IMMUNIZATIONS No Known Immunizations SOCIAL HISTORY [...] History Laser surgery for cervial cancer @ [facility] [place] 1990 [facility] tonsillectomy Hospitalization History Elevated BP
--- OUTSIDE RECORDS SUMMARY | 2019-12-01 17:34 | XMS REPORT ---
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 9 Active 00408212 Problem Anxiety disorder, unspecified F41.9 Active 831045485 Problem Cannabis dependence, uncomplicated F12.20 Active 66563927 Problem Pulmonary hypertension I27.2 Active 76240870 Problem Allergic rhinitis J30.9 Active 61 613435 Problem Obesity (BMI 30.0-34.9) E66.9 Active 375761050496149 Problem Moderate persistent asthma, uncomplicated J45.40 Active 314861384 Problem Gastroesophageal reflux disease, esophagitis pre sence not specified K21.9 Active 922427708 Problem Chronic tension-type headache, intractable G44.221 Active 150040714 Problem Essential hypertension I10 Active 26818633 Problem Hyperlipidemia, unspecified hyperlipidemia type E7 8.5 Active 16426702 ALLERGIES No Information ENCOUNTERS Encounter Location Date Diagnosis [facility] [address] [id number] [place] [address] Jul, [facility] [address] [id number] [place] [id number] Aug, Dental examination Z01.20 [facility] [address] [id number] [place] [address] Jan, [facility] [address] [address] 08 Aug, 2016 Shortness of breath R06.02 ; Pulmonary h ypertension I27.2 and Obesity (BMI 30.0-34.9) E66.9 [place] [address] [address] Jul, Scabies B86 ; Hyperlipidemia E78.5 and S yncope, unspecified syncope type R55 [place] [address] [address] Jul, [place] [address] [address] Jul, Chest pain, unspecified type R07.9 ; Dys pnea on exertion R06.09 ; Syncope, unspecified syncope type R55 ; Hyperlipidemia, unspecified hyperlipidemia type E78.5 and Essential hypertension I10 [place] [address] [address] Jul, [place] [address] [address] Jun, Vasovagal syncope R55 ; Irritable bowel syndrome K58.9 ; Chronic tension-type headache, intractable G44.221 ; Pain in right foot M79.671 and Pain of left foot M79.672 [place] [address] [address] May, Exposure to STD Z20.2 ; Insurance covera ge problems Z59.8 ; Acute intractable tension-type headache G44.201 ; Allergic rhinitis J30.9 ; Urge incontinence N39.41 and Gastroesophageal reflux disease, esophagitis presence not specified K21.9 [place] [address] [address] Apr, [place] [address] [address] Mar, [place] [address] [address] Feb, [facility] [address] [facility] [place] [address] Jan, Dental examination Z01.20 [place] [address] [address] Jan, Depressive disorder, not elsewhere class ified F32.9 ; Anxiety disorder, unspecified F41.9 and Other skilled nursing (current) drug therapy Z79.899 [place] [address] [address] Dec, Right chronic serous otitis media H65.21 and Asthma exacerbation J45.901 [place] [address] [address] Dec, [place] [address] [address] November, [place] [address] [address] November, [place] [address] [address] November, Hyperlipidemia E78.5 ; Hypertension I10 and Obesity, unspecified obesity severity, unspecified obesity type E66.9 [place] [address] [address] Oct, Hyperlipidemia E78.5 ; Allergic rhinitis J30.9 ; Moderate persistent asthma, uncomplicated J45.40 ; Irritable bowel syndrome K58.9 ; Urge incontinence N39.41 ; Depressive disorder, not elsewhere classified F32.9 ; Anxiety disorder, unspecified F41.9 and Hypertension I10 [place] [address] [address] Oct, Depressive disorder, not elsewhere class ified F32.9 ; Anxiety disorder, unspecified F41.9 and Cannabis dependence, uncomplicated F12.20 [place] [address] [address] Apr, [place] [address] [address] Jan, [facility] [address] [place] [id number] [place] [address] Jan, Irritable bowel syndrome 564.1 ; Hyperli pidemia 272.4 ; Obesity, unspecified 278.00 ; Asthma 493.90 ; Urge incontinence 788.31 ; Anxiety 300.00 and GERD (gastroesophageal reflux disease) 530.81 [facility] [address] [id number] [place] [id number] Dec, Dental examination V72.2 [facility] [address] [id number] November, Dental examination V72.2 [facility] [address] [address] Oct, [facility] [address] [address] Oct, [facility] [address] [address] Sep, [facility] [address] [address] Sep, [facility] [address] [address] Sep, [facility] [address] [address] Sep, [facility] [address] [address] Sep, [facility] [address] [address] Sep, [facility] [address] [address] Sep, [facility] [address] [address] Sep, [facility] [address] [address] Sep, [facility] [address] [address] Sep, [facility] [address] [id number] [place] [address] Sep, [facility] [address] [id number] [place] [address] Sep, [facility] [address] [id number] [place] [address] Sep, [facility] [address] [id number] [place] [address] Jul, [facility] [address] [facility] [id number] [place] [address] Jul, [facility] [address] [id number] [place] [address] Jul, [facility] [address] [id number] [place] [address] Jul, [facility] [address] [id number] [place] [address] Jun, [facility] [address] [id number] [place] [address] Jun, [facility] [address] [id number] [place] [address] May, [facility] [address] [id number] [place] [address] May, [facility] [address] [id number] [place] [address] May, [facility] [address] [id number] [place] [address] May, [facility] [address] [id number] [place] [address] Apr, [facility] [address] [id number] [place] [address] Apr, [facility] [address] [id number] [place] [address] Mar, [facility] [address] [id number] [place] [address] 19 Mar, 2014 [facility] [address] [id number] [place] [address] 15 Mar, 2014 [facility] [address] [id number] [place] [address] 15 Mar, 2014 [facility] [address] [id number] [place] [address] Mar, [facility] [address] [id number] [place] [address] Mar, [facility] [address] [facility] [id number] [place] [address] Feb, [facility] [address] [id number] [place] [address] Feb, [facility] [address] [id number] [place] [address] Feb, [facility] [address] [id number] [place] [address] Feb, [facility] [address] [id number] [place] [address] Jan, [facility] [address] [id number] [place] [address] Jan, [facility] [address] [id number] [place] [address] Jan, [facility] [address] [id number] [place] [address] Jan, [facility] [address] [id number] [place] [address] Jan, [facility] [address] [id number] [place] [address] Jan, [facility] [address] [id number] [place] [address] Dec, [facility] [address] [id number] [place] [address] Dec, [facility] [address] [id number] [place] [address] Dec, [facility] [address] [id number] [place] [address] Dec, [facility] [address] [id number] [place] [address] Dec, [facility] [address] [id number] [place] [address] Dec, [facility] [address] [id number] [place] [address] Oct, [facility] [address] [id number] [place] [address] Oct, [facility] [address] [id number] [place] [address] Oct, [facility] [address] [id number] [place] [address] Oct, [facility] [address] [id number] [place] [address] Sep, [facility] [address] [id number] [place] [address] Sep, [facility] [address] [id number] [place] [address] Sep, [facility] [address] [id number] [place] [address] Sep, [facility] [address] [id number] [place] [address] Sep, [facility] [address] [id number] [place] [address] Sep, [facility] [address] [id number] [place] [address] Aug, [facility] [address] [id number] [place] [address] Aug, [facility] [address] [id number] [place] [address] Aug, [facility] [address] [id number] [place] [address] Aug, [facility] [address] [id number] [place] [address] Aug, [facility] [address] [id number] [place] [address] Aug, [facility] [address] [id number] [place] [address] Aug, [facility] [address] [id number] [place] [address] Aug, [facility] [address] [id number] [place] [address] Aug, [facility] [address] [id number] [place] [address] Aug, [facility] [address] [id number] [place] [address] Aug, [facility] [address] [id number] [place] [address] Aug, [facility] [address] [id number] [place] [address] Aug, [facility] [address] [id number] [place] [address] Jul, [facility] [address] [id number] [place] [address] Jul, [facility] [address] [id number] [place] [address] Jun, [facility] [address] [id number] [place] [address] Jun, [facility] [address] [id number] [place] [address] Jun, [facility] [address] [id number] [place] [address] Jun, [facility] [address] [facility] [id number] [place] [address] Aug, [facility] [address] [id number] [place] [address] Jun, [facility] [address] [facility] [id number] [place] [address] May, IMMUNIZATIONS No Known Immunizations SOCIAL HISTORY [...]
--- NOTE | 2019-12-01 17:35 | NUR ---
PT HANDS AND FACE WASHED R THUMB CLEANED AND TELFA BANDAID APPLIED. PT ENC TO HOLD ABOVE HEAD TO KEEP FROM THROBBING
--- NOTE | 2019-12-01 17:35 | NUR ---
PT GOING TO GET MEDS FILLED
--- OUTSIDE RECORDS SUMMARY | 2019-12-01 17:35 | XMS REPORT ---
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 9 Active 77364981 Problem Anxiety disorder, unspecified F41.9 Active 294359399 Problem Cannabis dependence, uncomplicated F12.20 Active 05381929 Problem Pulmonary hypertension I27.2 Active 22882188 Problem Allergic rhinitis J30.9 Active 61 788198 Problem Obesity (BMI 30.0-34.9) E66.9 Active 975979947439050 Problem Moderate persistent asthma, uncomplicated J45.40 Active 314262451 Problem Gastroesophageal reflux disease, esophagitis pre sence not specified K21.9 Active 397384682 Problem Chronic tension-type headache, intractable G44.221 Active 482414532 Problem Essential hypertension I10 Active 26157556 Problem Hyperlipidemia, unspecified hyperlipidemia type E7 8.5 Active 15061450 ALLERGIES No Information ENCOUNTERS Encounter Location Date Diagnosis [facility] [address] [facility] [id number] [address] [place] [id number] Jul, [facility] [address] [facility] [id number] [address] [place] [id number] Aug, Dental examination Z01.20 [facility] [address] [facility] [id number] [address] [place] [id number] Jan, [facility] [address] [address] 08 Aug, 2016 Shortness of breath R06.02 ; Pulmonary hypertension I27.2 and Obesity (BMI 30.0-34.9) E66.9 [place] [address] [address] 31 Jul, 2016 Scabies B86 ; Hyperlipidemia E78.5 and Syncope, unspecified syncope type R55 [place] [address] [address] Jul, [address] [address] Jul, Chest pain, unspecified type R07.9 ; Dyspnea on exertion R06.09 ; Syncope, unspecified syncope type R55 ; Hyperlipidemia, unspecified hyperlipidemia type E78.5 and Essential hypertension I10 [address] [address] Jul, [address] [address] Jun, Vasovagal syncope R55 ; Irri table bowel syndrome K58.9 ; Chronic tension-type headache, intractable G44.221 ; Pain in right foot M79.671 and Pain of left foot M79.[address] [address] 02 May, 2016 Exposure to STD Z20.2 ; [place]su [place] coverage problems Z59.8 ; Acute intractable tension-type headache G44.201 ; Allergic rhinitis J30.9 ; Urge incontinence N39.41 and Gastroesophageal reflux disease, esophagitis presence not specified K21.[address] [address] Apr, [place] [address] [address] Mar, [address] [address] Feb, [facility] [address] [id number] [address] [place] [id number] Jan, Dental examination Z01.20 [facility] [address] [facility] [id number] [address] [place] [id number] Jan, Depressive disorder, not els ewhere classified F32.9 ; Anxiety disorder, unspecified F41.9 and [facility] [place] [facility] drug therapy Z79.899 [facility] [address] [place] [id number] [address] [place] [address] Dec, Right chronic serous otitis media H65.21 and Asthma exacerbation J45.901 [facility] [address] [place] [id number] [address] [place] [phone] Dec, [facility] [address] [address] November, [facility] [address] [place] [id number] [address] [place] [phone] November, [facility] [address] [place] [id number] [address] [place] [phone] November, Hyperlipidemia E78.5 ; Hyper tension I10 and Obesity, unspecified obesity severity, unspecified obesity type E66.9 [facility] [address] [place] [id number] [address] [place] [phone] Oct, Hyperlipidemia E78.5 ; Aller gic rhinitis J30.9 ; Moderate persistent asthma, uncomplicated J45.40 ; Irritable bowel syndrome K58.9 ; Urge incontinence N39.41 ; Depressive disorder, not elsewhere classified F32.9 ; Anxiety disorder, unspecified F41.9 and Hypertension I10 [facility] [address] [facility] [id number] [address] [place] [phone] Oct, Depressive disorder, not els ewhere classified F32.9 ; Anxiety disorder, unspecified F41.9 and Cannabis dependence, uncomplicated F12.20 [facility] [address] [place] [id number] [address] [place] [phone] Apr, [facility] [address] [id number] [address] [place] [id number] Jan, [facility] [address] [id number] [address] [place] [address] Jan, Irritable bowel syndrome 564 .1 ; Hyperlipidemia 272.4 ; Obesity, unspecified 278.00 ; Asthma 493.90 ; Urge incontinence 788.31 ; Anxiety 300.00 and GERD (gastroesophageal reflux disease) 530.81 [facility] [address] [id number] [address] [place] [phone] Dec, Dental examination V72.2 [facility] [address] [id number] [address] [place] [address] [id number] November, Dental examination V72.2 [facility] [address] [id number] [address] [place] [phone] Oct, [facility] [address] [id number] [address] [place] [phone] Oct, [facility] [address] [id number] [address] [place] [phone] Sep, [facility] [address] [id number] [address] [place] [id number] Sep, [facility] [address] [id number] [address] [place] [phone] Sep, [facility] [address] [id number] [address] [place] [phone] Sep, [facility] [address] [id number] [address] [place] [phone] Sep, [facility] [address] [id number] [address] [place] [phone] Sep, [facility] [address] [id number] [address] [place] [phone] Sep, [facility] [address] [id number] [address] [place] [address], [place] [address] 23 Sep, 2014 [facility] [address] [id number] [address] [place] [address], [place] [address] Sep, [facility] [address] [id number] [address] [place] [address], [place] [address] Sep, [facility] [address] [id number] [address] [place] [address], [place] [address] Sep, [facility] [address] [id number] [address] [place] [address], [place] [address] Sep, [facility] [address] [id number] [address] [place] [address], [place] [address] Sep, [facility] [address] [id number] [address] [place] [address], [place] [address] Jul, [facility] [address] [id number] [address] [place] [address], [place] [address] Jul, [facility] [address] [id number] [address] [place] [address], [place] [address] Jul, [facility] [address] [id number] [address] [place] [address], [place] [address] Jul, [facility] [address] [id number] [address] [place] [address], [place] [address] Jun, [facility] [address] [id number] [address] [place] [address], [place] [address] Jun, [facility] [address] [id number] [address] [place] [address], [place] [address] May, [facility] [address] [id number] [address] [place] [address], [place] [address] May, [facility] [address] [id number] [address] [place] [address], [place] [address] May, [facility] [address] [id number] [address] [place] [address], [place] [address] May, [facility] [address] [id number] [address] [place] [address], [place] [address] Apr, [facility] [address] [id number] [address] [place] [address], [place] [address] Apr, [facility] [address] [id number] [address] [place] [address], [place] [address] Mar, [facility] [address] [id number] [address] [place] [address], [place] [address] Mar, [facility] [address] [id number] [address] [place] [address], [place] [address] 15 Mar, 2014 [facility] [address] [id number] [address] [place] [address], [place] [address] 15 Mar, 2014 [facility] [address] [id number] [address] [place] [address], [place] [address] Mar, [facility] [address] [id number] [address] [place] [address], [place] [address] Mar, [facility] [address] [id number] [address] [place] [address], [place] [address] Feb, [facility] [address] [id number] [address] [place] [address], [place] [address] Feb, [facility] [address] [id number] [address] [place] [address], [place] [address] Feb, [facility] [address] [id number] [address] [place] [address], [place] [address] Feb, [facility] [address] [id number] [address] [place] [address], [place] [address] Jan, [facility] [address] [id number] [address] [place] [address], [place] [address] Jan, [facility] [address] [id number] [address] [place] [address], [place] [address] 16 Jan, 2014 [facility] [address] [id number] [address] [place] [address], [place] [address] 16 Jan, 2014 [facility] [address] [id number] [facility] [place] [address] Jan, [facility] [address] [id number] [address] [place] [address], [place] [address] Jan, [facility] [address] [id number] [address] [place] [address], [place] [address] Dec, [facility] [address] [id number] [address] [place] [address], [place] [address] Dec, [facility] [address] [id number] [address] [place] [address], [place] [address] Dec, [facility] [address] [id number] [address] [place] [address], [place] [address] Dec, [facility] [address] [id number] [address] [place] [address], [place] [address] Dec, [facility] [address] [id number] [address] [place] [address], [place] [address] Dec, [facility] [address] [id number] [address] [place] [address], [place] [address] Oct, [facility] [address] [id number] [address] [place] [address], [place] [address] Oct, [facility] [address] [id number] [address] [place] [address], [place] [address] Oct, [facility] [address] [id number] [address] [place] [address], [place] [address] Oct, [facility] [address] [id number] [address] [place] [address], [place] [address] Sep, [facility] [address] [id number] [address] [place] [address], [place] [address] Sep, [facility] [address] [id number] [address] [place] [address], [place] [address] Sep, [facility] [address] [id number] [address] [place] [address], [place] [address] Sep, [facility] [address] [id number] [address] [place] [address], [place] [address] Sep, [facility] [address] [id number] [address] [place] [address], [place] [address] Sep, [facility] [address] [id number] [address] [place] [address], [place] [address] Aug, [facility] [address] [id number] [address] [place] [address], [place] [address] Aug, [facility] [address] [id number] [address] [place] [address], [place] [address] Aug, [facility] [address] [id number] [address] [place] [address], [place] [address] Aug, [facility] [address] [id number] [address] [place] [address], [place] [address] Aug, [facility] [address] [id number] [address] [place] [address], [place] [address] Aug, [facility] [address] [id number] [address] [place] [address], [place] [address] Aug, [facility] [address] [id number] [address] [place] [address], [place] [address] Aug, [facility] [address] [id number] [address] [place] [address], [place] [address] Aug, [facility] [address] [id number] [address] [place] [address], [place] [address] 17 Aug, 2013 [facility] [address] [id number] [address] [place] [address], [place] [address] 17 Aug, 2013 [facility] [address] [id number] [address] [place] [address], [place] [address] 14 Aug, 2013 [facility] [address] [id number] [address] [place] [id number] 14 Aug, 2013 [facility] [address] [id number] [address] [place] [id number] Jul, [facility] [address] [id number] [address] [place] [id number] Jul, [facility] [address] [id number] [address] [place] [id number] Jun, [facility] [address] [id number] [address] [place] [id number] Jun, [facility] [address] [id number] [address] [place] [id number] Jun, [facility] [address] [id number] [address] [place] [id number] Jun, [facility] [address] [id number] [address] [place] [id number] Aug, [facility] [address] [id number] [address] [place] [id number] Jun, [facility] [address] [id number] [address] [place] [id number] May, IMMUNIZATIONS No Known Immunizations SOCIAL HISTORY [...] History Laser surgery for cervial cancer @ [facility] [place] 1990 Surgical History L ankle surgery @ [facility] Surgical History tonsillectomy Hospitalization History Elevated BP
--- OUTSIDE RECORDS SUMMARY | 2019-12-01 17:35 | XMS REPORT ---
Author Author TAMIKOMandie BOWLING [facility] [address] Address [address] [place] [address] Care Team Providers Care Gift Wrapper Name Role Phone ANTHONY MORRISON Unavailable PROBLEMS Type Condition ICD9-CM Code QJJ92-KO Code Onset Dates Condition S tatus SNOMED Code Problem History of cocaine abuse Z87.898 Activ e 025244687254720 Problem Irritable bowel syndrome K58.9 Activ e 36049082 Problem Hyperlipidemia E78.5 Active 89494 004 Problem Urge incontinence N39.41 Active 16 7791039 Problem Hypertension I10 Active 5474735 3 Problem Depressive disorder, not elsewhere classified F32. 9 Active 58680423 Problem Anxiety disorder, unspecified F41.9 Active 058194228 Problem Cannabis dependence, uncomplicated F12.20 Active 33606045 Problem Pulmonary hypertension I27.2 Active 64988869 Problem Allergic rhinitis J30.9 Active 61 542427 Problem Obesity (BMI 30.0-34.9) E66.9 Active 495791630166020 Problem Moderate persistent asthma, uncomplicated J45.40 Active 181210595 Problem Gastroesophageal reflux disease, esophagitis pre sence not specified K21.9 Active 639283730 Problem Chronic tension-type headache, intractable G44.221 Active 949199067 Problem Essential hypertension I10 Active 73765105 Problem Hyperlipidemia, unspecified hyperlipidemia type E7 8.5 Active 03069554 ALLERGIES No Information ENCOUNTERS Encounter Location Date Diagnosis [facility] [address] [facility] [id number] [address] [place] [address] Jul, [facility] [address] [facility] [id number] [address] [place] [id number] Aug, Dental examination Z01.20 [facility] [address] [facility] [id number] [address] [place] [address] Jan, [facility] [address] [address] 08 Aug, 2016 Shortness of breath R06.02 ; Pulmonary hypertension I27.2 and Obesity (BMI 30.0-34.9) E66.9 [place] [address] [address] 31 Jul, 2016 Scabies B86 ; Hyperlipidemia E78.5 and Syncope, unspecified syncope type R55 [place] [address] [address] Jul, [address] [address] Jul, Chest pain, unspecified type R07.9 ; Dyspnea on exertion R06.09 ; Syncope, unspecified syncope type R55 ; Hyperlipidemia, unspecified hyperlipidemia type E78.5 and Essential hypertension I10 [address] [address] Jul, [address] [address] Jun, Vasovagal syncope R55 ; Irri table bowel syndrome K58.9 ; Chronic tension-type headache, intractable G44.221 ; Pain in right foot M79.671 and Pain of left foot M79.[address] [address] 02 May, 2016 Exposure to STD Z20.2 ; Insu [place] coverage problems Z59.8 ; Acute intractable tension-type headache G44.201 ; Allergic rhinitis J30.9 ; Urge incontinence N39.41 and Gastroesophageal reflux disease, esophagitis presence not specified K21.[address] [address] Apr, [place] [address] [address] Mar, [address] [address] Feb, [facility] [address] [id number] [address] [place] [id number] Jan, Dental examination Z01.20 [facility] [address] [facility] [id number] [address] [place] [address] Jan, Depressive disorder, not els ewhere classified F32.9 ; Anxiety disorder, unspecified F41.9 and Other care home (current) drug therapy Z79.899 [facility] [address] [place] [id number] [address] [place] [address] Dec, Right chronic serous otitis media H65.21 and Asthma exacerbation J45.901 [facility] [address] [place] [id number] [address] [place] [address] Dec, [facility] [address] [address] November, [facility] [address] [place] [id number] [address] [place] [address] November, [facility] [address] [place] [id number] [address] [place] [address] November, Hyperlipidemia E78.5 ; Hyper tension I10 and Obesity, unspecified obesity severity, unspecified obesity type E66.9 [facility] [address] [place] [id number] [address] [place] [address] Oct, Hyperlipidemia E78.5 ; Aller gic rhinitis J30.9 ; Moderate persistent asthma, uncomplicated J45.40 ; Irritable bowel syndrome K58.9 ; Urge incontinence N39.41 ; Depressive disorder, not elsewhere classified F32.9 ; Anxiety disorder, unspecified F41.[address] [facility] [address] [facility] [id number] [address] [place] [address] Oct, Depressive disorder, not els ewhere classified F32.9 ; Anxiety disorder, unspecified F41.9 and Cannabis dependence, uncomplicated F12.20 [facility] [address] [place] [id number] [address] [place] [address] Apr, [facility] [address] [id number] [address] [place] [address] Jan, [facility] [address] [id number] [address] [place] [address] Jan, Irritable bowel syndrome 564 .1 ; Hyperlipidemia 272.4 ; Obesity, unspecified 278.00 ; Asthma 493.90 ; Urge incontinence 788.31 ; Anxiety 300.00 and GERD (gastroesophageal reflux disease) 530.81 [facility] [address] [id number] [address] [place] [id number] Dec, Dental examination V72.2 [facility] [address] [id number] [address] [place] [id number] November, Dental examination V72.2 [facility] [address] [id number] [address] [place] [address] Oct, [facility] [address] [id number] [address] [place] [address] Oct, [facility] [address] [id number] [address] [place] [address] Sep, [facility] [address] [id number] [address] [place] [phone] Sep, [facility] [address] [id number] [address] [place] [address] Sep, [facility] [address] [id number] [address] [place] [address] Sep, [facility] [address] [id number] [address] [place] [address] Sep, [facility] [address] [id number] [address] [place] [address] Sep, [facility] [address] [id number] [address] [place] [address] Sep, [facility] [address] [id number] [address] [place] [address], [place] [address] 23 Sep, 2014 [facility] [address] [id number] [address] [place] [address], [place] [address] Sep, [facility] [address] [id number] [address] [place] [address], [place] [address] Sep, [facility] [address] [id number] [address] [place] [address], [place] [address] Sep, [facility] [address] [id number] [address] [place] [address], [place] [address] Sep, [facility] [address] [id number] [address] [place] [address], [place] [address] Sep, [facility] [address] [id number] [address] [place] [address], [place] [address] Jul, [facility] [address] [id number] [address] [place] [address], [place] [address] Jul, [facility] [address] [id number] [address] [place] [address], [place] [address] Jul, [facility] [address] [id number] [address] [place] [address], [place] [address] Jul, [facility] [address] [id number] [address] [place] [address], [place] [address] Jun, [facility] [address] [id number] [address] [place] [address], [place] [address] Jun, [facility] [address] [id number] [address] [place] [address], [place] [address] May, [facility] [address] [id number] [address] [place] [address], [place] [address] May, [facility] [address] [id number] [address] [place] [address], [place] [address] May, [facility] [address] [id number] [address] [place] [address], [place] [address] May, [facility] [address] [id number] [address] [place] [address], [place] [address] Apr, [facility] [address] [id number] [address] [place] [address], [place] [address] Apr, [facility] [address] [id number] [address] [place] [address], [place] [address] Mar, [facility] [address] [id number] [address] [place] [address], [place] [address] Mar, [facility] [address] [id number] [address] [place] [address], [place] [address] 15 Mar, 2014 [facility] [address] [id number] [address] [place] [address], [place] [address] 15 Mar, 2014 [facility] [address] [id number] [address] [place] [address], [place] [address] Mar, [facility] [address] [id number] [address] [place] [address], [place] [address] Mar, [facility] [address] [id number] [address] [place] [address], [place] [address] Feb, [facility] [address] [id number] [address] [place] [address], [place] [address] Feb, [facility] [address] [id number] [address] [place] [address], [place] [address] Feb, [facility] [address] [id number] [address] [place] [address], [place] [address] Feb, [facility] [address] [id number] [address] [place] [address], [place] [address] Jan, [facility] [address] [id number] [address] [place] [address], [place] [address] Jan, [facility] [address] [id number] [address] [place] [address], [place] [address] 16 Jan, 2014 [facility] [address] [id number] [address] [place] [address], [place] [address] 16 Jan, 2014 [facility] [address] [id number] [facility] [address] Jan, [facility] [address] [id number] [address] [place] [address], [place] [address] Jan, [facility] [address] [id number] [address] [place] [address], [place] [address] Dec, [facility] [address] [id number] [address] [place] [address], [place] [address] Dec, [facility] [address] [id number] [address] [place] [address], [place] [address] Dec, [facility] [address] [id number] [address] [place] [address], [place] [address] Dec, [facility] [address] [id number] [address] [place] [address], [place] [address] Dec, [facility] [address] [id number] [address] [place] [address], [place] [address] Dec, [facility] [address] [id number] [address] [place] [address], [place] [address] Oct, [facility] [address] [id number] [address] [place] [address], [place] [address] Oct, [facility] [address] [id number] [address] [place] [address], [place] [address] Oct, [facility] [address] [id number] [address] [place] [address], [place] [address] Oct, [facility] [address] [id number] [address] [place] [address], [place] [address] Sep, [facility] [address] [id number] [address] [place] [address], [place] [address] Sep, [facility] [address] [id number] [address] [place] [address], [place] [address] Sep, [facility] [address] [id number] [address] [place] [address], [place] [address] Sep, [facility] [address] [id number] [address] [place] [address], [place] [address] Sep, [facility] [address] [id number] [address] [place] [address], [place] [address] Sep, [facility] [address] [id number] [address] [place] [address], [place] [address] Aug, [facility] [address] [id number] [address] [place] [address], [place] [address] Aug, [facility] [address] [id number] [address] [place] [address], [place] [address] Aug, [facility] [address] [id number] [address] [place] [address], [place] [address] Aug, [facility] [address] [id number] [address] [place] [address], [place] [address] Aug, [facility] [address] [id number] [address] [place] [address], [place] [address] Aug, [facility] [address] [id number] [address] [place] [address], [place] [address] Aug, [facility] [address] [id number] [address] [place] [address], [place] [address] Aug, [facility] [address] [id number] [address] [place] [address], [place] [address] Aug, [facility] [address] [id number] [address] [place] [address], [place] [address] 17 Aug, 2013 [facility] [address] [id number] [address] [place] [address], [place] [address] 17 Aug, 2013 [facility] [address] [id number] [address] [place] [address], [place] [address] 14 Aug, 2013 [facility] [address] [id number] [address] [place] [address] [address], [address] [facility] [address] [id number] [address] [place] [address] Jul, [facility] [address] [id number] [address] [place] [address] Jul, [facility] [address] [id number] [address] [place] [address] Jun, [facility] [address] [id number] [address] [place] [address] Jun, [facility] [address] [id number] [address] [place] [address] Jun, [facility] [address] [id number] [address] [place] [address] Jun, [facility] [address] [id number] [address] [place] [address] Aug, [facility] [address] [id number] [address] [place] [address] Jun, [facility] [address] [id number] [address] [place] [address] May, IMMUNIZATIONS No Known Immunizations SOCIAL HISTORY Never Assessed REASON FOR VISIT PLAN OF CARE VITAL SIGNS Height 67 in 2014-03-12 Weight 225.9 lbs 2014-03-12 Temperature 98.5 degrees Fahrenheit 2014-03-12 Heart Rate 88 bpm 2014-03-12 Respiratory Rate 20 2014-03-12 Blood pressure systolic 124 mmHg 2014-03-12 Blood pressure diastolic 82 mmHg 2014-03-12 MEDICATIONS Unknown Medications RESULTS No Results PROCEDURES [...] History Laser surgery for cervial cancer @ [facility]on 1990 [facility] History tonsillectomy Hospitalization History Elevated BP
--- OUTSIDE RECORDS SUMMARY | 2019-12-01 17:35 | XMS REPORT ---
Author Author Mandie Haynes Organization [facility] Address [address] [place] [address] Care Team Providers Care Bilingual Medical Assistant Name Role Phone SAIRA Haynes Unavailable PROBLEMS Type Condition ICD9-CM Code [id number] Code Onset Dates Condition S tatus SNOMED Code Problem History of cocaine abuse Z87.898 Activ e 884781383075109 Problem Irritable bowel syndrome K58.9 Activ e 70746687 Problem Hyperlipidemia E78.5 Active 14519 004 Problem Urge incontinence N39.41 Active 16 7105039 Problem Hypertension I10 Active 0633646 3 Problem Depressive disorder, not elsewhere classified F32. 9 Active 11756024 Problem Anxiety disorder, unspecified F41.9 Active 017008928 Problem Cannabis dependence, uncomplicated F12.20 Active 87025741 Problem Pulmonary hypertension I27.2 Active 48051404 Problem Allergic rhinitis J30.9 Active 61 119780 Problem Obesity (BMI 30.0-34.9) E66.9 Active 091689303671421 Problem Moderate persistent asthma, uncomplicated J45.40 Active 375163847 Problem Gastroesophageal reflux disease, esophagitis pre sence not specified K21.9 Active 386065092 Problem Chronic tension-type headache, intractable G44.221 Active 374906798 Problem Essential hypertension I10 Active 97944872 Problem Hyperlipidemia, unspecified hyperlipidemia type E7 8.5 Active 64908278 ALLERGIES No Information ENCOUNTERS Encounter Location Date Diagnosis [facility] [address] [id number] [place] [address] Jul, [facility] [address] [id number] [place] [id number] Aug, Dental examination Z01.20 [facility] [address] [id number] [place] [address] Jan, [facility] [address] [address] 08 Aug, 2016 Shortness of breath R06.02 ; Pulmonary h ypertension I27.2 and Obesity (BMI 30.0-34.9) E66.9 [place] [address] [address] 31 Jul, 2016 Scabies B86 ; Hyperlipidemia E78.5 and S yncope, unspecified syncope type R55 [address] [address] Jul, [address] [address] Jul, Chest pain, unspecified type R07.9 ; Dys pnea on exertion R06.09 ; Syncope, unspecified syncope type R55 ; Hyperlipidemia, unspecified hyperlipidemia type E78.5 and Essential hypertension I10 [address] [address] Jul, [address] [address] Jun, Vasovagal syncope R55 ; Irritable bowel syndrome K58.9 ; Chronic tension-type headache, intractable G44.221 ; Pain in right foot M79.671 and Pain of left foot M79.[address] [address] May, Exposure to STD Z20.2 ; Insurance covera ge problems Z59.8 ; Acute intractable tension-type headache G44.201 ; Allergic rhinitis J30.9 ; Urge incontinence N39.41 and Gastroesophageal reflux disease, esophagitis presence not specified K21.[address] [address] Apr, [address] [address] Mar, [address] [address] Feb, [facility] [address] [id number] [place] [id number] Jan, Dental examination Z01.20 [place] [address] [address] Jan, Depressive disorder, not elsewhere class ified F32.9 ; Anxiety disorder, unspecified F41.9 and [facility] [place] [facility] therapy Z79.899 [place] [address] [address] Dec, Right chronic serous otitis media H65.21 and Asthma exacerbation J45.901 [place] [address] [address] Dec, [place] [address] [address] November, [place] [address] [address] November, [place] [address] [address] November, Hyperlipidemia E78.5 ; Hypertension I10 and Obesity, unspecified obesity severity, unspecified obesity type E66.9 [place] [address] [address] Oct, Hyperlipidemia E78.5 ; Allergic rhinitis J30.9 ; Moderate persistent asthma, uncomplicated J45.40 ; Irritable bowel syndrome K58.9 ; Urge incontinence N39.41 ; Depressive disorder, not elsewhere classified F32.9 ; Anxiety disorder, unspecified F41.9 and Hypertension I10 [place] [address] [address] Oct, Depressive disorder, not elsewhere class ified F32.9 ; Anxiety disorder, unspecified F41.9 and Cannabis dependence, uncomplicated F12.20 [place] [address] [address] Apr, [address] [address] Jan, [facility] [address] [place] [id number] [place] [address] Jan, Irritable bowel syndrome 564.1 ; Hyperli pidemia 272.4 ; Obesity, unspecified 278.00 ; Asthma 493.90 ; Urge incontinence 788.31 ; Anxiety 300.00 and GERD (gastroesophageal reflux disease) 530.81 [facility] [address] [id number] Dec, Dental examination V72.2 [facility] [address] [id number] November, Dental examination V72.2 [facility] [address] [address] Oct, [facility] [address] [address] Oct, [facility] [address] [address] Sep, [facility] [address] [address] Sep, [facility] [address] [address] Sep, [facility] [address] [address] Sep, [facility] [address] [address] Sep, [facility] [address] [address] Sep, [facility] [address] [address] Sep, [facility] [address] [address] Sep, [facility] [address] [address] Sep, [facility] [address] [address] Sep, [facility] [address] [facility] [id number] [place] [address] Sep, [facility] [address] [id number] [place] [address] Sep, [facility] [address] [id number] [place] [address] Sep, [facility] [address] [id number] [place] [address] Jul, [facility] [address] [id number] [place] [address] Jul, [facility] [address] [id number] [place] [address] Jul, [facility] [address] [id number] [place] [address] Jul, [facility] [address] [id number] [place] [address] Jun, [facility] [address] [id number] [place] [address] Jun, [facility] [address] [id number] [place] [address] May, [facility] [address] [id number] [place] [address] May, [facility] [address] [id number] [place] [address] May, [facility] [address] [id number] [place] [address] May, [facility] [address] [id number] [place] [address] Apr, [facility] [address] [id number] [place] [address] Apr, [facility] [address] [id number] [place] [address] Mar, [facility] [address] [facility] [id number] [facility] [place] [address] 19 Mar, 2014 [facility] [address] [facility] [id number] [place] [address] 15 Mar, 2014 [facility] [address] [facility] [id number] [place] [address] Mar, [facility] [address] [id number] [place] [address] Mar, [facility] [address] [facility] [id number] [place] [address] Mar, [facility] [address] [facility] [id number] [place] [address] Feb, [facility] [address] [id number] [place] [address] Feb, [facility] [address] [id number] [place] [address] Feb, [facility] [address] [id number] [place] [address] Feb, [facility] [address] [id number] [place] [address] Jan, [facility] [address] [id number] [place] [address] Jan, [facility] [address] [id number] [place] [address] Jan, [facility] [address] [id number] [place] [address] Jan, [facility] [address] [id number] [place] [address] Jan, [facility] [address] [id number] [place] [address] Jan, [facility] [address] [id number] [place] [address] Dec, [facility] [address] [id number] [place] [address] Dec, [facility] [address] [id number] [place] [address] Dec, [facility] [address] [id number] [place] [address] Dec, [facility] [address] [id number] [place] [address] Dec, [facility] [address] [id number] [place] [address] Dec, [facility] [address] [id number] [place] [address] Oct, [facility] [address] [id number] [place] [address] Oct, [facility] [address] [id number] [place] [address] Oct, [facility] [address] [id number] [place] [address] Oct, [facility] [address] [id number] [place] [address] Sep, [facility] [address] [id number] [place] [address] Sep, [facility] [address] [id number] [place] [address] Sep, [facility] [address] [id number] [place] [address] Sep, [facility] [address] [id number] [place] [address] Sep, [facility] [address] [id number] [place] [address] Sep, [facility] [address] [id number] [place] [address] Aug, [facility] [address] [id number] [place] [address] Aug, [facility] [address] [id number] [place] [address] Aug, [facility] [address] [facility] [id number] [place] [address] Aug, [facility] [address] [id number] [place] [address] Aug, [facility] [address] [id number] [place] [address] Aug, [facility] [address] [id number] [place] [address] Aug, [facility] [address] [id number] [place] [address] Aug, [facility] [address] [id number] [place] [address] Aug, [facility] [address] [id number] [place] [address] Aug, [facility] [address] [id number] [place] [address] Aug, [facility] [address] [id number] [place] [address] Aug, [facility] [address] [id number] [place] [address] Aug, [facility] [address] [id number] [place] [address] Jul, [facility] [address] [id number] [place] [address] Jul, [facility] [address] [id number] [place] [address] Jun, [facility] [address] [id number] [place] [address] Jun, [facility] [address] [id number] [place] [address] Jun, [facility] [address] [id number] [place] [address] Jun, [facility] [address] [facility] [id number] [place] [address] Aug, [facility] [address] [id number] [place] [address] Jun, [facility] [address] [facility] [id number] [place] [address] May, IMMUNIZATIONS No Known Immunizations SOCIAL HISTORY Never Assessed REASON FOR VISIT PLAN OF CARE VITAL SIGNS MEDICATIONS Unknown Medications RESULTS No Results PROCEDURES Procedure Date Ordered Result Body Site LIPID PANEL January 07, 2014 VENIPUNCT, ROUTINE* January 07, 2014 INSTRUCTIONS MEDICATIONS ADMINISTERED No Known Medications MEDICAL [...]
--- OUTSIDE RECORDS SUMMARY | 2019-12-01 17:35 | XMS REPORT ---
Author Author TAMIKOMandie BOWLING Organization [facility] Address [address] [place] [address] Care Team Providers Care Mailroom Coordinator Name Role Phone ANTHONY MORRISON Unavailable PROBLEMS Type Condition ICD9-CM Code WBY86-BO Code Onset Dates Condition S tatus SNOMED Code Problem History of cocaine abuse Z87.898 Activ e 525683040347070 Problem Irritable bowel syndrome K58.9 Activ e 47818448 Problem Hyperlipidemia E78.5 Active 38854 004 Problem Urge incontinence N39.41 Active 16 2962424 Problem Hypertension I10 Active 8899426 3 Problem Depressive disorder, not elsewhere classified F32. 9 Active 99699814 Problem Anxiety disorder, unspecified F41.9 Active 299525281 Problem Cannabis dependence, uncomplicated F12.20 Active 22013472 Problem Pulmonary hypertension I27.2 Active 53283359 Problem Allergic rhinitis J30.9 Active 61 783620 Problem Obesity (BMI 30.0-34.9) E66.9 Active 946638644984977 Problem Moderate persistent asthma, uncomplicated J45.40 Active 253911154 Problem Gastroesophageal reflux disease, esophagitis pre sence not specified K21.9 Active 591408175 Problem Chronic tension-type headache, intractable G44.221 Active 588687985 Problem Essential hypertension I10 Active 67856218 Problem Hyperlipidemia, unspecified hyperlipidemia type E7 8.5 Active 42610980 ALLERGIES No Information ENCOUNTERS Encounter Location Date Diagnosis [facility] [address] [id number] [place] [address] Jul, [facility] [address] [id number] [place] [id number] Aug, Dental examination Z01.20 [facility] [address] [id number] [place] [address] Jan, [facility] [address] [address] [address] 08 Aug, 2016 Shortness of breath R06.02 ; Pulmonary h ypertension I27.2 and Obesity (BMI 30.0-34.9) E66.9 [place] [address] [address] Jul, Scabies B86 ; Hyperlipidemia E78.5 and S yncope, unspecified syncope type R55 [place] [address] [address] Jul, [place] [address] [address] Jul, Chest pain, unspecified type R07.9 ; Dys pnea on exertion R06.09 ; Syncope, unspecified syncope type R55 ; Hyperlipidemia, unspecified hyperlipidemia type E78.5 and Essential hypertension I10 [address] [address] Jul, [place] [address] [address] Jun, Vasovagal syncope R55 ; Irritable bowel syndrome K58.9 ; Chronic tension-type headache, intractable G44.221 ; Pain in right foot M79.671 and Pain of left foot M79.[address] [address] May, Exposure to STD Z20.2 ; Insurance covera ge problems Z59.8 ; Acute intractable tension-type headache G44.201 ; Allergic rhinitis J30.9 ; Urge incontinence N39.41 and Gastroesophageal reflux disease, esophagitis presence not specified K21.[address] [address] Apr, [place] [address] [address] Mar, [place] [address] [address] Feb, [facility] [id number] [place] [id number] Jan, Dental examination Z01.20 [place] [address] [address] Jan, Depressive disorder, not elsewhere class ified F32.9 ; Anxiety disorder, unspecified F41.9 and Other oysterman (current) drug therapy Z79.899 [place] [address] [address] Dec, Right chronic serous otitis media H65.21 and Asthma exacerbation J45.901 [place] [address] [address] Dec, [place] [address] [address] November, [place] [address] [address] November, [place] [address] [address] November, Hyperlipidemia E78.5 ; Hypertension I10 and Obesity, unspecified obesity severity, unspecified obesity type E66.9 [place] [address] [address] Oct, Hyperlipidemia E78.5 ; Allergic rhinitis J30.9 ; Moderate persistent asthma, uncomplicated J45.40 ; Irritable bowel syndrome K58.9 ; Urge incontinence N39.41 ; Depressive disorder, not elsewhere classified F32.9 ; Anxiety disorder, unspecified F41.9 and Hypertension I10 [place] [address] [address] Oct, Depressive disorder, not elsewhere class ified F32.9 ; Anxiety disorder, unspecified F41.9 and Cannabis dependence, uncomplicated F12.20 [place] [address] [address] Apr, [place] [address] [address] Jan, [place] [address] [place] [id number] [place] [address] Jan, Irritable bowel syndrome 564.1 ; Hyperli pidemia 272.4 ; Obesity, unspecified 278.00 ; Asthma 493.90 ; Urge incontinence 788.31 ; Anxiety 300.00 and GERD (gastroesophageal reflux disease) 530.81 [facility] [address] [id number] [place] [id number] Dec, Dental examination V72.2 [facility] [address] [id number] November, Dental examination V72.2 [facility] [address] [address] Oct, [facility] [address] [address] Oct, [facility] [address] [address] Sep, [facility] [address] [address] Sep, [facility] [address] [address] Sep, [facility] [address] [address] Sep, [facility] [address] [address] Sep, [facility] [address] [address] Sep, [facility] [address] [address] Sep, [facility] [address] [address] Sep, [facility] [address] [address] Sep, [facility] [address] [address] Sep, [facility] [address] [id number] [place] [address] Sep, [facility] [address] [id number] [place] [address] Sep, [facility] [address] [id number] [place] [address] Sep, [facility] [address] [id number] [place] [address] Jul, [facility] [address] [id number] [place] [address] Jul, [facility] [address] [id number] [place] [address] Jul, [facility] [address] [id number] [place] [address] Jul, [facility] [address] [id number] [place] [address] Jun, [facility] [address] [id number] [place] [address] Jun, [facility] [address] [id number] [place] [address] May, [facility] [address] [id number] [place] [address] May, [facility] [address] [id number] [place] [address] May, [facility] [address] [id number] [place] [address] May, [facility] [address] [id number] [place] [address] Apr, [facility] [address] [id number] [place] [address] Apr, [facility] [address] [id number] [place] [address] Mar, [facility] [address] [id number] [place] [address] 19 Mar, 2014 [facility] [address] [id number] [place] [address] 15 Mar, 2014 [facility] [address] [facility] [id number] [place] [address] Mar, [facility] [address] [id number] [place] [address] Mar, [facility] [address] [facility] [id number] [place] [address] Mar, [facility] [address] [id number] [place] [address] Feb, [facility] [address] [id number] [place] [address] Feb, [facility] [address] [id number] [place] [address] Feb, [facility] [address] [id number] [place] [address] Feb, [facility] [address] [id number] [place] [address] Jan, [facility] [address] [id number] [place] [address] Jan, [facility] [address] [id number] [place] [address] Jan, [facility] [address] [id number] [place] [address] Jan, [facility] [address] [id number] [place] [address] Jan, [facility] [address] [id number] [place] [address] Jan, [facility] [address] [id number] [place] [address] Dec, [facility] [address] [id number] [place] [address] Dec, [facility] [address] [id number] [place] [address] Dec, [facility] [address] [id number] [place] [address] Dec, [facility] [address] [id number] [place] [address] Dec, [facility] [address] [id number] [place] [address] Dec, [facility] [address] [id number] [place] [address] Oct, [facility] [address] [id number] [place] [address] Oct, [facility] [address] [id number] [place] [address] Oct, [facility] [address] [id number] [place] [address] Oct, [facility] [address] [id number] [place] [address] Sep, [facility] [address] [id number] [place] [address] Sep, [facility] [address] [id number] [place] [address] Sep, [facility] [address] [id number] [place] [address] Sep, [facility] [address] [id number] [place] [address] Sep, [facility] [address] [id number] [place] [address] Sep, [facility] [address] [id number] [place] [address] Aug, [facility] [address] [id number] [place] [address] Aug, [facility] [address] [id number] [place] [address] Aug, [facility] [address] [id number] [place] [address] Aug, [facility] [address] [id number] [place] [address] Aug, [facility] [address] [id number] [place] [address] Aug, [facility] [address] [id number] [place] [address] Aug, [facility] [address] [id number] [place] [address] Aug, [facility] [address] [id number] [place] [address] Aug, [facility] [address] [id number] [place] [address] Aug, [facility] [address] [id number] [place] [address] Aug, [facility] [address] [id number] [place] [address] Aug, [facility] [address] [id number] [place] [address] Aug, [facility] [address] [id number] [place] [address] Jul, [facility] [address] [id number] [place] [address] Jul, [facility] [address] [id number] [place] [address] Jun, [facility] [address] [place] [id number] [place] [address] Jun, [facility] [address] [id number] [place] [address] Jun, [facility] [address] [place] [id number] [place] [address] Jun, [facility] [address] [facility] [id number] [place] [address] Aug, [facility] [address] [id number] [place] [address] Jun, [facility] [address] [facility] [id number] [place] [address] May, IMMUNIZATIONS No Known Immunizations SOCIAL HISTORY [...] History Laser surgery for cervial cancer @ [facility] [place] 1990 [facility] tonsillectomy Hospitalization History Elevated BP
--- OUTSIDE RECORDS SUMMARY | 2019-12-01 17:35 | XMS REPORT ---
Author Author TAMIKOMandie BOWLING [facility] Address [address] [place] [address] Care Team Providers Care Consulting Technical Manager Name Role Phone ANTHONY MORRISON Unavailable PROBLEMS Type Condition ICD9-CM Code ZZO92-JE Code Onset Dates Condition S tatus SNOMED Code Problem History of cocaine abuse Z87.898 Activ e 470143047732218 Problem Irritable bowel syndrome K58.9 Activ e 90684945 Problem Hyperlipidemia E78.5 Active 00511 004 Problem Urge incontinence N39.41 Active 16 7371725 Problem Hypertension I10 Active 2412689 3 Problem Depressive disorder, not elsewhere classified F32. 9 Active 35491844 Problem Anxiety disorder, unspecified F41.9 Active 921629936 Problem Cannabis dependence, uncomplicated F12.20 Active 11055215 Problem Pulmonary hypertension I27.2 Active 53185734 Problem Allergic rhinitis J30.9 Active 61 376483 Problem Obesity (BMI 30.0-34.9) E66.9 Active 776674635296812 Problem Moderate persistent asthma, uncomplicated J45.40 Active 317929563 Problem Gastroesophageal reflux disease, esophagitis pre sence not specified K21.9 Active 794005697 Problem Chronic tension-type headache, intractable G44.221 Active 149821565 Problem Essential hypertension I10 Active 96458104 Problem Hyperlipidemia, unspecified hyperlipidemia type E7 8.5 Active 32666164 ALLERGIES No Information ENCOUNTERS Encounter Location Date Diagnosis [facility] [address] [facility] [id number] [address] [place] [id number] Jul, [facility] [address] [facility] [id number] [address] [place] [address] [id number] Aug, Dental examination Z01.20 [facility] [address] [facility] [id number] [address] [place] [address] Jan, [facility] [address] [address] 08 Aug, 2016 Shortness of breath R06.02 ; Pulmonary hypertension I27.2 and Obesity (BMI 30.0-34.9) E66.9 [place] [address] [address] 31 Jul, 2016 Scabies B86 ; Hyperlipidemia E78.5 and Syncope, unspecified syncope type R55 [place] [address] [address] Jul, [address] [address] Jul, Chest pain, unspecified type R07.9 ; Dyspnea on exertion R06.09 ; Syncope, unspecified syncope type R55 ; Hyperlipidemia, unspecified hyperlipidemia type E78.5 and Essential hypertension I10 [address] [address] Jul, [address] [address] Jun, Vasovagal syncope R55 ; Irri table bowel syndrome K58.9 ; Chronic tension-type headache, intractable G44.221 ; Pain in right foot M79.671 and Pain of left foot M79.[address] [address] 02 May, 2016 Exposure to STD Z20.2 ; [place]su [place] coverage problems Z59.8 ; Acute intractable tension-type headache G44.201 ; Allergic rhinitis J30.9 ; Urge incontinence N39.41 and Gastroesophageal reflux disease, esophagitis presence not specified K21.[address] [address] Apr, [place] [address] [address] Mar, [address] [address] Feb, [facility] [address] [id number] [address] [place] [id number] Jan, Dental examination Z01.20 [facility] [address] [facility] [id number] [address] [place] [address] Jan, Depressive disorder, not els ewhere classified F32.9 ; Anxiety disorder, unspecified F41.9 and Other senior living (current) drug therapy Z79.899 [facility] [address] [place] [id number] [address] [place] [address] Dec, Right chronic serous otitis media H65.21 and Asthma exacerbation J45.901 [facility] [address] [place] [id number] [address] [place] [address] Dec, [facility] [address] [address] November, [facility] [address] [place] [id number] [address] [place] [address] November, [facility] [address] [place] [id number] [address] [place] [address] November, Hyperlipidemia E78.5 ; Hyper tension I10 and Obesity, unspecified obesity severity, unspecified obesity type E66.9 [facility] [address] [place] [id number] [address] [place] [address] Oct, Hyperlipidemia E78.5 ; Aller gic rhinitis J30.9 ; Moderate persistent asthma, uncomplicated J45.40 ; Irritable bowel syndrome K58.9 ; Urge incontinence N39.41 ; Depressive disorder, not elsewhere classified F32.9 ; Anxiety disorder, unspecified F41.9 and Hypertension I10 [facility] [address] [facility] [id number] [address] [place] [address] Oct, Depressive disorder, not els ewhere classified F32.9 ; Anxiety disorder, unspecified F41.9 and Cannabis dependence, uncomplicated F12.20 [facility] [address] [place] [id number] [address] [place] [address] Apr, [facility] [address] [id number] [address] [place] [address] Jan, [facility] [address] [id number] [address] [place] [address] Jan, Irritable bowel syndrome 564 .1 ; Hyperlipidemia 272.4 ; Obesity, unspecified 278.00 ; Asthma 493.90 ; Urge incontinence 788.31 ; Anxiety 300.00 and GERD (gastroesophageal reflux disease) 530.81 [facility] [address] [id number] [address] [place] [id number] Dec, Dental examination V72.2 [facility] [address] [id number] [address] [place] [address] [id number] November, Dental examination V72.2 [facility] [address] [id number] [address] [place] [address] Oct, [facility] [address] [id number] [address] [place] [address] Oct, [facility] [address] [id number] [address] [place] [address] Sep, [facility] [address] [id number] [address] [place] [address] Sep, [facility] [address] [id number] [address] [place] [address] Sep, [facility] [address] [id number] [address] [place] [address] Sep, [facility] [address] [id number] [address] [place] [address] Sep, [facility] [address] [id number] [address] [place] [phone] Sep, [facility] [address] [id number] [address] [place] [phone] Sep, [facility] [address] [id number] [address] [place] [address], [place] [address] 23 Sep, 2014 [facility] [address] [id number] [address] [place] [address], [place] [address] Sep, [facility] [address] [id number] [address] [place] [address], [place] [address] Sep, [facility] [address] [id number] [address] [place] [address], [place] [address] Sep, [facility] [address] [id number] [address] [place] [address], [place] [address] Sep, [facility] [address] [id number] [address] [place] [address], [place] [address] Sep, [facility] [address] [id number] [address] [place] [address], [place] [address] Jul, [facility] [address] [id number] [address] [place] [address], [place] [address] Jul, [facility] [address] [id number] [address] [place] [address], [place] [address] Jul, [facility] [address] [id number] [address] [place] [address], [place] [address] Jul, [facility] [address] [id number] [address] [place] [address], [place] [address] Jun, [facility] [address] [id number] [address] [place] [address], [place] [address] Jun, [facility] [address] [id number] [address] [place] [address], [place] [address] May, [facility] [address] [id number] [address] [place] [address], [place] [address] May, [facility] [address] [id number] [address] [place] [address], [place] [address] May, [facility] [address] [id number] [address] [place] [address], [place] [address] May, [facility] [address] [id number] [address] [place] [address], [place] [address] Apr, [facility] [address] [id number] [address] [place] [address], [place] [address] Apr, [facility] [address] [id number] [address] [place] [address], [place] [address] Mar, [facility] [address] [id number] [address] [place] [address], [place] [address] Mar, [facility] [address] [id number] [address] [place] [address], [place] [address] 15 Mar, 2014 [facility] [address] [id number] [address] [place] [address], [place] [address] 15 Mar, 2014 [facility] [address] [id number] [address] [place] [address], [place] [address] Mar, [facility] [address] [id number] [address] [place] [address], [place] [address] Mar, [facility] [address] [id number] [address] [place] [address], [place] [address] Feb, [facility] [address] [id number] [address] [place] [address], [place] [address] Feb, [facility] [address] [id number] [address] [place] [address], [place] [address] Feb, [facility] [address] [id number] [address] [place] [address], [place] [address] Feb, [facility] [address] [id number] [address] [place] [address], [place] [address] Jan, [facility] [address] [id number] [address] [place] [address], [place] [address] Jan, [facility] [address] [id number] [address] [place] [address], [place] [address] 16 Jan, 2014 [facility] [address] [id number] [address] [place] [address], [place] [address] 16 Jan, 2014 [facility] [address] [id number] [facility] [place] [address] Jan, [facility] [address] [id number] [address] [place] [address], [place] [address] Jan, [facility] [address] [id number] [address] [place] [address], [place] [address] Dec, [facility] [address] [id number] [address] [place] [address], [place] [address] Dec, [facility] [address] [id number] [address] [place] [address], [place] [address] Dec, [facility] [address] [id number] [address] [place] [address], [place] [address] Dec, [facility] [address] [id number] [address] [place] [address], [place] [address] Dec, [facility] [address] [id number] [address] [place] [address], [place] [address] Dec, [facility] [address] [id number] [address] [place] [address], [place] [address] Oct, [facility] [address] [id number] [address] [place] [address], [place] [address] Oct, [facility] [address] [id number] [address] [place] [address], [place] [address] Oct, [facility] [address] [id number] [address] [place] [address], [place] [address] Oct, [facility] [address] [id number] [address] [place] [address], [place] [address] Sep, [facility] [address] [id number] [address] [place] [address], [place] [address] Sep, [facility] [address] [id number] [address] [place] [address], [place] [address] Sep, [facility] [address] [id number] [address] [place] [address], [place] [address] Sep, [facility] [address] [id number] [address] [place] [address], [place] [address] Sep, [facility] [address] [id number] [address] [place] [address], [place] [address] Sep, [facility] [address] [id number] [address] [place] [address], [place] [address] Aug, [facility] [address] [id number] [address] [place] [address], [place] [address] Aug, [facility] [address] [id number] [address] [place] [address], [place] [address] Aug, [facility] [address] [id number] [address] [place] [address], [place] [address] Aug, [facility] [address] [id number] [address] [place] [address], [place] [address] Aug, [facility] [address] [id number] [address] [place] [address], [place] [address] Aug, [facility] [address] [id number] [address] [place] [address], [place] [address] Aug, [facility] [address] [id number] [address] [place] [address], [place] [address] Aug, [facility] [address] [id number] [address] [place] [address], [place] [address] Aug, [facility] [address] [id number] [address] [place] [address], [place] [address] 17 Aug, 2013 [facility] [address] [id number] [address] [place] [address], [place] [address] 17 Aug, 2013 [facility] [address] [id number] [address] [place] [address], [place] [address] 14 Aug, 2013 [facility] [address] [id number] [address] [place] [address] 14 Aug, 2013 [facility] [address] [id number] [address] [place] [address] Jul, [facility] [address] [id number] [address] [place] [address] Jul, [facility] [address] [id number] [address] [place] [address] Jun, [facility] [address] [id number] [address] [place] [address] Jun, [facility] [address] [id number] [address] [place] [address] Jun, [facility] [address] [id number] [address] [place] [address] Jun, [facility] [address] [id number] [address] [place] [address] Aug, [facility] [address] [id number] [address] [place] [address] Jun, [facility] [address] [id number] [address] [place] [address] May, IMMUNIZATIONS No Known Immunizations SOCIAL HISTORY [...] History Laser surgery for cervial cancer @ [facility] [place] 1990 Surgical History L ankle surgery @ [facility] Surgical History tonsillectomy Hospitalization History Elevated BP
--- OUTSIDE RECORDS SUMMARY | 2019-12-01 17:35 | XMS REPORT ---
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 9 Active 87454072 Problem Anxiety disorder, unspecified F41.9 Active 528563083 Problem Cannabis dependence, uncomplicated F12.20 Active 05775618 Problem Pulmonary hypertension I27.2 Active 96153668 Problem Allergic rhinitis J30.9 Active 61 537018 Problem Obesity (BMI 30.0-34.9) E66.9 Active 655074169119701 Problem Moderate persistent asthma, uncomplicated J45.40 Active 870479790 Problem Gastroesophageal reflux disease, esophagitis pre sence not specified K21.9 Active 584268379 Problem Chronic tension-type headache, intractable G44.221 Active 399997597 Problem Essential hypertension I10 Active 41662690 Problem Hyperlipidemia, unspecified hyperlipidemia type E7 8.5 Active 46974108 ALLERGIES No Information ENCOUNTERS Encounter Location Date Diagnosis [facility] [address] [facility] [id number] [address] [place] [phone] Jul, [facility] [address] [facility] [id number] [address] [place] [address] [id number] Aug, Dental examination Z01.20 [facility] [address] [facility] [id number] [address] [place] [phone] Jan, [facility] [address] [address] 08 Aug, 2016 Shortness of breath R06.02 ; Pulmonary hypertension I27.2 and Obesity (BMI 30.0-34.9) E66.9 [place] [address] [address] 31 Jul, 2016 Scabies B86 ; Hyperlipidemia E78.5 and Syncope, unspecified syncope type R55 [place] [address] [address] Jul, [address] [address] Jul, Chest pain, unspecified type R07.9 ; Dyspnea on exertion R06.09 ; Syncope, unspecified syncope type R55 ; Hyperlipidemia, unspecified hyperlipidemia type E78.5 and Essential hypertension I10 [address] [address] Jul, [address] [address] Jun, Vasovagal syncope R55 ; Irri table bowel syndrome K58.9 ; Chronic tension-type headache, intractable G44.221 ; Pain in right foot M79.671 and Pain of left foot M79.[address] [address] 02 May, 2016 Exposure to STD Z20.2 ; Insu [place] coverage problems Z59.8 ; Acute intractable tension-type headache G44.201 ; Allergic rhinitis J30.9 ; Urge incontinence N39.41 and Gastroesophageal reflux disease, esophagitis presence not specified K21.[address] [address] Apr, [place] [address] [address] Mar, [address] [address] Feb, [facility] [address] [id number] [address] [place] [id number] Jan, Dental examination Z01.20 [facility] [address] [facility] [id number] [address] [place] [address] Jan, Depressive disorder, not els ewhere classified F32.9 ; Anxiety disorder, unspecified F41.9 and Other correction (current) drug therapy Z79.899 [facility] [address] [place] [id number] [address] [place] [address] Dec, Right chronic serous otitis media H65.21 and Asthma exacerbation J45.901 [facility] [address] [place] [id number] [address] [place] [phone] Dec, [facility] [address] [address] November, [facility] [address] [place] [id number] [address] [place] [phone] November, [facility] [address] [place] [id number] [address] [place] [address] November, Hyperlipidemia E78.5 ; Hyper tension I10 and Obesity, unspecified obesity severity, unspecified obesity type E66.9 [facility] [address] [place] [id number] [address] [place] [address] Oct, Hyperlipidemia E78.5 ; Aller gic rhinitis J30.9 ; Moderate persistent asthma, uncomplicated J45.40 ; Irritable bowel syndrome K58.9 ; Urge incontinence N39.41 ; Depressive disorder, not elsewhere classified F32.9 ; Anxiety disorder, unspecified F41.9 and Hypertension I10 [facility] [address] [facility] [id number] [address] [place] [phone] Oct, Depressive disorder, not els ewhere classified F32.9 ; Anxiety disorder, unspecified F41.9 and Cannabis dependence, uncomplicated F12.20 [facility] [address] [place] [id number] [address] [place] [phone] Apr, [facility] [address] [id number] [address] [place] [phone] Jan, [facility] [address] [id number] [address] [place] [address] Jan, Irritable bowel syndrome 564 .1 ; Hyperlipidemia 272.4 ; Obesity, unspecified 278.00 ; Asthma 493.90 ; Urge incontinence 788.31 ; Anxiety 300.00 and GERD (gastroesophageal reflux disease) 530.81 [facility] [address] [id number] [address] [place] [id number] Dec, Dental examination V72.2 [facility] [address] [id number] [address] [place] [id number] November, Dental examination V72.2 [facility] [address] [id number] [address] [place] [phone] Oct, [facility] [address] [id number] [address] [place] [phone] Oct, [facility] [address] [id number] [address] [place] [phone] Sep, [facility] [address] [id number] [address] [place] [phone] Sep, [facility] [address] [id number] [address] [place] [phone] Sep, [facility] [address] [id number] [address] [place] [phone] Sep, [facility] [address] [id number] [address] [place] [phone] Sep, [facility] [address] [id number] [address] [place] [phone] Sep, [facility] [address] [id number] [address] [place] [phone] Sep, [facility] [address] [id number] [address] [place] [address], [place] [address] 23 Sep, 2014 [facility] [address] [id number] [address] [place] [address], [place] [address] Sep, [facility] [address] [id number] [address] [place] [address], [place] [address] Sep, [facility] [address] [id number] [address] [place] [address], [place] [address] Sep, [facility] [address] [id number] [address] [place] [address], [place] [address] Sep, [facility] [address] [id number] [address] [place] [address], [place] [address] Sep, [facility] [address] [id number] [address] [place] [address], [place] [address] Jul, [facility] [address] [id number] [address] [place] [address], [place] [address] Jul, [facility] [address] [id number] [address] [place] [address], [place] [address] Jul, [facility] [address] [id number] [address] [place] [address], [place] [address] Jul, [facility] [address] [id number] [address] [place] [address], [place] [address] Jun, [facility] [address] [id number] [address] [place] [address], [place] [address] Jun, [facility] [address] [id number] [address] [place] [address], [place] [address] May, [facility] [address] [id number] [address] [place] [address], [place] [address] May, [facility] [address] [id number] [address] [place] [address], [place] [address] May, [facility] [address] [id number] [address] [place] [address], [place] [address] May, [facility] [address] [id number] [address] [place] [address], [place] [address] Apr, [facility] [address] [id number] [address] [place] [address], [place] [address] Apr, [facility] [address] [id number] [address] [place] [address], [place] [address] Mar, [facility] [address] [id number] [address] [place] [address], [place] [address] Mar, [facility] [address] [id number] [address] [place] [address], [place] [address] 15 Mar, 2014 [facility] [address] [id number] [address] [place] [address], [place] [address] 15 Mar, 2014 [facility] [address] [id number] [address] [place] [address], [place] [address] Mar, [facility] [address] [id number] [address] [place] [address], [place] [address] Mar, [facility] [address] [id number] [address] [place] [address], [place] [address] Feb, [facility] [address] [id number] [address] [place] [address], [place] [address] Feb, [facility] [address] [id number] [address] [place] [address], [place] [address] Feb, [facility] [address] [id number] [address] [place] [address], [place] [address] Feb, [facility] [address] [id number] [address] [place] [address], [place] [address] Jan, [facility] [address] [id number] [address] [place] [address], [place] [address] Jan, [facility] [address] [id number] [address] [place] [address], [place] [address] 16 Jan, 2014 [facility] [address] [id number] [address] [place] [address], [place] [address] 16 Jan, 2014 [facility] [address] [id number] [facility] [place] [address] Jan, [facility] [address] [id number] [address] [place] [address], [place] [address] Jan, [facility] [address] [id number] [address] [place] [address], [place] [address] Dec, [facility] [address] [id number] [address] [place] [address], [place] [address] Dec, [facility] [address] [id number] [address] [place] [address], [place] [address] Dec, [facility] [address] [id number] [address] [place] [address], [place] [address] Dec, [facility] [address] [id number] [address] [place] [address], [place] [address] Dec, [facility] [address] [id number] [address] [place] [address], [place] [address] Dec, [facility] [address] [id number] [address] [place] [address], [place] [address] Oct, [facility] [address] [id number] [address] [place] [address], [place] [address] Oct, [facility] [address] [id number] [address] [place] [address], [place] [address] Oct, [facility] [address] [id number] [address] [place] [address], [place] [address] Oct, [facility] [address] [id number] [address] [place] [address], [place] [address] Sep, [facility] [address] [id number] [address] [place] [address], [place] [address] Sep, [facility] [address] [id number] [address] [place] [address], [place] [address] Sep, [facility] [address] [id number] [address] [place] [address], [place] [address] Sep, [facility] [address] [id number] [address] [place] [address], [place] [address] Sep, [facility] [address] [id number] [address] [place] [address], [place] [address] Sep, [facility] [address] [id number] [address] [place] [address], [place] [address] Aug, [facility] [address] [id number] [address] [place] [address], [place] [address] Aug, [facility] [address] [id number] [address] [place] [address], [place] [address] Aug, [facility] [address] [id number] [address] [place] [address], [place] [address] Aug, [facility] [address] [id number] [address] [place] [address], [place] [address] Aug, [facility] [address] [id number] [address] [place] [address], [place] [address] Aug, [facility] [address] [id number] [address] [place] [address], [place] [address] Aug, [facility] [address] [id number] [address] [place] [address], [place] [address] Aug, [facility] [address] [id number] [address] [place] [address], [place] [address] Aug, [facility] [address] [id number] [address] [place] [address], [place] [address] 17 Aug, 2013 [facility] [address] [id number] [address] [place] [address], [place] [address] 17 Aug, 2013 [facility] [address] [id number] [address] [place] [address], [place] [address] 14 Aug, 2013 [facility] [address] [id number] [address] [place] [address] 14 Aug, 2013 [facility] [address] [id number] [address] [place] [address] Jul, [facility] [address] [id number] [address] [place] [address] Jul, [facility] [address] [id number] [address] [place] [address] Jun, [facility] [address] [id number] [address] [place] [address] Jun, [facility] [address] [id number] [address] [place] [phone] Jun, [facility] [address] [id number] [address] [place] [phone] Jun, [facility] [address] [id number] [address] [place] [address] Aug, [facility] [address] [id number] [address] [place] [phone] Jun, [facility] [address] [id number] [address] [place] [address] May, IMMUNIZATIONS No Known Immunizations SOCIAL HISTORY [...] History Laser surgery for cervial cancer @ [facility] [place] 1990 Surgical History L ankle surgery @ [facility] Surgical History tonsillectomy Hospitalization History Elevated BP
--- OUTSIDE RECORDS SUMMARY | 2019-12-01 17:35 | XMS REPORT ---
Author Author TAMIKOMandie BOWLING Organization 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 9 Active 36564706 Problem Anxiety disorder, unspecified F41.9 Active 743046051 Problem Cannabis dependence, uncomplicated F12.20 Active 78908079 Problem Pulmonary hypertension I27.2 Active 07174076 Problem Allergic rhinitis J30.9 Active 61 673769 Problem Obesity (BMI 30.0-34.9) E66.9 Active 646531004629439 Problem Moderate persistent asthma, uncomplicated J45.40 Active 218297322 Problem Gastroesophageal reflux disease, esophagitis pre sence not specified K21.9 Active 129206186 Problem Chronic tension-type headache, intractable G44.221 Active 540288036 Problem Essential hypertension I10 Active 11823313 Problem Hyperlipidemia, unspecified hyperlipidemia type E7 8.5 Active 06368740 ALLERGIES No Information ENCOUNTERS Encounter Location Date Diagnosis [facility] [address] [id number] [place] [address] Jul, [facility] [address] [facility] [place] [id number] Aug, Dental examination Z01.20 [facility] [address] [id number] [place] [address] Jan, [facility] [address] [place] [address] [address] 08 Aug, 2016 Shortness of breath R06.02 ; Pulmonary h ypertension I27.2 and Obesity (BMI 30.0-34.9) E66.9 [place] [address] [address] Jul, Scabies B86 ; Hyperlipidemia E78.5 and S yncope, unspecified syncope type R55 [place] [address] [address] Jul, [place] [address] [address] Jul, Chest pain, unspecified type R07.9 ; Dys pnea on exertion R06.09 ; Syncope, unspecified syncope type R55 ; Hyperlipidemia, unspecified hyperlipidemia type E78.5 and Essential hypertension I10 [address] [address] Jul, [place] [address] [address] Jun, Vasovagal syncope R55 ; Irritable bowel syndrome K58.9 ; Chronic tension-type headache, intractable G44.221 ; Pain in right foot M79.671 and Pain of left foot M79.[address] [address] May, Exposure to STD Z20.2 ; Insurance covera ge problems Z59.8 ; Acute intractable tension-type headache G44.201 ; Allergic rhinitis J30.9 ; Urge incontinence N39.41 and Gastroesophageal reflux disease, esophagitis presence not specified K21.[address] [address] Apr, [place] [address] [address] Mar, [place] [address] [address] Feb, [facility] [address] [place] [id number] [place] [id number] Jan, Dental examination Z01.20 [place] [address] [address] Jan, Depressive disorder, not elsewhere class ified F32.9 ; Anxiety disorder, unspecified F41.9 and 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 [place] [address] [address] Dec, Right chronic serous otitis media H65.21 and Asthma exacerbation J45.901 [place] [address] [address] Dec, [place] [address] [address] November, [place] [address] [address] November, [place] [address] [address] November, Hyperlipidemia E78.5 ; Hypertension I10 and Obesity, unspecified obesity severity, unspecified obesity type E66.9 [place] [address] [address] Oct, Hyperlipidemia E78.5 ; Allergic rhinitis J30.9 ; Moderate persistent asthma, uncomplicated J45.40 ; Irritable bowel syndrome K58.9 ; Urge incontinence N39.41 ; Depressive disorder, not elsewhere classified F32.9 ; Anxiety disorder, unspecified F41.9 and Hypertension I10 [place] [address] [address] Oct, Depressive disorder, not elsewhere class ified F32.9 ; Anxiety disorder, unspecified F41.9 and Cannabis dependence, uncomplicated F12.20 [place] [address] [address] Apr, [place] [address] [address] Jan, [place] [address] [place] [id number] [place] [address] Jan, Irritable bowel syndrome 564.1 ; Hyperli pidemia 272.4 ; Obesity, unspecified 278.00 ; Asthma 493.90 ; Urge incontinence 788.31 ; Anxiety 300.00 and GERD (gastroesophageal reflux disease) 530.81 [facility] [address] [facility] [place] [id number] Dec, Dental examination V72.2 [facility] [address] [id number] November, Dental examination V72.2 [facility] [address] [address] Oct, [facility] [address] [address] Oct, [facility] [address] [address] Sep, [facility] [address] [address] Sep, [facility] [address] [address] Sep, [facility] [address] [address] Sep, [facility] [address] [address] Sep, [facility] [address] [address] Sep, [facility] [address] [address] Sep, [facility] [address] [address] Sep, [facility] [address] [address] Sep, [facility] [address] [address] Sep, [facility] [address] [id number] [place] [address] Sep, [facility] [address] [id number] [place] [address] Sep, [facility] [address] [id number] [place] [address] Sep, [facility] [address] [id number] [place] [address] Jul, [facility] [address] [id number] [place] [address] Jul, [facility] [address] [id number] [place] [address] Jul, [facility] [address] [id number] [place] [address] Jul, [facility] [address] [id number] [place] [address] Jun, [facility] [address] [id number] [place] [address] Jun, [facility] [address] [id number] [place] [address] May, [facility] [address] [id number] [place] [address] May, [facility] [address] [id number] [place] [address] May, [facility] [address] [id number] [place] [address] May, [facility] [address] [id number] [place] [address] Apr, [facility] [address] [id number] [place] [address] Apr, [facility] [address] [id number] [place] [address] Mar, [facility] [address] [id number] [place] [address] 19 Mar, 2014 [facility] [address] [id number] [place] [address] 15 Mar, 2014 [facility] [address] [facility] [id number] [place] [address] Mar, [facility] [address] [id number] [place] [address] Mar, [facility] [address] [facility] [id number] [place] [address] Mar, [facility] [address] [id number] [place] [address] Feb, [facility] [address] [id number] [place] [address] Feb, [facility] [address] [id number] [place] [address] Feb, [facility] [address] [id number] [place] [address] Feb, [facility] [address] [id number] [place] [address] Jan, [facility] [address] [id number] [place] [address] Jan, [facility] [address] [id number] [place] [address] Jan, [facility] [address] [id number] [place] [address] Jan, [facility] [address] [id number] [place] [address] Jan, [facility] [address] [id number] [place] [address] Jan, [facility] [address] [id number] [place] [address] Dec, [facility] [address] [id number] [place] [address] Dec, [facility] [address] [id number] [place] [address] Dec, [facility] [address] [id number] [place] [address] Dec, [facility] [address] [id number] [place] [address] Dec, [facility] [address] [id number] [place] [address] Dec, [facility] [address] [id number] [place] [address] Oct, [facility] [address] [id number] [place] [address] Oct, [facility] [address] [id number] [place] [address] Oct, [facility] [address] [id number] [place] [address] Oct, [facility] [address] [id number] [place] [address] Sep, [facility] [address] [id number] [place] [address] Sep, [facility] [address] [id number] [place] [address] Sep, [facility] [address] [id number] [place] [address] Sep, [facility] [address] [id number] [place] [address] Sep, [facility] [address] [id number] [place] [address] Sep, [facility] [address] [id number] [place] [address] Aug, [facility] [address] [id number] [place] [address] Aug, [facility] [address] [id number] [place] [address] Aug, [facility] [address] [id number] [place] [address] Aug, [facility] [address] [id number] [place] [address] Aug, [facility] [address] [id number] [place] [address] Aug, [facility] [address] [id number] [place] [address] Aug, [facility] [address] [id number] [place] [address] Aug, [facility] [address] [id number] [place] [address] Aug, [facility] [address] [id number] [place] [address] Aug, [facility] [address] [id number] [place] [address] Aug, [facility] [address] [id number] [place] [address] Aug, [facility] [address] [id number] [place] [address] Aug, [facility] [address] [id number] [place] [address] Jul, [facility] [address] [id number] [place] [address] Jul, [facility] [address] [id number] [place] [address] Jun, [facility] [address] [place] [id number] [place] [address] Jun, [facility] [address] [id number] [place] [address] Jun, [facility] [address] [place] [id number] [place] [address] Jun, [facility] [address] [facility] [id number] [place] [address] Aug, [facility] [address] [id number] [place] [address] Jun, [facility] [address] [facility] [id number] [place] [address] May, IMMUNIZATIONS No Known Immunizations SOCIAL HISTORY [...] History Laser surgery for cervial cancer @ [facility] [place] 1990 Surgical [facility] Surgical History tonsillectomy Hospitalization History Elevated BP
--- OUTSIDE RECORDS SUMMARY | 2019-12-01 17:36 | XMS REPORT ---
Author Author TAMIKOMandie BOWLING [facility] Address [address] [place] [address] Care Team Providers Care Health Program Manager Name Role Phone ANTHONY MORRISON Unavailable PROBLEMS Type Condition ICD9-CM Code SVS09-OR Code Onset Dates Condition S tatus SNOMED Code Problem History of cocaine abuse Z87.898 Activ e [id number] Problem Irritable bowel syndrome K58.9 Activ e 81688011 Problem Hyperlipidemia E78.5 Active 42116 004 Problem Urge incontinence N39.41 Active 16 7932565 Problem Hypertension I10 Active 6803948 3 Problem Depressive disorder, not elsewhere classified F32. 9 Active 29398924 Problem Anxiety disorder, unspecified F41.9 Active 690734591 Problem Cannabis dependence, uncomplicated F12.20 Active 53560162 Problem Pulmonary hypertension I27.2 Active 55444340 Problem Allergic rhinitis J30.9 Active 61 936357 Problem Obesity (BMI 30.0-34.9) E66.9 Active 352644843674500 Problem Moderate persistent asthma, uncomplicated J45.40 Active 402540915 Problem Gastroesophageal reflux disease, esophagitis pre sence not specified K21.9 Active 410462269 Problem Chronic tension-type headache, intractable G44.221 Active 045973537 Problem Essential hypertension I10 Active 63901524 Problem Hyperlipidemia, unspecified hyperlipidemia type E7 8.5 Active 20305000 ALLERGIES No Information ENCOUNTERS Encounter Location Date Diagnosis [facility] [address] [facility] [id number] [address] [place] [address] Jul, [facility] [address] [facility] [id number] [address] [place] [address] [id number] Aug, Dental examination Z01.20 [facility] [address] [facility] [id number] [address] [place] [address] Jan, [facility] [address] [address] 08 Aug, 2016 Shortness of breath R06.02 ; Pulmonary hypertension I27.2 and Obesity (BMI 30.0-34.9) E66.9 [place] [address] [address] 31 Jul, 2016 Scabies B86 ; Hyperlipidemia E78.5 and Syncope, unspecified syncope type R55 [place] [address] [address] Jul, [address] [address] Jul, Chest pain, unspecified type R07.9 ; Dyspnea on exertion R06.09 ; Syncope, unspecified syncope type R55 ; Hyperlipidemia, unspecified hyperlipidemia type E78.5 and Essential hypertension I10 [address] [address] Jul, [address] [address] Jun, Vasovagal syncope R55 ; Irri table bowel syndrome K58.9 ; Chronic tension-type headache, intractable G44.221 ; Pain in right foot M79.671 and Pain of left foot M79.[address] [id number] 02 May, 2016 Exposure to STD Z20.2 ; Insu [place] coverage problems Z59.8 ; Acute intractable tension-type headache G44.201 ; Allergic rhinitis J30.9 ; Urge incontinence N39.41 and Gastroesophageal reflux disease, esophagitis presence not specified K21.[address] [address] Apr, [place] [address] [address] Mar, [address] [address] Feb, [facility] [address] [id number] [address] [place] [id number] Jan, Dental examination Z01.20 [facility] [address] [facility] [id number] [address] [place] [address] Jan, Depressive disorder, not els ewhere classified F32.9 ; Anxiety disorder, unspecified F41.9 and Other assisted (current) drug therapy Z79.899 [facility] [address] [place] [id number] [address] [place] [address] Dec, Right chronic serous otitis media H65.21 and Asthma exacerbation J45.901 [facility] [address] [place] [id number] [address] [place] [address] Dec, [facility] [address] [address] November, [facility] [address] [place] [id number] [address] [place] [address] November, [facility] [address] [place] [id number] [address] [place] [address] November, Hyperlipidemia E78.5 ; Hyper tension I10 and Obesity, unspecified obesity severity, unspecified obesity type E66.9 [facility] [address] [place] [id number] [address] [place] [address] Oct, Hyperlipidemia E78.5 ; Aller gic rhinitis J30.9 ; Moderate persistent asthma, uncomplicated J45.40 ; Irritable bowel syndrome K58.9 ; Urge incontinence N39.41 ; Depressive disorder, not elsewhere classified F32.9 ; Anxiety disorder, unspecified F41.9 and Hypertension I10 [facility] [address] [facility] [id number] [address] [place] [address] Oct, Depressive disorder, not els ewhere classified F32.9 ; Anxiety disorder, unspecified F41.9 and Cannabis dependence, uncomplicated F12.20 [facility] [address] [place] [id number] [address] [place] [address] Apr, [facility] [address] [id number] [address] [place] [address] Jan, [facility] [address] [id number] [address] [place] [phone] Jan, Irritable bowel syndrome 564 .1 ; Hyperlipidemia 272.4 ; Obesity, unspecified 278.00 ; Asthma 493.90 ; Urge incontinence 788.31 ; Anxiety 300.00 and GERD (gastroesophageal reflux disease) 530.81 [facility] [address] [id number] [address] [place] [address] [id number] Dec, Dental examination V72.2 [facility] [address] [id number] [address] [place] [address] [id number] November, Dental examination V72.2 [facility] [address] [id number] [address] [place] [address] Oct, [facility] [address] [id number] [address] [place] [address] Oct, [facility] [address] [id number] [address] [place] [address] Sep, [facility] [address] [id number] [address] [place] [address] Sep, [facility] [address] [id number] [address] [place] [address] Sep, [facility] [address] [id number] [address] [place] [address] Sep, [facility] [address] [id number] [address] [place] [address] Sep, [facility] [address] [id number] [address] [place] [address] Sep, [facility] [address] [id number] [address] [place] [address] Sep, [facility] [address] [id number] [address] [place] [address], [place] [address] 23 Sep, 2014 [facility] [address] [id number] [address] [place] [address], [place] [address] Sep, [facility] [address] [id number] [address] [place] [address], [place] [address] Sep, [facility] [address] [id number] [address] [place] [address], [place] [address] Sep, [facility] [address] [id number] [address] [place] [address], [place] [address] Sep, [facility] [address] [id number] [address] [place] [address], [place] [address] Sep, [facility] [address] [id number] [address] [place] [address], [place] [address] Jul, [facility] [address] [id number] [address] [place] [address], [place] [address] Jul, [facility] [address] [id number] [address] [place] [address], [place] [address] Jul, [facility] [address] [id number] [address] [place] [address], [place] [address] Jul, [facility] [address] [id number] [address] [place] [address], [place] [address] Jun, [facility] [address] [id number] [address] [place] [address], [place] [address] Jun, [facility] [address] [id number] [address] [place] [address], [place] [address] May, [facility] [address] [id number] [address] [place] [address], [place] [address] May, [facility] [address] [id number] [address] [place] [address], [place] [address] May, [facility] [address] [id number] [address] [place] [address], [place] [address] May, [facility] [address] [id number] [address] [place] [address], [place] [address] Apr, [facility] [address] [id number] [address] [place] [address], [place] [address] Apr, [facility] [address] [id number] [address] [place] [address], [place] [address] Mar, [facility] [address] [id number] [address] [place] [address], [place] [address] Mar, [facility] [address] [id number] [address] [place] [address], [place] [address] 15 Mar, 2014 [facility] [address] [id number] [address] [place] [address], [place] [address] 15 Mar, 2014 [facility] [address] [id number] [address] [place] [address], [place] [address] Mar, [facility] [address] [id number] [address] [place] [address], [place] [address] Mar, [facility] [address] [id number] [address] [place] [address], [place] [address] Feb, [facility] [address] [id number] [address] [place] [address], [place] [address] Feb, [facility] [address] [id number] [address] [place] [address], [place] [address] Feb, [facility] [address] [id number] [address] [place] [address], [place] [address] Feb, [facility] [address] [id number] [address] [place] [address], [place] [address] Jan, [facility] [address] [id number] [address] [place] [address], [place] [address] Jan, [facility] [address] [id number] [address] [place] [address], [place] [address] 16 Jan, 2014 [facility] [address] [id number] [address] [place] [address], [place] [address] 16 Jan, 2014 [facility] [address] [id number] [facility] [place] [address] Jan, [facility] [address] [id number] [address] [place] [address], [place] [address] Jan, [facility] [address] [id number] [address] [place] [address], [place] [address] Dec, [facility] [address] [id number] [address] [place] [address], [place] [address] Dec, [facility] [address] [id number] [address] [place] [address], [place] [address] Dec, [facility] [address] [id number] [address] [place] [address], [place] [address] Dec, [facility] [address] [id number] [address] [place] [address], [place] [address] Dec, [facility] [address] [id number] [address] [place] [address], [place] [address] Dec, [facility] [address] [id number] [address] [place] [address], [place] [address] Oct, [facility] [address] [id number] [address] [place] [address], [place] [address] Oct, [facility] [address] [id number] [address] [place] [address], [place] [address] Oct, [facility] [address] [id number] [address] [place] [address], [place] [address] Oct, [facility] [address] [id number] [address] [place] [address], [place] [address] Sep, [facility] [address] [id number] [address] [place] [address], [place] [address] Sep, [facility] [address] [id number] [address] [place] [address], [place] [address] Sep, [facility] [address] [id number] [address] [place] [address], [place] [address] Sep, [facility] [address] [id number] [address] [place] [address], [place] [address] Sep, [facility] [address] [id number] [address] [place] [address], [place] [address] Sep, [facility] [address] [id number] [address] [place] [address], [place] [address] Aug, [facility] [address] [id number] [address] [place] [address], [place] [address] Aug, [facility] [address] [id number] [address] [place] [address], [place] [address] Aug, [facility] [address] [id number] [address] [place] [address], [place] [address] Aug, [facility] [address] [id number] [address] [place] [address], [place] [address] Aug, [facility] [address] [id number] [address] [place] [address], [place] [address] Aug, [facility] [address] [id number] [address] [place] [address], [place] [address] Aug, [facility] [address] [id number] [address] [place] [address], [place] [address] Aug, [facility] [address] [id number] [address] [place] [address], [place] [address] Aug, [facility] [address] [id number] [address] [place] [address], [place] [address] 17 Aug, 2013 [facility] [address] [id number] [address] [place] [address], [place] [address] 17 Aug, 2013 [facility] [address] [id number] [address] [place] [address], [place] [address] 14 Aug, 2013 [facility] [address] [id number] [address] [place] [address] Aug, [facility] [address] [id number] [address] [place] [address] Jul, [facility] [address] [id number] [address] [place] [address] Jul, [facility] [address] [id number] [address] [place] [address] Jun, [facility] [address] [id number] [address] [place] [address] Jun, [facility] [address] [id number] [address] [place] [address] Jun, [facility] [address] [id number] [address] [place] [address] Jun, [facility] [address] [id number] [address] [place] [address] Aug, [facility] [address] [id number] [address] [place] [address] Jun, [facility] [address] [id number] [address] [place] [address] May, IMMUNIZATIONS No Known Immunizations SOCIAL HISTORY Never Assessed REASON FOR VISIT PLAN OF CARE VITAL SIGNS Height 67 in 2014-04-05 Weight 233.19 lbs 2014-04-05 Temperature 98.9 degrees Fahrenheit 2014-04-05 Heart Rate 90 bpm 2014-04-05 Respiratory Rate 20 2014-04-05 Blood pressure systolic 130 mmHg 2014-04-05 Blood pressure diastolic 84 mmHg 2014-04-05 MEDICATIONS Unknown Medications RESULTS No Results PROCEDURES [...] surgery for cervial cancer @ [facility] rosi poon 1990 [facility] tonsillectomy Hospitalization History Elevated BP
--- OUTSIDE RECORDS SUMMARY | 2019-12-01 17:36 | XMS REPORT ---
Author Author TAMIKOMandie BOWLING [facility] Address [address] [place] [address] Care Team Providers Care Psychiatric Aide Instructor Name Role Phone ANTHONY MORRISON Unavailable PROBLEMS Type Condition ICD9-CM Code JQX47-GN Code Onset Dates Condition S tatus SNOMED Code Problem History of cocaine abuse Z87.898 Activ e [id number] Problem Irritable bowel syndrome K58.9 Activ e 86508306 Problem Hyperlipidemia E78.5 Active 43153 004 Problem Urge incontinence N39.41 Active 16 7320260 Problem Hypertension I10 Active 1465667 3 Problem Depressive disorder, not elsewhere classified F32. 9 Active 48746968 Problem Anxiety disorder, unspecified F41.9 Active 791774416 Problem Cannabis dependence, uncomplicated F12.20 Active 64289251 Problem Pulmonary hypertension I27.2 Active 35464193 Problem Allergic rhinitis J30.9 Active 61 476249 Problem Obesity (BMI 30.0-34.9) E66.9 Active 597851362068009 Problem Moderate persistent asthma, uncomplicated J45.40 Active 529215589 Problem Gastroesophageal reflux disease, esophagitis pre sence not specified K21.9 Active 245784665 Problem Chronic tension-type headache, intractable G44.221 Active 975779311 Problem Essential hypertension I10 Active 66206910 Problem Hyperlipidemia, unspecified hyperlipidemia type E7 8.5 Active 21564322 ALLERGIES No Information ENCOUNTERS Encounter Location Date Diagnosis [facility] [address] [facility] [id number] [address] [place] [address] Jul, [facility] [address] [facility] [id number] [address] [place] [id number] Aug, Dental examination Z01.20 [facility] [address] [facility] [id number] [address] [place] [address] Jan, [facility] [address] [address] 08 Aug, 2016 Shortness of breath R06.02 ; Pulmonary hypertension I27.2 and Obesity (BMI 30.0-34.9) E66.9 [place] [address] [address] 31 Jul, 2016 Scabies B86 ; Hyperlipidemia E78.5 and Syncope, unspecified syncope type R55 [place] [address] [address] Jul, [address] [address] Jul, Chest pain, unspecified type R07.9 ; Dyspnea on exertion R06.09 ; Syncope, unspecified syncope type R55 ; Hyperlipidemia, unspecified hyperlipidemia type E78.5 and Essential hypertension I10 [address] [address] Jul, [address] [address] Jun, Vasovagal syncope R55 ; Irri table bowel syndrome K58.9 ; Chronic tension-type headache, intractable G44.221 ; Pain in right foot M79.671 and Pain of left foot M79.[address] [address] 02 May, 2016 Exposure to STD Z20.2 ; Insu [place] coverage problems Z59.8 ; Acute intractable tension-type headache G44.201 ; Allergic rhinitis J30.9 ; Urge incontinence N39.41 and Gastroesophageal reflux disease, esophagitis presence not specified K21.[address] [address] Apr, [place] [address] [address] Mar, [address] [address] Feb, [facility] [address] [id number] [address] [place] [id number] Jan, Dental examination Z01.20 [facility] [address] [facility] [id number] [address] [place] [address] Jan, Depressive disorder, not els ewhere classified F32.9 ; Anxiety disorder, unspecified F41.9 and Other correction (current) drug therapy Z79.899 [facility] [address] [place] [id number] [address] [place] [address] Dec, Right chronic serous otitis media H65.21 and Asthma exacerbation J45.901 [facility] [address] [place] [id number] [address] [place] [address] Dec, [facility] [address] [address] November, [facility] [address] [place] [id number] [address] [place] [address] November, [facility] [address] [place] [id number] [address] [place] [address] November, Hyperlipidemia E78.5 ; Hyper tension I10 and Obesity, unspecified obesity severity, unspecified obesity type E66.9 [facility] [address] [place] [id number] [address] [place] [address] Oct, Hyperlipidemia E78.5 ; Aller gic rhinitis J30.9 ; Moderate persistent asthma, uncomplicated J45.40 ; Irritable bowel syndrome K58.9 ; Urge incontinence N39.41 ; Depressive disorder, not elsewhere classified F32.9 ; Anxiety disorder, unspecified F41.9 and Hypertension I10 [facility] [address] [facility] [id number] [address] [place] [address] Oct, Depressive disorder, not els ewhere classified F32.9 ; Anxiety disorder, unspecified F41.9 and Cannabis dependence, uncomplicated F12.20 [facility] [address] [place] [id number] [address] [place] [address] Apr, [facility] [address] [id number] [address] [place] [address] Jan, [facility] [address] [id number] [address] [place] [address] Jan, Irritable bowel syndrome 564 .1 ; Hyperlipidemia 272.4 ; Obesity, unspecified 278.00 ; Asthma 493.90 ; Urge incontinence 788.31 ; Anxiety 300.00 and GERD (gastroesophageal reflux disease) 530.81 [facility] [address] [id number] [address] [place] [id number] Dec, Dental examination V72.2 [facility] [address] [id number] [address] [place] [address] [id number] November, Dental examination V72.2 [facility] [address] [id number] [address] [place] [address] Oct, [facility] [address] [id number] [address] [place] [address] Oct, [facility] [address] [id number] [address] [place] [address] Sep, [facility] [address] [id number] [address] [place] [address] Sep, [facility] [address] [id number] [address] [place] [address] Sep, [facility] [address] [id number] [address] [place] [address] Sep, [facility] [address] [id number] [address] [place] [address] Sep, [facility] [address] [id number] [address] [place] [address] Sep, [facility] [address] [id number] [address] [place] [address] Sep, [facility] [address] [id number] [address] [place] [address], [place] [address] 23 Sep, 2014 [facility] [address] [id number] [address] [place] [address], [place] [address] Sep, [facility] [address] [id number] [address] [place] [address], [place] [address] Sep, [facility] [address] [id number] [address] [place] [address], [place] [address] Sep, [facility] [address] [id number] [address] [place] [address], [place] [address] Sep, [facility] [address] [id number] [address] [place] [address], [place] [address] Sep, [facility] [address] [id number] [address] [place] [address], [place] [address] Jul, [facility] [address] [id number] [address] [place] [address], [place] [address] Jul, [facility] [address] [id number] [address] [place] [address], [place] [address] Jul, [facility] [address] [id number] [address] [place] [address], [place] [address] Jul, [facility] [address] [id number] [address] [place] [address], [place] [address] Jun, [facility] [address] [id number] [address] [place] [address], [place] [address] Jun, [facility] [address] [id number] [address] [place] [address], [place] [address] May, [facility] [address] [id number] [address] [place] [address], [place] [address] May, [facility] [address] [id number] [address] [place] [address], [place] [address] May, [facility] [address] [id number] [address] [place] [address], [place] [address] May, [facility] [address] [id number] [address] [place] [address], [place] [address] Apr, [facility] [address] [id number] [address] [place] [address], [place] [address] Apr, [facility] [address] [id number] [address] [place] [address], [place] [address] Mar, [facility] [address] [id number] [address] [place] [address], [place] [address] Mar, [facility] [address] [id number] [address] [place] [address], [place] [address] 15 Mar, 2014 [facility] [address] [id number] [address] [place] [address], [place] [address] 15 Mar, 2014 [facility] [address] [id number] [address] [place] [address], [place] [address] Mar, [facility] [address] [id number] [address] [place] [address], [place] [address] Mar, [facility] [address] [id number] [address] [place] [address], [place] [address] Feb, [facility] [address] [id number] [address] [place] [address], [place] [address] Feb, [facility] [address] [id number] [address] [place] [address], [place] [address] Feb, [facility] [address] [id number] [address] [place] [address], [place] [address] Feb, [facility] [address] [id number] [address] [place] [address], [place] [address] Jan, [facility] [address] [id number] [address] [place] [address], [place] [address] Jan, [facility] [address] [id number] [address] [place] [address], [place] [address] 16 Jan, 2014 [facility] [address] [id number] [address] [place] [address], [place] [address] 16 Jan, 2014 [facility] [address] [id number] [facility] [place] [address] Jan, [facility] [address] [id number] [address] [place] [address], [place] [address] Jan, [facility] [address] [id number] [address] [place] [address], [place] [address] Dec, [facility] [address] [id number] [address] [place] [address], [place] [address] Dec, [facility] [address] [id number] [address] [place] [address], [place] [address] Dec, [facility] [address] [id number] [address] [place] [address], [place] [address] Dec, [facility] [address] [id number] [address] [place] [address], [place] [address] Dec, [facility] [address] [id number] [address] [place] [address], [place] [address] Dec, [facility] [address] [id number] [address] [place] [address], [place] [address] Oct, [facility] [address] [id number] [address] [place] [address], [place] [address] Oct, [facility] [address] [id number] [address] [place] [address], [place] [address] Oct, [facility] [address] [id number] [address] [place] [address], [place] [address] Oct, [facility] [address] [id number] [address] [place] [address], [place] [address] Sep, [facility] [address] [id number] [address] [place] [address], [place] [address] Sep, [facility] [address] [id number] [address] [place] [address], [place] [address] Sep, [facility] [address] [id number] [address] [place] [address], [place] [address] Sep, [facility] [address] [id number] [address] [place] [address], [place] [address] Sep, [facility] [address] [id number] [address] [place] [address], [place] [address] Sep, [facility] [address] [id number] [address] [place] [address], [place] [address] Aug, [facility] [address] [id number] [address] [place] [address], [place] [address] Aug, [facility] [address] [id number] [address] [place] [address], [place] [address] Aug, [facility] [address] [id number] [address] [place] [address], [place] [address] Aug, [facility] [address] [id number] [address] [place] [address], [place] [address] Aug, [facility] [address] [id number] [address] [place] [address], [place] [address] Aug, [facility] [address] [id number] [address] [place] [address], [place] [address] Aug, [facility] [address] [id number] [address] [place] [address], [place] [address] Aug, [facility] [address] [id number] [address] [place] [address], [place] [address] Aug, [facility] [address] [id number] [address] [place] [address], [place] [address] 17 Aug, 2013 [facility] [address] [id number] [address] [place] [address], [place] [address] 17 Aug, 2013 [facility] [address] [id number] [address] [place] [address], [place] [address] 14 Aug, 2013 [facility] [address] [id number] [address] [place] [address] 14 Aug, 2013 [facility] [address] [id number] [address] [place] [address] Jul, [facility] [address] [id number] [address] [place] [address] Jul, [facility] [address] [id number] [address] [place] [address] Jun, [facility] [address] [id number] [address] [place] [address] Jun, [facility] [address] [id number] [address] [place] [address] Jun, [facility] [address] [id number] [address] [place] [address] Jun, [facility] [address] [id number] [address] [place] [address] Aug, [facility] [address] [id number] [address] [place] [address] Jun, [facility] [address] [id number] [address] [place] [address] May, IMMUNIZATIONS No Known Immunizations SOCIAL HISTORY [...] Laser surgery for cervial cancer @ [facility] [place] 1990 Surgical History L ankle surgery @ [facility] Surgical History tonsillectomy Hospitalization History Elevated BP
--- OUTSIDE RECORDS SUMMARY | 2019-12-01 17:36 | XMS REPORT ---
Author Author Mandie Haynes Organization [facility] Address [address] [place] [address] Care Team Providers Care Bank Manager Name Role Phone SAIRA Haynes Unavailable PROBLEMS Type Condition ICD9-CM Code BZD56-AI Code Onset Dates Condition S tatus SNOMED Code Problem History of cocaine abuse Z87.898 Activ e [id number] Problem Irritable bowel syndrome K58.9 Activ e 65931631 Problem Hyperlipidemia E78.5 Active 01657 004 Problem Urge incontinence N39.41 Active 16 9841686 Problem Hypertension I10 Active 9496466 3 Problem Depressive disorder, not elsewhere classified F32. 9 Active 12533333 Problem Anxiety disorder, unspecified F41.9 Active 354337666 Problem Cannabis dependence, uncomplicated F12.20 Active 89805203 Problem Pulmonary hypertension I27.2 Active 69198999 Problem Allergic rhinitis J30.9 Active 61 757091 Problem Obesity (BMI 30.0-34.9) E66.9 Active 953999902878990 Problem Moderate persistent asthma, uncomplicated J45.40 Active 702921556 Problem Gastroesophageal reflux disease, esophagitis pre sence not specified K21.9 Active 302087294 Problem Chronic tension-type headache, intractable G44.221 Active 012219070 Problem Essential hypertension I10 Active 06718560 Problem Hyperlipidemia, unspecified hyperlipidemia type E7 8.5 Active 04853630 ALLERGIES No Information ENCOUNTERS Encounter Location Date Diagnosis [facility] [address] [facility] [id number] [address] [place] [address] Jul, [facility] [address] [facility] [id number] [address] [place] [id number] Aug, Dental examination Z01.20 [facility] [address] [facility] [id number] [address] [place] [address] Jan, [place] [address] [address] 08 Aug, 2016 Shortness of breath R06.02 ; Pulmonary hypertension I27.2 and Obesity (BMI 30.0-34.9) E66.9 [place] [address] [address] 31 Jul, 2016 Scabies B86 ; Hyperlipidemia E78.5 and Syncope, unspecified syncope type R55 [place] [address] [address] Jul, [address] [address] Jul, Chest pain, unspecified type R07.9 ; Dyspnea on exertion R06.09 ; Syncope, unspecified syncope type R55 ; Hyperlipidemia, unspecified hyperlipidemia type E78.5 and Essential hypertension I10 [address] [address] Jul, [place] [address] [address] Jun, Vasovagal syncope R55 ; Irri table bowel syndrome K58.9 ; Chronic tension-type headache, intractable G44.221 ; Pain in right foot M79.671 and Pain of left foot M79.[address] [address] 02 May, 2016 Exposure to STD Z20.2 ; Insu [place]akot[place] coverage problems Z59.8 ; Acute intractable tension-type headache G44.201 ; Allergic rhinitis J30.9 ; Urge incontinence N39.41 and Gastroesophageal reflux disease, esophagitis presence not specified K21.[address] [address] 10 Apr, 2016 [place] [address] [address] Mar, [address] [place] [address] Feb, [facility] [address] [id number] [address] [place] [id number] Jan, Dental examination Z01.20 [facility] [address] [facility] [id number] [address] [place] [address] Jan, Depressive disorder, not els ewhere classified F32.9 ; Anxiety disorder, unspecified F41.9 and 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 [facility] [address] [facility] [id number] [address] [place] [address] Dec, Right chronic serous otitis media H65.21 and Asthma exacerbation J45.901 [facility] [address] [place] [id number] [address] [place] [address] Dec, [facility] [address] [address] November, [facility] [address] [address] November, [facility] [address] [address] November, Hyperlipidemia E78.5 ; Hyper tension I10 and Obesity, unspecified obesity severity, unspecified obesity type E66.9 [facility] [address] [address] Oct, Hyperlipidemia E78.5 ; Aller gic rhinitis J30.9 ; Moderate persistent asthma, uncomplicated J45.40 ; Irritable bowel syndrome K58.9 ; Urge incontinence N39.41 ; Depressive disorder, not elsewhere classified F32.9 ; Anxiety disorder, unspecified F41.9 and Hypertension I10 [facility] [address] [place] [id number] [address] [place] [address] Oct, Depressive disorder, not els ewhere classified F32.9 ; Anxiety disorder, unspecified F41.9 and Cannabis dependence, uncomplicated F12.20 [facility] [address] [place] [id number] [address] [place] [address] Apr, [facility] [address] [id number] [address] [place] [address] Jan, [facility] [address] [id number] [address] [place] [address] Jan, Irritable bowel syndrome 564 .1 ; Hyperlipidemia 272.4 ; Obesity, unspecified 278.00 ; Asthma 493.90 ; Urge incontinence 788.31 ; Anxiety 300.00 and GERD (gastroesophageal reflux disease) 530.81 [facility] [address] [id number] [address] [place] [id number] Dec, Dental examination V72.2 [facility] [address] [id number] [address] [place] [id number] November, Dental examination V72.2 [facility] [address] [id number] [address] [place] [address] Oct, [facility] [address] [id number] [address] [place] [address] Oct, [facility] [address] [id number] [address] [place] [address] Sep, [facility] [address] [id number] [address] [place] [address] Sep, [facility] [address] [id number] [address] [place] [id number] Sep, [facility] [address] [id number] [address] [place] [address] Sep, [facility] [address] [id number] [address] [place] [address] Sep, [facility] [address] [id number] [address] [place] [address] Sep, [facility] [address] [id number] [address] [place] [address] Sep, [facility] [address] [id number] [address] [place] [address], [place] [address] 23 Sep, 2014 [facility] [address] [id number] [address] [place] [address], [place] [address] 22 Sep, 2014 [facility] [address] [id number] [address] [place] [address], [place] [address] 19 Sep, 2014 [facility] [address] [id number] [address] [place] [address], [place] [address] 19 Sep, 2014 [facility] [address] [id number] [address] [place] [address], [place] [address] Sep, [facility] [address] [id number] [address] [place] [address], [place] [address] Sep, [facility] [address] [id number] [address] [place] [address], [place] [address] Jul, [facility] [address] [id number] [address] [place] [address], [place] [address] Jul, [facility] [address] [id number] [address] [place] [address], [place] [address] Jul, [facility] [address] [id number] [address] [place] [address], [place] [address] Jul, [facility] [address] [id number] [address] [place] [address], [place] [address] Jun, [facility] [address] [id number] [address] [place] [address], [place] [address] Jun, [facility] [address] [id number] [address] [place] [address], [place] [address] May, [facility] [address] [id number] [address] [place] [address], [place] [address] May, [facility] [address] [id number] [address] [place] [address], [place] [address] May, [facility] [address] [id number] [address] [place] [address], [place] [address] May, [facility] [address] [id number] [address] [place] [address], [place] [address] Apr, [facility] [address] [id number] [address] [place] [address], [place] [address] Apr, [facility] [address] [id number] [address] [place] [address], [place] [address] Mar, [facility] [place] [facility] [address] [id number] [address] [place] [address], [place] [address] Mar, [facility] [place] [facility] [address] [id number] [address] [place] [address], [place] [address] 15 Mar, 2014 [facility] [place] [facility] [address] [id number] [address] [place] [address], [place] [address] Mar, [facility] [place] [facility] [address] [id number] [address] [place] [address], [place] [address] Mar, [facility] [place] [facility] [address] [id number] [address] [place] [address], [place] [address] Mar, [facility] [place] [facility] [address] [id number] [address] [place] [address], [place] [address] Feb, [facility] [place] [facility] [address] [id number] [address] [place] [address], [place] [address] Feb, [facility] [place] [facility] [address] [id number] [address] [place] [address], [place] [address] Feb, [facility] [place] [facility] [address] [id number] [address] [place] [address], [place] [address] Feb, [facility] [place] [facility] [address] [id number] [address] [place] [address], [place] [address] Jan, [facility] [place] [facility] [address] [id number] [address] [place] [address], [place] [address] Jan, [facility] [place] [facility] [address] [id number] [address] [place] [address], [place] [address] Jan, [facility] [place] [facility] [address] [id number] [address] [place] [address], [place] [address] 16 Jan, 2014 [facility] [address] [id number] [facility] [place] [address] Jan, [facility] [address] [id number] [address] [place] [address], [place] [address] Jan, [facility] [address] [id number] [address] [place] [address], [place] [address] Dec, [facility] [place] [facility] [address] [id number] [address] [place] [address], [place] [address] Dec, [facility] [address] [id number] [address] [place] [address], [place] [address] Dec, [facility] [address] [id number] [address] [place] [address], [place] [address] Dec, [facility] [address] [id number] [address] [place] [address], [place] [address] Dec, [facility] [address] [id number] [address] [place] [address], [place] [address] Dec, [facility] [address] [id number] [address] [place] [address], [place] [address] Oct, [facility] [address] [id number] [address] [place] [address], [place] [address] Oct, [facility] [address] [id number] [address] [place] [address], [place] [address] Oct, [facility] [place] [facility] [address] [id number] [address] [place] [address], [place] [address] Oct, [facility] [place] [facility] [address] [id number] [address] [place] [address], [place] [address] Sep, [facility] [place] [facility] [address] [id number] [address] [place] [address], [place] [address] Sep, [facility] [place] [facility] [address] [id number] [address] [place] [address], [place] [address] Sep, [facility] [place] [facility] [address] [id number] [facility] [place] [address] Sep, [facility] [place] [facility] [address] [id number] [address] [place] [address], [place] [address] Sep, [facility] [place] [facility] [address] [id number] [facility] [place] [address] Sep, [facility] [place] [facility] [address] [id number] [address] [place] [address], [place] [address] Aug, [facility] [place] [facility] [address] [id number] [address] [place] [address], [place] [address] Aug, [facility] [place] [facility] [address] [id number] [address] [place] [address], [place] [address] Aug, [facility] [address] [id number] [address] [place] [address], [place] [address] Aug, [facility] [place] [facility] [address] [id number] [address] [place] [address], [place] [address] Aug, [facility] [place] [facility] [address] [id number] [address] [place] [address], [place] [address] Aug, [facility] [place] [facility] [address] [id number] [address] [place] [address], [place] [address] Aug, [facility] [place] [facility] [address] [id number] [address] [place] [address], [place] [address] Aug, [facility] [place] [facility] [address] [id number] [address] [place] [address], [place] [address] Aug, [facility] [place] [facility] [address] [id number] [address] [place] [address], [place] [address] 17 Aug, 2013 [facility] [place] [facility] [address] [id number] [address] [place] [address], [place] [address] 17 Aug, 2013 [facility] [place] [facility] [address] [id number] [address] [place] [address], [place] [address] 14 Aug, 2013 [facility] [place] [facility] [address] [id number] [address] [place] [address] 14 Aug, 2013 [facility] [address] [id number] [address] [place] [address] Jul, [facility] [address] [id number] [address] [place] [address] Jul, [facility] [address] [id number] [address] [place] [id number] Jun, [facility] [address] [id number] [address] [place] [address] Jun, [facility] [address] [id number] [address] [place] [address] Jun, [facility] [address] [id number] [address] [place] [address] Jun, [facility] [address] [id number] [address] [place] [address] Aug, [facility] [address] [id number] [address] [place] [address] Jun, [facility] [address] [id number] [address] [place] [address] May, IMMUNIZATIONS No Known Immunizations SOCIAL HISTORY [...] History Laser surgery for cervial cancer @ [facility] [place] 1990 Surgical History L ankle surgery @ [facility] Surgical History tonsillectomy Hospitalization History Elevated BP
--- OUTSIDE RECORDS SUMMARY | 2019-12-01 17:36 | XMS REPORT ---
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 9 Active 60988173 Problem Anxiety disorder, unspecified F41.9 Active 947677730 Problem Cannabis dependence, uncomplicated F12.20 Active 88351159 Problem Pulmonary hypertension I27.2 Active 89433302 Problem Allergic rhinitis J30.9 Active 61 939815 Problem Obesity (BMI 30.0-34.9) E66.9 Active 522800898505853 Problem Moderate persistent asthma, uncomplicated J45.40 Active 004578664 Problem Gastroesophageal reflux disease, esophagitis pre sence not specified K21.9 Active 309512480 Problem Chronic tension-type headache, intractable G44.221 Active 508933555 Problem Essential hypertension I10 Active 28734008 Problem Hyperlipidemia, unspecified hyperlipidemia type E7 8.5 Active 43129419 ALLERGIES No Information ENCOUNTERS Encounter Location Date Diagnosis [facility] [address] [facility] [id number] [address] [place] [address] Jul, [facility] [address] [facility] [id number] [address] [place] [address] [id number] Aug, Dental examination Z01.20 [facility] [address] [facility] [id number] [address] [place] [address] Jan, [facility] [address] [address] 08 Aug, 2016 Shortness of breath R06.02 ; Pulmonary hypertension I27.2 and Obesity (BMI 30.0-34.9) E66.9 [place] [address] [address] 31 Jul, 2016 Scabies B86 ; Hyperlipidemia E78.5 and Syncope, unspecified syncope type R55 [place] [address] [address] Jul, [address] [address] Jul, Chest pain, unspecified type R07.9 ; Dyspnea on exertion R06.09 ; Syncope, unspecified syncope type R55 ; Hyperlipidemia, unspecified hyperlipidemia type E78.5 and Essential hypertension I10 [address] [address] Jul, [address] [address] Jun, Vasovagal syncope R55 ; Irri table bowel syndrome K58.9 ; Chronic tension-type headache, intractable G44.221 ; Pain in right foot M79.671 and Pain of left foot M79.[address] [address] 02 May, 2016 Exposure to STD Z20.2 ; [place]su [place] coverage problems Z59.8 ; Acute intractable tension-type headache G44.201 ; Allergic rhinitis J30.9 ; Urge incontinence N39.41 and Gastroesophageal reflux disease, esophagitis presence not specified K21.[address] [address] Apr, [place] [address] [address] Mar, [address] [address] Feb, [facility] [address] [id number] [address] [place] [address] [id number] Jan, Dental examination Z01.20 [facility] [address] [facility] [id number] [address] [place] [address] Jan, Depressive disorder, not els ewhere classified F32.9 ; Anxiety disorder, unspecified F41.9 and 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 [facility] [address] [place] [id number] [address] [place] [address] Dec, Right chronic serous otitis media H65.21 and Asthma exacerbation J45.901 [facility] [address] [place] [id number] [address] [place] [address] Dec, [facility] [address] [address] November, [facility] [address] [place] [id number] [address] [place] [address] November, [facility] [address] [place] [id number] [address] [place] [address] November, Hyperlipidemia E78.5 ; Hyper tension I10 and Obesity, unspecified obesity severity, unspecified obesity type E66.9 [facility] [address] [place] [id number] [address] [place] [address] Oct, Hyperlipidemia E78.5 ; Aller gic rhinitis J30.9 ; Moderate persistent asthma, uncomplicated J45.40 ; Irritable bowel syndrome K58.9 ; Urge incontinence N39.41 ; Depressive disorder, not elsewhere classified F32.9 ; Anxiety disorder, unspecified F41.9 and Hypertension I10 [facility] [address] [facility] [id number] [address] [place] [address] Oct, Depressive disorder, not els ewhere classified F32.9 ; Anxiety disorder, unspecified F41.9 and Cannabis dependence, uncomplicated F12.20 [facility] [address] [place] [id number] [address] [place] [address] Apr, [facility] [address] [id number] [address] [place] [id number] Jan, [facility] [address] [id number] [address] [place] [address] Jan, Irritable bowel syndrome 564 .1 ; Hyperlipidemia 272.4 ; Obesity, unspecified 278.00 ; Asthma 493.90 ; Urge incontinence 788.31 ; Anxiety 300.00 and GERD (gastroesophageal reflux disease) 530.81 [facility] [address] [id number] [address] [place] [id number] Dec, Dental examination V72.2 [facility] [address] [id number] [address] [place] [address] [id number] November, Dental examination V72.2 [facility] [address] [id number] [address] [place] [address] Oct, [facility] [address] [id number] [address] [place] [address] Oct, [facility] [address] [id number] [address] [place] [address] Sep, [facility] [address] [id number] [address] [place] [id number] Sep, [facility] [address] [id number] [address] [place] [address] Sep, [facility] [address] [id number] [address] [place] [address] Sep, [facility] [address] [id number] [address] [place] [id number] Sep, [facility] [address] [id number] [address] [place] [phone] Sep, [facility] [address] [id number] [address] [place] [address] Sep, [facility] [address] [id number] [address] [place] [address], [place] [address] 23 Sep, 2014 [facility] [address] [id number] [address] [place] [address], [place] [address] Sep, [facility] [address] [id number] [address] [place] [address], [place] [address] Sep, [facility] [address] [id number] [address] [place] [address], [place] [address] Sep, [facility] [address] [id number] [address] [place] [address], [place] [address] Sep, [facility] [address] [id number] [address] [place] [address], [place] [address] Sep, [facility] [address] [id number] [address] [place] [address], [place] [address] Jul, [facility] [address] [id number] [address] [place] [address], [place] [address] Jul, [facility] [address] [id number] [address] [place] [address], [place] [address] Jul, [facility] [address] [id number] [address] [place] [address], [place] [address] Jul, [facility] [address] [id number] [address] [place] [address], [place] [address] Jun, [facility] [address] [id number] [address] [place] [address], [place] [address] Jun, [facility] [address] [id number] [address] [place] [address], [place] [address] May, [facility] [address] [id number] [address] [place] [address], [place] [address] May, [facility] [address] [id number] [address] [place] [address], [place] [address] May, [facility] [address] [id number] [address] [place] [address], [place] [address] May, [facility] [address] [id number] [address] [place] [address], [place] [address] Apr, [facility] [address] [id number] [address] [place] [address], [place] [address] Apr, [facility] [address] [id number] [address] [place] [address], [place] [address] Mar, [facility] [address] [id number] [address] [place] [address], [place] [address] Mar, [facility] [address] [id number] [address] [place] [address], [place] [address] 15 Mar, 2014 [facility] [address] [id number] [address] [place] [address], [place] [address] 15 Mar, 2014 [facility] [address] [id number] [address] [place] [address], [place] [address] Mar, [facility] [address] [id number] [address] [place] [address], [place] [address] Mar, [facility] [address] [id number] [address] [place] [address], [place] [address] Feb, [facility] [address] [id number] [address] [place] [address], [place] [address] Feb, [facility] [address] [id number] [address] [place] [address], [place] [address] Feb, [facility] [address] [id number] [address] [place] [address], [place] [address] Feb, [facility] [address] [id number] [address] [place] [address], [place] [address] Jan, [facility] [address] [id number] [address] [place] [address], [place] [address] Jan, [facility] [address] [id number] [address] [place] [address], [place] [address] 16 Jan, 2014 [facility] [address] [id number] [address] [place] [address], [place] [address] 16 Jan, 2014 [facility] [address] [id number] [facility] [place] [address] Jan, [facility] [address] [id number] [address] [place] [address], [place] [address] Jan, [facility] [address] [id number] [address] [place] [address], [place] [address] Dec, [facility] [address] [id number] [address] [place] [address], [place] [address] Dec, [facility] [address] [id number] [address] [place] [address], [place] [address] Dec, [facility] [address] [id number] [address] [place] [address], [place] [address] Dec, [facility] [address] [id number] [address] [place] [address], [place] [address] Dec, [facility] [address] [id number] [address] [place] [address], [place] [address] Dec, [facility] [address] [id number] [address] [place] [address], [place] [address] Oct, [facility] [address] [id number] [address] [place] [address], [place] [address] Oct, [facility] [address] [id number] [address] [place] [address], [place] [address] Oct, [facility] [address] [id number] [address] [place] [address], [place] [address] Oct, [facility] [address] [id number] [address] [place] [address], [place] [address] Sep, [facility] [address] [id number] [address] [place] [address], [place] [address] Sep, [facility] [address] [id number] [address] [place] [address], [place] [address] Sep, [facility] [address] [id number] [address] [place] [address], [place] [address] Sep, [facility] [address] [id number] [address] [place] [address], [place] [address] Sep, [facility] [address] [id number] [address] [place] [address], [place] [address] Sep, [facility] [address] [id number] [address] [place] [address], [place] [address] Aug, [facility] [address] [id number] [address] [place] [address], [place] [address] Aug, [facility] [address] [id number] [address] [place] [address], [place] [address] Aug, [facility] [address] [id number] [address] [place] [address], [place] [address] Aug, [facility] [address] [id number] [address] [place] [address], [place] [address] Aug, [facility] [address] [id number] [address] [place] [address], [place] [address] Aug, [facility] [address] [id number] [address] [place] [address], [place] [address] Aug, [facility] [address] [id number] [address] [place] [address], [place] [address] Aug, [facility] [address] [id number] [address] [place] [address], [place] [address] Aug, [facility] [address] [id number] [address] [place] [address], [place] [address] 17 Aug, 2013 [facility] [address] [id number] [address] [place] [address], [place] [address] 17 Aug, 2013 [facility] [address] [id number] [address] [place] [address], [place] [address] 14 Aug, 2013 [facility] [address] [id number] [address] [place] [address] 14 Aug, 2013 [facility] [address] [id number] [address] [place] [address] Jul, [facility] [address] [id number] [address] [place] [address] Jul, [facility] [address] [id number] [address] [place] [id number] Jun, [facility] [address] [id number] [address] [place] [address] Jun, [facility] [address] [id number] [address] [place] [address] Jun, [facility] [address] [id number] [address] [place] [id number] Jun, [facility] [address] [id number] [address] [place] [address] Aug, [facility] [address] [id number] [address] [place] [id number] Jun, [facility] [address] [id number] [address] [place] [address] May, IMMUNIZATIONS No Known Immunizations SOCIAL HISTORY [...] History [facility] [place] 1990 Surgical History L ankle surgery @ [facility] Surgical History tonsillectomy Hospitalization History Elevated BP
--- OUTSIDE RECORDS SUMMARY | 2019-12-01 17:36 | XMS REPORT ---
Author Author Mandie Manzanares Organization [facility] Address [address] [place] [address] Care Team Providers Care Learning And Development Intern Name Role Phone TRACY Manzanares Unavailable PROBLEMS Type Condition ICD9-CM Code REQ96-DN Code Onset Dates Condition S tatus SNOMED Code Problem History of cocaine abuse Z87.898 Activ e 121791343625570 Problem Irritable bowel syndrome K58.9 Activ e 26467727 Problem Hyperlipidemia E78.5 Active 73507 004 Problem Urge incontinence N39.41 Active 16 1457460 Problem Hypertension I10 Active 5819562 3 Problem Depressive disorder, not elsewhere classified F32. 9 Active 68308077 Problem Anxiety disorder, unspecified F41.9 Active 615868218 Problem Cannabis dependence, uncomplicated F12.20 Active 20695718 Problem Pulmonary hypertension I27.2 Active 19529617 Problem Allergic rhinitis J30.9 Active 61 276649 Problem Obesity (BMI 30.0-34.9) E66.9 Active 248940944836626 Problem Moderate persistent asthma, uncomplicated J45.40 Active 933083626 Problem Gastroesophageal reflux disease, esophagitis pre sence not specified K21.9 Active 103156305 Problem Chronic tension-type headache, intractable G44.221 Active 708703042 Problem Essential hypertension I10 Active 94152959 Problem Hyperlipidemia, unspecified hyperlipidemia type E7 8.5 Active 64032794 ALLERGIES No Information ENCOUNTERS Encounter Location Date Diagnosis [facility] [address] [id number] [address] [place] [id number] Jul, [facility] [address] [facility] [id number] [address] [place] [id number] Aug, Dental examination Z01.20 [facility] [address] [id number] [address] [place] [address] Jan, [facility] [address] [address] 08 Aug, 2016 Shortness of breath R06.02 ; Pulmonary hypertension I27.2 and Obesity (BMI 30.0-34.9) E66.9 [place] [address] [address] 31 Jul, 2016 Scabies B86 ; Hyperlipidemia E78.5 and Syncope, unspecified syncope type R55 [place] [address] [address] 17 Jul, [address] [address] Jul, Chest pain, unspecified type R07.9 ; Dyspnea on exertion R06.09 ; Syncope, unspecified syncope type R55 ; Hyperlipidemia, unspecified hyperlipidemia type E78.5 and Essential hypertension I10 [address] [address] Jul, [address] [address] Jun, Vasovagal syncope R55 ; Irri table bowel syndrome K58.9 ; Chronic tension-type headache, intractable G44.221 ; Pain in right foot M79.671 and Pain of left foot M79.[address] [address] 02 May, 2016 Exposure to STD Z20.2 ; Insu [place] coverage problems Z59.8 ; Acute intractable tension-type headache G44.201 ; Allergic rhinitis J30.9 ; Urge incontinence N39.41 and Gastroesophageal reflux disease, esophagitis presence not specified K21.[address] [address] Apr, [place] [address] [address] Mar, [address] [address] Feb, [facility] [address] [id number] [address] [place] [id number] Jan, Dental examination Z01.20 [facility] [address] [id number] [address] [place] [address] Jan, Depressive disorder, not els ewhere classified F32.9 ; Anxiety disorder, unspecified F41.9 and 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 [facility] [address] [id number] [address] [place] [address] Dec, Right chronic serous otitis media H65.21 and Asthma exacerbation J45.901 [facility] [address] [id number] [address] [place] [id number] Dec, [facility] [address] [place] [address] November, [facility] [address] [place] [address] November, [facility] [address] [place] [address] November, Hyperlipidemia E78.5 ; Hyper tension I10 and Obesity, unspecified obesity severity, unspecified obesity type E66.9 [facility] [address] [place] [address] Oct, Hyperlipidemia E78.5 ; Aller gic rhinitis J30.9 ; Moderate persistent asthma, uncomplicated J45.40 ; Irritable bowel syndrome K58.9 ; Urge incontinence N39.41 ; Depressive disorder, not elsewhere classified F32.9 ; Anxiety disorder, unspecified F41.9 and Hypertension I10 [facility] [address] [id number] [address] [place] [id number] Oct, Depressive disorder, not els ewhere classified F32.9 ; Anxiety disorder, unspecified F41.9 and Cannabis dependence, uncomplicated F12.20 [facility] [address] [place] [id number] [address] [place] [id number] Apr, [facility] [address] [id number] [address] [place] [id number] Jan, [facility] [address] [id number] [address] [place] [id number] Jan, Irritable bowel syndrome 564 .1 ; Hyperlipidemia 272.4 ; Obesity, unspecified 278.00 ; Asthma 493.90 ; Urge incontinence 788.31 ; Anxiety 300.00 and GERD (gastroesophageal reflux disease) 530.81 [facility] [address] [id number] [address] [place] [id number] Dec, Dental examination V72.2 [facility] [address] [id number] [address] [place] [id number] November, Dental examination V72.2 [facility] [address] [id number] [address] [place] [id number] Oct, [facility] [address] [id number] [address] [place] [id number] Oct, [facility] [address] [id number] [address] [place] [id number] Sep, [facility] [address] [id number] [address] [place] [id number] Sep, [facility] [address] [id number] [address] [place] [id number] Sep, [facility] [address] [id number] [address] [place] [id number] Sep, [facility] [address] [id number] [address] [place] [id number] Sep, [facility] [address] [id number] [address] [place] [id number] Sep, [facility] [address] [id number] [address] [place] [id number] Sep, [facility] [address] [id number] [address] [place] [address], [place] [address] 23 Sep, 2014 [facility] [address] [id number] [address] [place] [address], [place] [address] Sep, [facility] [address] [id number] [address] [place] [address], [place] [address] Sep, [facility] [address] [id number] [address] [place] [address], [place] [address] Sep, [facility] [address] [id number] [address] [place] [address], [place] [address] Sep, [facility] [address] [id number] [address] [place] [address], [place] [address] Sep, [facility] [address] [id number] [address] [place] [address], [place] [address] Jul, [facility] [address] [id number] [address] [place] [address], [place] [address] Jul, [facility] [address] [id number] [address] [place] [address], [place] [address] Jul, [facility] [address] [id number] [address] [place] [address], [place] [address] Jul, [facility] [address] [id number] [address] [place] [address], [place] [address] Jun, [facility] [address] [id number] [address] [place] [address], [place] [address] Jun, [facility] [address] [id number] [address] [place] [address], [place] [address] May, [facility] [address] [id number] [address] [place] [address], [place] [address] May, [facility] [address] [id number] [address] [place] [address], [place] [address] May, [facility] [address] [id number] [address] [place] [address], [place] [address] May, [facility] [address] [id number] [address] [place] [address], [place] [address] Apr, [facility] [address] [id number] [address] [place] [address], [place] [address] Apr, [facility] [address] [id number] [address] [place] [address], [place] [address] Mar, [facility] [address] [id number] [address] [place] [address], [place] [address] Mar, [facility] [address] [id number] [address] [place] [address], [place] [address] 15 Mar, 2014 [facility] [address] [id number] [address] [place] [address], [place] [address] Mar, [facility] [address] [id number] [address] [place] [address], [place] [address] Mar, [facility] [address] [id number] [address] [place] [address], [place] [address] Mar, [facility] [address] [id number] [address] [place] [address], [place] [address] Feb, [facility] [address] [id number] [address] [place] [address], [place] [address] Feb, [facility] [address] [id number] [address] [place] [address], [place] [address] Feb, [facility] [address] [id number] [address] [place] [address], [place] [address] Feb, [facility] [address] [id number] [address] [place] [address], [place] [address] Jan, [facility] [address] [id number] [address] [place] [address], [place] [address] Jan, [facility] [address] [id number] [address] [place] [address], [place] [address] Jan, [facility] [address] [id number] [address] [place] [address], [place] [address] 16 Jan, 2014 [facility] [address] [id number] [facility] [address] Jan, [facility] [address] [id number] [address] [place] [address], [place] [address] Jan, [facility] [address] [id number] [address] [place] [address], [place] [address] Dec, [facility] [address] [id number] [address] [place] [address], [place] [address] Dec, [facility] [address] [id number] [address] [place] [address], [place] [address] Dec, [facility] [address] [id number] [address] [place] [address], [place] [address] Dec, [facility] [address] [id number] [address] [place] [address], [place] [address] Dec, [facility] [address] [id number] [address] [place] [address], [place] [address] Dec, [facility] [address] [id number] [address] [place] [address], [place] [address] Oct, [facility] [address] [id number] [address] [place] [address], [place] [address] Oct, [facility] [address] [id number] [address] [place] [address], [place] [address] Oct, [facility] [address] [id number] [address] [place] [address], [place] [address] Oct, [facility] [address] [id number] [address] [place] [address], [place] [address] Sep, [facility] [address] [id number] [address] [place] [address], [place] [address] Sep, [facility] [address] [id number] [address] [place] [address], [place] [address] Sep, [facility] [address] [id number] [address] [place] [address], [place] [address] Sep, [facility] [address] [id number] [address] [place] [address], [place] [address] Sep, [facility] [address] [id number] [address] [place] [address], [place] [address] Sep, [facility] [address] [id number] [address] [place] [address], [place] [address] Aug, [facility] [address] [id number] [address] [place] [address], [place] [address] Aug, [facility] [address] [id number] [address] [place] [address], [place] [address] Aug, [facility] [address] [id number] [address] [place] [address], [place] [address] Aug, [facility] [address] [id number] [address] [place] [address], [place] [address] 24 Aug, 2013 [facility] [address] [id number] [address] [place] [address], [place] [address] Aug, [facility] [address] [id number] [address] [place] [address], [place] [address] Aug, [facility] [address] [id number] [address] [place] [address], [place] [address] Aug, [facility] [address] [id number] [address] [place] [address], [place] [address] Aug, [facility] [address] [id number] [address] [place] [address], [place] [address] 17 Aug, 2013 [facility] [address] [id number] [address] [place] [address], [place] [address] 17 Aug, 2013 [facility] [address] [id number] [address] [place] [address], [place] [address] 14 Aug, 2013 [facility] [address] [id number] [address] [place] [id number] 14 Aug, 2013 [facility] [address] [id number] [address] [place] [id number] Jul, [facility] [address] [id number] [address] [place] [id number] Jul, [facility] [address] [id number] [address] [place] [id number] Jun, [facility] [address] [id number] [address] [place] [id number] Jun, [facility] [address] [id number] [address] [place] [id number] Jun, [facility] [address] [id number] [address] [place] [address] Jun, [facility] [address] [id number] [address] [place] [id number] Aug, [facility] [address] [id number] [address] [place] [id number] Jun, [facility] [address] [id number] [address] [place] [id number] May, IMMUNIZATIONS No Known Immunizations SOCIAL HISTORY [...] 1990 Surgical History L ankle surgery @ [facility] Surgical History tonsillectomy Hospitalization History Elevated BP
--- OUTSIDE RECORDS SUMMARY | 2019-12-01 17:36 | XMS REPORT ---
Author Author TAMIKOMandie BOWLING [facility] Address [address] [place] [address] Care Team Providers Care Immunochemist Name Role Phone ANTHONY MORRISON Unavailable PROBLEMS Type Condition ICD9-CM Code PRR06-DQ Code Onset Dates Condition S tatus SNOMED Code Problem History of cocaine abuse Z87.898 Activ e 677902232291489 Problem Irritable bowel syndrome K58.9 Activ e 29692302 Problem Hyperlipidemia E78.5 Active 25106 004 Problem Urge incontinence N39.41 Active 16 6578104 Problem Hypertension I10 Active 4373247 3 Problem Depressive disorder, not elsewhere classified F32. 9 Active 35794557 Problem Anxiety disorder, unspecified F41.9 Active 835848166 Problem Cannabis dependence, uncomplicated F12.20 Active 56572162 Problem Pulmonary hypertension I27.2 Active 62501561 Problem Allergic rhinitis J30.9 Active 61 820191 Problem Obesity (BMI 30.0-34.9) E66.9 Active 606761185959854 Problem Moderate persistent asthma, uncomplicated J45.40 Active 448253212 Problem Gastroesophageal reflux disease, esophagitis pre sence not specified K21.9 Active 367772678 Problem Chronic tension-type headache, intractable G44.221 Active 249345820 Problem Essential hypertension I10 Active 96499097 Problem Hyperlipidemia, unspecified hyperlipidemia type E7 8.5 Active 61242555 ALLERGIES No Information ENCOUNTERS Encounter Location Date Diagnosis [facility] [address] [facility] [id number] [address] [place] [address] Jul, [facility] [address] [facility] [id number] [address] [place] [id number] Aug, Dental examination Z01.20 [facility] [address] [facility] [id number] [address] [place] [address] Jan, [facility] [address] [address] 08 Aug, 2016 Shortness of breath R06.02 ; Pulmonary hypertension I27.2 and Obesity (BMI 30.0-34.9) E66.9 [place] [address] [address] 31 Jul, 2016 Scabies B86 ; Hyperlipidemia E78.5 and Syncope, unspecified syncope type R55 [place] [address] [address] Jul, [address] [address] Jul, Chest pain, unspecified type R07.9 ; Dyspnea on exertion R06.09 ; Syncope, unspecified syncope type R55 ; Hyperlipidemia, unspecified hyperlipidemia type E78.5 and Essential hypertension I10 [address] [address] Jul, [address] [address] Jun, Vasovagal syncope R55 ; Irri table bowel syndrome K58.9 ; Chronic tension-type headache, intractable G44.221 ; Pain in right foot M79.671 and Pain of left foot M79.[address] [address] 02 May, 2016 Exposure to STD Z20.2 ; Insu [place] coverage problems Z59.8 ; Acute intractable tension-type headache G44.201 ; Allergic rhinitis J30.9 ; Urge incontinence N39.41 and Gastroesophageal reflux disease, esophagitis presence not specified K21.[address] [address] Apr, [place] [address] [address] Mar, [address] [address] Feb, [facility] [address] [id number] [address] [place] [address] [phone] Jan, Dental examination Z01.20 [facility] [address] [facility] [id number] [address] [place] [address] Jan, Depressive disorder, not els ewhere classified F32.9 ; Anxiety disorder, unspecified F41.9 and Other fpc (current) drug therapy Z79.899 [facility] [address] [place] [id number] [address] [place] [address] Dec, Right chronic serous otitis media H65.21 and Asthma exacerbation J45.901 [facility] [address] [place] [id number] [address] [place] [phone] Dec, [facility] [address] [address] November, [facility] [address] [place] [id number] [address] [place] [phone] November, [facility] [address] [place] [id number] [address] [place] [phone] November, Hyperlipidemia E78.5 ; Hyper tension I10 and Obesity, unspecified obesity severity, unspecified obesity type E66.9 [facility] [address] [place] [id number] [address] [place] [address] Oct, Hyperlipidemia E78.5 ; Aller gic rhinitis J30.9 ; Moderate persistent asthma, uncomplicated J45.40 ; Irritable bowel syndrome K58.9 ; Urge incontinence N39.41 ; Depressive disorder, not elsewhere classified F32.9 ; Anxiety disorder, unspecified F41.9 and Hypertension I10 [facility] [address] [facility] [id number] [address] [place] [phone] Oct, Depressive disorder, not els ewhere classified F32.9 ; Anxiety disorder, unspecified F41.9 and Cannabis dependence, uncomplicated F12.20 [facility] [address] [place] [id number] [address] [place] [address] Apr, [facility] [address] [id number] [address] [place] [address] Jan, [facility] [address] [id number] [address] [place] [address] Jan, Irritable bowel syndrome 564 .1 ; Hyperlipidemia 272.4 ; Obesity, unspecified 278.00 ; Asthma 493.90 ; Urge incontinence 788.31 ; Anxiety 300.00 and GERD (gastroesophageal reflux disease) 530.81 [facility] [address] [id number] [address] [place] [address] [id number] Dec, Dental examination V72.2 [facility] [address] [id number] [address] [place] [address] [id number] November, Dental examination V72.2 [facility] [address] [id number] [address] [place] [phone] Oct, [facility] [address] [id number] [address] [place] [phone] Oct, [facility] [address] [id number] [address] [place] [address] Sep, [facility] [address] [id number] [address] [place] [phone] Sep, [facility] [address] [id number] [address] [place] [phone] Sep, [facility] [address] [id number] [address] [place] [phone] Sep, [facility] [address] [id number] [address] [place] [phone] Sep, [facility] [address] [id number] [address] [place] [phone] Sep, [facility] [address] [id number] [address] [place] [phone] Sep, [facility] [address] [id number] [address] [place] [address], [place] [address] 23 Sep, 2014 [facility] [address] [id number] [address] [place] [address], [place] [address] Sep, [facility] [address] [id number] [address] [place] [address], [place] [address] Sep, [facility] [address] [id number] [address] [place] [address], [place] [address] Sep, [facility] [address] [id number] [address] [place] [address], [place] [address] Sep, [facility] [address] [id number] [address] [place] [address], [place] [address] Sep, [facility] [address] [id number] [address] [place] [address], [place] [address] Jul, [facility] [address] [id number] [address] [place] [address], [place] [address] Jul, [facility] [address] [id number] [address] [place] [address], [place] [address] Jul, [facility] [address] [id number] [address] [place] [address], [place] [address] Jul, [facility] [address] [id number] [address] [place] [address], [place] [address] Jun, [facility] [address] [id number] [address] [place] [address], [place] [address] Jun, [facility] [address] [id number] [address] [place] [address], [place] [address] May, [facility] [address] [id number] [address] [place] [address], [place] [address] May, [facility] [address] [id number] [address] [place] [address], [place] [address] May, [facility] [address] [id number] [address] [place] [address], [place] [address] May, [facility] [address] [id number] [address] [place] [address], [place] [address] Apr, [facility] [address] [id number] [address] [place] [address], [place] [address] Apr, [facility] [address] [id number] [address] [place] [address], [place] [address] Mar, [facility] [address] [id number] [address] [place] [address], [place] [address] Mar, [facility] [address] [id number] [address] [place] [address], [place] [address] 15 Mar, 2014 [facility] [address] [id number] [address] [place] [address], [place] [address] 15 Mar, 2014 [facility] [address] [id number] [address] [place] [address], [place] [address] Mar, [facility] [address] [id number] [address] [place] [address], [place] [address] Mar, [facility] [address] [id number] [address] [place] [address], [place] [address] Feb, [facility] [address] [id number] [address] [place] [address], [place] [address] Feb, [facility] [address] [id number] [address] [place] [address], [place] [address] Feb, [facility] [address] [id number] [address] [place] [address], [place] [address] Feb, [facility] [address] [id number] [address] [place] [address], [place] [address] Jan, [facility] [address] [id number] [address] [place] [address], [place] [address] Jan, [facility] [address] [id number] [address] [place] [address], [place] [address] 16 Jan, 2014 [facility] [address] [id number] [address] [place] [address], [place] [address] 16 Jan, 2014 [facility] [address] [id number] [facility] [place] [address] Jan, [facility] [address] [id number] [address] [place] [address], [place] [address] Jan, [facility] [address] [id number] [address] [place] [address], [place] [address] Dec, [facility] [address] [id number] [address] [place] [address], [place] [address] Dec, [facility] [address] [id number] [address] [place] [address], [place] [address] Dec, [facility] [address] [id number] [address] [place] [address], [place] [address] Dec, [facility] [address] [id number] [address] [place] [address], [place] [address] Dec, [facility] [address] [id number] [address] [place] [address], [place] [address] Dec, [facility] [address] [id number] [address] [place] [address], [place] [address] Oct, [facility] [address] [id number] [address] [place] [address], [place] [address] Oct, [facility] [address] [id number] [address] [place] [address], [place] [address] Oct, [facility] [address] [id number] [address] [place] [address], [place] [address] Oct, [facility] [address] [id number] [address] [place] [address], [place] [address] Sep, [facility] [address] [id number] [address] [place] [address], [place] [address] Sep, [facility] [address] [id number] [address] [place] [address], [place] [address] Sep, [facility] [address] [id number] [address] [place] [address], [place] [address] Sep, [facility] [address] [id number] [address] [place] [address], [place] [address] Sep, [facility] [address] [id number] [address] [place] [address], [place] [address] Sep, [facility] [address] [id number] [address] [place] [address], [place] [address] Aug, [facility] [address] [id number] [address] [place] [address], [place] [address] Aug, [facility] [address] [id number] [address] [place] [address], [place] [address] Aug, [facility] [address] [id number] [address] [place] [address], [place] [address] Aug, [facility] [address] [id number] [address] [place] [address], [place] [address] Aug, [facility] [address] [id number] [address] [place] [address], [place] [address] Aug, [facility] [address] [id number] [address] [place] [address], [place] [address] Aug, [facility] [address] [id number] [address] [place] [address], [place] [address] Aug, [facility] [address] [id number] [address] [place] [address], [place] [address] Aug, [facility] [address] [id number] [address] [place] [address], [place] [address] 17 Aug, 2013 [facility] [address] [id number] [address] [place] [address], [place] [address] 17 Aug, 2013 [facility] [address] [id number] [address] [place] [address], [place] [address] 14 Aug, 2013 [facility] [address] [id number] [address] [place] [id number] 14 Aug, 2013 [facility] [address] [id number] [address] [place] [address] Jul, [facility] [address] [id number] [address] [place] [address] Jul, [facility] [address] [id number] [address] [place] [address] Jun, [facility] [address] [id number] [address] [place] [address] Jun, [facility] [address] [id number] [address] [place] [address] Jun, [facility] [address] [id number] [address] [place] [address] Jun, [facility] [address] [id number] [address] [place] [id number] Aug, [facility] [address] [id number] [address] [place] [phone] Jun, [facility] [address] [id number] [address] [place] [phone] May, IMMUNIZATIONS No Known Immunizations SOCIAL HISTORY [...] History Laser surgery for cervial cancer @ [facility] [place] 1990 Surgical History L ankle surgery @ [facility] Surgical History tonsillectomy Hospitalization History Elevated BP
--- OUTSIDE RECORDS SUMMARY | 2019-12-01 17:36 | XMS REPORT ---
Author Author Mandie Haynes Organization [facility] Address [address] [place] [address] Care Team Providers Care Oracle Fusion Developer Name Role Phone SAIRA Haynes Unavailable PROBLEMS Type Condition ICD9-CM Code [id number] Code Onset Dates Condition S tatus SNOMED Code Problem History of cocaine abuse Z87.898 Activ e [id number] Problem Irritable bowel syndrome K58.9 Activ e 17528838 Problem Hyperlipidemia E78.5 Active 54867 004 Problem Urge incontinence N39.41 Active 16 6008000 Problem Hypertension I10 Active 2076767 3 Problem Depressive disorder, not elsewhere classified F32. 9 Active 06411154 Problem Anxiety disorder, unspecified F41.9 Active 608167950 Problem Cannabis dependence, uncomplicated F12.20 Active 87023432 Problem Pulmonary hypertension I27.2 Active 64101564 Problem Allergic rhinitis J30.9 Active 61 876168 Problem Obesity (BMI 30.0-34.9) E66.9 Active 159112560375761 Problem Moderate persistent asthma, uncomplicated J45.40 Active 677265106 Problem Gastroesophageal reflux disease, esophagitis pre sence not specified K21.9 Active 321489681 Problem Chronic tension-type headache, intractable G44.221 Active 647118883 Problem Essential hypertension I10 Active 66143212 Problem Hyperlipidemia, unspecified hyperlipidemia type E7 8.5 Active 98042096 ALLERGIES No Information ENCOUNTERS Encounter Location Date Diagnosis [facility] [address] [facility] [id number] [address] [place] [address] Jul, [facility] [address] [facility] [id number] [address] [place] [id number] Aug, Dental examination Z01.20 [facility] [address] [facility] [id number] [address] [place] [address] Jan, [place] [address] [address] 08 Aug, 2016 Shortness of breath R06.02 ; Pulmonary hypertension I27.2 and Obesity (BMI 30.0-34.9) E66.9 [place] [address] [address] 31 Jul, 2016 Scabies B86 ; Hyperlipidemia E78.5 and Syncope, unspecified syncope type R55 [place] [address] [address] Jul, [address] [address] Jul, Chest pain, unspecified type R07.9 ; Dyspnea on exertion R06.09 ; Syncope, unspecified syncope type R55 ; Hyperlipidemia, unspecified hyperlipidemia type E78.5 and Essential hypertension I10 [address] [address] Jul, [place] [address] [address] Jun, Vasovagal syncope R55 ; Irri table bowel syndrome K58.9 ; Chronic tension-type headache, intractable G44.221 ; Pain in right foot M79.671 and Pain of left foot M79.[address] [address] 02 May, 2016 Exposure to STD Z20.2 ; Insu dakotah coverage problems Z59.8 ; Acute intractable tension-type headache G44.201 ; Allergic rhinitis J30.9 ; Urge incontinence N39.41 and Gastroesophageal reflux disease, esophagitis presence not specified K21.[address] [address] 10 Apr, 2016 [place] [address] [address] Mar, [address] [place] [address] Feb, [facility] [address] [id number] [address] [place] [id number] Jan, Dental examination Z01.20 [facility] [address] [facility] [id number] [address] [place] [address] Jan, Depressive disorder, not els ewhere classified F32.9 ; Anxiety disorder, unspecified F41.9 and 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 [facility] [address] [facility] [id number] [address] [place] [address] Dec, Right chronic serous otitis media H65.21 and Asthma exacerbation J45.901 [facility] [address] [place] [id number] [address] [place] [address] Dec, [facility] [address] [address] November, [facility] [address] [address] November, [facility] [address] [address] November, Hyperlipidemia E78.5 ; Hyper tension I10 and Obesity, unspecified obesity severity, unspecified obesity type E66.9 [facility] [address] [address] Oct, Hyperlipidemia E78.5 ; Aller gic rhinitis J30.9 ; Moderate persistent asthma, uncomplicated J45.40 ; Irritable bowel syndrome K58.9 ; Urge incontinence N39.41 ; Depressive disorder, not elsewhere classified F32.9 ; Anxiety disorder, unspecified F41.9 and Hypertension I10 [facility] [address] [place] [id number] [address] [place] [address] Oct, Depressive disorder, not els ewhere classified F32.9 ; Anxiety disorder, unspecified F41.9 and Cannabis dependence, uncomplicated F12.20 [facility] [address] [place] [id number] [address] [place] [address] Apr, [facility] [address] [id number] [address] [place] [address] Jan, [facility] [address] [id number] [address] [place] [address] Jan, Irritable bowel syndrome 564 .1 ; Hyperlipidemia 272.4 ; Obesity, unspecified 278.00 ; Asthma 493.90 ; Urge incontinence 788.31 ; Anxiety 300.00 and GERD (gastroesophageal reflux disease) 530.81 [facility] [address] [id number] [address] [place] [id number] Dec, Dental examination V72.2 [facility] [address] [id number] [address] [place] [id number] November, Dental examination V72.2 [facility] [address] [id number] [address] [place] [address] Oct, [facility] [address] [id number] [address] [place] [address] Oct, [facility] [address] [id number] [address] [place] [address] Sep, [facility] [address] [id number] [address] [place] [address] Sep, [facility] [address] [id number] [address] [place] [address] Sep, [facility] [address] [id number] [address] [place] [address] Sep, [facility] [address] [id number] [address] [place] [address] Sep, [facility] [address] [id number] [address] [place] [address] Sep, [facility] [address] [id number] [address] [place] [address] Sep, [facility] [place] [facility] [address] [id number] [address] [place] [address], [place] [address] 23 Sep, [address] [facility] [address] [id number] [address] [place] [address], [place] [address] 22 Sep, 2014 [facility] [address] [id number] [address] [place] [address], [place] [address] 19 Sep, [address] [facility] [address] [id number] [address] [place] [address], [place] [address] 19 Sep, 2014 [facility] [address] [id number] [address] [place] [address], [place] [address] Sep, [facility] [address] [id number] [address] [place] [address], [place] [address] Sep, [facility] [address] [id number] [address] [place] [address], [place] [address] Jul, [facility] [address] [id number] [address] [place] [address], [place] [address] Jul, [facility] [address] [id number] [address] [place] [address], [place] [address] Jul, [facility] [address] [id number] [address] [place] [address], [place] [address] Jul, [facility] [address] [id number] [address] [place] [address], [place] [address] Jun, [facility] [address] [id number] [address] [place] [address], [place] [address] Jun, [facility] [address] [id number] [address] [place] [address], [place] [address] May, [facility] [address] [id number] [address] [place] [address], [place] [address] May, [facility] [address] [id number] [address] [place] [address], [place] [address] May, [facility] [address] [id number] [address] [place] [address], [place] [address] May, [facility] [address] [id number] [address] [place] [address], [place] [address] Apr, [facility] [place] [facility] [address] [id number] [address] [place] [address], [place] [address] Apr, [facility] [place] [facility] [address] [id number] [address] [place] [address], [place] [address] Mar, [facility] [place] [facility] [address] [id number] [address] [place] [address], [place] [address] Mar, [facility] [place] [address] [id number] [address] [place] [address], [place] [address] 15 Mar, 2014 [facility] [place] [facility] [address] [id number] [address] [place] [address], [place] [address] Mar, [facility] [place] [facility] [address] [id number] [address] [place] [address], [place] [address] Mar, [facility] [place] [facility] [address] [id number] [address] [place] [address], [place] [address] Mar, [facility] [place] [facility] [address] [id number] [address] [place] [address], [place] [address] Feb, [facility] [place] [facility] [address] [id number] [address] [place] [address], [place] [address] Feb, [facility] [place] [facility] [address] [id number] [address] [place] [address], [place] [address] Feb, [facility] [place] [facility] [address] [id number] [address] [place] [address], [place] [address] Feb, [facility] [place] [facility] [address] [id number] [address] [place] [address], [place] [address] Jan, [facility] [place] [facility] [address] [id number] [address] [place] [address], [place] [address] Jan, [facility] [place] [facility] [address] [id number] [address] [place] [address], [place] [address] Jan, [facility] [place] [facility] [address] [id number] [address] [place] [address], [place] [address] 16 Jan, 2014 [facility] [address] [id number] [facility] [place] [address] Jan, [facility] [address] [id number] [address] [place] [address], [place] [address] Jan, [facility] [address] [id number] [address] [place] [address], [place] [address] Dec, [facility] [place] [facility] [address] [id number] [address] [place] [address], [place] [address] Dec, [facility] [address] [id number] [address] [place] [address], [place] [address] Dec, [facility] [address] [id number] [address] [place] [address], [place] [address] Dec, [facility] [address] [id number] [address] [place] [address], [place] [address] Dec, [facility] [address] [id number] [address] [place] [address], [place] [address] Dec, [facility] [address] [id number] [address] [place] [address], [place] [address] Oct, [facility] [address] [id number] [address] [place] [address], [place] [address] Oct, [facility] [address] [id number] [address] [place] [address], [place] [address] Oct, [facility] [place] [facility] [address] [id number] [address] [place] [address], [place] [address] Oct, [facility] [place] [facility] [address] [id number] [address] [place] [address], [place] [address] Sep, [facility] [place] [facility] [address] [id number] [address] [place] [address], [place] [address] Sep, [facility] [place] [facility] [address] [id number] [address] [place] [address], [place] [address] Sep, [facility] [place] [facility] [address] [id number] [facility] [place] [address] Sep, [facility] [place] [facility] [address] [id number] [address] [place] [address], [place] [address] Sep, [facility] [place] [facility] [address] [id number] [facility] [address] Sep, [facility] [place] [facility] [address] [id number] [address] [place] [address], [place] [address] Aug, [facility] [place] [facility] [address] [id number] [address] [place] [address], [place] [address] Aug, [facility] [place] [facility] [address] [id number] [address] [place] [address], [place] [address] Aug, [facility] [address] [id number] [address] [place] [address], [place] [address] Aug, [facility] [place] [facility] [address] [id number] [address] [place] [address], [place] [address] Aug, [facility] [place] [facility] [address] [id number] [address] [place] [address], [place] [address] Aug, [facility] [place] [facility] [address] [id number] [address] [place] [address], [place] [address] Aug, [facility] [place] [facility] [address] [id number] [address] [place] [address], [place] [address] Aug, [facility] [place] [facility] [address] [id number] [address] [place] [address], [place] [address] Aug, [facility] [place] [facility] [address] [id number] [address] [place] [address], [place] [address] 17 Aug, 2013 [facility] [place] [facility] [address] [id number] [address] [place] [address], [place] [address] 17 Aug, 2013 [facility] [place] [facility] [address] [id number] [address] [place] [address], [place] [address] 14 Aug, 2013 [facility] [place] [facility] [address] [id number] [address] [place] [address] 14 Aug, 2013 [facility] [address] [id number] [address] [place] [address] Jul, [facility] [address] [id number] [address] [place] [address] Jul, [facility] [address] [id number] [address] [place] [address] Jun, [facility] [address] [id number] [address] [place] [address] Jun, [facility] [address] [id number] [address] [place] [address] Jun, [facility] [address] [id number] [address] [place] [address] Jun, [facility] [address] [id number] [address] [place] [address] Aug, [facility] [address] [id number] [address] [place] [address] Jun, [facility] [address] [id number] [address] [place] [address] May, IMMUNIZATIONS No Known Immunizations SOCIAL HISTORY [...] History Laser surgery for cervial cancer @ [facility] [place] 1990 Surgical History L ankle surgery @ [facility] Surgical History tonsillectomy Hospitalization History Elevated BP
--- OUTSIDE RECORDS SUMMARY | 2019-12-01 17:37 | XMS REPORT ---
Author Author Mandie Manzanares Organization [facility] Address [address] [place] [address] Care Team Providers Care Surgical Rn Name Role Phone TRACY Manzanares Unavailable PROBLEMS Type Condition ICD9-CM Code [id number] Code Onset Dates Condition S tatus SNOMED Code Problem History of cocaine abuse Z87.898 Activ e 635070475252436 Problem Irritable bowel syndrome K58.9 Activ e 35542511 Problem Hyperlipidemia E78.5 Active 60127 004 Problem Urge incontinence N39.41 Active 16 4594978 Problem Hypertension I10 Active 1995055 3 Problem Depressive disorder, not elsewhere classified F32. 9 Active 93902335 Problem Anxiety disorder, unspecified F41.9 Active 529241632 Problem Cannabis dependence, uncomplicated F12.20 Active 99599600 Problem Pulmonary hypertension I27.2 Active 28526473 Problem Allergic rhinitis J30.9 Active 61 854842 Problem Obesity (BMI 30.0-34.9) E66.9 Active 171346520776922 Problem Moderate persistent asthma, uncomplicated J45.40 Active 654580464 Problem Gastroesophageal reflux disease, esophagitis pre sence not specified K21.9 Active 129764394 Problem Chronic tension-type headache, intractable G44.221 Active 724344338 Problem Essential hypertension I10 Active 37227514 Problem Hyperlipidemia, unspecified hyperlipidemia type E7 8.5 Active 85009917 ALLERGIES No Information ENCOUNTERS Encounter Location Date Diagnosis [facility] [address] [facility] [id number] [address] [place] [id number] Jul, [facility] [address] [facility] [id number] [address] [place] [id number] Aug, Dental examination Z01.20 [facility] [address] [facility] [id number] [address] [place] [phone] Jan, [facility] [address] [address] 08 Aug, 2016 Shortness of breath R06.02 ; Pulmonary hypertension I27.2 and Obesity (BMI 30.0-34.9) E66.9 [place] [address] [address] 31 Jul, 2016 Scabies B86 ; Hyperlipidemia E78.5 and Syncope, unspecified syncope type R55 [place] [address] [address] 17 Jul, [address] [address] Jul, Chest pain, unspecified type R07.9 ; Dyspnea on exertion R06.09 ; Syncope, unspecified syncope type R55 ; Hyperlipidemia, unspecified hyperlipidemia type E78.5 and Essential hypertension I10 [address] [address] Jul, [address] [address] Jun, Vasovagal syncope R55 ; Irri table bowel syndrome K58.9 ; Chronic tension-type headache, intractable G44.221 ; Pain in right foot M79.671 and Pain of left foot M79.[address] [address] 02 May, 2016 Exposure to STD Z20.2 ; Insu [place] coverage problems Z59.8 ; Acute intractable tension-type headache G44.201 ; Allergic rhinitis J30.9 ; Urge incontinence N39.41 and Gastroesophageal reflux disease, esophagitis presence not specified K21.[address] [address] Apr, [place] [address] [address] Mar[address] [address] Feb, [facility] [address] [id number] [address] [place] [id number] Jan, Dental examination Z01.20 [facility] [address] [facility] [id number] [address] [place] [phone] Jan, Depressive disorder, not els ewhere classified F32.9 ; Anxiety disorder, unspecified F41.9 and 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 [facility] [address] [facility] [id number] [address] [place] [id number] Dec, Right chronic serous otitis media H65.21 and Asthma exacerbation J45.901 [facility] [address] [facility] [id number] [address] [place] [phone] Dec, [facility] [address] [place] [phone] November, [facility] [address] [place] [phone] November, [facility] [address] [place] [phone] November, Hyperlipidemia E78.5 ; Hyper tension I10 and Obesity, unspecified obesity severity, unspecified obesity type E66.9 [facility] [address] [place] [address] Oct, Hyperlipidemia E78.5 ; Aller gic rhinitis J30.9 ; Moderate persistent asthma, uncomplicated J45.40 ; Irritable bowel syndrome K58.9 ; Urge incontinence N39.41 ; Depressive disorder, not elsewhere classified F32.9 ; Anxiety disorder, unspecified F41.9 and Hypertension I10 [facility] [address] [facility] [id number] [address] [place] [phone] Oct, Depressive disorder, not els ewhere classified F32.9 ; Anxiety disorder, unspecified F41.9 and Cannabis dependence, uncomplicated F12.20 [facility] [address] [place] [id number] [address] [place] [phone] Apr, [facility] [address] [id number] [address] [place] [phone] Jan, [facility] [address] [id number] [address] [place] [phone] Jan, Irritable bowel syndrome 564 .1 ; Hyperlipidemia 272.4 ; Obesity, unspecified 278.00 ; Asthma 493.90 ; Urge incontinence 788.31 ; Anxiety 300.00 and GERD (gastroesophageal reflux disease) 530.81 [facility] [address] [id number] [address] [place] [id number] Dec, Dental examination V72.2 [facility] [address] [id number] [address] [place] [id number] November, Dental examination V72.2 [facility] [address] [id number] [address] [place] [phone] Oct, [facility] [address] [id number] [address] [place] [phone] Oct, [facility] [address] [id number] [address] [place] [phone] Sep, [facility] [address] [id number] [address] [place] [phone] Sep, [facility] [address] [id number] [address] [place] [phone] Sep, [facility] [address] [id number] [address] [place] [id number] Sep, [facility] [address] [id number] [address] [place] [phone] Sep, [facility] [address] [id number] [address] [place] [phone] Sep, [facility] [address] [id number] [address] [place] [phone] Sep, [facility] [address] [id number] [address] [place] [address], [place] [address] 23 Sep, 2014 [facility] [address] [id number] [address] [place] [address], [place] [address] Sep, [facility] [address] [id number] [address] [place] [address], [place] [address] Sep, [facility] [address] [id number] [address] [place] [address], [place] [address] Sep, [facility] [address] [id number] [address] [place] [address], [place] [address] Sep, [facility] [address] [id number] [address] [place] [address], [place] [address] Sep, [facility] [address] [id number] [address] [place] [address], [place] [address] Jul, [facility] [address] [id number] [address] [place] [address], [place] [address] Jul, [facility] [address] [id number] [address] [place] [address], [place] [address] Jul, [facility] [address] [id number] [address] [place] [address], [place] [address] Jul, [facility] [address] [id number] [address] [place] [address], [place] [address] Jun, [facility] [address] [id number] [address] [place] [address], [place] [address] Jun, [facility] [address] [id number] [address] [place] [address], [place] [address] May, [facility] [address] [id number] [address] [place] [address], [place] [address] May, [facility] [address] [id number] [address] [place] [address], [place] [address] May, [facility] [address] [id number] [address] [place] [address], [place] [address] May, [facility] [address] [id number] [address] [place] [address], [place] [address] Apr, [facility] [address] [id number] [address] [place] [address], [place] [address] Apr, [facility] [address] [id number] [address] [place] [address], [place] [address] Mar, [facility] [address] [id number] [address] [place] [address], [place] [address] Mar, [facility] [address] [id number] [address] [place] [address], [place] [address] 15 Mar, 2014 [facility] [address] [id number] [address] [place] [address], [place] [address] Mar, [facility] [address] [id number] [address] [place] [address], [place] [address] Mar, [facility] [address] [id number] [address] [place] [address], [place] [address] Mar, [facility] [address] [id number] [address] [place] [address], [place] [address] Feb, [facility] [address] [id number] [address] [place] [address], [place] [address] Feb, [facility] [address] [id number] [address] [place] [address], [place] [address] Feb, [facility] [address] [id number] [address] [place] [address], [place] [address] Feb, [facility] [address] [id number] [address] [place] [address], [place] [address] Jan, [facility] [address] [id number] [address] [place] [address], [place] [address] Jan, [facility] [address] [id number] [address] [place] [address], [place] [address] Jan, [facility] [address] [id number] [address] [place] [address], [place] [address] 16 Jan, 2014 [facility] [address] [id number] [facility] [place] [address] Jan, [facility] [address] [id number] [address] [place] [address], [place] [address] Jan, [facility] [address] [id number] [address] [place] [address], [place] [address] Dec, [facility] [address] [id number] [address] [place] [address], [place] [address] Dec, [facility] [address] [id number] [address] [place] [address], [place] [address] Dec, [facility] [address] [id number] [address] [place] [address], [place] [address] Dec, [facility] [address] [id number] [address] [place] [address], [place] [address] Dec, [facility] [address] [id number] [address] [place] [address], [place] [address] Dec, [facility] [address] [id number] [address] [place] [address], [place] [address] Oct, [facility] [address] [id number] [address] [place] [address], [place] [address] Oct, [facility] [address] [id number] [address] [place] [address], [place] [address] Oct, [facility] [address] [id number] [address] [place] [address], [place] [address] Oct, [facility] [address] [id number] [address] [place] [address], [place] [address] Sep, [facility] [address] [id number] [address] [place] [address], [place] [address] Sep, [facility] [address] [id number] [address] [place] [address], [place] [address] Sep, [facility] [address] [id number] [address] [place] [address], [place] [address] Sep, [facility] [address] [id number] [address] [place] [address], [place] [address] Sep, [facility] [address] [id number] [address] [place] [address], [place] [address] Sep, [facility] [address] [id number] [address] [place] [address], [place] [address] Aug, [facility] [address] [id number] [address] [place] [address], [place] [address] Aug, [facility] [address] [id number] [address] [place] [address], [place] [address] Aug, [facility] [address] [id number] [address] [place] [address], [place] [address] Aug, [facility] [address] [id number] [address] [place] [address], [place] [address] 24 Aug, 2013 [facility] [address] [id number] [address] [place] [address], [place] [address] Aug, [facility] [address] [id number] [address] [place] [address], [place] [address] Aug, [facility] [address] [id number] [address] [place] [address], [place] [address] Aug, [facility] [address] [id number] [address] [place] [address], [place] [address] Aug, [facility] [address] [id number] [address] [place] [address], [place] [address] 17 Aug, 2013 [facility] [address] [id number] [address] [place] [address], [place] [address] 17 Aug, 2013 [facility] [address] [id number] [address] [place] [address], [place] [address] 14 Aug, 2013 [facility] [address] [id number] [address] [place] [address] 14 Aug, 2013 [facility] [address] [id number] [address] [place] [id number] Jul, [facility] [address] [id number] [address] [place] [phone] Jul, [facility] [address] [id number] [address] [place] [phone] Jun, [facility] [address] [id number] [address] [place] [id number] Jun, [facility] [address] [id number] [address] [place] [address] Jun, [facility] [address] [id number] [address] [place] [id number] Jun, [facility] [address] [facility] [id number] [address] [place] [id number] Aug, [facility] [address] [id number] [address] [place] [id number] Jun, [facility] [address] [id number] [address] [place] [id number] May, IMMUNIZATIONS No Known Immunizations SOCIAL HISTORY Never Assessed REASON FOR VISIT PLAN OF CARE VITAL SIGNS Height 67 in 2014-10-03 Weight 199 lbs 2014-10-03 Temperature 98 degrees Fahrenheit 2014-10-03 Heart Rate 88 bpm 2014-10-03 Respiratory Rate 18 2014-10-03 Blood pressure systolic 136 mmHg 2014-10-03 Blood pressure diastolic 86 mmHg 2014-10-03 MEDICATIONS Unknown Medications RESULTS No Results PROCEDURES Procedure Date Ordered Result Body Site TRICHOMONAS VAGIN, DIR PROBE October 03, 2014 CHYLMD TRACH, DNA, AMP PROBE October 03, 2014 URINE CULTURE/COLONY COUNT October 03, 2014 CULTURE, BACTERIA, OTHER October 03, 2014 URINALYSIS, AUTO, W/O SCOPE October 03, 2014 INSTRUCTIONS MEDICATIONS ADMINISTERED No Known Medications [...] History Laser surgery for cervial cancer @ [facility] [place] 1990 Surgical History L ankle surgery @ [facility] Surgical History tonsillectomy Hospitalization History Elevated BP
--- OUTSIDE RECORDS SUMMARY | 2019-12-01 17:37 | XMS REPORT ---
Author Author TAMIKOMandie BOWLING [facility] Address [address] [place] [address] Care Team Providers Care Chore Worker Name Role Phone ANTHONY MORRISON Unavailable PROBLEMS Type Condition ICD9-CM Code MHH83-ZI Code Onset Dates Condition S tatus SNOMED Code Problem History of cocaine abuse Z87.898 Activ e [id number] Problem Irritable bowel syndrome K58.9 Activ e 72012402 Problem Hyperlipidemia E78.5 Active 32966 004 Problem Urge incontinence N39.41 Active 16 9256024 Problem Hypertension I10 Active 0308551 3 Problem Depressive disorder, not elsewhere classified F32. 9 Active 31992410 Problem Anxiety disorder, unspecified F41.9 Active 198317656 Problem Cannabis dependence, uncomplicated F12.20 Active 16290243 Problem Pulmonary hypertension I27.2 Active 92259476 Problem Allergic rhinitis J30.9 Active 61 713744 Problem Obesity (BMI 30.0-34.9) E66.9 Active 683090386645146 Problem Moderate persistent asthma, uncomplicated J45.40 Active 696813415 Problem Gastroesophageal reflux disease, esophagitis pre sence not specified K21.9 Active 130679520 Problem Chronic tension-type headache, intractable G44.221 Active 613408352 Problem Essential hypertension I10 Active 16920647 Problem Hyperlipidemia, unspecified hyperlipidemia type E7 8.5 Active 30394499 ALLERGIES No Information ENCOUNTERS Encounter Location Date Diagnosis [facility] [address] [facility] [id number] [address] [place] [address] Jul, [facility] [address] [facility] [id number] [address] [place] [phone] Aug, Dental examination Z01.20 [facility] [address] [facility] [id number] [address] [place] [address] Jan, [facility] [address] [address] 08 Aug, 2016 Shortness of breath R06.02 ; Pulmonary hypertension I27.2 and Obesity (BMI 30.0-34.9) E66.9 [place] [address] [address] 31 Jul, 2016 Scabies B86 ; Hyperlipidemia E78.5 and Syncope, unspecified syncope type R55 [place] [address] [address] Jul, [address] [address] Jul, Chest pain, unspecified type R07.9 ; Dyspnea on exertion R06.09 ; Syncope, unspecified syncope type R55 ; Hyperlipidemia, unspecified hyperlipidemia type E78.5 and Essential hypertension I10 [address] [address] Jul, [address] [address] Jun, Vasovagal syncope R55 ; Irri table bowel syndrome K58.9 ; Chronic tension-type headache, intractable G44.221 ; Pain in right foot M79.671 and Pain of left foot M79.[address] [address] 02 May, 2016 Exposure to STD Z20.2 ; Insu [place] coverage problems Z59.8 ; Acute intractable tension-type headache G44.201 ; Allergic rhinitis J30.9 ; Urge incontinence N39.41 and Gastroesophageal reflux disease, esophagitis presence not specified K21.[address] [address] Apr, [place] [address] [address] Mar, [address] [address] Feb, [facility] [address] [id number] [address] [place] [phone] Jan, Dental examination Z01.20 [facility] [address] [facility] [id number] [address] [place] [address] Jan, Depressive disorder, not els ewhere classified F32.9 ; Anxiety disorder, unspecified F41.9 and Other residential (current) drug therapy Z79.899 [facility] [address] [place] [id number] [address] [place] [address] Dec, Right chronic serous otitis media H65.21 and Asthma exacerbation J45.901 [facility] [address] [place] [id number] [address] [place] [address] Dec, [facility] [address] [address] November, [facility] [address] [place] [id number] [address] [place] [address] November, [facility] [address] [place] [id number] [address] [place] [address] November, Hyperlipidemia E78.5 ; Hyper tension I10 and Obesity, unspecified obesity severity, unspecified obesity type E66.9 [facility] [address] [place] [id number] [address] [place] [address] Oct, Hyperlipidemia E78.5 ; Aller gic rhinitis J30.9 ; Moderate persistent asthma, uncomplicated J45.40 ; Irritable bowel syndrome K58.9 ; Urge incontinence N39.41 ; Depressive disorder, not elsewhere classified F32.9 ; Anxiety disorder, unspecified F41.9 and Hypertension I10 [facility] [address] [facility] [id number] [address] [place] [address] Oct, Depressive disorder, not els ewhere classified F32.9 ; Anxiety disorder, unspecified F41.9 and Cannabis dependence, uncomplicated F12.20 [facility] [address] [place] [id number] [address] [place] [address] Apr, [facility] [address] [id number] [address] [place] [address] Jan, [facility] [address] [id number] [address] [place] [address] Jan, Irritable bowel syndrome 564 .1 ; Hyperlipidemia 272.4 ; Obesity, unspecified 278.00 ; Asthma 493.90 ; Urge incontinence 788.31 ; Anxiety 300.00 and GERD (gastroesophageal reflux disease) 530.81 [facility] [address] [id number] [address] [place] [id number] Dec, Dental examination V72.2 [facility] [address] [id number] [address] [place] [address] [id number] November, Dental examination V72.2 [facility] [address] [id number] [address] [place] [address] Oct, [facility] [address] [id number] [address] [place] [address] Oct, [facility] [address] [id number] [address] [place] [address] Sep, [facility] [address] [id number] [address] [place] [address] Sep, [facility] [address] [id number] [address] [place] [address] Sep, [facility] [address] [id number] [address] [place] [address] Sep, [facility] [address] [id number] [address] [place] [address] Sep, [facility] [address] [id number] [address] [place] [address] Sep, [facility] [address] [id number] [address] [place] [phone] Sep, [facility] [address] [id number] [address] [place] [address], [place] [address] 23 Sep, 2014 [facility] [address] [id number] [address] [place] [address], [place] [address] Sep, [facility] [address] [id number] [address] [place] [address], [place] [address] Sep, [facility] [address] [id number] [address] [place] [address], [place] [address] Sep, [facility] [address] [id number] [address] [place] [address], [place] [address] Sep, [facility] [address] [id number] [address] [place] [address], [place] [address] Sep, [facility] [address] [id number] [address] [place] [address], [place] [address] Jul, [facility] [address] [id number] [address] [place] [address], [place] [address] Jul, [facility] [address] [id number] [address] [place] [address], [place] [address] Jul, [facility] [address] [id number] [address] [place] [address], [place] [address] Jul, [facility] [address] [id number] [address] [place] [address], [place] [address] Jun, [facility] [address] [id number] [address] [place] [address], [place] [address] Jun, [facility] [address] [id number] [address] [place] [address], [place] [address] May, [facility] [address] [id number] [address] [place] [address], [place] [address] May, [facility] [address] [id number] [address] [place] [address], [place] [address] May, [facility] [address] [id number] [address] [place] [address], [place] [address] May, [facility] [address] [id number] [address] [place] [address], [place] [address] Apr, [facility] [address] [id number] [address] [place] [address], [place] [address] Apr, [facility] [address] [id number] [address] [place] [address], [place] [address] Mar, [facility] [address] [id number] [address] [place] [address], [place] [address] Mar, [facility] [address] [id number] [address] [place] [address], [place] [address] 15 Mar, 2014 [facility] [address] [id number] [address] [place] [address], [place] [address] 15 Mar, 2014 [facility] [address] [id number] [address] [place] [address], [place] [address] Mar, [facility] [address] [id number] [address] [place] [address], [place] [address] Mar, [facility] [address] [id number] [address] [place] [address], [place] [address] Feb, [facility] [address] [id number] [address] [place] [address], [place] [address] Feb, [facility] [address] [id number] [address] [place] [address], [place] [address] Feb, [facility] [address] [id number] [address] [place] [address], [place] [address] Feb, [facility] [address] [id number] [address] [place] [address], [place] [address] Jan, [facility] [address] [id number] [address] [place] [address], [place] [address] Jan, [facility] [address] [id number] [address] [place] [address], [place] [address] 16 Jan, 2014 [facility] [address] [id number] [address] [place] [address], [place] [address] 16 Jan, 2014 [facility] [address] [id number] [facility] [address] Jan, [facility] [address] [id number] [address] [place] [address], [place] [address] Jan, [facility] [address] [id number] [address] [place] [address], [place] [address] Dec, [facility] [address] [id number] [address] [place] [address], [place] [address] Dec, [facility] [address] [id number] [address] [place] [address], [place] [address] Dec, [facility] [address] [id number] [address] [place] [address], [place] [address] Dec, [facility] [address] [id number] [address] [place] [address], [place] [address] Dec, [facility] [address] [id number] [address] [place] [address], [place] [address] Dec, [facility] [address] [id number] [address] [place] [address], [place] [address] Oct, [facility] [address] [id number] [address] [place] [address], [place] [address] Oct, [facility] [address] [id number] [address] [place] [address], [place] [address] Oct, [facility] [address] [id number] [address] [place] [address], [place] [address] Oct, [facility] [address] [id number] [address] [place] [address], [place] [address] Sep, [facility] [address] [id number] [address] [place] [address], [place] [address] Sep, [facility] [address] [id number] [address] [place] [address], [place] [address] Sep, [facility] [address] [id number] [address] [place] [address], [place] [address] Sep, [facility] [address] [id number] [address] [place] [address], [place] [address] Sep, [facility] [address] [id number] [address] [place] [address], [place] [address] Sep, [facility] [address] [id number] [address] [place] [address], [place] [address] Aug, [facility] [address] [id number] [address] [place] [address], [place] [address] Aug, [facility] [address] [id number] [address] [place] [address], [place] [address] Aug, [facility] [address] [id number] [address] [place] [address], [place] [address] Aug, [facility] [address] [id number] [address] [place] [address], [place] [address] Aug, [facility] [address] [id number] [address] [place] [address], [place] [address] Aug, [facility] [address] [id number] [address] [place] [address], [place] [address] Aug, [facility] [address] [id number] [address] [place] [address], [place] [address] Aug, [facility] [address] [id number] [address] [place] [address], [place] [address] Aug, [facility] [address] [id number] [address] [place] [address], [place] [address] 17 Aug, 2013 [facility] [address] [id number] [address] [place] [address], [place] [address] 17 Aug, 2013 [facility] [address] [id number] [address] [place] [address], [place] [address] 14 Aug, 2013 [facility] [address] [id number] [address] [place] [address] 14 Aug, 2013 [facility] [address] [id number] [address] [place] [address] Jul, [facility] [address] [id number] [address] [place] [address] Jul, [facility] [address] [id number] [address] [place] [address] Jun, [facility] [address] [id number] [address] [place] [address] Jun, [facility] [address] [id number] [address] [place] [address] Jun, [facility] [address] [id number] [address] [place] [address] Jun, [facility] [address] [id number] [address] [place] [address] Aug, [facility] [address] [id number] [address] [place] [address] Jun, [facility] [address] [id number] [address] [place] [address] May, IMMUNIZATIONS No Known Immunizations SOCIAL HISTORY [...] History Laser surgery for cervial cancer @ [facility] [place] 1990 Surgical History L ankle surgery @ [facility] Surgical History tonsillectomy Hospitalization History Elevated BP
--- OUTSIDE RECORDS SUMMARY | 2019-12-01 17:37 | XMS REPORT ---
Author Author Clair Mandie Doctor Organization [facility] Address Unknown Phone Unavailable Care Team Providers Care Audio Visual Production Specialist Name Role Phone Migration, Doctor Unavailable Unavailable PROBLEMS Type Condition ICD9-CM Code DTO08-OZ Code Onset Dates Condition S tatus SNOMED Code Problem History of cocaine abuse Z87.898 Activ e [id number] Problem Irritable bowel syndrome K58.9 Activ e 01805422 Problem Hyperlipidemia E78.5 Active 35893 004 Problem Urge incontinence N39.41 Active 16 1225640 Problem Hypertension I10 Active 6353638 3 Problem Depressive disorder, not elsewhere classified F32. 9 Active 36408288 Problem Anxiety disorder, unspecified F41.9 Active 806705795 Problem Cannabis dependence, uncomplicated F12.20 Active 62677762 Problem Pulmonary hypertension I27.2 Active 98898614 Problem Allergic rhinitis J30.9 Active 61 817371 Problem Obesity (BMI 30.0-34.9) E66.9 Active 590731886975429 Problem Moderate persistent asthma, uncomplicated J45.40 Active 301147533 Problem Gastroesophageal reflux disease, esophagitis pre sence not specified K21.9 Active 901326327 Problem Chronic tension-type headache, intractable G44.221 Active 861190102 Problem Essential hypertension I10 Active 42794532 Problem Hyperlipidemia, unspecified hyperlipidemia type E7 8.5 Active 95775129 ALLERGIES No Information ENCOUNTERS Encounter Location Date Diagnosis [facility] [address] [id number] [address] [place] [phone] Jul, [facility] [address] [facility] [id number] [address] [place] [id number] Aug, Dental examination Z01.20 [facility] [address] [id number] [address] [place] [address] Jan, [facility] [address] [id number] [address] [place] [phone] 08 Feb, 2017 Shortness of breath R06.02 ; Pulmonary hypertension I27.2 and Obesity (BMI 30.0-34.9) E66.9 [place] [id number] [address] Jul, Scabies B86 ; Hyperlipidemia E78.5 and Syncope, unspecified syncope type R55 [place] [address] [address] Jul, [place] [address] [address] Jul, Chest pain, unspecified type R07.9 ; Dyspnea on exertion R06.09 ; Syncope, unspecified syncope type R55 ; Hyperlipidemia, unspecified hyperlipidemia type E78.5 and Essential hypertension I10 [place] [address] [address] Jul, [address] [address] Jun, Vasovagal syncope R55 ; Irri table bowel syndrome K58.9 ; Chronic tension-type headache, intractable G44.221 ; Pain in right foot M79.671 and Pain of left foot M79.672 [place] [address] [address] May, Exposure to STD Z20.2 ; Insu [place] coverage problems Z59.8 ; Acute intractable tension-type headache G44.201 ; Allergic rhinitis J30.9 ; Urge incontinence N39.41 and Gastroesophageal reflux disease, esophagitis presence not specified K21.9 [facility] [address] [address] Apr, [place] [address] [address] Mar, [facility] [address] [place] [id number] [address] [place] [phone] 05 Feb, 2016 [facility] [address] [place] [id number] [address] [place] [id number] Jan, Dental examination Z01.20 [facility] [address] [id number] [address] [place] [phone] Jan, Depressive disorder, not els ewhere classified F32.9 ; Anxiety disorder, unspecified F41.9 and Other usp (current) drug therapy Z79.899 [place] [address] [facility] [id number] [address] [place] [address] Dec, Right chronic serous otitis media H65.21 and Asthma exacerbation J45.901 [facility] [address] [id number] [address] [place] [phone] Dec, [place] [address] [place] [id number] [address] [place] [phone] November, [place] [address] [place] [id number] [address] [place] [phone] November, [place] [address] [place] [id number] [address] [place] [phone] November, Hyperlipidemia E78.5 ; Hyper tension I10 and Obesity, unspecified obesity severity, unspecified obesity type E66.9 [place] [address] [place] [id number] [address] [place] [address] Oct, Hyperlipidemia E78.5 ; Aller gic rhinitis J30.9 ; Moderate persistent asthma, uncomplicated J45.40 ; Irritable bowel syndrome K58.9 ; Urge incontinence N39.41 ; Depressive disorder, not elsewhere classified F32.9 ; Anxiety disorder, unspecified F41.9 and Hypertension I10 [facility] [address] [id number] [address] [place] [phone] Oct, Depressive disorder, not els ewhere classified F32.9 ; Anxiety disorder, unspecified F41.9 and Cannabis dependence, uncomplicated F12.20 [facility] [address] [id number] [address] [place] [phone] Apr, [place] [address] [place] [id number] [address] [place] [phone] Jan, [facility] [address] [id number] [address] [place] [address] Jan, Irritable bowel syndrome 564 .1 ; Hyperlipidemia 272.4 ; Obesity, unspecified 278.00 ; Asthma 493.90 ; Urge incontinence 788.31 ; Anxiety 300.00 and GERD (gastroesophageal reflux disease) 530.81 [facility] [address] [id number] [address] [place] [id number] Dec, Dental examination V72.2 [facility] [address] [id number] [address] [place] [address] [id number] November, Dental examination V72.2 [facility] [address] [id number] [address] [place] [phone] Oct, [facility] [address] [id number] [address] [place] [phone] Oct, [facility] [address] [id number] [address] [place] [phone] Sep, [facility] [address] [id number] [address] [place] [phone] Sep, [facility] [address] [id number] [address] [place] [phone] Sep, [facility] [address] [id number] [address] [place] [phone] Sep, [facility] [address] [id number] [address] [place] [phone] Sep, [facility] [address] [id number] [address] [place] [phone] Sep, [facility] [address] [id number] [address] [place] [phone] Sep, [facility] [address] [id number] [address] [place] [phone] Sep, [facility] [address] [id number] [address] [place] [address], [place] [address] Sep, [facility] [address] [id number] [address] [place] [address], [place] [address] Sep, [facility] [address] [id number] [address] [place] [address], [place] [address] Sep, [facility] [address] [id number] [address] [place] [address], [place] [address] Sep, [facility] [address] [id number] [address] [place] [address], [place] [id number] Sep, [facility] [address] [id number] [address] [place] [address], [place] [address] Jul, [facility] [address] [id number] [address] [place] [address], [place] [address] Jul, [facility] [address] [id number] [address] [place] [address], [place] [address] Jul, [facility] [address] [id number] [address] [place] [address], [place] [address] Jul, [facility] [address] [id number] [address] [place] [address], [place] [address] Jun, [facility] [address] [id number] [address] [place] [address], [place] [address] Jun, [facility] [address] [id number] [address] [place] [address], [place] [address] May, [facility] [address] [id number] [address] [place] [address], [place] [address] May, [facility] [address] [id number] [address] [place] [address], [place] [address] May, [facility] [address] [id number] [address] [place] [address], [place] [address] May, [facility] [address] [id number] [address] [place] [address], [place] [address] Apr, [facility] [address] [id number] [address] [place] [address], [place] [id number] 15 Apr, 2014 [facility] [address] [id number] [address] [place] [address], [place] [address] Mar, [facility] [address] [id number] [address] [place] [address], [place] [address] Mar, [facility] [address] [id number] [address] [place] [address], [place] [address] Mar, [facility] [address] [id number] [address] [place] [address], [place] [address] Mar, [facility] [address] [id number] [address] [place] [address], [place] [address] Mar, [facility] [address] [id number] [address] [place] [address], [place] [id number] Mar, [facility] [address] [id number] [address] [place] [address], [place] [address] Feb, [facility] [address] [id number] [address] [place] [address], [place] [address] Feb, [facility] [address] [id number] [address] [place] [address], [place] [address] Feb, [facility] [address] [id number] [address] [place] [address], [place] [address] Feb, [facility] [address] [id number] [address] [place] [address], [place] [address] Jan, [facility] [address] [id number] [address] [place] [address], [place] [address] Jan, [facility] [address] [id number] [address] [place] [address], [place] [address] Jan, [facility] [address] [id number] [address] [place] [address], [place] [address] Jan, [facility] [address] [id number] [address] [place] [address], [place] [id number] 15 Jan, 2014 [facility] [address] [id number] [address] [place] [address], [place] [address] Jan, [facility] [address] [id number] [address] [place] [address], [place] [id number] Dec, [facility] [address] [id number] [address] [place] [address], [place] [address] Dec, [facility] [address] [id number] [address] [place] [address], [place] [address] Dec, [facility] [address] [id number] [address] [place] [address], [place] [address] Dec, [facility] [address] [id number] [address] [place] [address], [place] [address] Dec, [facility] [address] [id number] [address] [place] [address], [place] [address] Dec, [facility] [address] [id number] [address] [place] [address], [place] [address] Oct, [facility] [address] [id number] [address] [place] [address], [place] [id number] Oct, [facility] [address] [id number] [address] [place] [address], [place] [address] Oct, [facility] [address] [id number] [address] [place] [address], [place] [address] Oct, [facility] [address] [id number] [address] [place] [address], [place] [address] Sep, [facility] [address] [id number] [address] [place] [address], [place] [address] Sep, [facility] [address] [id number] [address] [place] [address], [place] [address] Sep, [facility] [address] [id number] [address] [place] [address], [place] [address] Sep, [facility] [address] [id number] [facility] [place] [address] Sep, [facility] [address] [id number] [address] [place] [address], [place] [address] Sep, [facility] [address] [id number] [facility] [place] [address] Aug, [facility] [address] [id number] [address] [place] [address], [place] [address] Aug, [facility] [address] [id number] [address] [place] [address], [place] [address] Aug, [facility] [address] [id number] [address] [place] [address], [place] [address] Aug, [facility] [address] [id number] [address] [place] [address], [place] [address] Aug, [facility] [address] [id number] [address] [place] [address], [place] [address] Aug, [facility] [address] [id number] [address] [place] [address], [place] [address] Aug, [facility] [address] [id number] [address] [place] [address], [place] [address] Aug, [facility] [address] [id number] [address] [place] [address], [place] [address] Aug, [facility] [address] [id number] [address] [place] [address], [place] [address] Aug, [facility] [address] [id number] [address] [place] [address], [place] [address] Aug, [facility] [address] [id number] [address] [place] [address], [place] [address] 14 Aug, 2013 [facility] [address] [id number] [address] [place] [address], [place] [address] Aug, [facility] [address] [id number] [address] [place] [id number] Jul, [facility] [address] [id number] [address] [place] [phone] Jul, [facility] [address] [id number] [address] [place] [phone] Jun, [facility] [address] [id number] [address] [place] [phone] Jun, [facility] [address] [id number] [address] [place] [address] Jun, [facility] [address] [id number] [address] [place] [phone] Jun, [facility] [address] [id number] [address] [place] [phone] Aug, [facility] [address] [id number] [address] [place] [phone] Jun, [facility] [address] [id number] [address] [place] [phone] May, IMMUNIZATIONS No Known Immunizations SOCIAL HISTORY Never Assessed REASON FOR VISIT [facility] PLAN OF CARE VITAL SIGNS MEDICATIONS Unknown [...] surgery for cervial cancer @ [facility] [place] 1990 Surgical History L ankle surgery @ [facility] Surgical History tonsillectomy Hospitalization History Elevated BP
--- OUTSIDE RECORDS SUMMARY | 2019-12-01 17:37 | XMS REPORT ---
Author Author ClairMandie Doctor Organization [facility] Address Unknown Phone Unavailable Care Team Providers Care Apartment Maintenance Supervisor Name Role Phone Migration, Doctor Unavailable Unavailable PROBLEMS Type Condition ICD9-CM Code DMU43-FW Code Onset Dates Condition S tatus SNOMED Code Problem History of cocaine abuse Z87.898 Activ e 801100246382751 Problem Irritable bowel syndrome K58.9 Activ e 60563516 Problem Hyperlipidemia E78.5 Active 04520 004 Problem Urge incontinence N39.41 Active 16 5327231 Problem Hypertension I10 Active 4105598 3 Problem Depressive disorder, not elsewhere classified F32. 9 Active 45754366 Problem Anxiety disorder, unspecified F41.9 Active 892761142 Problem Cannabis dependence, uncomplicated F12.20 Active 45774156 Problem Pulmonary hypertension I27.2 Active 84851242 Problem Allergic rhinitis J30.9 Active 61 080920 Problem Obesity (BMI 30.0-34.9) E66.9 Active 268933937933748 Problem Moderate persistent asthma, uncomplicated J45.40 Active 478759396 Problem Gastroesophageal reflux disease, esophagitis pre sence not specified K21.9 Active 604054192 Problem Chronic tension-type headache, intractable G44.221 Active 307953921 Problem Essential hypertension I10 Active 15717642 Problem Hyperlipidemia, unspecified hyperlipidemia type E7 8.5 Active 48028769 ALLERGIES No Information ENCOUNTERS Encounter Location Date Diagnosis [facility] [address] [facility] [id number] [address] [place] [address] Jul, [facility] [address] [facility] [id number] [address] [place] [id number] Aug, Dental examination Z01.20 [facility] [address] [facility] [id number] [address] [place] [address] Jan, [facility] [address] [facility] [id number] [address] [place] [phone] 08 Feb, 2017 Shortness of breath R06.02 ; Pulmonary hypertension I27.2 and Obesity (BMI 30.0-34.9) E66.9 [place] [address] [address] Jul, Scabies B86 ; Hyperlipidemia E78.5 and Syncope, unspecified syncope type R55 [place] [address] [address] Jul, [place] [address] [address] Jul, Chest pain, unspecified type R07.9 ; Dyspnea on exertion R06.09 ; Syncope, unspecified syncope type R55 ; Hyperlipidemia, unspecified hyperlipidemia type E78.5 and Essential hypertension I10 [place] [address] [address] Jul, [address] [address] Jun, Vasovagal syncope R55 ; Irri table bowel syndrome K58.9 ; Chronic tension-type headache, intractable G44.221 ; Pain in right foot M79.671 and Pain of left foot M79.672 [place] [address] [address] May, Exposure to STD Z20.2 ; Insu [place] coverage problems Z59.8 ; Acute intractable tension-type headache G44.201 ; Allergic rhinitis J30.9 ; Urge incontinence N39.41 and Gastroesophageal reflux disease, esophagitis presence not specified K21.9 [facility] [address] [address] Apr, [place] [address] [address] Mar, [facility] [address] [place] [id number] [address] [place] [phone] 05 Feb, 2016 [facility] [address] [place] [id number] [address] [place] [phone] Jan, Dental examination Z01.20 [facility] [address] [facility] [id number] [address] [place] [address] Jan, Depressive disorder, not els ewhere classified F32.9 ; Anxiety disorder, unspecified F41.9 and Other shelter (current) drug therapy Z79.899 [place] [address] [facility] [id number] [address] [place] [phone] Dec, Right chronic serous otitis media H65.21 and Asthma exacerbation J45.901 [facility] [address] [facility] [id number] [address] [place] [address] Dec, [place] [address] [place] [id number] [address] [place] [address] November, [place] [address] [place] [id number] [address] [place] [address] November, [place] [address] [place] [id number] [address] [place] [phone] November, Hyperlipidemia E78.5 ; Hyper tension I10 and Obesity, unspecified obesity severity, unspecified obesity type E66.9 [place] [address] [place] [id number] [address] [place] [address] Oct, Hyperlipidemia E78.5 ; Aller gic rhinitis J30.9 ; Moderate persistent asthma, uncomplicated J45.40 ; Irritable bowel syndrome K58.9 ; Urge incontinence N39.41 ; Depressive disorder, not elsewhere classified F32.9 ; Anxiety disorder, unspecified F41.9 and Hypertension I10 [facility] [address] [facility] [id number] [address] [place] [address] Oct, Depressive disorder, not els ewhere classified F32.9 ; Anxiety disorder, unspecified F41.9 and Cannabis dependence, uncomplicated F12.20 [facility] [address] [facility] [id number] [address] [place] [address] Apr, [place] [address] [place] [id number] [address] [place] [address] Jan, [facility] [address] [id number] [address] [place] [address] Jan, Irritable bowel syndrome 564 .1 ; Hyperlipidemia 272.4 ; Obesity, unspecified 278.00 ; Asthma 493.90 ; Urge incontinence 788.31 ; Anxiety 300.00 and GERD (gastroesophageal reflux disease) 530.81 [facility] [address] [id number] [address] [place] [id number] Dec, Dental examination V72.2 [facility] [address] [id number] [address] [place] [address] [phone] November, Dental examination V72.2 [facility] [address] [id number] [address] [place] [phone] Oct, [facility] [address] [id number] [address] [place] [phone] Oct, [facility] [address] [id number] [address] [place] [phone] Sep, [facility] [address] [id number] [address] [place] [address] Sep, [facility] [address] [id number] [address] [place] [address] Sep, [facility] [address] [id number] [address] [place] [phone] Sep, [facility] [address] [id number] [address] [place] [address] Sep, [facility] [address] [id number] [address] [place] [phone] Sep, [facility] [address] [id number] [address] [place] [phone] Sep, [facility] [address] [id number] [address] [place] [phone] Sep, [facility] [address] [id number] [address] [place] [address], [place] [address] Sep, [facility] [address] [id number] [address] [place] [address], [place] [address] Sep, [facility] [address] [id number] [address] [place] [address], [place] [address] Sep, [facility] [address] [id number] [address] [place] [address], [place] [address] Sep, [facility] [address] [id number] [address] [place] [address], [place] [address] Sep, [facility] [address] [id number] [address] [place] [address], [place] [address] Jul, [facility] [address] [id number] [address] [place] [address], [place] [address] Jul, [facility] [address] [id number] [address] [place] [address], [place] [address] Jul, [facility] [address] [id number] [address] [place] [address], [place] [address] Jul, [facility] [address] [id number] [address] [place] [address], [place] [address] Jun, [facility] [address] [id number] [address] [place] [address], [place] [address] Jun, [facility] [address] [id number] [address] [place] [address], [place] [address] May, [facility] [address] [id number] [address] [place] [address], [place] [address] May, [facility] [address] [id number] [address] [place] [address], [place] [address] May, [facility] [address] [id number] [address] [place] [address], [place] [address] May, [facility] [address] [id number] [address] [place] [address], [place] [address] Apr, [facility] [address] [id number] [address] [place] [address], [place] [address] 15 Apr, 2014 [facility] [address] [id number] [address] [place] [address], [place] [address] Mar, [facility] [address] [id number] [address] [place] [address], [place] [address] Mar, [facility] [address] [id number] [address] [place] [address], [place] [address] Mar, [facility] [address] [id number] [address] [place] [address], [place] [address] Mar, [facility] [address] [id number] [address] [place] [address], [place] [address] Mar, [facility] [address] [id number] [address] [place] [address], [place] [address] Mar, [facility] [address] [id number] [address] [place] [address], [place] [address] Feb, [facility] [address] [id number] [address] [place] [address], [place] [address] Feb, [facility] [address] [id number] [address] [place] [address], [place] [address] Feb, [facility] [address] [id number] [address] [place] [address], [place] [address] Feb, [facility] [address] [id number] [address] [place] [address], [place] [address] Jan, [facility] [address] [id number] [address] [place] [address], [place] [address] Jan, [facility] [address] [id number] [address] [place] [address], [place] [address] Jan, [facility] [address] [id number] [address] [place] [address], [place] [address] Jan, [facility] [address] [id number] [address] [place] [address], [place] [address] 15 Jan, 2014 [facility] [address] [id number] [address] [place] [address], [place] [address] Jan, [facility] [address] [id number] [address] [place] [address], [place] [address] Dec, [facility] [address] [id number] [address] [place] [address], [place] [address] Dec, [facility] [address] [id number] [address] [place] [address], [place] [address] Dec, [facility] [address] [id number] [address] [place] [address], [place] [address] Dec, [facility] [address] [id number] [address] [place] [address], [place] [address] Dec, [facility] [address] [id number] [address] [place] [address], [place] [address] Dec, [facility] [address] [id number] [address] [place] [address], [place] [address] Oct, [facility] [address] [id number] [address] [place] [address], [place] [address] Oct, [facility] [address] [id number] [address] [place] [address], [place] [address] Oct, [facility] [address] [id number] [address] [place] [address], [place] [address] Oct, [facility] [address] [id number] [address] [place] [address], [place] [address] Sep, [facility] [address] [id number] [address] [place] [address], [place] [address] Sep, [facility] [address] [id number] [address] [place] [address], [place] [address] Sep, [facility] [address] [id number] [address] [place] [address], [place] [address] Sep, [facility] [address] [id number] [facility] [place] [address] Sep, [facility] [address] [id number] [address] [place] [address], [place] [address] Sep, [facility] [address] [id number] [facility] [place] [address] Aug, [facility] [address] [id number] [address] [place] [address], [place] [address] Aug, [facility] [address] [id number] [address] [place] [address], [place] [address] Aug, [facility] [address] [id number] [address] [place] [address], [place] [address] Aug, [facility] [address] [id number] [address] [place] [address], [place] [address] Aug, [facility] [address] [id number] [address] [place] [address], [place] [address] Aug, [facility] [address] [id number] [address] [place] [address], [place] [address] Aug, [facility] [address] [id number] [address] [place] [address], [place] [address] Aug, [facility] [address] [id number] [address] [place] [address], [place] [address] Aug, [facility] [address] [id number] [address] [place] [address], [place] [address] Aug, [facility] [address] [id number] [address] [place] [address], [place] [address] Aug, [facility] [address] [id number] [address] [place] [address], [place] [address] 14 Aug, 2013 [facility] [address] [id number] [address] [place] [address], [place] [address] Aug, [facility] [address] [id number] [address] [place] [address] Jul, [facility] [address] [id number] [address] [place] [address] Jul, [facility] [address] [id number] [address] [place] [address] Jun, [facility] [address] [id number] [address] [place] [address] Jun, [facility] [address] [id number] [address] [place] [address] Jun, [facility] [address] [id number] [address] [place] [address] Jun, [facility] [address] [id number] [address] [place] [address] Aug, [facility] [address] [id number] [address] [place] [address] Jun, [facility] [address] [id number] [address] [place] [address] May, IMMUNIZATIONS No Known Immunizations SOCIAL HISTORY Never Assessed REASON FOR VISIT [facility] [place] VITAL SIGNS MEDICATIONS Medication Instructions Dosage Frequency Start Date End Date Duration S tatus Doxycycline Hyclate 100 mg 1 tablet by Oral rout e 2 times per day for 10 days Jul, Active Azithromycin 250 mg 2 Tablet by Oral rou te on day 1 then take 1 daily for 4 days Oct, Active desipramine 100 mg 2 Tablet 1 time per day at HS Jul, Active Fleet Enema 19-7 gram/118 mL 133 mL by Rectal route 1 time per day PRN Jun, Active Symbicort 80-4.5 mcg/actuation inhale 2 puffs by inhalation route 2 times per day in the morning and evening Jul, Active Culturelle 10 billion cell 1 Capsule by Oral route 1 t joaquin per day Aug, Active Keflex 500 mg take 1 capsule by Oral route 2 times per day Sep, Active Omeprazole 20 mg take 1 capsule (20 m g) by oral route once daily before a meal Aug, Active ProAir HFA 90 mcg/actuation inhale 2 puf fs by inhalation route every 4 hours as needed Jul, Active PredniSONE 10 mg 1 Tablet 2 times per day for 5 days T maricruz at 8 am and noon. Oct, Active RESULTS No Results PROCEDURES No Known [...] History Laser surgery for cervial cancer @ [facility] [place] 1990 Surgical History L ankle surgery @ [facility] Surgical History tonsillectomy Hospitalization History Elevated BP
--- OUTSIDE RECORDS SUMMARY | 2019-12-01 17:37 | XMS REPORT ---
Author Author Mandie HAYNES Organization [facility] Address [address] [place] [address] Care Team Providers Care Chocolate Refining Roller Name Role Phone DALLAS DAMON Unavailable PROBLEMS Type Condition ICD9-CM Code DMQ13-BD Code Onset Dates Condition S tatus SNOMED Code Problem History of cocaine abuse Z87.898 Activ e 119323807911688 Problem Irritable bowel syndrome K58.9 Activ e 17097120 Problem Hyperlipidemia E78.5 Active 26701 004 Problem Urge incontinence N39.41 Active 16 8844356 Problem Hypertension I10 Active 1392786 3 Problem Depressive disorder, not elsewhere classified F32. 9 Active 14661341 Problem Anxiety disorder, unspecified F41.9 Active 872679461 Problem Cannabis dependence, uncomplicated F12.20 Active 82035309 Problem Pulmonary hypertension I27.2 Active 10055660 Problem Allergic rhinitis J30.9 Active 61 342939 Problem Obesity (BMI 30.0-34.9) E66.9 Active 011491886665393 Problem Moderate persistent asthma, uncomplicated J45.40 Active 220117808 Problem Gastroesophageal reflux disease, esophagitis pre sence not specified K21.9 Active 551171354 Problem Chronic tension-type headache, intractable G44.221 Active 976778518 Problem Essential hypertension I10 Active 06126186 Problem Hyperlipidemia, unspecified hyperlipidemia type E7 8.5 Active 13909725 ALLERGIES No Information ENCOUNTERS Encounter Location Date Diagnosis [facility] [address] [facility] [place] [id number] [address] [place] [address] Jul, [facility] [address] [facility] [id number] [address] [place] [id number] Aug, Dental examination Z01.20 [facility] [address] [facility] [place] [id number] [address] [place] [address] Jan, [facility] [address] [address] 08 Aug, 2016 Shortness of breath R06.02 ; Pulmonary hypertension I27.2 and Obesity (BMI 30.0-34.9) E66.9 [place] [address] [address] 31 Jul, 2016 Scabies B86 ; Hyperlipidemia E78.5 and Syncope, unspecified syncope type R55 [place] [address] [address] 17 Jul, [address] [address] Jul, Chest pain, unspecified type R07.9 ; Dyspnea on exertion R06.09 ; Syncope, unspecified syncope type R55 ; Hyperlipidemia, unspecified hyperlipidemia type E78.5 and Essential hypertension I10 [address] [address] Jul, [address] [address] Jun, Vasovagal syncope R55 ; Irri table bowel syndrome K58.9 ; Chronic tension-type headache, intractable G44.221 ; Pain in right foot M79.671 and Pain of left foot M79.[address] [address] 02 May, 2016 Exposure to STD Z20.2 ; Insu [place] coverage problems Z59.8 ; Acute intractable tension-type headache G44.201 ; Allergic rhinitis J30.9 ; Urge incontinence N39.41 and Gastroesophageal reflux disease, esophagitis presence not specified K21.[address] [address] Apr, [place] [address] [address] Mar, [address] [address] Feb, [facility] [address] [id number] [address] [place] [id number] Jan, Dental examination Z01.20 [facility] [address] [facility] [place] [id number] [address] [place] [address] Jan, Depressive disorder, not els ewhere classified F32.9 ; Anxiety disorder, unspecified F41.9 and Other fpc (current) drug therapy Z79.899 [facility] [address] [facility] [place] [id number] [address] [place] [address] Dec, Right chronic serous otitis media H65.21 and Asthma exacerbation J45.901 [facility] [address] [facility] [place] [id number] [address] [place] [address] Dec, [facility] [address] [place] [address] November, [facility] [address] [place] [address] November, [facility] [address] [place] [address] November, Hyperlipidemia E78.5 ; Hyper tension I10 and Obesity, unspecified obesity severity, unspecified obesity type E66.9 [facility] [address] [place] [address] Oct, Hyperlipidemia E78.5 ; Aller gic rhinitis J30.9 ; Moderate persistent asthma, uncomplicated J45.40 ; Irritable bowel syndrome K58.9 ; Urge incontinence N39.41 ; Depressive disorder, not elsewhere classified F32.9 ; Anxiety disorder, unspecified F41.9 and Hypertension I10 [facility] [address] [facility] [place] [id number] [address] [place] [address] Oct, Depressive disorder, not els ewhere classified F32.9 ; Anxiety disorder, unspecified F41.9 and Cannabis dependence, uncomplicated F12.20 [facility] [address] [place] [id number] [address] [place] [address] Apr, [facility] [address] [id number] [address] [place] [address] Jan, [facility] [address] [id number] [address] [place] [address] Jan, Irritable bowel syndrome 564 .1 ; Hyperlipidemia 272.4 ; Obesity, unspecified 278.00 ; Asthma 493.90 ; Urge incontinence 788.31 ; Anxiety 300.00 and GERD (gastroesophageal reflux disease) 530.81 [facility] [address] [id number] [address] [place] [address] [id number] Dec, Dental examination V72.2 [facility] [address] [id number] [address] [place] [id number] November, Dental examination V72.2 [facility] [address] [id number] [address] [place] [address] Oct, [facility] [address] [id number] [address] [place] [address] Oct, [facility] [address] [id number] [address] [place] [address] Sep, [facility] [address] [id number] [address] [place] [address] Sep, [facility] [address] [id number] [address] [place] [address] Sep, [facility] [address] [id number] [address] [place] [address] Sep, [facility] [address] [id number] [address] [place] [address] Sep, [facility] [address] [id number] [address] [place] [address] Sep, [facility] [address] [id number] [address] [place] [address] Sep, [facility] [address] [id number] [address] [place] [address], [place] [address] 23 Sep, 2014 [facility] [address] [id number] [address] [place] [address], [place] [address] Sep, [facility] [address] [id number] [address] [place] [address], [place] [address] Sep, [facility] [address] [id number] [address] [place] [address], [place] [address] Sep, [facility] [address] [id number] [address] [place] [address], [place] [address] Sep, [facility] [address] [id number] [address] [place] [address], [place] [address] Sep, [facility] [address] [id number] [address] [place] [address], [place] [address] Jul, [facility] [address] [id number] [address] [place] [address], [place] [address] Jul, [facility] [address] [id number] [address] [place] [address], [place] [address] Jul, [facility] [address] [id number] [address] [place] [address], [place] [address] Jul, [facility] [address] [id number] [address] [place] [address], [place] [address] Jun, [facility] [address] [id number] [address] [place] [address], [place] [address] Jun, [facility] [address] [id number] [address] [place] [address], [place] [address] May, [facility] [address] [id number] [address] [place] [address], [place] [address] May, [facility] [address] [id number] [address] [place] [address], [place] [address] May, [facility] [address] [id number] [address] [place] [address], [place] [address] May, [facility] [address] [id number] [address] [place] [address], [place] [address] Apr, [facility] [address] [id number] [address] [place] [address], [place] [address] Apr, [facility] [address] [id number] [address] [place] [address], [place] [address] Mar, [facility] [address] [id number] [address] [place] [address], [place] [address] Mar, [facility] [address] [id number] [address] [place] [address], [place] [address] 15 Mar, 2014 [facility] [address] [id number] [address] [place] [address], [place] [address] Mar, [facility] [address] [id number] [address] [place] [address], [place] [address] Mar, [facility] [address] [id number] [address] [place] [address], [place] [address] Mar, [facility] [address] [id number] [address] [place] [address], [place] [address] Feb, [facility] [address] [id number] [address] [place] [address], [place] [address] Feb, [facility] [address] [id number] [address] [place] [address], [place] [address] Feb, [facility] [address] [id number] [address] [place] [address], [place] [address] Feb, [facility] [address] [id number] [address] [place] [address], [place] [address] Jan, [facility] [address] [id number] [address] [place] [address], [place] [address] Jan, [facility] [address] [id number] [address] [place] [address], [place] [address] Jan, [facility] [address] [id number] [address] [place] [address], [place] [address] 16 Jan, 2014 [facility] [address] [id number] [facility] [place] [address] Jan, [facility] [address] [id number] [address] [place] [address], [place] [address] Jan, [facility] [address] [id number] [address] [place] [address], [place] [address] Dec, [facility] [address] [id number] [address] [place] [address], [place] [address] Dec, [facility] [address] [id number] [address] [place] [address], [place] [address] Dec, [facility] [address] [id number] [address] [place] [address], [place] [address] Dec, [facility] [address] [id number] [address] [place] [address], [place] [address] Dec, [facility] [address] [id number] [address] [place] [address], [place] [address] Dec, [facility] [address] [id number] [address] [place] [address], [place] [address] Oct, [facility] [address] [id number] [address] [place] [address], [place] [address] Oct, [facility] [address] [id number] [address] [place] [address], [place] [address] Oct, [facility] [address] [id number] [address] [place] [address], [place] [address] Oct, [facility] [address] [id number] [address] [place] [address], [place] [address] Sep, [facility] [address] [id number] [address] [place] [address], [place] [address] Sep, [facility] [address] [id number] [address] [place] [address], [place] [address] Sep, [facility] [address] [id number] [address] [place] [address], [place] [address] Sep, [facility] [address] [id number] [address] [place] [address], [place] [address] Sep, [facility] [address] [id number] [address] [place] [address], [place] [address] Sep, [facility] [address] [id number] [address] [place] [address], [place] [address] Aug, [facility] [address] [id number] [address] [place] [address], [place] [address] Aug, [facility] [address] [id number] [address] [place] [address], [place] [address] Aug, [facility] [address] [id number] [address] [place] [address], [place] [address] Aug, [facility] [address] [id number] [address] [place] [address], [place] [address] 24 Aug, 2013 [facility] [address] [id number] [address] [place] [address], [place] [address] Aug, [facility] [address] [id number] [address] [place] [address], [place] [address] Aug, [facility] [address] [id number] [address] [place] [address], [place] [address] Aug, [facility] [address] [id number] [address] [place] [address], [place] [address] Aug, [facility] [address] [id number] [address] [place] [address], [place] [address] 17 Aug, 2013 [facility] [address] [id number] [address] [place] [address], [place] [address] 17 Aug, 2013 [facility] [address] [id number] [address] [place] [address], [place] [address] 14 Aug, 2013 [facility] [address] [id number] [address] [place] [address] 14 Aug, 2013 [facility] [address] [id number] [address] [place] [address] Jul, [facility] [address] [id number] [address] [place] [address] Jul, [facility] [address] [id number] [address] [place] [address] Jun, [facility] [address] [id number] [address] [place] [address] Jun, [facility] [address] [id number] [address] [place] [address] Jun, [facility] [address] [id number] [address] [place] [address] Jun, [facility] [address] [id number] [address] [place] [address] Aug, [facility] [address] [id number] [address] [place] [address] Jun, [facility] [address] [id number] [address] [place] [address] May, IMMUNIZATIONS No Known Immunizations SOCIAL HISTORY Never Assessed REASON FOR VISIT PLAN OF CARE VITAL SIGNS Height 67 in 2014-10-08 Weight 200.5 lbs 2014-10-08 Temperature 98 degrees Fahrenheit 2014-10-08 Heart Rate 92 bpm 2014-10-08 Respiratory Rate 20 2014-10-08 Blood pressure systolic 109 mmHg 2014-10-08 Blood pressure diastolic 61 mmHg 2014-10-08 MEDICATIONS Unknown Medications RESULTS No Results PROCEDURES Procedure Date Ordered Result Body Site HIV-1 October 08, 2014 VENIPUNCT, ROUTINE* October 08, 2014 INSTRUCTIONS MEDICATIONS ADMINISTERED No Known Medications [...] History Laser surgery for cervial cancer @ [facility] [place] 1990 Surgical History L ankle surgery @ [facility] Surgical History tonsillectomy Hospitalization History Elevated BP
--- OUTSIDE RECORDS SUMMARY | 2019-12-01 17:37 | XMS REPORT ---
Author Author Mandie Manzanares Organization [facility] Address [address] [place] [address] Care Team Providers Care Reel Hooker Name Role Phone TRACY Manzanares Unavailable PROBLEMS Type Condition ICD9-CM Code [id number] Code Onset Dates Condition S tatus SNOMED Code Problem History of cocaine abuse Z87.898 Activ e [id number] Problem Irritable bowel syndrome K58.9 Activ e 26328159 Problem Hyperlipidemia E78.5 Active 52983 004 Problem Urge incontinence N39.41 Active 16 0240949 Problem Hypertension I10 Active 7379792 3 Problem Depressive disorder, not elsewhere classified F32. 9 Active 91557174 Problem Anxiety disorder, unspecified F41.9 Active 393171889 Problem Cannabis dependence, uncomplicated F12.20 Active 51021575 Problem Pulmonary hypertension I27.2 Active 17803635 Problem Allergic rhinitis J30.9 Active 61 620205 Problem Obesity (BMI 30.0-34.9) E66.9 Active 423663520268669 Problem Moderate persistent asthma, uncomplicated J45.40 Active 140480018 Problem Gastroesophageal reflux disease, esophagitis pre sence not specified K21.9 Active 543482558 Problem Chronic tension-type headache, intractable G44.221 Active 959253289 Problem Essential hypertension I10 Active 63636322 Problem Hyperlipidemia, unspecified hyperlipidemia type E7 8.5 Active 52366630 ALLERGIES No Information ENCOUNTERS Encounter Location Date Diagnosis [facility] [address] [facility] [id number] [address] [place] [address] Jul, [facility] [address] [facility] [id number] [address] [place] [phone] Aug, Dental examination Z01.20 [facility] [address] [facility] [id number] [address] [place] [address] Jan, [facility] [address] [address] 08 Aug, 2016 Shortness of breath R06.02 ; Pulmonary hypertension I27.2 and Obesity (BMI 30.0-34.9) E66.9 [place] [address] [address] 31 Jul, 2016 Scabies B86 ; Hyperlipidemia E78.5 and Syncope, unspecified syncope type R55 [place] [address] [address] 17 Jul, [address] [address] Jul, Chest pain, unspecified type R07.9 ; Dyspnea on exertion R06.09 ; Syncope, unspecified syncope type R55 ; Hyperlipidemia, unspecified hyperlipidemia type E78.5 and Essential hypertension I10 [address] [address] Jul, [address] [address] Jun, Vasovagal syncope R55 ; Irri table bowel syndrome K58.9 ; Chronic tension-type headache, intractable G44.221 ; Pain in right foot M79.671 and Pain of left foot M79.[address] [address] 02 May, 2016 Exposure to STD Z20.2 ; Insu [place]akot[place] coverage problems Z59.8 ; Acute intractable tension-type headache G44.201 ; Allergic rhinitis J30.9 ; Urge incontinence N39.41 and Gastroesophageal reflux disease, esophagitis presence not specified K21.[address] [address] Apr, [place] [address] [address] Mar, [address] [address] Feb, [facility] [address] [id number] [address] [place] [id number] Jan, Dental examination Z01.20 [facility] [address] [facility] [id number] [address] [place] [address] Jan, Depressive disorder, not els ewhere classified F32.9 ; Anxiety disorder, unspecified F41.9 and 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 Z79.899 [facility] [address] [facility] [id number] [address] [place] [address] Dec, Right chronic serous otitis media H65.21 and Asthma exacerbation J45.901 [facility] [address] [facility] [id number] [address] [place] [address] Dec, [facility] [id number] [place] [address] November, [facility] [id number] [place] [address] November, [facility] [address] [place] [address] November, Hyperlipidemia E78.5 ; Hyper tension I10 and Obesity, unspecified obesity severity, unspecified obesity type E66.9 [facility] [id number] [place] [address] Oct, Hyperlipidemia E78.5 ; Aller gic rhinitis J30.9 ; Moderate persistent asthma, uncomplicated J45.40 ; Irritable bowel syndrome K58.9 ; Urge incontinence N39.41 ; Depressive disorder, not elsewhere classified F32.9 ; Anxiety disorder, unspecified F41.9 and Hypertension I10 [facility] [address] [facility] [id number] [address] [place] [address] Oct, Depressive disorder, not els ewhere classified F32.9 ; Anxiety disorder, unspecified F41.9 and Cannabis dependence, uncomplicated F12.20 [facility] [address] [place] [id number] [address] [place] [address] Apr, [facility] [address] [id number] [address] [place] [phone] Jan, [facility] [address] [id number] [address] [place] [address] Jan, Irritable bowel syndrome 564 .1 ; Hyperlipidemia 272.4 ; Obesity, unspecified 278.00 ; Asthma 493.90 ; Urge incontinence 788.31 ; Anxiety 300.00 and GERD (gastroesophageal reflux disease) 530.81 [facility] [address] [id number] [address] [place] [id number] Dec, Dental examination V72.2 [facility] [address] [id number] [address] [place] [phone] November, Dental examination V72.2 [facility] [address] [id number] [address] [place] [address] Oct, [facility] [address] [id number] [address] [place] [address] Oct, [facility] [address] [id number] [address] [place] [address] Sep, [facility] [address] [id number] [address] [place] [address] Sep, [facility] [address] [id number] [address] [place] [address] Sep, [facility] [address] [id number] [address] [place] [phone] Sep, [facility] [address] [id number] [address] [place] [address] Sep, [facility] [address] [id number] [address] [place] [address] Sep, [facility] [address] [id number] [address] [place] [phone] Sep, [facility] [address] [id number] [address] [place] [address], [place] [address] 23 Sep, 2014 [facility] [address] [id number] [address] [place] [address], [place] [address] Sep, [facility] [address] [id number] [address] [place] [address], [place] [address] Sep, [facility] [address] [id number] [address] [place] [address], [place] [address] Sep, [facility] [address] [id number] [address] [place] [address], [place] [address] Sep, [facility] [address] [id number] [address] [place] [address], [place] [address] Sep, [facility] [address] [id number] [address] [place] [address], [place] [address] Jul, [facility] [address] [id number] [address] [place] [address], [place] [address] Jul, [facility] [address] [id number] [address] [place] [address], [place] [address] Jul, [facility] [address] [id number] [address] [place] [address], [place] [address] Jul, [facility] [address] [id number] [address] [place] [address], [place] [address] Jun, [facility] [address] [id number] [address] [place] [address], [place] [address] Jun, [facility] [address] [id number] [address] [place] [address], [place] [address] May, [facility] [address] [id number] [address] [place] [address], [place] [address] May, [facility] [address] [id number] [address] [place] [address], [place] [address] May, [facility] [address] [id number] [address] [place] [address], [place] [address] May, [facility] [address] [id number] [address] [place] [address], [place] [address] Apr, [facility] [address] [id number] [address] [place] [address], [place] [address] Apr, [facility] [address] [id number] [address] [place] [address], [place] [address] Mar, [facility] [address] [id number] [address] [place] [address], [place] [address] Mar, [facility] [address] [id number] [address] [place] [address], [place] [address] 15 Mar, 2014 [facility] [address] [id number] [address] [place] [address], [place] [address] Mar, [facility] [address] [id number] [address] [place] [address], [place] [address] Mar, [facility] [address] [id number] [address] [place] [address], [place] [address] Mar, [facility] [address] [id number] [address] [place] [address], [place] [address] Feb, [facility] [address] [id number] [address] [place] [address], [place] [address] Feb, [facility] [address] [id number] [address] [place] [address], [place] [address] Feb, [facility] [address] [id number] [address] [place] [address], [place] [address] Feb, [facility] [address] [id number] [address] [place] [address], [place] [address] Jan, [facility] [address] [id number] [address] [place] [address], [place] [address] Jan, [facility] [address] [id number] [address] [place] [address], [place] [address] Jan, [facility] [address] [id number] [address] [place] [address], [place] [address] 16 Jan, 2014 [facility] [address] [id number] [facility] [address] Jan, [facility] [address] [id number] [address] [place] [address], [place] [address] Jan, [facility] [address] [id number] [address] [place] [address], [place] [address] Dec, [facility] [address] [id number] [address] [place] [address], [place] [address] Dec, [facility] [address] [id number] [address] [place] [address], [place] [address] Dec, [facility] [address] [id number] [address] [place] [address], [place] [address] Dec, [facility] [address] [id number] [address] [place] [address], [place] [address] Dec, [facility] [address] [id number] [address] [place] [address], [place] [address] Dec, [facility] [address] [id number] [address] [place] [address], [place] [address] Oct, [facility] [address] [id number] [address] [place] [address], [place] [address] Oct, [facility] [address] [id number] [address] [place] [address], [place] [address] Oct, [facility] [address] [id number] [address] [place] [address], [place] [address] Oct, [facility] [address] [id number] [address] [place] [address], [place] [address] Sep, [facility] [address] [id number] [address] [place] [address], [place] [address] Sep, [facility] [address] [id number] [address] [place] [address], [place] [address] Sep, [facility] [address] [id number] [address] [place] [address], [place] [address] Sep, [facility] [address] [id number] [address] [place] [address], [place] [address] Sep, [facility] [address] [id number] [address] [place] [address], [place] [address] Sep, [facility] [address] [id number] [address] [place] [address], [place] [address] Aug, [facility] [address] [id number] [address] [place] [address], [place] [address] Aug, [facility] [address] [id number] [address] [place] [address], [place] [address] Aug, [facility] [address] [id number] [address] [place] [address], [place] [address] Aug, [facility] [address] [id number] [address] [place] [address], [place] [address] 24 Aug, 2013 [facility] [address] [id number] [address] [place] [address], [place] [address] Aug, [facility] [address] [id number] [address] [place] [address], [place] [address] Aug, [facility] [address] [id number] [address] [place] [address], [place] [address] Aug, [facility] [address] [id number] [address] [place] [address], [place] [address] Aug, [facility] [address] [id number] [address] [place] [address], [place] [address] 17 Aug, 2013 [facility] [address] [id number] [address] [place] [address], [place] [address] 17 Aug, 2013 [facility] [address] [id number] [address] [place] [address], [place] [address] 14 Aug, 2013 [facility] [address] [id number] [address] [place] [address] 14 Aug, 2013 [facility] [address] [id number] [address] [place] [address] Jul, [facility] [address] [id number] [address] [place] [address] Jul, [facility] [address] [id number] [address] [place] [address] Jun, [facility] [address] [id number] [address] [place] [address] Jun, [facility] [address] [id number] [address] [place] [address] Jun, [facility] [address] [id number] [address] [place] [address] Jun, [facility] [address] [id number] [address] [place] [address] Aug, [facility] [address] [id number] [address] [place] [address] Jun, [facility] [address] [id number] [address] [place] [address] May, IMMUNIZATIONS No Known Immunizations SOCIAL HISTORY [...] History Laser surgery for cervial cancer @ [facility] [place] 1990 Surgical History L ankle surgery @ [facility] Surgical History tonsillectomy Hospitalization History Elevated BP
--- OUTSIDE RECORDS SUMMARY | 2019-12-01 17:37 | XMS REPORT ---
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 9 Active 71648813 Problem Anxiety disorder, unspecified F41.9 Active 993431954 Problem Cannabis dependence, uncomplicated F12.20 Active 27141713 Problem Pulmonary hypertension I27.2 Active 42262818 Problem Allergic rhinitis J30.9 Active 61 985033 Problem Obesity (BMI 30.0-34.9) E66.9 Active 012116419328294 Problem Moderate persistent asthma, uncomplicated J45.40 Active 621889445 Problem Gastroesophageal reflux disease, esophagitis pre sence not specified K21.9 Active 080780390 Problem Chronic tension-type headache, intractable G44.221 Active 824472750 Problem Essential hypertension I10 Active 00616425 Problem Hyperlipidemia, unspecified hyperlipidemia type E7 8.5 Active 65177520 ALLERGIES No Information ENCOUNTERS Encounter Location Date Diagnosis [facility] [address] [facility] [id number] [address] [place] [address] Jul, [facility] [address] [facility] [id number] [address] [place] [id number] Aug, Dental examination Z01.20 [facility] [address] [facility] [id number] [address] [place] [address] Jan, [facility] [address] [facility] [id number] [address] [place] [id number] 08 Feb, 2017 Shortness of breath R06.02 ; Pulmonary hypertension I27.2 and Obesity (BMI 30.0-34.9) E66.9 [place] [id number] [address] Jul, Scabies B86 ; Hyperlipidemia E78.5 and Syncope, unspecified syncope type R55 [place] [address] [address] Jul, [place] [address] [address] Jul, Chest pain, unspecified type R07.9 ; Dyspnea on exertion R06.09 ; Syncope, unspecified syncope type R55 ; Hyperlipidemia, unspecified hyperlipidemia type E78.5 and Essential hypertension I10 [place] [address] [address] Jul, [address] [address] Jun, Vasovagal syncope R55 ; Irri table bowel syndrome K58.9 ; Chronic tension-type headache, intractable G44.221 ; Pain in right foot M79.671 and Pain of left foot M79.672 [place] [address] [address] May, Exposure to STD Z20.2 ; Insu [place]ot[place] coverage problems Z59.8 ; Acute intractable tension-type headache G44.201 ; Allergic rhinitis J30.9 ; Urge incontinence N39.41 and Gastroesophageal reflux disease, esophagitis presence not specified K21.9 [facility] [address] [address] Apr, [place] [address] [address] Mar, [facility] [address] [place] [id number] [address] [place] [phone] 05 Feb, 2016 [facility] [address] [place] [id number] [address] [place] [id number] Jan, Dental examination Z01.20 [facility] [address] [facility] [id number] [address] [place] [address] Jan, Depressive disorder, not els ewhere classified F32.9 ; Anxiety disorder, unspecified F41.9 and Other care home (current) drug therapy Z79.899 [place] [address] [facility] [id number] [address] [place] [address] Dec, Right chronic serous otitis media H65.21 and Asthma exacerbation J45.901 [facility] [address] [facility] [id number] [address] [place] [address] Dec, [place] [address] [place] [id number] [address] [place] [address] November, [place] [address] [place] [id number] [address] [place] [address] November, [place] [address] [place] [id number] [address] [place] [address] November, Hyperlipidemia E78.5 ; Hyper tension I10 and Obesity, unspecified obesity severity, unspecified obesity type E66.9 [place] [address] [place] [id number] [address] [place] [address] Oct, Hyperlipidemia E78.5 ; Aller gic rhinitis J30.9 ; Moderate persistent asthma, uncomplicated J45.40 ; Irritable bowel syndrome K58.9 ; Urge incontinence N39.41 ; Depressive disorder, not elsewhere classified F32.9 ; Anxiety disorder, unspecified F41.9 and Hypertension I10 [facility] [address] [facility] [id number] [address] [place] [address] Oct, Depressive disorder, not els ewhere classified F32.9 ; Anxiety disorder, unspecified F41.9 and Cannabis dependence, uncomplicated F12.20 [facility] [address] [facility] [id number] [address] [place] [address] Apr, [place] [address] [place] [id number] [address] [place] [address] Jan, [facility] [address] [id number] [address] [place] [address] Jan, Irritable bowel syndrome 564 .1 ; Hyperlipidemia 272.4 ; Obesity, unspecified 278.00 ; Asthma 493.90 ; Urge incontinence 788.31 ; Anxiety 300.00 and GERD (gastroesophageal reflux disease) 530.81 [facility] [address] [id number] [address] [place] [id number] Dec, Dental examination V72.2 [facility] [address] [id number] [address] [place] [address] [id number] November, Dental examination V72.2 [facility] [address] [id number] [address] [place] [address] Oct, [facility] [address] [id number] [address] [place] [address] Oct, [facility] [address] [id number] [address] [place] [id number] Sep, [facility] [address] [id number] [address] [place] [phone] Sep, [facility] [address] [id number] [address] [place] [address] Sep, [facility] [address] [id number] [address] [place] [address] Sep, [facility] [address] [id number] [address] [place] [phone] Sep, [facility] [address] [id number] [address] [place] [address] Sep, [facility] [address] [id number] [address] [place] [address] Sep, [facility] [address] [id number] [address] [place] [phone] Sep, [facility] [address] [id number] [address] [place] [address], [place] [address] Sep, [facility] [address] [id number] [address] [place] [address], [place] [address] Sep, [facility] [address] [id number] [address] [place] [address], [place] [address] Sep, [facility] [address] [id number] [address] [place] [address], [place] [address] Sep, [facility] [address] [id number] [address] [place] [address], [place] [address] Sep, [facility] [address] [id number] [address] [place] [address], [place] [address] Jul, [facility] [address] [id number] [address] [place] [address], [place] [address] Jul, [facility] [address] [id number] [address] [place] [address], [place] [address] Jul, [facility] [address] [id number] [address] [place] [address], [place] [address] Jul, [facility] [address] [id number] [address] [place] [address], [place] [address] Jun, [facility] [address] [id number] [address] [place] [address], [place] [address] Jun, [facility] [address] [id number] [address] [place] [address], [place] [address] May, [facility] [address] [id number] [address] [place] [address], [place] [address] May, [facility] [address] [id number] [address] [place] [address], [place] [address] May, [facility] [address] [id number] [address] [place] [address], [place] [address] May, [facility] [address] [id number] [address] [place] [address], [place] [address] Apr, [facility] [address] [id number] [address] [place] [address], [place] [address] 15 Apr, 2014 [facility] [address] [id number] [address] [place] [address], [place] [address] Mar, [facility] [address] [id number] [address] [place] [address], [place] [address] Mar, [facility] [address] [id number] [address] [place] [address], [place] [address] Mar, [facility] [address] [id number] [address] [place] [address], [place] [address] Mar, [facility] [address] [id number] [address] [place] [address], [place] [address] Mar, [facility] [address] [id number] [address] [place] [address], [place] [address] Mar, [facility] [address] [id number] [address] [place] [address], [place] [address] Feb, [facility] [address] [id number] [address] [place] [address], [place] [address] Feb, [facility] [address] [id number] [address] [place] [address], [place] [address] Feb, [facility] [address] [id number] [address] [place] [address], [place] [address] Feb, [facility] [address] [id number] [address] [place] [address], [place] [address] Jan, [facility] [address] [id number] [address] [place] [address], [place] [address] Jan, [facility] [address] [id number] [address] [place] [address], [place] [address] Jan, [facility] [address] [id number] [address] [place] [address], [place] [address] Jan, [facility] [address] [id number] [address] [place] [address], [place] [address] 15 Jan, 2014 [facility] [address] [id number] [address] [place] [address], [place] [address] Jan, [facility] [address] [id number] [address] [place] [address], [place] [address] Dec, [facility] [address] [id number] [address] [place] [address], [place] [address] Dec, [facility] [address] [id number] [address] [place] [address], [place] [address] Dec, [facility] [address] [id number] [address] [place] [address], [place] [address] Dec, [facility] [address] [id number] [address] [place] [address], [place] [address] Dec, [facility] [address] [id number] [address] [place] [address], [place] [address] Dec, [facility] [address] [id number] [address] [place] [address], [place] [address] Oct, [facility] [address] [id number] [address] [place] [address], [place] [address] Oct, [facility] [address] [id number] [address] [place] [address], [place] [address] Oct, [facility] [address] [id number] [address] [place] [address], [place] [address] Oct, [facility] [address] [id number] [address] [place] [address], [place] [address] Sep, [facility] [address] [id number] [address] [place] [address], [place] [address] Sep, [facility] [address] [id number] [address] [place] [address], [place] [address] Sep, [facility] [address] [id number] [address] [place] [address], [place] [address] Sep, [facility] [address] [id number] [facility] [place] [address] Sep, [facility] [address] [id number] [address] [place] [address], [place] [address] Sep, [facility] [address] [id number] [facility] [place] [address] Aug, [facility] [address] [id number] [address] [place] [address], [place] [address] Aug, [facility] [address] [id number] [address] [place] [address], [place] [address] Aug, [facility] [address] [id number] [address] [place] [address], [place] [address] Aug, [facility] [address] [id number] [address] [place] [address], [place] [address] Aug, [facility] [address] [id number] [address] [place] [address], [place] [address] Aug, [facility] [address] [id number] [address] [place] [address], [place] [address] Aug, [facility] [address] [id number] [address] [place] [address], [place] [address] Aug, [facility] [address] [id number] [address] [place] [address], [place] [address] Aug, [facility] [address] [id number] [address] [place] [address], [place] [address] Aug, [facility] [address] [id number] [address] [place] [address], [place] [address] Aug, [facility] [address] [id number] [address] [place] [address], [place] [address] 14 Aug, 2013 [facility] [address] [id number] [address] [place] [address], [place] [address] Aug, [facility] [address] [id number] [address] [place] [address] Jul, [facility] [address] [id number] [address] [place] [address] Jul, [facility] [address] [id number] [address] [place] [address] Jun, [facility] [address] [id number] [address] [place] [address] Jun, [facility] [address] [id number] [address] [place] [address] Jun, [facility] [address] [id number] [address] [place] [address] Jun, [facility] [address] [id number] [address] [place] [address] Aug, [facility] [address] [facility] [id number] [address] [place] [address] Jun, [facility] [address] [id number] [address] [place] [address] May, IMMUNIZATIONS No Known Immunizations SOCIAL HISTORY Never Assessed REASON FOR VISIT [employer] [facility] [facility] PLAN OF CARE VITAL SIGNS MEDICATIONS Unknown [...] History Laser surgery for cervial cancer @ [facility] [place] 1990 Surgical History L ankle surgery @ [facility] Surgical History tonsillectomy Hospitalization History Elevated BP
[2019-12-01] MEDS ORDERED: METR500T PO (17:38)
[2019-12-01] MEDS ORDERED: DOXY100T2 PO (17:38)
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
--- OUTSIDE RECORDS SUMMARY | 2019-12-01 17:39 | XMS REPORT | Continuity of Care Document ---
Demographics Preferred Language Unknown Marital Status Unknown Synagogue Affiliation Unknown Race Unknown Ethnic Group Unknown Author Organization Unknown Address Unknown Phone Unavailable Allergies Active Description Code Type Severity Reaction Onset Reported/Identified Relationship to Patient Clinical Status Yes PENICILLIN V POTASSIUM MODERATE DERMATOLOGICAL - HIV Yes PENICILLIN V POTASSIUM MODERATE MODERATE Yes Penicillins Drug Allergy N/A N/A 03/14/2009 Yes Penicillins [id number] Drug Aller gy Unknown N/A 10/12/2018 Medications There is no data. 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 11/12/2008 ANTHONY MORRISON MD 296 .80 MO BIPOLAR NOS 11/12/2008 ANTHONY MORRISON MD 300 .00 AN ANXIETY UNSPEC 11/12/2008 ANTHONY MORRISON MD 301 .83 PD BORDERLINE 11/12/2008 ANTHONY MORRISON MD 296 .80 MO BIPOLAR NOS 11/12/2008 ANTHONY MORRISON MD N 300 .00 AN ANXIETY UNSPEC 11/12/2008 ANTHONY MORRISON MD 301 .83 PD BORDERLINE 11/12/2008 ANTHONY MORRISON MD 296 .80 MO BIPOLAR NOS 11/12/2008 ANTHONY MORRISON MD N 300 .00 AN ANXIETY UNSPEC 11/12/2008 ANTHONY MORRISON MD N 301 .83 PD BORDERLINE 11/12/2008 SAAD COVERSTITCH MACHINE OPERATOR, TRACY A 296.80 MO BIPOLAR NOS 11/12/2008 SAAD COVERSTITCH MACHINE OPERATOR, TRACY A 300.00 AN ANXIETY UNSPEC 11/12/2008 SAAD COVERSTITCH MACHINE OPERATOR, TRACY A 301.83 PD BORDERLINE 11/12/2008 SAAD COVERSTITCH MACHINE OPERATOR, TRACY A 296.80 MO BIPOLAR NOS 11/12/2008 SAAD COVERSTITCH MACHINE OPERATOR, TRACY A 300.00 AN ANXIETY UNSPEC 11/12/2008 SAAD COVERSTITCH MACHINE OPERATOR, TRACY A 301.83 PD BORDERLINE 11/12/2008 DOMINGUEZ DO, EILEEN K 296.80 MO BIPOLAR NOS 11/12/2008 DOMINGUEZ DO, EILEEN K 300.00 AN ANXIETY UNSPEC 11/12/2008 DOMINGUEZ DO, EILEEN K 301.83 PD BORDERLINE 11/12/2008 SOLE COVERSTITCH MACHINE OPERATOR, SAIRA R 296.80 MO BIPOLAR NOS 11/12/2008 SOLE COVERSTITCH MACHINE OPERATOR, SAIRA R 300.00 AN ANXIETY UNSPEC 11/12/2008 SOLE COVERSTITCH MACHINE OPERATOR, SAIRA R 301.83 PD BORDERLINE 11/12/2008 ANTHONY MORRISON MD 296 .80 MO BIPOLAR NOS 11/12/2008 ANTHONY MORRISON MD N 300 .00 AN ANXIETY UNSPEC 11/12/2008 ANTHONY MORRISON MD N 301 .83 PD BORDERLINE 11/12/2008 ANTHONY MORRISON MD 296 .80 MO BIPOLAR NOS 11/12/2008 ANTHONY MORRISON MD N 300 .00 AN ANXIETY UNSPEC 11/12/2008 ANTHONY MORRISON MD 301 .83 PD BORDERLINE 11/12/2008 SAAD COVERSTITCH MACHINE OPERATOR, TRACY A 296.80 MO BIPOLAR NOS 11/12/2008 SAAD COVERSTITCH MACHINE OPERATOR, TRACY A 300.00 AN ANXIETY UNSPEC 11/12/2008 SAAD COVERSTITCH MACHINE OPERATOR, TRACY A 301.83 PD BORDERLINE 11/12/2008 MADL COVERSTITCH MACHINE OPERATOR, DAMON L 296 .80 MO BIPOLAR NOS 11/12/2008 MADL COVERSTITCH MACHINE OPERATOR, DAMON L 300 .00 AN ANXIETY UNSPEC 11/12/2008 MADL COVERSTITCH MACHINE OPERATOR, DAMON L 301 .83 PD BORDERLINE 11/12/2008 SAAD COVERSTITCH MACHINE OPERATOR, TRACY A 296.80 MO BIPOLAR NOS 11/12/2008 SAAD COVERSTITCH MACHINE OPERATOR, TRACY A 300.00 AN ANXIETY UNSPEC 11/12/2008 SAAD COVERSTITCH MACHINE OPERATOR, TRACY A 301.83 PD BORDERLINE 11/15/2008 ANTHONY MORRISON MD N 296 .90 MO MOOD DIS NOS 11/15/2008 ANTHONY MORRISON MD 304 .20 SA COCAINE DEPENDENCE 11/15/2008 ANTHONY MORRISON MD 307 .47 SI DYSSOMNIA NOS 11/15/2008 ANTHONY MORRISON MD N 296 .90 MO MOOD DIS NOS 11/15/2008 ANTHONY MORRISON MD N 304 .20 SA COCAINE DEPENDENCE 11/15/2008 ANTHONY MORRISON MD 307 .47 SI DYSSOMNIA NOS 11/15/2008 ANTHONY MORRISON MD N 296 .90 MO MOOD DIS NOS 11/15/2008 ANTHONY MORRISON MD N 304 .20 SA COCAINE DEPENDENCE 11/15/2008 ANTHONY MORRISON MD 307 .47 SI DYSSOMNIA NOS 11/15/2008 ANTHONY MORRISON MD N 296 .90 MO MOOD DIS NOS 11/15/2008 ANTHONY MORRISON MD N 304 .20 SA COCAINE DEPENDENCE 11/15/2008 ANTHONY MORRISON MD 307 .47 SI DYSSOMNIA NOS 11/15/2008 SAAD COVERSTITCH MACHINE OPERATOR, TRACY A 296.90 MO MOOD DIS NOS 11/15/2008 SAAD COVERSTITCH MACHINE OPERATOR, TRACY A 304.20 SA COCAINE DEPENDENCE 11/15/2008 SAAD COVERSTITCH MACHINE OPERATOR, TRACY A 307.47 SI DYSSOMNIA NOS 11/15/2008 SAAD COVERSTITCH MACHINE OPERATOR, TRACY A 296.90 MO MOOD DIS NOS 11/15/2008 SAAD COVERSTITCH MACHINE OPERATOR, TRACY A 304.20 SA COCAINE DEPENDENCE 11/15/2008 SAAD COVERSTITCH MACHINE OPERATOR, TRACY A 307.47 SI DYSSOMNIA NOS 11/15/2008 DOMINGUEZ DO, EILEEN K 296.90 MO MOOD DIS NOS 11/15/2008 DOMINGUEZ DO, EILEEN K 304.20 SA COCAINE DEPENDENCE 11/15/2008 DOMINGUEZ DO, EILEEN K 307.47 SI DYSSOMNIA NOS 11/15/2008 SOLE COVERSTITCH MACHINE OPERATOR, SAIRA R 296.90 MO MOOD DIS NOS 11/15/2008 SOLE COVERSTITCH MACHINE OPERATOR, SAIRA R 304.20 SA COCAINE DEPENDENCE 11/15/2008 SOLE COVERSTITCH MACHINE OPERATOR, SAIRA R 307.47 SI DYSSOMNIA NOS 11/15/2008 ANTHONY MORRISON MD N 296 .90 MO MOOD DIS NOS 11/15/2008 ANTHONY MORRISON MD N 304 .20 SA COCAINE DEPENDENCE 11/15/2008 ANTHONY MORRISON MD 307 .47 SI DYSSOMNIA NOS 11/15/2008 ANTHONY MORRISON MD N 296 .90 MO MOOD DIS NOS 11/15/2008 ANTHONY MORRISON MD N 304 .20 SA COCAINE DEPENDENCE 11/15/2008 ANTHONY MORRISON MD 307 .47 SI DYSSOMNIA NOS 11/15/2008 SAAD APRN, TRACY A 296.90 MO MOOD DIS NOS 11/15/2008 SAAD COVERSTITCH MACHINE OPERATOR, TRACY A 304.20 SA COCAINE DEPENDENCE 11/15/2008 SAAD COVERSTITCH MACHINE OPERATOR, TRACY A 307.47 SI DYSSOMNIA NOS 11/15/2008 MADL COVERSTITCH MACHINE OPERATOR, DAMON L 296 .90 MO MOOD DIS NOS 11/15/2008 MADL COVERSTITCH MACHINE OPERATOR, DAMON L 304 .20 SA COCAINE DEPENDENCE 11/15/2008 MADL COVERSTITCH MACHINE OPERATOR, DAMON L 307 .47 SI DYSSOMNIA NOS 11/15/2008 SAAD COVERSTITCH MACHINE OPERATOR, TRACY A 296.90 MO MOOD DIS NOS 11/15/2008 SAAD COVERSTITCH MACHINE OPERATOR, TRACY A 304.20 SA COCAINE DEPENDENCE 11/15/2008 SAAD COVERSTITCH MACHINE OPERATOR, TRACY A 307.47 SI DYSSOMNIA NOS 11/20/2008 ANTHONY MORRISON MD V58 .69 MEDICATION HIGH RISK 11/20/2008 ANTHONY MORRISON MD V58 .69 MEDICATION HIGH RISK 11/20/2008 ANTHONY MORRISON MD N V58 .69 MEDICATION HIGH RISK 11/20/2008 ANTHONY MORRISON MD V58 .69 MEDICATION HIGH RISK 11/20/2008 SAAD COVERSTITCH MACHINE OPERATOR, TRACY A V58.69 MEDICATION HIGH RISK 11/20/2008 SAAD COVERSTITCH MACHINE OPERATOR, TRACY A V58.69 MEDICATION HIGH RISK 11/20/2008 EILEEN DOMINGUEZ DO K V58.69 MEDICATION HIGH RISK 11/20/2008 TORIE WHIPPLE APRNINA R V58.69 MEDICATION HIGH RISK 11/20/2008 ANTHONY MORRISON MD N V58 .69 MEDICATION HIGH RISK 11/20/2008 ANTHONY MORRISON MD V58 .69 MEDICATION HIGH RISK 11/20/2008 SAAD COVERSTITCH MACHINE OPERATOR, TRACY A V58.69 MEDICATION HIGH RISK 11/20/2008 MAD COVERSTITCH MACHINE OPERATOR, DAMON L V58 .69 MEDICATION HIGH RISK 11/20/2008 SAAD COVERSTITCH MACHINE OPERATOR, TRACY A V58.69 MEDICATION HIGH RISK 12/03/2008 ANTHONY MORRISON MD N 300 .01 AN PANIC DIS W/O AGORA 12/03/2008 ANTHONY MORRISON MD N 300 .01 AN PANIC DIS W/O AGORA 12/03/2008 ANTHONY MORRISON MD N 300 .01 AN PANIC DIS W/O AGORA 12/03/2008 ANTHONY MORRISON MD N 300 .01 AN PANIC DIS W/O AGORA 12/03/2008 SAAD COVERSTITCH MACHINE OPERATOR, TRACY A 300.01 AN PANIC DIS W/O AGORA 12/03/2008 SAAD COVERSTITCH MACHINE OPERATOR, TRACY A 300.01 AN PANIC DIS W/O AGORA 12/03/2008 ALBERTO DOEILEEN K 300.01 AN PANIC DIS W/O AGORA 12/03/2008 SOLE COVERSTITCH MACHINE OPERATOR, SAIRA R 300.01 AN PANIC DIS W/O AGORA 12/03/2008 ANTHONY MORRISON MD N 300 .01 AN PANIC DIS W/O AGORA 12/03/2008 ANTHONY MORRISON MD N 300 .01 AN PANIC DIS W/O AGORA 12/03/2008 SAAD COVERSTITCH MACHINE OPERATOR, TRACY A 300.01 AN PANIC DIS W/O AGORA 12/03/2008 NBA COVERSTITCH MACHINE OPERATORDAMON L 300 .01 AN PANIC DIS W/O AGORA 12/03/2008 SAAD COVERSTITCH MACHINE OPERATOR, TRACY A 300.01 AN PANIC DIS W/O AGORA 01/01/2009 ANTHONY MORRISON MD N 314 .01 CD ADHD COMBINED 01/01/2009 ANTHONY MORRISON MD N 314 .01 CD ADHD COMBINED 01/01/2009 ANTHONY MORRISON MD N 314 .01 CD ADHD COMBINED 01/01/2009 ANTHONY MORRISON MD N 314 .01 CD ADHD COMBINED 01/01/2009 SAAD COVERSTITCH MACHINE OPERATOR, TRACY A 314.01 CD ADHD COMBINED 01/01/2009 SAAD COVERSTITCH MACHINE OPERATOR, TRACY A 314.01 CD ADHD COMBINED 01/01/2009 EILEEN DOMINGUEZ DO K 314.01 CD ADHD COMBINED 01/01/2009 TORIE WHIPPLE APRNINA R 314.01 CD ADHD COMBINED 01/01/2009 ANTHONY MORRISON MD N 314 .01 CD ADHD COMBINED 01/01/2009 ANTHONY MORRISON MD N 314 .01 CD ADHD COMBINED 01/01/2009 SAAD COVERSTITCH MACHINE OPERATOR, TRACY A 314.01 CD ADHD COMBINED 01/01/2009 [facility] COVERSTITCH MACHINE OPERATOR, DAMON L 314 .01 CD ADHD COMBINED 01/01/2009 SAAD COVERSTITCH MACHINE OPERATOR, TRACY A 314.01 CD ADHD COMBINED 01/29/2009 ANTHONY MORRISON MD 314 .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 ADHD INATTENTIVE 01/29/2009 ANTHONY MORRISON MD N 314 .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 ADHD INATTENTIVE 01/29/2009 ANTHONY MORRISON MD N 314 .00 CD ADHD INATTENTIVE 01/29/2009 ANTHONY MORRISON MD 314 .00 CD ADHD INATTENTIVE 01/29/2009 SAAD COVERSTITCH MACHINE OPERATOR, TRACY A 314.00 CD ADHD INATTENTIVE 01/29/2009 SAAD COVERSTITCH MACHINE OPERATOR, TRACY A 314.00 CD ADHD INATTENTIVE 01/29/2009 EILEEN DOMINGUEZ DO 314.00 CD ADHD INATTENTIVE 01/29/2009 SOLE COVERSTITCH MACHINE OPERATOR, SAIRA R 314.00 CD ADHD INATTENTIVE 01/29/2009 ANTHONY MORRISON MD N 314 .00 CD ADHD INATTENTIVE 01/29/2009 ANTHONY MORRISON MD 314 .00 CD ADHD INATTENTIVE 01/29/2009 SAAD COVERSTITCH MACHINE OPERATOR, TRACY A 314.00 CD ADHD INATTENTIVE 01/29/2009 [facility] COVERSTITCH MACHINE OPERATOR, DAMON L 314 .00 CD ADHD INATTENTIVE 01/29/2009 SAAD COVERSTITCH MACHINE OPERATOR, TRACY A 314.00 CD ADHD INATTENTIVE 03/14/2009 ANTHONY MORRISON MD V74 .5 visit for: screening exam bact/spirochetal venereal disease 03/14/2009 ANTHONY MORRISON MD N V74 .5 visit for: screening exam bact/spirochetal venereal disease 03/14/2009 ANTHONY MORRISON MD N V74 .5 visit for: screening exam bact/spirochetal venereal disease 03/14/2009 ANTHONY MORRISON MD V74 .5 visit for: screening exam bact/spirochetal venereal disease 03/14/2009 TRACY NASH APRN V7 4.5 visit for: screening exam bact/spirochetal venereal disease 03/14/2009 TRACY NASH APRN V7 4.5 visit for: screening exam bact/spirochetal venereal disease 03/14/2009 EILEEN DOMINGUEZ DO V74.5 visit for: screening exam bact/spirochetal venereal disease 03/14/2009 SAIRA WHIPPLE APRN R V74.5 visit for: screening exam bact/spirochetal venereal di sease 03/14/2009 ANTHONY MORRISON MD N V74 .5 VISIT FOR: SCREENING EXAM BACT/SPIROCHETAL VENEREAL DISEASE 03/14/2009 ANTHONY MORRISON MD V74 .5 VISIT FOR: SCREENING EXAM BACT/SPIROCHETAL VENEREAL DISEASE 03/14/2009 TRACY NASH APRN A V7 4.5 VISIT FOR: SCREENING EXAM BACT/SPIROCHETAL VENEREAL DISEASE 03/14/2009 DAMON HAYNES APRN V74 .5 VISIT FOR: SCREENING EXAM BACT/SPIROCHETAL VENEREAL DISEASE 03/14/2009 TRACY NASH APRN A V7 4.5 VISIT FOR: SCREENING EXAM BACT/SPIROCHETAL VENEREAL DISEASE 03/17/2009 ANTHONY MORRISON MD N 599 .0 URINARY TRACT INFECTION 03/17/2009 ANTHONY MORRISON MD N 599 .0 URINARY TRACT INFECTION 03/17/2009 ANTHONY MORRISON MD N 599 .0 URINARY TRACT INFECTION 03/17/2009 ANTHONY MORRISON MD N 599 .0 URINARY TRACT INFECTION 03/17/2009 WILLIAM NASH APRNIDI A 59 9.0 URINARY TRACT INFECTION 03/17/2009 WILLIAM NASH APRNIDI A 59 9.0 URINARY TRACT INFECTION 03/17/2009 ALBERTO DOEILEEN K 599.0 URINARY TRACT INFECTION 03/17/2009 SAIRA WHIPPLE APRN R 599.0 URINARY TRACT INFECTION 03/17/2009 ANTHONY MORRISON MD N 599 .0 URINARY TRACT INFECTION 03/17/2009 ANTHONY MORRISON MD N 599 .0 URINARY TRACT INFECTION 03/17/2009 WILLIAM NASH APRNIDI A 59 9.0 URINARY TRACT INFECTION 03/17/2009 DAMON HAYNES APRN L 599 .0 URINARY TRACT INFECTION 03/17/2009 SAADELI MENJIVAR TRACY A 59 9.0 URINARY TRACT INFECTION 07/27/2010 Ot 276.8 HYPO POTASSEMIA 07/27/2010 Ot 296.80 BIP OLAR DISORDER, UNSPECIFIED 07/27/2010 Ot 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 07/27/2010 Ot 305.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 07/27/2010 Ot 969.05 POI SONING BY TRICYCLIC ANTIDEPRESSANTS 07/27/2010 Ot E849.0 ACC IDENT IN HOME 07/27/2010 Ot 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 11/02/2010 Ot 789.09 ABD OMINAL PAIN, OTHER SPECIFIED SITE 01/06/2011 ANTHONY MORRISON MD 995 .3 ALLERGY UNSPECIFIED NOT ELSEWHERE CLASSIFIED 01/06/2011 ANTHONY MORRISON MD V72 .31 SCARFER OPERATOR EXAM, ROUTINE 01/06/2011 ANTHONY MORRISON MD 995 .3 ALLERGY UNSPECIFIED NOT ELSEWHERE CLASSIFIED 01/06/2011 ANTHONY MORRISON MD V72 .31 SCARFER OPERATOR EXAM, ROUTINE 01/06/2011 ANTHONY MORRISON MD 995 .3 ALLERGY UNSPECIFIED NOT ELSEWHERE CLASSIFIED 01/06/2011 ANTHONY MORRISON MD V72 .31 SCARFER OPERATOR EXAM, ROUTINE 01/06/2011 ANTHONY MORRISON MD N 995 .3 ALLERGY UNSPECIFIED NOT ELSEWHERE CLASSIFIED 01/06/2011 ANTHONY MORRISON MD N V72 .31 SCARFER OPERATOR EXAM, ROUTINE 01/06/2011 SAAD MENJIVAR, TRACY A 99 5.3 ALLERGY UNSPECIFIED NOT ELSEWHERE CLASSIFIED 01/06/2011 SAAD MENJIVAR, TRACY A V72.31 SCARFER OPERATOR EXAM, ROUTINE 01/06/2011 SAAD COVERSTITCH MACHINE OPERATOR, TRACY A 99 5.3 ALLERGY UNSPECIFIED NOT ELSEWHERE CLASSIFIED 01/06/2011 SAAD MENJIVAR TRACY A V72.31 SCARFER OPERATOR EXAM, ROUTINE 01/06/2011 ALBERTO DO EILEEN K 995.3 ALLERGY UNSPECIFIED NOT ELSEWHERE CLASSIFIED 01/06/2011 DOMINGUEZ DO, EILEEN K V72.31 SCARFER OPERATOR EXAM, ROUTINE 01/06/2011 SOLE MENJIVAR SAIRA R 995.3 ALLERGY UNSPECIFIED NOT ELSEWHERE CLASSIFIED 01/06/2011 OSLE MENJIVAR SAIRA R V72.31 SCARFER OPERATOR EXAM, ROUTINE 01/06/2011 ANTHONY MORRISON MD N 995 .3 ALLERGY UNSPECIFIED NOT ELSEWHERE CLASSIFIED 01/06/2011 ANTHONY MORRISON MD N V72 .31 SCARFER OPERATOR EXAM, ROUTINE 01/06/2011 ANTHONY MORRISON MD N 995 .3 ALLERGY UNSPECIFIED NOT ELSEWHERE CLASSIFIED 01/06/2011 TAMIKO MEJIA, ANTHONY N V72 .31 SCARFER OPERATOR EXAM, ROUTINE 01/06/2011 SAAD COVERSTITCH MACHINE OPERATOR, TRACY A 99 5.3 ALLERGY UNSPECIFIED NOT ELSEWHERE CLASSIFIED 01/06/2011 SAAD COVERSTITCH MACHINE OPERATOR, TRACY A V72.31 SCARFER OPERATOR EXAM, ROUTINE 01/06/2011 MADL COVERSTITCH MACHINE OPERATOR, DAMON L 995 .3 ALLERGY UNSPECIFIED NOT ELSEWHERE CLASSIFIED 01/06/2011 MADL COVERSTITCH MACHINE OPERATOR, DAMON L V72 .31 SCARFER OPERATOR EXAM, ROUTINE 01/06/2011 SAAD COVERSTITCH MACHINE OPERATOR, TRACY A 99 5.3 ALLERGY UNSPECIFIED NOT ELSEWHERE CLASSIFIED 01/06/2011 SAAD COVERSTITCH MACHINE OPERATOR, TRACY A V72.31 SCARFER OPERATOR EXAM, ROUTINE 04/30/2011 Ot 558.9 SARITA NF GASTROENTERIT NEC 04/30/2011 Ot 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 06/20/2011 Ot 380.10 INF EC OTITIS EXTERNA NOS 06/20/2011 Ot 388.70 SLURRY CONTROL TENDER LGIA NOS 08/08/2011 Ot 276.50 VOL UME DEPLETION, UNSPECIFIED 08/08/2011 Ot 787.03 VOM ITING ALONE 08/08/2011 Ot 789.06 ABD OMINAL PAIN, EPIGASTRIC 11/12/2011 Ot 455.0 INT HEMORRHOID W/O COMPL 11/12/2011 Ot 530.11 REF LUX ESOPHAGITIS 11/12/2011 Ot 535.40 OTH SPECIFIED GASTRITIS,W/O MENTION OF H 11/12/2011 Ot 553.3 DIAP HRAGMATIC HERNIA 11/12/2011 Ot 564.00 UNS PEC CONSTIPATION 11/12/2011 Ot 787.91 LEONEL RRHEA 02/03/2012 Ot 924.01 CON TUSION OF HIP 02/03/2012 Ot 959.6 HIP THIGH INJURY NOS 02/03/2012 Ot E000.8 OTH ER EXTERNAL CAUSE STATUS 02/03/2012 Ot E001.0 ACT IVITIES INVOLVING WALKING, MARCHING A 02/03/2012 Ot E849.6 ACC IDENT IN PUBLIC BLDG 02/03/2012 Ot E888.9 FAL L NOS 04/15/2012 Ot 891.0 OPEN WND KNEE/LEG/ANKLE 04/15/2012 Ot E000.8 OTH ER EXTERNAL CAUSE STATUS 04/15/2012 Ot E849.0 ACC IDENT IN HOME 04/15/2012 Ot E928.9 ACC IDENT NOS 04/15/2012 Ot V06.1 [id number], COMBINED [ 04/25/2012 Ot V58.32 ENC OUNTER FOR REMOVAL OF SUTURES 02/16/2013 KALEB MEJIA, WILL Mane Ot 625.8 FEM GENITAL SYMPTOMS NEC 07/04/2013 ANTHONY MORRISON MD N 465 .9 UPPER RESPIRATORY INFECTION 07/04/2013 ANTHONY MORRISON MD N 564 .00 UNSPECIFIED CONSTIPATION 07/04/2013 ANTHONY MORRISON MD N 465 .9 UPPER RESPIRATORY INFECTION 07/04/2013 ANTHONY MORRISON MD N 564 .00 UNSPECIFIED CONSTIPATION 07/04/2013 ANTHONY MORRISNO MD N 465 .9 UPPER RESPIRATORY INFECTION 07/04/2013 ANTHONY MORRISON MD N 564 .00 UNSPECIFIED CONSTIPATION 07/04/2013 ANTHONY MORRISON MD N 465 .9 UPPER RESPIRATORY INFECTION 07/04/2013 ANTHONY MORRISON MD N 564 .00 UNSPECIFIED CONSTIPATION 07/04/2013 SAAD MENJIVAR TRACY A 46 5.9 UPPER RESPIRATORY INFECTION 07/04/2013 SAAD MENJIVAR, TRACY A 564.00 UNSPECIFIED CONSTIPATION 07/04/2013 SAAD MENJIVAR TRACY A 46 5.9 UPPER RESPIRATORY INFECTION 07/04/2013 SAAD MENJIVAR, TRACY A 564.00 UNSPECIFIED CONSTIPATION 07/04/2013 ALBERTO DAVIS EILEEN K 465.9 UPPER RESPIRATORY INFECTION 07/04/2013 DOMINGUEZ DO EILEEN K 564.00 UNSPECIFIED CONSTIPATION 07/04/2013 SOLE MENJIVAR SAIRA R 465.9 UPPER RESPIRATORY INFECTION 07/04/2013 SOLE MENJIVAR, SAIRA R 564.00 UNSPECIFIED CONSTIPATION 07/04/2013 ANTHONY MORRISON MD N 465 .9 UPPER RESPIRATORY INFECTION 07/04/2013 ANTHONY MORRISON MD N 564 .00 UNSPECIFIED CONSTIPATION 07/04/2013 ANTHONY MORRISON MD N 465 .9 UPPER RESPIRATORY INFECTION 07/04/2013 ANTHONY MORRISON MD N 564 .00 UNSPECIFIED CONSTIPATION 07/04/2013 SAAD MENJIVAR TRACY A 46 5.9 UPPER RESPIRATORY INFECTION 07/04/2013 WILLIAM NASH APRNIDI A 564.00 UNSPECIFIED CONSTIPATION 07/04/2013 NBAL DAMON MENJIVAR L 465 .9 UPPER RESPIRATORY INFECTION 07/04/2013 MADL OTTO, DAMON L 564 .00 UNSPECIFIED CONSTIPATION 07/04/2013 SAAD COVERSTITCH MACHINE OPERATOR, TRACY A 46 5.9 UPPER RESPIRATORY INFECTION 07/04/2013 SAAD COVERSTITCH MACHINE OPERATOR, TRACY A 564.00 UNSPECIFIED CONSTIPATION 07/20/2013 ANTHONY MORRISON MD N 466 .0 ACUTE BRONCHITIS 07/20/2013 ANTHONY MORRISON MD N 466 .0 ACUTE BRONCHITIS 07/20/2013 ANTHONY MORRISON MD N 466 .0 ACUTE BRONCHITIS 07/20/2013 SAAD COVERSTITCH MACHINE OPERATOR, TRACY A 46 6.0 ACUTE BRONCHITIS 07/20/2013 SAAD COVERSTITCH MACHINE OPERATOR, TRACY A 46 6.0 ACUTE BRONCHITIS 07/20/2013 ALBERTO DAVIS EILEEN K 466.0 ACUTE BRONCHITIS 07/20/2013 SAIRA WHIPPLE APRN R 466.0 ACUTE BRONCHITIS 07/20/2013 ANTHONY MORRISON MD N 466 .0 ACUTE BRONCHITIS 07/20/2013 ANTHONY MORRISON MD N 466 .0 ACUTE BRONCHITIS 07/20/2013 SAAD COVERSTITCH MACHINE OPERATOR, TRACY A 46 6.0 ACUTE BRONCHITIS 07/20/2013 DAMON HAYNES APRN L 466 .0 ACUTE BRONCHITIS 07/20/2013 SAAD COVERSTITCH MACHINE OPERATOR, TRACY A 46 6.0 ACUTE BRONCHITIS 08/31/2013 ANTHONY MORRISON MD N 272 .4 HYPERLIPIDEMIA 08/31/2013 ANTHONY MORRISON MD N 278 .00 OBESITY UNSPECIFIED 08/31/2013 ANTHONY MORRISON MD N 564 .1 IRRITABLE BOWEL SYNDROME 08/31/2013 ANTHONY MORRISON MD N V15 .05 PERSONAL HISTORY OF ALLERGY TO OTHER FOODS 08/31/2013 ANTHONY MORRISON MD N 272 .4 HYPERLIPIDEMIA 08/31/2013 ANTHONY MORRISON MD N 278 .00 OBESITY UNSPECIFIED 08/31/2013 ANTHONY MORRISON MD N 564 .1 IRRITABLE BOWEL SYNDROME 08/31/2013 ANTHONY MORRISON MD N V15 .05 PERSONAL HISTORY OF ALLERGY TO OTHER FOODS 08/31/2013 SAAD COVERSTITCH MACHINE OPERATOR, TRACY A 27 2.4 HYPERLIPIDEMIA 08/31/2013 SAAD KEYN, TRACY A 278.00 OBESITY UNSPECIFIED 08/31/2013 SAAD KEYN, TRACY A 56 4.1 IRRITABLE BOWEL SYNDROME 08/31/2013 SAAD KEYN, TRACY A V15.05 PERSONAL HISTORY OF ALLERGY TO OTHER FOODS 08/31/2013 SAAD KEYN, TRACY A 27 2.4 HYPERLIPIDEMIA 08/31/2013 SAAD KEYN, TRACY A 278.00 OBESITY UNSPECIFIED 08/31/2013 SAAD KEYN, TRACY A 56 4.1 IRRITABLE BOWEL SYNDROME 08/31/2013 SAAD KEYN, TRACY A V15.05 PERSONAL HISTORY OF ALLERGY TO OTHER FOODS 08/31/2013 DOMINGUEZ DO, EILEEN K 272.4 HYPERLIPIDEMIA 08/31/2013 DOMINGUEZ DO, EILEEN K 278.00 OBESITY UNSPECIFIED 08/31/2013 DOMINGUEZ DO, EILEEN K 564.1 IRRITABLE BOWEL SYNDROME 08/31/2013 DOMINGUEZ DO, EILEEN K V15.05 PERSONAL HISTORY OF ALLERGY TO OTHER FOODS 08/31/2013 SOLE MENJIVAR SAIRA R 272.4 HYPERLIPIDEMIA 08/31/2013 SOLE MENJIVAR SAIRA R 278.00 OBESITY UNSPECIFIED 08/31/2013 SOLE MENJIVAR SAIRA R 564.1 IRRITABLE BOWEL SYNDROME 08/31/2013 SOLE MENJIVAR SAIRA R V15.05 PERSONAL HISTORY OF ALLERGY TO OTHER FOODS 08/31/2013 ANTHONY MORRISON MD N 272 .4 HYPERLIPIDEMIA 08/31/2013 ANTHONY MORRISON MD N 278 .00 OBESITY UNSPECIFIED 08/31/2013 ANTHONY MORRISON MD N 564 .1 IRRITABLE BOWEL SYNDROME 08/31/2013 ANTHONY MORRISON MD N V15 .05 PERSONAL HISTORY OF ALLERGY TO OTHER FOODS 08/31/2013 ANTHONY MORRISON MD N 272 .4 HYPERLIPIDEMIA 08/31/2013 ANTHONY MORRISON MD N 278 .00 OBESITY UNSPECIFIED 08/31/2013 ANTHONY MORRISON MD N 564 .1 IRRITABLE BOWEL SYNDROME 08/31/2013 ANTHONY MORRISON MD N V15 .05 PERSONAL HISTORY OF ALLERGY TO OTHER FOODS 08/31/2013 SAAD KEYN, TRACY A 27 2.4 HYPERLIPIDEMIA 08/31/2013 SAAD MENJIVAR, TRACY A 278.00 OBESITY UNSPECIFIED 08/31/2013 WILLIAM NASH APRNIDI A 56 4.1 IRRITABLE BOWEL SYNDROME 08/31/2013 WILLIAM NASH APRNIDI A V15.05 PERSONAL HISTORY OF ALLERGY TO OTHER FOODS 08/31/2013 KEVIN HAYNES APRNA L 272 .4 HYPERLIPIDEMIA 08/31/2013 CHERIE HAYNES APRNWNYA L 278 .00 OBESITY UNSPECIFIED 08/31/2013 KEVIN HAYNES APRNA L 564 .1 IRRITABLE BOWEL SYNDROME 08/31/2013 KEVIN HAYNES APRNA L V15 .05 PERSONAL HISTORY OF ALLERGY TO OTHER FOODS 08/31/2013 WILLIAM NASH APRNIDI A 27 2.4 HYPERLIPIDEMIA 08/31/2013 WILLIAM NASH APRNIDI A 278.00 OBESITY UNSPECIFIED 08/31/2013 WILLIAM NASH APRNIDI A 56 4.1 IRRITABLE BOWEL SYNDROME 08/31/2013 WILLIAM NASH APRNIDI A V15.05 PERSONAL HISTORY OF ALLERGY TO OTHER FOODS 09/10/2013 SAAD MENJIVAR TRACY A V65.49 OTHER SPECIFIED COUNSELING 09/10/2013 SAAD MENJIVAR TRACY A V73.81 HPV SCREENING 09/10/2013 SAAD MENJIVARWILLIAMTRACY A V76.10 BREAST CANCER SCREENING 09/10/2013 SAAD MENJIVAR TRACY A V7 6.2 CERVICAL CANCER SCREENING (PAP SMEAR) 09/10/2013 SAAD MENJIVAR TRACY A V65.49 OTHER SPECIFIED COUNSELING 09/10/2013 SAAD KEYTRACY Singh A V73.81 HPV SCREENING 09/10/2013 SAAD KEYWILLIAM SinghIDI A V76.10 BREAST CANCER SCREENING 09/10/2013 SAAD MENJIVAR TRACY A V7 6.2 CERVICAL CANCER SCREENING (PAP SMEAR) 09/10/2013 DOMINGUEZ DO, EILEEN K V65.49 OTHER SPECIFIED COUNSELING 09/10/2013 DOMINGUEZ DO, EILEEN K V73.81 HPV SCREENING 09/10/2013 DOMINGUEZ DO, EILEEN K V76.10 BREAST CANCER SCREENING 09/10/2013 DOMINGUEZ DO, EILEEN K V76.2 CERVICAL CANCER SCREENING (PAP SMEAR) 09/10/2013 SAIRA WHIPPLE APRN V65.49 OTHER SPECIFIED COUNSELING 09/10/2013 SOLE COVERSTITCH MACHINE OPERATOR, SAIRA R V73.81 HPV SCREENING 09/10/2013 SOLE MENJIVAR, SAIRA R V76.10 BREAST CANCER SCREENING 09/10/2013 SOLE MENJIVAR SAIRA R V76.2 CERVICAL CANCER SCREENING (PAP SMEAR) 09/10/2013 ANTHONY MORRISON MD V65 .49 OTHER SPECIFIED COUNSELING 09/10/2013 ANTHONY MORRISON MD V73 .81 HPV SCREENING 09/10/2013 ANTHONY MORRISON MD V76 .10 BREAST CANCER SCREENING 09/10/2013 ANTHONY MORRISON MD V76 .2 CERVICAL CANCER SCREENING (PAP SMEAR) 09/10/2013 ANTHONY MORRISON MD V65 .49 OTHER SPECIFIED COUNSELING 09/10/2013 ANTHONY MORRISON MD V73 .81 HPV SCREENING 09/10/2013 ANTHONY MORRISON MD V76 .10 BREAST CANCER SCREENING 09/10/2013 ANTHONY MORRISON MD V76 .2 CERVICAL CANCER SCREENING (PAP SMEAR) 09/10/2013 WILLIAM NASH APRNIDI A V65.49 OTHER SPECIFIED COUNSELING 09/10/2013 SAAD MENJIVAR TRACY A V73.81 HPV SCREENING 09/10/2013 SAAD MENJIVAR TRACY A V76.10 BREAST CANCER SCREENING 09/10/2013 SAAD MENJIVAR TRACY A V7 6.2 CERVICAL CANCER SCREENING (PAP SMEAR) 09/10/2013 KEVIN HAYNES APRNA L V65 .49 OTHER SPECIFIED COUNSELING 09/10/2013 KEVIN HAYNES APRNA L V73 .81 HPV SCREENING 09/10/2013 [place] MENJIVAR DAMON L V76 .10 BREAST CANCER SCREENING 09/10/2013 [place] MENJIVAR DAMON L V76 .2 CERVICAL CANCER SCREENING (PAP SMEAR) 09/10/2013 SAAD MENJIVAR TRACY A V65.49 OTHER SPECIFIED COUNSELING 09/10/2013 SAAD MENJIVAR TRACY A V73.81 HPV SCREENING 09/10/2013 SAAD MENJIVAR TRACY A V76.10 BREAST CANCER SCREENING 09/10/2013 SAAD MENJIVAR TRACY A V7 6.2 CERVICAL CANCER SCREENING (PAP SMEAR) 11/08/2013 EILEEN DOMINGUEZ DO 461.9 SINUSITIS ACUTE 11/08/2013 EILEEN DOMINGUEZ DO K 477.0 ALLERGIC RHINITIS DUE TO POLLEN 11/08/2013 SOLE COVERSTITCH MACHINE OPERATOR, SAIRA R 461.9 SINUSITIS ACUTE 11/08/2013 SOLE COVERSTITCH MACHINE OPERATOR, SAIRA R 477.0 ALLERGIC RHINITIS DUE TO POLLEN 11/08/2013 ANTHONY MORRISON MD N 461 .9 SINUSITIS ACUTE 11/08/2013 ANTHONY MORRISON MD N 477 .0 ALLERGIC RHINITIS DUE TO POLLEN 11/08/2013 ANTHONY MORRISON MD N 461 .9 SINUSITIS ACUTE 11/08/2013 ANTHONY MORRISON MD N 477 .0 ALLERGIC RHINITIS DUE TO POLLEN 11/08/2013 SAAD COVERSTITCH MACHINE OPERATOR, TRACY A 46 1.9 SINUSITIS ACUTE 11/08/2013 SAAD COVERSTITCH MACHINE OPERATOR, TRACY A 47 7.0 ALLERGIC RHINITIS DUE TO POLLEN 11/08/2013 MADL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 IVERSON MD Ot Z68.37 BODY MASS INDEX (BMI) 37.0-37.9, ADULT 12/12/2017 CORBY IVERSON MD Ot Z79.899 OTHER NURSING HOME (CURRENT) DRUG THERAPY 12/12/2017 CORBY IVERSON MD Ot Z87.891 PERSONAL HISTORY OF NICOTINE DEPENDENCE 12/12/2017 CORBY IVERSON MD Ot E03 .9 HYPOTHYROIDISM, UNSPECIFIED 12/12/2017 CORBY IVERSON MD Ot E66 .2 MORBID (SEVERE) OBESITY WITH ALVEOLAR HY 12/12/2017 CORBY IVERSON MD Ot E78 .5 HYPERLIPIDEMIA, UNSPECIFIED 12/12/2017 CORBY IVERSON MD Ot I10 ESSENTIAL (PRIMARY) HYPERTENSION 12/12/2017 CORBY IVERSON MD Ot J45.901 UNSPECIFIED ASTHMA WITH (ACUTE) EXACERBA 12/12/2017 CORBY IVERSON MD Ot K21 .9 GASTRO-ESOPHAGEAL REFLUX DISEASE WITHOUT 12/12/2017 CORBY IVERSON MD Ot R07.89 OTHER CHEST PAIN 12/12/2017 CORBY IVERSON MD Ot Z68.37 BODY MASS INDEX (BMI) 37.0-37.9, ADULT 12/12/2017 CORBY IVERSON MD Ot Z79.899 OTHER NURSING HOME (CURRENT) DRUG THERAPY 12/12/2017 CORBY IVERSON MD Ot Z87.891 PERSONAL HISTORY OF NICOTINE DEPENDENCE 05/02/2018 W 078.10 VIR AL WARTS, UNSPECIFIED 05/02/2018 W 401.9 UNSP ECIFIED ESSENTIAL HYPERTENSION 05/02/2018 W B07.9 JERRY L WART, UNSPECIFIED 05/02/2018 W I10 ESSENT IAL (PRIMARY) HYPERTENSION 05/10/2018 W 078.19 OTH ER SPECIFIED VIRAL WARTS 05/10/2018 W 890.0 OPEN WOUND OF HIP AND THIGH, WITHOUT MENTION OF COMPLICATION 05/10/2018 W B07.8 OTHE R VIRAL WARTS 05/10/2018 W S71.111A L ACERATION WITHOUT FOREIGN BODY, RIGHT THIGH, INITIAL ENCOUNTER 05/23/2018 W 078.10 VIR AL WARTS, UNSPECIFIED 05/23/2018 W B07.9 JERRY L WART, UNSPECIFIED 08/08/2018 W 244.9 UNSP ECIFIED HYPOTHYROIDISM 08/08/2018 W 401.9 UNSP ECIFIED ESSENTIAL HYPERTENSION 08/08/2018 W 462 ACUTE PHARYNGITIS 08/08/2018 W E03.9 HYPO THYROIDISM, UNSPECIFIED 08/08/2018 W I10 ESSENT IAL (PRIMARY) HYPERTENSION 08/08/2018 W J02.9 ACUT E PHARYNGITIS, UNSPECIFIED 08/18/2018 ADAM MEJIA FACC, ALI FACP CCDS Ot I10 ESSENTIAL (PRIMARY) HYPERTENSION 08/18/2018 ADAM MEJIA FACC, ALI FACP CCDS Ot I27.21 SECONDARY PULMONARY ARTERIAL HYPERTENSIO 08/18/2018 ADAM MEJIA FACC, ALI FACP CCDS Ot R06.02 SHORTNESS OF BREATH 08/31/2018 ADAM MEJIA FACC, ALI FACP CCDS Ot I10 ESSENTIAL (PRIMARY) HYPERTENSION 08/31/2018 ADAM MEJIA FACC, ALI FACP CCDS Ot I27.21 SECONDARY PULMONARY ARTERIAL HYPERTENSIO 08/31/2018 ADAM MEJIA FACC, ALI FACP CCDS Ot R06.02 SHORTNESS OF BREATH 09/12/2018 Alyssa Payton-Pawan W 244.9 UNSPECIFIED HYPOTHYROIDISM 09/12/2018 Shah, Payton-Pawan W 272.4 OTHER AND UNSPECIFIED HYPERLIPIDEMIA 09/12/2018 Alyssa, Payton-Pawan W 780.60 FEVER, UNSPECIFIED 09/12/2018 Shah, Payton-Pawan W E03.9 HYPOTHYROIDISM, UNSPECIFIED 09/12/2018 Shah, Payton-Pawan W E78.5 HYPERLIPIDEMIA, UNSPECIFIED 09/12/2018 Shah, Payton-Pawan W R50.9 FEVER, UNSPECIFIED 09/12/2018 Shah, Payton-Pawan W 244.9 UNSPECIFIED HYPOTHYROIDISM 09/12/2018 Shah, Payton-Pawan W 272.4 OTHER AND UNSPECIFIED HYPERLIPIDEMIA 09/12/2018 Shah, Payton-Pawan W 780.60 FEVER, UNSPECIFIED 09/12/2018 Shah, Payton-Pawan W E03.9 HYPOTHYROIDISM, UNSPECIFIED 09/12/2018 Shah, Payton-Pawan W E78.5 HYPERLIPIDEMIA, UNSPECIFIED 09/12/2018 Shah, Payton-Pawan W R50.9 FEVER, UNSPECIFIED 09/12/2018 W 244.9 UNSP ECIFIED HYPOTHYROIDISM 09/12/2018 W 272.4 OTHE R AND UNSPECIFIED HYPERLIPIDEMIA 09/12/2018 W 780.60 FEV ER, UNSPECIFIED 09/12/2018 W E03.9 HYPO THYROIDISM, UNSPECIFIED 09/12/2018 W E78.5 HYPE RLIPIDEMIA, UNSPECIFIED 09/12/2018 W R50.9 FEVE R, UNSPECIFIED 09/29/2018 W 401.9 UNSP ECIFIED ESSENTIAL HYPERTENSION 09/29/2018 W I10 ESSENT IAL (PRIMARY) HYPERTENSION 10/04/2018 SAAD TRACY A COVERSTITCH MACHINE OPERATOR Ot V76.12 OTH SCREEN MAMMO-MALIGN NEOPLASM OF CARTER 10/04/2018 ERIN BOSS, JEREMY Villa Ot 718.87 JT DERANGEMENT NEC-ANKLE 10/04/2018 ERIN BOSS, JEREMY Villa Ot 733.99 BONE CARTILAGE DIS NEC 10/04/2018 ERIN BOSS, JEREMY Villa Ot 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 HISTORY Ot R07.9 CHEST PAIN, UNSPECIFIED 10/04/2018 KIT FERREIRA ADJUNCT PROFESSOR OF U.S. 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 .2 OTHER DISEASES OF PHARYNX 10/06/2018 JASON RAJPUT MD Ot R13.10 DYSPHAGIA, UNSPECIFIED 10/12/2018 RICHARD LOWE MD, Ot Z01.81 8 ENCOUNTER FOR OTHER PREPROCEDURAL EXAMIN 10/13/2018 RICHARD LOWE MD Ot F32.9 MAJOR DEPRESSIVE DISORDER, SINGLE EPISOD 10/13/2018 RICHARD LOWE MD, Ot F41.9 ANXIETY DISORDER, UNSPECIFIED 10/13/2018 RICHARD OLWE MD, Ot K21.0 GASTRO-ESOPHAGEAL REFLUX DISEASE WITH ES 10/13/2018 RICHARD LOWE MD, Ot K22.2 ESOPHAGEAL OBSTRUCTION 10/13/2018 RICHARD LOWE MD, Ot K29.70 GASTRITIS, UNSPECIFIED, WITHOUT BLEEDING 10/13/2018 RICHARD LOWE MD, Ot K44.9 DIAPHRAGMATIC HERNIA WITHOUT OBSTRUCTION 10/13/2018 RICHARD LOWE MD, Ot N39.3 STRESS INCONTINENCE (FEMALE) (MALE) 10/13/2018 RICHARD LOWE MD, Ot Z79.89 9 OTHER ASSISTANT ATHLETIC TRAINER (CURRENT) DRUG THERAPY 10/13/2018 RICHARD LOWE MD Ot Z87.89 1 PERSONAL HISTORY OF NICOTINE DEPENDENCE 10/13/2018 RICHARD LOWE MD Ot Z01.81 8 ENCOUNTER FOR OTHER PREPROCEDURAL EXAMIN 10/13/2018 RICHARD LOWE MD Ot Z01.81 8 ENCOUNTER FOR OTHER PREPROCEDURAL EXAMIN 10/17/2018 RICHARD LOWE MD, Ot F32.9 MAJOR DEPRESSIVE DISORDER, SINGLE EPISOD 10/17/2018 RICHARD LOWE MD Ot F41.9 ANXIETY DISORDER, UNSPECIFIED 10/17/2018 RICHARD LOWE MD Ot K21.0 GASTRO-ESOPHAGEAL REFLUX DISEASE WITH ES 10/17/2018 RICHARD LOWE MD Ot K22.2 ESOPHAGEAL OBSTRUCTION 10/17/2018 RICHARD LOWE MD Ot K29.70 GASTRITIS, UNSPECIFIED, WITHOUT BLEEDING 10/17/2018 RICHARD LOWE MD Ot K44.9 DIAPHRAGMATIC HERNIA WITHOUT OBSTRUCTION 10/17/2018 RICHARD LOWE MD Ot N39.3 STRESS INCONTINENCE (FEMALE) (MALE) 10/17/2018 RICHARD LOWE MD Ot Z79.89 9 OTHER ASSISTANT ATHLETIC TRAINER (CURRENT) DRUG THERAPY 10/17/2018 RICHARD LOWE MD Ot Z87.89 1 PERSONAL HISTORY OF NICOTINE DEPENDENCE 10/17/2018 RICHARD LOWE MD Ot F32.9 MAJOR DEPRESSIVE DISORDER, SINGLE EPISOD 10/17/2018 RICHARD LOWE MD Ot F41.9 ANXIETY DISORDER, UNSPECIFIED 10/17/2018 RICHARD LOWE MD Ot K21.0 GASTRO-ESOPHAGEAL REFLUX DISEASE WITH ES 10/17/2018 RICHARD LOWE MD Ot K22.2 ESOPHAGEAL OBSTRUCTION 10/17/2018 RICHARD LOWE MD Ot K29.70 GASTRITIS, UNSPECIFIED, WITHOUT BLEEDING 10/17/2018 RICHARD LOWE MD Ot K44.9 DIAPHRAGMATIC HERNIA WITHOUT OBSTRUCTION 10/17/2018 RICHARD LOWE MD Ot N39.3 STRESS INCONTINENCE (FEMALE) (MALE) 10/17/2018 RICHARD LOWE MD Ot Z79.89 9 OTHER ASSISTANT ATHLETIC TRAINER (CURRENT) DRUG THERAPY 10/17/2018 RICHARD LOWE MD Ot Z87.89 1 PERSONAL HISTORY OF NICOTINE DEPENDENCE 10/18/2018 RICHARD LOWE MD Ot F32.9 MAJOR DEPRESSIVE DISORDER, SINGLE EPISOD 10/18/2018 RICHARD LOWE MD Ot F41.9 ANXIETY DISORDER, UNSPECIFIED 10/18/2018 RICHARD LOWE MD Ot K21.0 GASTRO-ESOPHAGEAL REFLUX DISEASE WITH ES 10/18/2018 RICHARD LOWE MD Ot K22.2 ESOPHAGEAL OBSTRUCTION 10/18/2018 RICHARD LOWE MD Ot K29.70 GASTRITIS, UNSPECIFIED, WITHOUT BLEEDING 10/18/2018 RICHARD LOWE MD Ot K44.9 DIAPHRAGMATIC HERNIA WITHOUT OBSTRUCTION 10/18/2018 RICHRAD LOWE MD Ot N39.3 STRESS INCONTINENCE (FEMALE) (MALE) 10/18/2018 RICHARD LOWE MD Ot Z79.89 9 OTHER NURSING HOME (CURRENT) DRUG THERAPY 10/18/2018 RICHARD LOWE MD Ot Z87.89 1 PERSONAL HISTORY OF NICOTINE DEPENDENCE 10/22/2018 RICHARD LOWE MD, Ot F32.9 MAJOR DEPRESSIVE DISORDER, SINGLE EPISOD 10/22/2018 RICHARD LOWE MD Ot F41.9 ANXIETY DISORDER, UNSPECIFIED 10/22/2018 RICHARD LOWE MD Ot K21.0 GASTRO-ESOPHAGEAL REFLUX DISEASE WITH ES 10/22/2018 RICHARD LOWE MD Ot K22.2 ESOPHAGEAL OBSTRUCTION 10/22/2018 RICHARD LOWE MD Ot K29.70 GASTRITIS, UNSPECIFIED, WITHOUT BLEEDING 10/22/2018 RICHARD LOWE MD Ot K44.9 DIAPHRAGMATIC HERNIA WITHOUT OBSTRUCTION 10/22/2018 RICHARD LOWE MD Ot N39.3 STRESS INCONTINENCE (FEMALE) (MALE) 10/22/2018 RICHARD LOWE MD Ot Z79.89 9 OTHER ASSISTANT ATHLETIC TRAINER (CURRENT) DRUG THERAPY 10/22/2018 RICHARD LOWE MD Ot Z87.89 1 PERSONAL HISTORY OF NICOTINE DEPENDENCE 10/24/2018 RICHARD LOWE MD, Ot F32.9 MAJOR DEPRESSIVE DISORDER, SINGLE EPISOD 10/24/2018 RICHARD LOWE MD Ot F41.9 ANXIETY DISORDER, UNSPECIFIED 10/24/2018 RICHARD LOWE MD Ot K21.0 GASTRO-ESOPHAGEAL REFLUX DISEASE WITH ES 10/24/2018 RICHARD LOWE MD Ot K22.2 ESOPHAGEAL OBSTRUCTION 10/24/2018 RICHARD LOWE MD, Ot K29.70 GASTRITIS, UNSPECIFIED, WITHOUT BLEEDING 10/24/2018 RICHARD LOWE MD, Ot K44.9 DIAPHRAGMATIC HERNIA WITHOUT OBSTRUCTION 10/24/2018 RICHARD LOWE MD, Ot N39.3 STRESS INCONTINENCE (FEMALE) (MALE) 10/24/2018 RICHARD LOWE MD, Ot Z79.89 9 OTHER ASSISTANT ATHLETIC TRAINER (CURRENT) DRUG THERAPY 10/24/2018 RICHARD LOWE MD, Ot Z87.89 1 PERSONAL HISTORY OF NICOTINE DEPENDENCE 10/26/2018 ATIYA MEJIA, JASON Mead Ot J39 .2 OTHER DISEASES OF PHARYNX 10/26/2018 ATIYA MEJIA, JASON Mead Ot R13.10 DYSPHAGIA, UNSPECIFIED 10/31/2018 W 241.9 UNSP ECIFIED NONTOXIC NODULAR GOITER 10/31/2018 W 530.81 ESO PHAGEAL REFLUX 10/31/2018 W E04.9 NONT OXIC GOITER, UNSPECIFIED 10/31/2018 W K21.9 PATRICIA RO-ESOPHAGEAL REFLUX DISEASE WITHOUT ESOPHAGITIS 10/31/2018 W K29.7 PATRICIA RITIS, UNSPECIFIED 11/03/2018 LUIS SMITH COVERSTITCH MACHINE OPERATOR Ot G47.33 OBSTRUCTIVE SLEEP APNEA (ADULT) (PEDIATR 11/06/2018 LUIS SMITH COVERSTITCH MACHINE OPERATOR Ot G47.33 OBSTRUCTIVE SLEEP APNEA (ADULT) (PEDIATR 11/08/2018 LUIS SMITH COVERSTITCH MACHINE OPERATOR Ot G47.33 OBSTRUCTIVE SLEEP APNEA (ADULT) (PEDIATR 11/26/2018 BATCONY CUENCA W 780.6 0 FEVER, UNSPECIFIED 11/26/2018 CONY NGO W R50.9 FEVER, UNSPECIFIED 03/07/2019 JEREMY KHAN DPM Ot 718.87 JT DERANGEMENT NEC-ANKLE 03/07/2019 JEREMY KHAN DPM Ot 733.99 BONE CARTILAGE DIS NEC 03/07/2019 JEREMY KHAN DPM Ot 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 HISTORY Ot R07.9 CHEST PAIN, UNSPECIFIED 03/07/2019 ALYSSA MEJIA, NAYE Ot Z12.3 1 ENCNTR SCREEN MAMMOGRAM FOR MALIGNANT NE 03/07/2019 NAYE SHAH MD Ot Z12.3 1 ENCNTR SCREEN MAMMOGRAM FOR MALIGNANT NE 03/07/2019 ADAM MEJIA FAC, ALI FACP CCDS Ot I10 ESSENTIAL (PRIMARY) HYPERTENSION 03/07/2019 ADAM MEJIA FACC, ALI FACP CCDS Ot I27.21 SECONDARY PULMONARY ARTERIAL HYPERTENSIO 03/07/2019 ADAM MEJIA FACC, ALI FACP CCDS Ot R06.02 SHORTNESS OF BREATH 03/07/2019 ATIYA MEJIA, JASON Mead Ot J39 .2 OTHER DISEASES OF PHARYNX 03/07/2019 ATIYA MEJIA, JASON Mead Ot R13.10 DYSPHAGIA, UNSPECIFIED 03/08/2019 LUIS SMITH COVERSTITCH MACHINE OPERATOR Ot G47.10 HYPERSOMNIA, UNSPECIFIED 03/08/2019 LUIS SMITH COVERSTITCH MACHINE OPERATOR Ot G47.33 OBSTRUCTIVE SLEEP APNEA (ADULT) (PEDIATR 03/08/2019 LUIS SMITH COVERSTITCH MACHINE OPERATOR Ot R09.02 HYPOXEMIA 03/09/2019 LUIS SMITH COVERSTITCH MACHINE OPERATOR Ot G47.10 HYPERSOMNIA, UNSPECIFIED 03/09/2019 LUIS SMITH COVERSTITCH MACHINE OPERATOR Ot G47.33 OBSTRUCTIVE SLEEP APNEA (ADULT) (PEDIATR 03/09/2019 LUIS SMITH APRN Ot R09.02 HYPOXEMIA 04/12/2019 W 401.0 RAVIN GNANT ESSENTIAL HYPERTENSION 04/12/2019 W I10 ESSENT IAL (PRIMARY) HYPERTENSION 04/12/2019 W 401.0 RAVIN GNANT ESSENTIAL HYPERTENSION 04/12/2019 W 491.20 OBS TRUCTIVE CHRONIC BRONCHITIS, WITHOUT EXACERBATION 04/12/2019 W I10 ESSENT IAL (PRIMARY) HYPERTENSION 04/12/2019 W J44.9 BOWLING ALLEY MANAGER HANSEL OBSTRUCTIVE PULMONARY DISEASE, UNSPECIFIED 04/12/2019 W 401.0 RAVIN GNANT ESSENTIAL HYPERTENSION 04/12/2019 W 491.20 OBS TRUCTIVE CHRONIC BRONCHITIS, WITHOUT EXACERBATION 04/12/2019 W I10 ESSENT IAL (PRIMARY) HYPERTENSION 04/12/2019 W J44.9 BOWLING ALLEY MANAGER HANSEL OBSTRUCTIVE PULMONARY DISEASE, UNSPECIFIED 04/12/2019 W 401.0 RAVIN GNANT ESSENTIAL HYPERTENSION 04/12/2019 W 491.20 OBS TRUCTIVE CHRONIC BRONCHITIS, WITHOUT EXACERBATION 04/12/2019 W I10 ESSENT IAL (PRIMARY) HYPERTENSION 04/12/2019 W J44.9 BOWLING ALLEY MANAGER HANSEL OBSTRUCTIVE PULMONARY DISEASE, UNSPECIFIED 04/12/2019 W 401.0 RAVIN GNANT ESSENTIAL HYPERTENSION 04/12/2019 W 491.20 OBS TRUCTIVE CHRONIC BRONCHITIS, WITHOUT EXACERBATION 04/12/2019 W I10 ESSENT IAL (PRIMARY) HYPERTENSION 04/12/2019 W J44.9 BOWLING ALLEY MANAGER HANSEL OBSTRUCTIVE PULMONARY DISEASE, UNSPECIFIED 04/12/2019 W 401.0 RAVIN GNANT ESSENTIAL HYPERTENSION 04/12/2019 W 491.20 OBS TRUCTIVE CHRONIC BRONCHITIS, WITHOUT EXACERBATION 04/12/2019 W 729.82 BONBON DIPPER MP OF LIMB 04/12/2019 W I10 ESSENT IAL (PRIMARY) HYPERTENSION 04/12/2019 W J44.9 BOWLING ALLEY MANAGER HANSEL OBSTRUCTIVE PULMONARY DISEASE, UNSPECIFIED 04/12/2019 W R25.2 CRAM P AND SPASM 04/12/2019 W 401.0 RAVIN GNANT ESSENTIAL HYPERTENSION 04/12/2019 W 491.20 OBS TRUCTIVE CHRONIC BRONCHITIS, WITHOUT EXACERBATION 04/12/2019 W 729.82 BONBON DIPPER MP OF LIMB 04/12/2019 W I10 ESSENT IAL (PRIMARY) HYPERTENSION 04/12/2019 W J44.9 BOWLING ALLEY MANAGER HANSEL OBSTRUCTIVE PULMONARY DISEASE, UNSPECIFIED 04/12/2019 W R25.2 CRAM P AND SPASM 04/12/2019 W 401.0 RAVIN GNANT ESSENTIAL HYPERTENSION 04/12/2019 W 491.20 OBS TRUCTIVE CHRONIC BRONCHITIS, WITHOUT EXACERBATION 04/12/2019 W I10 ESSENT IAL (PRIMARY) HYPERTENSION 04/12/2019 W J44.9 BOWLING ALLEY MANAGER HANSEL OBSTRUCTIVE PULMONARY DISEASE, UNSPECIFIED 04/26/2019 BLANCHO DPM, JEREMY Villa Ot 718.87 JT DERANGEMENT NEC-ANKLE 04/26/2019 BLAAMAYAHO DPM, JEREMY Villa Ot 733.99 BONE CARTILAGE DIS NEC 04/26/2019 BLAAMAYAHO DPM, JEREMY Villa Ot 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 HISTORY Ot R07.9 CHEST PAIN, UNSPECIFIED 04/26/2019 KIT FERREIRA ADJUNCT PROFESSOR OF U.S. HISTORY Ot R07.9 CHEST PAIN, UNSPECIFIED 04/26/2019 ALYSSA MEJIA, NAYE Ot Z12.3 1 ENCNTR SCREEN MAMMOGRAM FOR MALIGNANT NE 04/26/2019 ALYSSA MEJIA, NAYE Ot Z12.3 1 ENCNTR SCREEN MAMMOGRAM FOR MALIGNANT NE 04/26/2019 ADAM MEJIA FACC, ALI FACP CCDS Ot I10 ESSENTIAL (PRIMARY) HYPERTENSION 04/26/2019 ADAM MEJIA FACC, ALI FACP CCDS Ot I27.21 SECONDARY PULMONARY ARTERIAL HYPERTENSIO 04/26/2019 ADAM MEJIA FACC, ALI FACP CCDS Ot R06.02 SHORTNESS OF BREATH 04/26/2019 ATIYA MEJIA, JASON Mead Ot J39 .2 OTHER DISEASES OF PHARYNX 04/26/2019 JASON RAJPUT MD Ot R13.10 DYSPHAGIA, UNSPECIFIED 04/26/2019 FELICIA BOSWELL MD Ot E03. 9 HYPOTHYROIDISM, UNSPECIFIED 04/26/2019 FELICIA BOSWELL MD Ot E78. 00 PURE HYPERCHOLESTEROLEMIA, UNSPECIFIED 04/26/2019 FELICIA BOSWELL MD Ot E78. 5 HYPERLIPIDEMIA, UNSPECIFIED 04/26/2019 FELICIA BOSWELL MD Ot F17.290 NICOTINE DEPENDENCE, OTHER TOBACCO PRODU 04/26/2019 FELICIA BOSWELL MD Ot F31. 9 BIPOLAR DISORDER, UNSPECIFIED 04/26/2019 FELICIA BOSWELL MD Ot F41. 9 ANXIETY DISORDER, UNSPECIFIED 04/26/2019 FELICIA BOSWELL MD Ot G47. 30 SLEEP APNEA, UNSPECIFIED 04/26/2019 FELICIA BOSWELL MD Ot I10 ESSENTIAL (PRIMARY) HYPERTENSION 04/26/2019 FELICIA BOSWELL MD Ot J45.909 UNSPECIFIED ASTHMA, UNCOMPLICATED 04/26/2019 FELICIA BOSWELL MD Ot K21. 9 GASTRO-ESOPHAGEAL REFLUX DISEASE WITHOUT 04/26/2019 FELICIA BOSWELL MD Ot K58. 9 IRRITABLE BOWEL SYNDROME WITHOUT DIARRHE 04/26/2019 FELICIA BOSWELL MD Ot R06. 02 SHORTNESS OF BREATH 04/26/2019 FELICIA BOSWELL MD Ot Z79. 51 NURSING HOME (CURRENT) USE OF INHALED STERO 04/26/2019 FELICIA BOSWELL MD Ot Z79. 82 ASSISTANT ATHLETIC TRAINER (CURRENT) USE OF ASPIRIN 04/26/2019 FELICIA BOSWELL MD Ot Z82. 49 FAMILY HX OF ISCHEM HEART DIS AND OTH DI 04/26/2019 FELICIA BOSWELL MD Ot Z85. 41 PERSONAL HISTORY OF MALIGNANT NEOPLASM O 04/26/2019 FELICIA BOSWELL MD Ot Z87.440 PERSONAL HISTORY OF URINARY (TRACT) INFE 04/26/2019 FELICIA BOSWELL MD Ot Z88. 0 ALLERGY STATUS TO PENICILLIN 04/26/2019 FELICIA BOSWELL MD Ot Z90. 89 ACQUIRED ABSENCE OF OTHER ORGANS 04/26/2019 FELICIA BOSWELL MD Ot Z98. 51 TUBAL LIGATION STATUS 04/26/2019 FELICIA BOSWELL MD Ot Z99. 81 DEPENDENCE ON SUPPLEMENTAL OXYGEN 04/26/2019 FELICIA BOSWELL MD Ot Z99. 89 DEPENDENCE ON OTHER ENABLING MACHINES AN 05/01/2019 FELICIA BOSWELL MD Ot E03. 9 HYPOTHYROIDISM, UNSPECIFIED 05/01/2019 FELICIA BOSWELL MD Ot E78. 00 PURE HYPERCHOLESTEROLEMIA, UNSPECIFIED 05/01/2019 FELICIA BOSWELL MD Ot E78. 5 HYPERLIPIDEMIA, UNSPECIFIED 05/01/2019 FELICIA BOSWELL MD Ot F17.290 NICOTINE DEPENDENCE, OTHER TOBACCO PRODU 05/01/2019 FELICIA BOSWELL MD Ot F31. 9 BIPOLAR DISORDER, UNSPECIFIED 05/01/2019 FELICIA BOSWELL MD Ot F41. 9 ANXIETY DISORDER, UNSPECIFIED 05/01/2019 FELICIA BOSWELL MD Ot G47. 30 SLEEP APNEA, UNSPECIFIED 05/01/2019 FELICIA BOSWELL MD Ot I10 ESSENTIAL (PRIMARY) HYPERTENSION 05/01/2019 FELICIA BOSWELL MD Ot J45.909 UNSPECIFIED ASTHMA, UNCOMPLICATED 05/01/2019 FELICIA BOSWELL MD Ot K21. 9 GASTRO-ESOPHAGEAL REFLUX DISEASE WITHOUT 05/01/2019 FELICIA BOSWELL MD Ot K58. 9 IRRITABLE BOWEL SYNDROME WITHOUT DIARRHE 05/01/2019 FELICIA BOSWELL MD Ot R06. 02 SHORTNESS OF BREATH 05/01/2019 FELICIA BOSWELL MD Ot Z79. 51 ASSISTANT ATHLETIC TRAINER (CURRENT) USE OF INHALED STERO 05/01/2019 FELICIA BOSWELL MD Ot Z79. 82 NURSING HOME (CURRENT) USE OF ASPIRIN 05/01/2019 FELICIA BOSWELL MD Ot Z82. 49 FAMILY HX OF ISCHEM HEART DIS AND OTH DI 05/01/2019 FELICIA BOSWELL MD Ot Z85. 41 PERSONAL HISTORY OF MALIGNANT NEOPLASM O 05/01/2019 FELICIA BOSWELL MD Ot Z87.440 PERSONAL HISTORY OF URINARY (TRACT) INFE 05/01/2019 FELICIA BOSWELL MD Ot Z88. 0 ALLERGY STATUS TO PENICILLIN 05/01/2019 FELICIA BOSWELL MD Ot Z90. 89 ACQUIRED ABSENCE OF OTHER ORGANS 05/01/2019 FELICIA BOSWELL MD Ot Z98. 51 TUBAL LIGATION STATUS 05/01/2019 FELICIA BOSWELL MD Ot Z99. 81 DEPENDENCE ON SUPPLEMENTAL OXYGEN 05/01/2019 FELICIA BOSWELL MD Ot Z99. 89 DEPENDENCE ON OTHER ENABLING MACHINES AN 05/03/2019 FELICIA BOSWELL MD Ot E03. 9 HYPOTHYROIDISM, UNSPECIFIED 05/03/2019 FELICIA BOSWELL MD Ot E78. 00 PURE HYPERCHOLESTEROLEMIA, UNSPECIFIED 05/03/2019 FELICIA BOSWELL MD Ot E78. 5 HYPERLIPIDEMIA, UNSPECIFIED 05/03/2019 FELICIA BOSWELL MD Ot F17.290 NICOTINE DEPENDENCE, OTHER TOBACCO PRODU 05/03/2019 FELICIA BOSWELL MD Ot F31. 9 BIPOLAR DISORDER, UNSPECIFIED 05/03/2019 FELICIA BOSWELL MD Ot F41. 9 ANXIETY DISORDER, UNSPECIFIED 05/03/2019 FELICIA BOSWELL MD Ot G47. 30 SLEEP APNEA, UNSPECIFIED 05/03/2019 FELICIA BOSWELL MD Ot I10 ESSENTIAL (PRIMARY) HYPERTENSION 05/03/2019 FELICIA BOSWELL MD Ot J45.909 UNSPECIFIED ASTHMA, UNCOMPLICATED 05/03/2019 FELICIA BOSWELL MD Ot K21. 9 GASTRO-ESOPHAGEAL REFLUX DISEASE WITHOUT 05/03/2019 FELICIA BOSWELL MD Ot K58. 9 IRRITABLE BOWEL SYNDROME WITHOUT DIARRHE 05/03/2019 FELICIA BOSWELL MD Ot R06. 02 SHORTNESS OF BREATH 05/03/2019 FELICIA BOSWELL MD Ot Z79. 51 NURSING HOME (CURRENT) USE OF INHALED STERO 05/03/2019 FELICIA BOSWELL MD Ot Z79. 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 49 FAMILY HX OF ISCHEM HEART DIS AND OTH DI 05/03/2019 FELICIA BOSWELL MD Ot Z85. 41 PERSONAL HISTORY OF MALIGNANT NEOPLASM O 05/03/2019 FELICIA BOSWELL MD Ot Z87.440 PERSONAL HISTORY OF URINARY (TRACT) INFE 05/03/2019 FELICIA BOSWELL MD Ot Z88. 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 51 TUBAL LIGATION STATUS 05/03/2019 FELICIA BOSWELL MD Ot Z99. 81 DEPENDENCE ON SUPPLEMENTAL OXYGEN 05/03/2019 FELICIA BOSWELL MD Ot Z99. 89 DEPENDENCE ON OTHER ENABLING MACHINES AN 05/18/2019 PAYTON PAYAN ADJUNCT PROFESSOR OF [place] HISTORY Ot Z12.31 ENCNTR SCREEN MAMMOGRAM FOR MALIGNANT NE 09/05/2019 ADAM MEJIA FACC, FABIO FACP CCDS Ot G47.33 OBSTRUCTIVE SLEEP APNEA (ADULT) (PEDIATR 09/05/2019 ADAM MD FAC, ALI FACP CCDS Ot I10 ESSENTIAL (PRIMARY) HYPERTENSION 09/05/2019 ADAM MD FAC, ALI FACP CCDS Ot R06.02 SHORTNESS OF BREATH 09/10/2019 ADAM MD FACC, ALI FACP CCDS Ot G47.33 OBSTRUCTIVE SLEEP APNEA (ADULT) (PEDIATR 09/10/2019 ADAM MD FACC, ALI FACP CCDS Ot I10 ESSENTIAL (PRIMARY) HYPERTENSION 09/10/2019 ADAM MD [facility], ALI FACP CCDS Ot R06.02 SHORTNESS OF BREATH 09/28/2019 ADAM MD FAC, ALI FACP CCDS Ot G47.33 OBSTRUCTIVE SLEEP APNEA (ADULT) (PEDIATR 09/28/2019 ADAM MD FAC, ALI FACP CCDS Ot I10 ESSENTIAL (PRIMARY) HYPERTENSION 09/28/2019 ADAM MD [facility], ALI FACP CCDS Ot R06.02 SHORTNESS OF BREATH Procedures Code [place] [address] ROUT INE VENIPUNCTURE 09/03/2013 83666 LIPI D PANEL 09/03/2013 38634 YUNG AC DISEASE ANALYZER 09/06/2013 11147 MAMM OGRAM, SCREENING 09/10/2013 68198 GC/C HLAM PROBE (STATE) 09/10/2013 Q0091 PAP SMEAR OBTAIN SMEAR 09/10/2013 72692 TRIC HOMONAS (IN-HOUSE) 09/10/2013 67931 CULT URE UROGENITAL 09/12/2013 30670 PAP SMEAR 09/12/2013 15043 ROUT INE VENIPUNCTURE 01/07/2014 40279 LIPI D PANEL 01/07/2014 28613 UA W / CULTURE IF INDICATED 10/03/2014 45817 TRIC HOMONAS (IN-HOUSE) 10/03/2014 28786 GC/C HLAM PROBE (STATE) 10/05/2014 50682 CULT URE URINE 10/06/2014 47618 CULT URE UROGENITAL 10/06/2014 62842 ROUT INE VENIPUNCTURE 10/08/2014 75761 HIV (STATE [facility]) 10/08/2014 Results Test Result Range Complete blood count (CBC) with automate d white blood cell (WBC) differential - 07/06/16 18:38 Blood leukocytes automated count (number/volume) 11.2 10*3/uL 4.3-11.0 Blood erythrocytes automated count (number/volume) 4.67 10*6/uL 4.35-5.85 Venous blood hemoglobin measurement (mass/volume) 13.4 g/dL 11.5-16.0 Blood hematocrit (volume fraction) 40 % 35-52 Automated erythrocyte mean corpuscular volume 86 [ foz_us] 80-99 Automated erythrocyte mean corpuscular h emoglobin (mass per erythrocyte) 29 pg 25-34 Automated erythrocyte mean corpuscular h emoglobin concentration measurement (mass/volume) 34 g/dL 32-36 Automated erythrocyte distribution width ratio 13. 2 % 10.0- 14.5 Automated blood platelet count (count/volume) 295 10*3/uL 130-400 Automated blood platelet mean volume measurement 10.2 [foz_us] 7.4-10.4 Automated blood neutrophils/100 leukocytes 58 % 42-75 Automated blood lymphocytes/100 leukocytes 33 % 12-44 Blood monocytes/100 leukocytes 6 % 0-12 Automated blood eosinophils/100 leukocytes 2 % 0-10 Automated blood basophils/100 leukocytes 0 % 0-10 Blood neutrophils automated count (number/volume) 6.5 10*3 1.8-7.8 Blood lymphocytes automated count (number/volume) 3.7 10*3 1.0-4.0 Blood monocytes automated count (number/volume) 0. 7 10*3 0.0-1.0 Automated eosinophil count 0.2 10*3/uL 0 .0-0.3 Automated blood basophil count (count/volume) 0.1 10*3/uL 0.0-0.1 Comprehensive metabolic panel - 07/06/16 18:38 Serum or plasma sodium measurement (moles/volume) 140 mmol/L 135-145 Serum or plasma potassium measurement (moles/volume) 3.5 mmol/L 3.6-5.0 Serum or plasma chloride measurement (moles/volume) 106 mmol/L 98-107 Carbon dioxide 27 mmol/L 21-32 Serum or plasma anion gap determination (moles/volume) 7 mmol/L 5-14 Serum or plasma urea nitrogen measurement (mass/volume ) 10 mg/dL 7-18 Serum or plasma creatinine measurement (mass/volume) 0.70 mg/dL 0.60-1.30 Serum or plasma urea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
[2019-12-01] MEDS ORDERED: metroNIDAZOLE 500 MG (FLAGYL) TAB PO ONE (17:45)
[2019-12-01] MEDS ORDERED: DOXYCYCLINE 100 MG (VIBRAMYCIN) TABLET PO SCH (17:45)
== END 2019-12-01 17:45 | disposition home or self-care (01) ==
LOC: EDUNIT# 17:24 → ER 17:26
DX: S61.101A Unspecified open wound of right thumb with damage to nail, initial encounter (principal); S00.81XA Abrasion of other part of head, initial encounter; I10 Essential (primary) hypertension; J45.909 Unspecified asthma, uncomplicated; K21.9 Gastro-esophageal reflux disease without esophagitis; E03.9 Hypothyroidism, unspecified; F31.9 Bipolar disorder, unspecified; F41.9 Anxiety disorder, unspecified; R40.2142 Coma scale, eyes open, spontaneous, at arrival to emergency department; R40.2252 Coma scale, best verbal response, oriented, at arrival to emergency department; R40.2362 Coma scale, best motor response, obeys commands, at arrival to emergency department; Z85.41 Personal history of malignant neoplasm of cervix uteri; Z88.0 Allergy status to penicillin; Z87.891 Personal history of nicotine dependence; Z79.82 Long term (current) use of aspirin; Z82.49 Family history of ischemic heart disease and other diseases of the circulatory system; Z77.22 Contact with and (suspected) exposure to environmental tobacco smoke (acute) (chronic); Z23 Encounter for immunization; Y04.1XXA Assault by human bite, initial encounter
CPT/HCPCS: 90471; 90715; 99283

== ENCOUNTER 2019-12-05 22:01 | Emergency (ER) | payer MEDICAID ==
[~2019-12-05] VITALS: Ht 170 cm; Wt 107.0 kg
[~2019-12-05 22:01] MED LIST changes: +DOXY100T2 PO; +METR500T PO
[2019-12-05 23:25] LABS: BASOPHILS % (AUTO) 0 % (0-10); EOSINOPHILS # (AUTO) 0.1 10^3/uL (0.0-0.3); EOSINOPHILS % (AUTO) 1 % (0-10); HEMATOCRIT 38 % (35-52); HEMOGLOBIN 12.2 G/DL (11.5-16.0); LYMPHOCYTES # (AUTO) 1.3 X 10^3 (1.0-4.0); LYMPHOCYTES % (AUTO) 13 % (12-44); MEAN CORPUSCULAR HEMOGLOBIN 27 PG (25-34); MEAN CORPUSCULAR HGB CONC 32 G/DL (32-36); MEAN CORPUSCULAR VOLUME 84 FL (80-99); MEAN PLATELET VOLUME 10.3 FL (7.4-10.4); MONOCYTES # (AUTO) 0.9 X 10^3 (0.0-1.0); MONOCYTES % (AUTO) 8 % (0-12); NEUTROPHILS # (AUTO) 8.2 X 10^3 (1.8-7.8); NEUTROPHILS % (AUTO) 78 % (42-75); PLATELET COUNT 256 10^3/uL (130-400); RED CELL DISTRIBUTION WIDTH 14.2 % (10.0-14.5); WHITE BLOOD COUNT 10.4 10^3/uL (4.3-11.0)
[2019-12-05 23:26] LABS: BILIRUBIN,URINE NEGATIVE (NEGATIVE); CLARITY,URINE CLEAR; COLOR,URINE YELLOW; GLUCOSE, URINE (UA) NEGATIVE (NEGATIVE); KETONES,URINE TRACE (NEGATIVE); LEUKOCYTE ESTERASE ,URINE TRACE (NEGATIVE); NITRITE,URINE NEGATIVE (NEGATIVE); PROTEIN,URINE NEGATIVE (NEGATIVE)
[2019-12-05 23:37] LABS: CHLORIDE 105 MMOL/L (98-107); POTASSIUM 3.7 MMOL/L (3.6-5.0); SODIUM 139 MMOL/L (135-145)
[2019-12-05 23:39] LABS: AMYLASE 34 U/L (25-125); CALCIUM 9.2 MG/DL (8.5-10.1)
[2019-12-05 23:40] LABS: GLUCOSE 106 MG/DL (70-105); TOTAL PROTEIN 6.8 GM/DL (6.4-8.2)
[2019-12-05 23:41] LABS: BILIRUBIN,TOTAL 0.5 MG/DL (0.1-1.0); CARBON DIOXIDE 22 MMOL/L (21-32)
[2019-12-05 23:43] LABS: AMPHETAMINE SCREEN, URINE NEGATIVE (NEGATIVE); BARBITURATE SCREEN URINE NEGATIVE (NEGATIVE); BENZODIAZEPINES SCREEN URINE NEGATIVE (NEGATIVE); CANNABINOID SCREEN, URINE NEGATIVE (NEGATIVE); COCAINE SCREEN URINE NEGATIVE (NEGATIVE); METHADONE STAT NEGATIVE (NEGATIVE); METHAMPHETAMINE SCREEN URINE S NEGATIVE (NEGATIVE); OPIATE SCREEN URINE NEGATIVE (NEGATIVE); OXYCODONE STAT NEGATIVE (NEGATIVE); PROPOXYPHENE STAT NEGATIVE (NEGATIVE); TRICYCLIC ANTIDEPRESSANTS SCRE POSITIVE (NEGATIVE)
[2019-12-05 23:44] LABS: ALKALINE PHOSPHATASE 96 U/L (40-136); CREATININE SERUM 0.94 MG/DL (0.60-1.30); GFR ESTIMATED > 60
[2019-12-05 23:45] LABS: BUN/CREATININE RATIO 15
[2019-12-05 23:46] LABS: SALICYLATE < 5.0 MG/DL (5.0-20.0)
[2019-12-05 23:47] LABS: ALANINE AMINOTRANSFERASE 15 U/L (0-55)
[2019-12-05 23:48] LABS: LIPASE 21 U/L (8-78)
[2019-12-05 23:49] LABS: ACETAMINOPHEN < 10 UG/ML (10-30)
[2019-12-05 23:58] LABS: ERYTHROCYTE SEDIMENTATION RATE 18 MM/HR (0-30)
[2019-12-06 00:03] LABS: BACTERIA,URINE TRACE /HPF; RBC,URINE 0-2 /HPF; WBC,URINE 0-2 /HPF
[2019-12-06] MEDS ORDERED: CEFD300C3 PO (00:28)
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
[2019-12-06] MEDS ORDERED: AZITHROMYCIN 250 MG TAB (ZITHROMAX) PO ONE (00:30)
[2019-12-06] MEDS ORDERED: cefTRIAXone FOR IV USE 1,000 MG in WATER (STERILE) FOR INJECTION 10 ML IV ONE (00:30)
[2019-12-06] MEDS ORDERED: AZIT500T PO (00:31)
[2019-12-06 00:47] VITALS: BP 103/49
--- NOTE | 2019-12-06 07:15 | Diagnostic Imaging Report ---
CHEST 1 VIEW, AP/PA ONLY Indication: Fever Comparison: 04/26/2019 Findings: No focal airspace disease in the visualized lungs. Please note that the posterior lower lobes are poorly evaluated by portable radiography. No pleural effusion or pneumothorax. Normal cardiomediastinal silhouette. Impression: 1. No acute cardiopulmonary process by portable radiography. Dictated by: Dictated on workstation # [id number]
[2019-12-07 12:38] LABS: PARAINFLU 1 PCR Not Detected (Not Detected); PARAINFLU 2 PCR Not Detected (Not Detected)
== END 2019-12-06 00:54 | disposition home or self-care (01) ==
LOC: EDUNIT# 22:01 → ER 22:02
DX: N39.0 Urinary tract infection, site not specified (principal); I10 Essential (primary) hypertension; J45.909 Unspecified asthma, uncomplicated; F41.9 Anxiety disorder, unspecified; F31.9 Bipolar disorder, unspecified; K21.9 Gastro-esophageal reflux disease without esophagitis; G47.30 Sleep apnea, unspecified; E03.9 Hypothyroidism, unspecified; Z85.41 Personal history of malignant neoplasm of cervix uteri; Z20.828 Contact with and (suspected) exposure to other viral communicable diseases; Z88.0 Allergy status to penicillin; Z79.82 Long term (current) use of aspirin; Z79.51 Long term (current) use of inhaled steroids; Z87.891 Personal history of nicotine dependence; Z77.22 Contact with and (suspected) exposure to environmental tobacco smoke (acute) (chronic); Z99.81 Dependence on supplemental oxygen
CPT/HCPCS: 36415; 71045; 80053; 80306; 80320; 80329; 81000; 82150; 83605; 83615; 83690; 83735; 84145; 84703; 85025; 85652; 85730; 86141; 86308; 87040; 87088; 87430; 87631; 87635; 87798; 93041

== ENCOUNTER 2020-07-07 18:02 | Emergency (ER) | payer MEDICAID ==
[~2020-07-07] VITALS: Ht 170 cm; Wt 107.0 kg
[~2020-07-07 18:02] MED LIST changes: +AZIT500T PO; +CEFD300C3 PO; -MONT10TA26 PO; +MONT10TA97 PO; +PANT20TA18 PO; -PANT20TA3 PO
--- NOTE | 2020-07-07 18:28 | ED Headache ---
General Chief Complaint: Head/Cervical Problems Stated Complaint: HEADACHE/CHILLS Source: patient Exam Limitations: no limitations History of Present Illness Date Seen by Provider: Jul 07, 2020 Time Seen by Provider: 18:26 Initial Comments To ER with reports of a posterior headache since this morning. She took ibuprofen 800 mg tablet about 2 AM which helped temporarily but the headache returned later this afternoon. She has had chills but no measured fever. No rhinorrhea or ear pain or cough or sore throat. She does report some general fatigue. Timing/Duration: 1 week Severity/Quality: moderate Allergies and Home Medications Allergies Coded Allergies: Penicillins (Unverified Allergy, Unknown, 10/12/18) Home Medications Albuterol Sulfate 8.5 Gm Hfa.aer.ad, 2 PUFF INH Q4H PRN for SHORTNESS OF BREATH, (Reported) Albuterol Sulfate 2.5 Mg/3 Ml Vial.neb, 2.5 MG IH 4 times a day PRN for wheezing Prescribed by: CORBY IVERSON on 12/12/17 1324 Aspirin 81 Mg Tablet.dr, 81 MG PO DAILY, (Reported) Azithromycin 500 Mg Tablet, 500 MG PO DAILY Prescribed by: BUCK DAVIS on 12/06/19 0031 Benzonatate 100 Mg Capsule, 100 MG PO Q6H PRN for COUGH Prescribed by: FELICIA BOSWELL on 04/26/19 1056 Black Cohosh Root 200 Mg Capsule, 200 MG PO BID, (Reported) Budesonide/Formoterol Fumarate 10.2 Gm Hfa.aer.ad, 2 PUFF IH BID, (Reported) LAST FILLED 03-30-16 Cefdinir 300 Mg Capsule, 300 MG PO BID Prescribed by: BUCK DAVIS on 12/06/19 0028 Cetirizine HCl 10 Mg Tablet, 10 MG PO DAILY, (Reported) Cranberry Fruit Concentrate 450 Mg Capsule, 450 MG PO DAILY, (Reported) Cyanocobalamin (Vitamin B-12) 2,500 Mcg Tablet, 2,500 MCG PO DAILY, (Reported) Dicyclomine HCl 20 Mg Tablet, 20 MG PO QID, (Reported) Doxepin HCl 10 Mg Capsule, 10-30 MG PO HS, (Reported) Doxycycline Hyclate 100 Mg Tablet, 100 MG PO BID Prescribed by: YOBANI DEL TORO on 12/01/19 173 Fluticasone Propionate 16 Gm [place].susp, 2 SPRAYS NS BID, (Reported) Folic Acid/Multivit-Min/Lutein 1 Each Tab.chew, 1 EACH PO DAILY, (Reported) Levothyroxine Sodium 50 Mcg Tablet, 50 MCG PO DAILY, (Reported) Lisinopril 10 Mg Tablet, 10 MG PO DAILY, (Reported) Magnesium 30 Mg Tablet, 30 MG PO DAILY, (Reported) Metoprolol Tartrate 100 Mg Tablet, 100 MG PO BID, (Reported) Metronidazole 500 Mg Tablet, 500 MG PO TID Prescribed by: YOBANI DEL TORO on 12/01/19 1738 Montelukast Sodium 10 Mg Tablet, 10 MG PO HS, (Reported) Omeprazole 40 Mg Capsule.dr, 40 MG PO DAILY, (Reported) Oxybutynin Chloride 5 Mg Tablet, 5 MG PO BID, (Reported) Vilazodone Hydrochloride 20 Mg Tablet, 20 MG PO HS, (Reported) Patient Home Medication List Home Medication List Reviewed: Yes Review of Systems Review of Systems Constitutional: see HPI, chills, malaise Eyes: No Symptoms Reported Ears, Nose, Mouth, Throat: no symptoms reported Respiratory: no symptoms reported Cardiovascular: no symptoms reported Genitourinary: no symptoms reported Musculoskeletal: no symptoms reported Psychiatric/Neurological: Headache Past Cdbhxwo-Dijecg-Fxzbga Hx Patient Social History Drug of Choice: SMOKING CRACK COCAINE, ALSO IV COCAINE USE, METH USE Type Used: Cigarettes, Electronic/Vapor Former Smoker, Quit: Jul 06, 2000 2nd Hand Smoke Exposure: Yes Recent Foreign Travel: No Contact w/Someone Who Travel: No Recent Hopitalizations: No Immunizations Up To Date Tetanus Booster (TDap): Unknown Seasonal Allergies Seasonal Allergies: Yes Past Medical History Surgeries: Yes (LASER CONIZATION OF CERVIX; X 4, ANKLE FX ) Adenoidectomy, Section, Ear Surgery, Orthopedic, Tonsillectomy, Tubal Ligation Respiratory: Yes (CPAP AT HS; O2 AT 1L/NC-MOSTLY AT NIGHT) Asthma, Chronic Bronchitis, Sleep Apnea Currently Using CPAP: Yes Currently Using BIPAP: No Cardiac: Yes High Cholesterol, Hypertension Neurological: No 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 Disorders: No Female 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 Disorders: Denies PALLETIZER History: Tubal Ligation Sexually Transmitted Disease: No HIV/AIDS: No Genitourinary: Yes UTI-Chronic Gastrointestinal: Yes (DYSPHAGIA) Gastroesophageal Reflux, Chronic Constipation, Chronic Diarrhea, Irritable Bowel Musculoskeletal: Yes (KNEES) Arthritis Endocrine: Yes Hypothyroidsim HEENT: No Loss of Vision: Denies Hearing Impairment: Denies Cancer: Yes (LASER CONZATION) Cervical Did You Recieve Any Treatments: Yes What Type of Treatment Did You: Surgical Intervention Psychosocial: Yes (POLYSUBSTANCE ABUSE) Sleep Difficulties, Anxiety, Bipolar, Depression Integumentary: No Blood Disorders: No Adverse Reaction/Blood Tranf: No Family Medical History Diabetes mellitus 19 MOTHER Diabetes, Hypertension Physical Exam Vital Signs Capillary Refill : Height, Weight, BMI Height: 5'7.00" Weight: 246lbs. 0.0oz. [id number]; 37.00 BMI Method:Stated General Appearance: WD/WN, no apparent distress HEENT: PERRL/EOMI, normal ENT inspection, TM abnormal (R) (serous otitis with air fluid on the right) Respiratory: no respiratory distress, no accessory muscle use Gastrointestinal: normal bowel sounds, non tender, soft Extremities: normal range of motion, non-tender Psychiatric: alert, oriented x 3 Crainal Nerves: normal hearing, normal speech, PERRL Skin: normal color, warm/dry Progress/Results/Core Measures Results/Orders My Orders Orders - YOBANI DEL TORO APRN Covid 19 Inhouse Test (07/07/20 18:24) Coronavirus Sars-Cov-2 So 2018 (07/07/20 18:24) Influenza A And B Antigens (07/07/20 18:24) Ibuprofen Tablet (Motrin Tablet) (07/07/20 18:30) Departure Impression Primary Impression: Viral syndrome Disposition: 01 HOME, SELF-CARE Condition: Stable Departure-Patient Inst. Decision time for Depature: 18:27 Referrals: NO,LOCAL PHYSICIAN (PCP) Primary Care Physician PAYTON PORTER (Family) Primary Care Physician Patient Instructions: Viral Syndrome (DC) Add. Discharge Instructions: 1. Continue to use Tylenol and ibuprofen for fever and headache control. Return to ER for any worsening. Follow-up with your doctor later this week for recheck. Go home and stay quarantined until the send out Covid test comes back tomorrow. All discharge instructions reviewed with patient and/or family. Voiced understanding. YOBANI DEL TORO APRN Jul 07, 2020 18:28
[2020-07-07] MEDS ORDERED: IBUPROFEN 800 MG (MOTRIN) TAB PO ONE (18:30)
[2020-07-07 18:45] LABS: BILIRUBIN,URINE NEGATIVE (NEGATIVE); CLARITY,URINE CLEAR; COLOR,URINE YELLOW; GLUCOSE, URINE (UA) NEGATIVE (NEGATIVE); KETONES,URINE NEGATIVE (NEGATIVE); LEUKOCYTE ESTERASE ,URINE NEGATIVE (NEGATIVE); NITRITE,URINE NEGATIVE (NEGATIVE); PROTEIN,URINE NEGATIVE (NEGATIVE)
[2020-07-07 18:53] LABS: BACTERIA,URINE TRACE /HPF; RBC,URINE RARE /HPF; WBC,URINE RARE /HPF
[2020-07-07 18:54] LABS: AMORPHOUS SEDIMENT,UR RARE AMOR URATES /LPF; YEAST,URINE FEW /HPF
[2020-07-07] MEDS ORDERED: ACET/BUTAL/CAFF (FIORICET) TAB PO ONE (19:02)
[2020-07-07 19:07] VITALS: BP 138/81
[2020-07-07] MEDS ORDERED: ACET/BUTAL/CAFF (FIORICET) TAB PO PRN (19:15)
== END 2020-07-07 19:07 | disposition home or self-care (01) ==
LOC: EDUNIT# 18:02 → ER 18:04
DX: B34.9 Viral infection, unspecified (principal); F41.9 Anxiety disorder, unspecified; F32.9 Major depressive disorder, single episode, unspecified; K21.9 Gastro-esophageal reflux disease without esophagitis; J45.909 Unspecified asthma, uncomplicated; E03.9 Hypothyroidism, unspecified; I10 Essential (primary) hypertension; Z20.828 Contact with and (suspected) exposure to other viral communicable diseases; Z82.49 Family history of ischemic heart disease and other diseases of the circulatory system; Z83.3 Family history of diabetes mellitus; Z85.41 Personal history of malignant neoplasm of cervix uteri; Z87.891 Personal history of nicotine dependence; Z79.890 Hormone replacement therapy; Z88.0 Allergy status to penicillin; Z79.82 Long term (current) use of aspirin
CPT/HCPCS: 81000; 87804; 99282; U0002; 87635

== ENCOUNTER 2020-08-27 10:26 | Outpatient (CLI) | payer MEDICAID, MEDICARE ==
[~2020-08-27] VITALS: Ht 170.2 cm; Wt 107.1 kg
== END 2020-08-27 11:57 ==
LOC: PREOP 10:26
PROVIDERS: ATTEND Surgery
DX: Z01.812 Encounter for preprocedural laboratory examination (principal); K21.9 Gastro-esophageal reflux disease without esophagitis; Z87.19 Personal history of other diseases of the digestive system

== ENCOUNTER → 2020-08-27 | Outpatient (CLI) | payer MEDICAID ==
--- NOTE | 2020-08-27 11:49 | Diagnostic Imaging Report ---
INDICATION: Routine screening. Comparison is made prior mammogram from 05/15/2019 and 11/21/2017. 2-D and 3-D bilateral screening mammography was performed with CAD. Scattered fibroglandular densities are identified bilaterally. A benign nodule outer left breast is stable. There are benign calcifications. No spiculated mass or malignant appearing microcalcifications are identified. Axillae are unremarkable. IMPRESSION: BI-RADS Category 2 No mammographic features suspicious for malignancy are identified. ACR BI-RADS Category 2: Benign findings. Result letter will be mailed to the patient. Note: At least 10% of breast cancer is not imaged by mammography. Dictated by: Dictated on workstation # [id number]
== END ==
LOC: RAD 10:23
PROVIDERS: ATTEND Nurse Practitioner
DX: Z12.31 Encounter for screening mammogram for malignant neoplasm of breast (principal)
CPT/HCPCS: 77063; 77067

== ENCOUNTER → 2020-08-27 | Outpatient (CLI) | payer MEDICAID | LOC: LABNPT 08:25 | PROVIDERS: ATTEND Surgery | DX: Z20.822 Contact with and (suspected) exposure to COVID-19 (principal) | CPT/HCPCS: 87635 ==

== ENCOUNTER → 2020-08-29 | Day surgery (SDC) | payer MEDICAID ==
[2020-08-29] VITALS (8 sets, daily range): BP systolic 111–127; BP diastolic 60–77
[~2020-08-29] VITALS: Ht 170.2 cm; Wt 107.1 kg
[~2020-08-29] MED LIST changes: +HURRICAINE EXT TUBE (BENZOCAINE) XX PRN; +LIDOCAINE JELLY 2% 6 ML SYRINGE MM PRN; +LIDOCAINE JELLY 2% 6 ML SYRINGE ONE; -LISI10TA2 PO; +LISI10TA25 PO; +MIDAZOLAM 2 MG/2 ML (VERSED) VIAL ONE; +MONT10TA32 PO; -MONT10TA97 PO; +NS IV 500 ML 500 ML IV PRN; +NS IV 500 ML 500 ML ONE; +PROPOFOL INJECTION 50 ML IV ONE
--- NOTE | 2020-08-29 12:17 | Progress Note-Pre Operative ---
Pre-Operative Progress Note H&P Reviewed The H&P was reviewed, patient examined and no changes noted. Date Seen by Provider: Aug 29, 2020 Time Seen by Provider: 11:30 Date H&P Reviewed: Aug 29, 2020 Time H&P Reviewed: :30 Pre-Operative Diagnosis: dysphagia, GERD RICHARD LOWE MD Aug 29, 2020 12:17
--- NOTE | 2020-08-29 12:36 | Progress Note-Post Operative ---
Post-Operative Progess Note Surgeon (s)/Coal Carrier (s) Surgeon RICHARD LOWE MD Coal Carrier: none Pre-Operative Diagnosis dysphagia, GERD Post-Operative Diagnosis reflux esophagitis(stage 2-3 ), mild dist eosph stricture, HH(3cm ), moderate gastritis. Procedure & Operative Findings Date of Procedure 08/29/20 Procedure Performed/Findings EGD with bx and balloon dilatation. Anesthesia Type mac Estimated Blood Loss Estimated blood loss (mL): minimal Specimens/Packing Specimens Removed ge jxn, antrum RICHARD LOWE MD Aug 29, 2020 12:35
--- NOTE | 2020-08-29 13:29 | Anesthesia-General Post-Op ---
MAC Patient Condition Mental Status/LOC: Same as Preop Cardiovascular: Satisfactory Nausea/Vomiting: Absent Respiratory: Satisfactory Pain: Controlled Complications: Absent Post Op Complications Complications None Follow Up Care/Instructions Patient Instructions None needed. Anesthesiology Discharge Order Discharge Order Patient is doing well, no complaints, stable vital signs, no apparent adverse anesthesia problems. No complications reported per nursing. MEDARDO DUMONT CRNA Aug 29, 2020 13:29
--- NOTE | 2020-08-29 18:00 | OPERATIVE REPORT ---
DATE OF SERVICE: 08/29/2020 ATTENDING PRIMARY COMMERCIAL LENDING ASSISTANT: Jennifer Payan APRN PREOPERATIVE DIAGNOSES: Dysphagia, gastroesophageal reflux disease. POSTOPERATIVE DIAGNOSES: Reflux esophagitis between stage II and III with a mild distal esophageal stricture, moderate size hiatal hernia approximately 3 cm in size, moderate gastritis. No distal obstructions. PROCEDURE: EGD with biopsy and balloon dilatation. SURGEON: Richard Lowe MD. ANESTHESIA: Monitored anesthesia care. ESTIMATED BLOOD LOSS: Minimal. FINDINGS: Same as postoperative diagnoses. DISPOSITION: The patient tolerated the procedure well. INDICATIONS: The patient is a 55-year-old female who has had dysphagia and gastroesophageal reflux disease for years and she states that her dysphagia has worsened. She reports epigastric burning sensation as well and does have some episodes of regurgitation. DESCRIPTION OF PROCEDURE: The patient was brought to the endoscopy suite, laid in left lateral decubitus position. After adequate IV pain and sedative medications and monitored anesthesia care, a long piece was applied. The endoscope was placed in the mouth, visualizing the pharynx and hypopharyngeal region. Vocal cords, epiglottis and vallecula identified and appeared to be normal. The endoscope was then gently abated esophageal opening and esophagus insufflated. The endoscope was then advanced to the first, second and third portion of esophagus at the level of the GE junction, reflux esophagitis between stage II and III identified. There was also mild distal esophageal stricture identified. The GE junction was also intrathoracic consistent with a hiatal hernia. A biopsy was taken with forceps with visualization of good hemostasis. The endoscope was then easily advanced in the stomach and endoscope retroflexed, visualizing a moderate size hiatal hernia approximately 3 cm in size. There was a moderate severity gastritis. No formal ulcerations, polyps, or any neoplasms. A biopsy was taken of the antrum to rule out H. pylori with visualization of good hemostasis. Endoscope was then advanced to the pylorus and the first and second portion of the duodenum, which appeared normal with no distal obstructions or any ulcerations. We then proceeded with the esophageal dilatation and the balloon was placed in the stomach and pulled back to the area of the gastroesophageal junction. The balloon was then first insufflated to 2 and then 4 atmospheres of pressure with moderate resistance. We then slowly went to 6 atmospheres of pressure with moderate resistance and left this in place for approximately 60 seconds. The balloon was then desufflated and removed with visualization of good hemostasis as well as no mucosal tears. Endoscope was then slowly withdrawn while taking a second look and suctioning of residual air with no additional findings. The patient tolerated the procedure well. We will recommend the necessary lifestyle and diet accommodation including cessation of smoking as well as small and more frequent meals, avoidance of eating at night as well as head elevation while lying supine. Any method of regularly scheduled diet and exercise as well as weight loss will also tremendously decreased her symptoms. We will also start her on Protonix 40 mg daily, which we will want her to take in conjunction with omeprazole 40 mg daily, which she already has at home. Job ID: [id number] DocumentID: [id number] Dictated Date: 08/29/2020 12:52:31 Manager Customs Date: 08/29/2020 18:00:23 Dictated By: RICHARD LOWE MD
== END ==
LOC: ENDO 11:28
PROVIDERS: ATTEND Surgery
DX: K29.50 Unspecified chronic gastritis without bleeding (principal); K21.00 Gastro-esophageal reflux disease with esophagitis, without bleeding; K44.9 Diaphragmatic hernia without obstruction or gangrene; K22.2 Esophageal obstruction; I10 Essential (primary) hypertension; F32.9 Major depressive disorder, single episode, unspecified; F41.9 Anxiety disorder, unspecified; E78.00 Pure hypercholesterolemia, unspecified; K25.9 Gastric ulcer, unspecified as acute or chronic, without hemorrhage or perforation; E03.9 Hypothyroidism, unspecified; N39.3 Stress incontinence (female) (male); Z98.51 Tubal ligation status; Z90.89 Acquired absence of other organs; Z88.0 Allergy status to penicillin; Z79.82 Long term (current) use of aspirin; Z79.899 Other long term (current) drug therapy; Z87.891 Personal history of nicotine dependence; Z96.22 Myringotomy tube(s) status; Z98.890 Other specified postprocedural states; Z83.3 Family history of diabetes mellitus
CPT/HCPCS: 88305

== ENCOUNTER 2020-12-31 09:06 | Outpatient (CLI) | payer MEDICAID ==
[~2020-12-31] VITALS: Ht 170.2 cm; Wt 106.5 kg
[~2020-12-31 09:06] MED LIST changes: -ASPI-999 PO; -ATOR40TA70 PO; -CRAN450T9 PO; -KORE1000 PO; -NIAC500T24 PO
[2020-12-31] MEDS ORDERED: ATOR40TA70 PO (09:51)
[2020-12-31] MEDS ORDERED: NIAC500T24 PO (09:51)
[2020-12-31] MEDS ORDERED: ASPI-999 PO (09:51)
[2020-12-31] MEDS ORDERED: METO-333 PO (09:51)
[2020-12-31] MEDS ORDERED: KORE1000 PO (09:51)
[2020-12-31] MEDS ORDERED: CRAN450T9 PO (09:51)
== END 2020-12-31 10:06 | disposition home or self-care (01) ==
LOC: PREOP 09:06
PROVIDERS: ATTEND Surgery
DX: Z01.818 Encounter for other preprocedural examination (principal)

== ENCOUNTER → 2020-12-31 | Outpatient (CLI) | payer MEDICAID ==
[~2020-12-31] MED LIST changes: +ASPI-999 PO; +ATOR40TA70 PO; +CRAN450T9 PO; -HURRICAINE EXT TUBE (BENZOCAINE) XX PRN; +KORE1000 PO; -LIDOCAINE JELLY 2% 6 ML SYRINGE MM PRN; -LIDOCAINE JELLY 2% 6 ML SYRINGE ONE; -MIDAZOLAM 2 MG/2 ML (VERSED) VIAL ONE; +NIAC500T24 PO; -NS IV 500 ML 500 ML IV PRN; -NS IV 500 ML 500 ML ONE; -PROPOFOL INJECTION 50 ML IV ONE
== END ==
LOC: LABNPT 08:24
PROVIDERS: ATTEND Surgery
DX: R13.10 Dysphagia, unspecified (principal); Z20.822 Contact with and (suspected) exposure to COVID-19
CPT/HCPCS: 87635

== ENCOUNTER 2021-01-02 11:25 | Day surgery (SDC) | payer MEDICAID ==
[~2021-01-02] VITALS: Ht 170.2 cm; Wt 106.5 kg
[2021-01-02] VITALS (7 sets, daily range): BP systolic 105–124; BP diastolic 59–91
[~2021-01-02 11:25] MED LIST changes: +ASPI-999 PO; +ATOR40TA70 PO; +CRAN450T9 PO; +KORE1000 PO; +NIAC500T24 PO; -OMEP40CA27 PO; +OMEP40CA6 PO
[2021-01-02] MEDS ORDERED: LACTATED RINGERS 1,000 ML IV STA (11:32)
[2021-01-02] MEDS ORDERED: LACTATED RINGERS 1,000 ML IV ONE (11:38)
[2021-01-02] MEDS ORDERED: HURRICAINE EXT TUBE (BENZOCAINE) XX PRN (11:45)
[2021-01-02] MEDS ORDERED: LIDOCAINE JELLY 2% 6 ML SYRINGE MM PRN (11:45)
--- NOTE | 2021-01-02 11:52 | Conscious Sedation/ASA ---
Conscious Sedation Pre-Proced Time 11:45 ASA Score 2 For ASA 3 and 4: Consider anesthesia and medical clearance. Also, for patients with a history of failed moderate sedation consider anesthesia. Airway Lungs Heart ASA score ASA 1: a normal healthy patient ASA 2: a patient with a mild systemic disease (mid diabetes, controlled hypertension, obesity ASA 3: a patient with a severe systemic disease that limits activity (angina, COPD, prior Myocardial infarction) ASA 4: a patient with an incapacitating disease that is a constant threat to life (CHF, renal failure) ASA 5: a moribund patient not expected to survive 24 hrs. (ruptured aneurysm) ASA 6: a declared brain- patient whose organs are being harvested. For emergent operations, add the letter E after the classification Mallampati Classification Grade 2 Sedation Plan Analgesia, Amnesia, Plan communicated to team members, Discussed options with patient/fam, Discussed risks with patient/fam The patient is an appropriate candidate to undergo the planned procedure, sedation, and anesthesia. The patient immediately re-assessed prior to indication. RICHARD LOWE MD Jan 02, 2021 11:52
--- NOTE | 2021-01-02 11:52 | Progress Note-Pre Operative ---
Pre-Operative Progress Note H&P Reviewed The H&P was reviewed, patient examined and no changes noted. Date Seen by Provider: Jan 02, 2021 Time Seen by Provider: 11:45 Date H&P Reviewed: Jan 02, 2021 Time H&P Reviewed: 11:45 Pre-Operative Diagnosis: dysphagia/GERD RICHARD LOWE MD Jan 02, 2021 11:52
--- NOTE | 2021-01-02 11:53 | Discharge Inst-Surgical ---
D/C Lap Instructions-KIDSohail New, Converted, or Re-Newed RX: RX on Chart Follow Up Appt in 2 weeks Activity as tolerated Regular Diet Symptoms to Report: Fever over 101 degree F, Nausea/Vomiting Infection Signs and Symptoms to report: Increased redness, Foul odor of wound, Increased drainage Bathing instructions: May shower Operative Area Clean/Dry; Keep incision clean/dry If any problems/questions: Contact your physician or go to Emergency Room RICHARD LOWE MD Jan 02, 2021 11:53
[2021-01-02] MEDS ORDERED: ACETAMINOPHEN 325 MG TABLET PO PRN (12:00)
[2021-01-02] MEDS ORDERED: ONDANSETRON 4 MG/2 ML (SDV) Z0FRAN IVP PRN (12:00)
[2021-01-02] MEDS ORDERED: morphine INJ 10 MG/ML 1ML (SYR OR VIAL) IVP PRN ×2 (12:00)
[2021-01-02] MEDS ORDERED: HYDROcodone/APAP 5 MG/325 MG (LORTAB) TAB PO PRN (12:00)
[2021-01-02] MEDS ORDERED: PROPOFOL INJECTION 50 ML IV ONE (14:18)
[2021-01-02] MEDS ORDERED: MIDAZOLAM 2 MG/2 ML (VERSED) VIAL ONE (14:18)
--- NOTE | 2021-01-02 15:05 | Anesthesia-General Post-Op ---
MAC Patient Condition Mental Status/LOC: Same as Preop Cardiovascular: Satisfactory Nausea/Vomiting: Absent Respiratory: Satisfactory Pain: Controlled Complications: Absent Post Op Complications Complications None Follow Up Care/Instructions Patient Instructions None needed. Anesthesiology Discharge Order Discharge Order Patient is doing well, no complaints, stable vital signs, no apparent adverse anesthesia problems. No complications reported per nursing. VENU BRUNO CRNA Jan 02, 2021 15:05
--- NOTE | 2021-01-02 15:59 | Progress Note-Post Operative ---
Post-Operative Progess Note Surgeon (s)/Prompt Care Rn (s) Surgeon RICHARD LOWE MD Prompt Care Rn: none Pre-Operative Diagnosis dysphagia/GERD Post-Operative Diagnosis reflux esophagitis(stage 3), mild distal esophageal stricture, moderate pat 3 HH(3cm), moderate gastritis. Procedure & Operative Findings Date of Procedure 01/02/21 Procedure Performed/Findings EGD with bx and balloon dilatation Anesthesia Type mac Estimated Blood Loss Estimated blood loss (mL): minimal Specimens/Packing Specimens Removed ge jxn, antrum RICHARD LOWE MD Jan 02, 2021 15:59
--- NOTE | 2021-01-02 20:07 | OPERATIVE REPORT ---
DATE OF SERVICE: 01/02/2021 ATTENDING PRIMARY METAL TRIM ERECTOR: Jennifer Payan APRN PREOPERATIVE DIAGNOSES: Dysphagia, regurgitation, gastroesophageal reflux disease. POSTOPERATIVE DIAGNOSES: Reflux esophagitis stage III, mild distal esophageal stricture, moderate size hiatal hernia 3 cm in size, moderate gastritis. No distal obstructions. PROCEDURE: EGD with biopsy and balloon dilatation. SURGEON: Richard Lowe MD. ANESTHESIA: Monitored anesthesia care. ESTIMATED BLOOD LOSS: Minimal. FINDINGS: Reflux esophagitis stage III, mild distal esophageal stricture, moderate size hiatal hernia 3 cm in size, moderate gastritis. No distal obstructions. DISPOSITION: The patient tolerated the procedure well. INDICATIONS: The patient is a 55-year-old female known to us. We had seen in 08/2020 for dysphagia and gastroesophageal reflux disease. She has had issues with reflux for many years with epigastric burning sensation and then eventually developed regurgitation and dysphagia. She underwent a balloon dilatation at that time, she was also found to have hiatal hernia 3 cm in size. She returned to the office with symptoms of substernal chest burning and dysphagia. She does have some issues with noncompliance and states that she was eating spicy foods and then this was followed by the development of worsening dysphagia. DESCRIPTION OF PROCEDURE: The patient was brought to the endoscopy suite, laid in the left lateral decubitus position. After adequate IV pain and sedative medications and monitored anesthesia care, the mouthpiece was applied. The endoscope was placed in the mouth, visualizing the pharynx and hypopharyngeal region. Vocal cords, epiglottis and vallecula identified and appeared to be normal. The endoscope was then gently intubated into esophageal opening and esophagus insufflated. The endoscope was then advanced through the first, second and third portion of esophagus at the level of the GE junction, a reflux esophagitis stage III identified. There was a mild distal esophageal stricture also identified. The GE junction was also intrathoracic consistent with a hiatal hernia. A biopsy was taken of the GE junction with forceps with visualization of good hemostasis. The endoscope was then advanced into the stomach and endoscope retroflexed, visualizing a moderate size hiatal hernia approximately 3 cm in size. This was a type 3 hiatal hernia. There was a moderate severity gastritis. No formal ulcerations, polyps, or any neoplasms. A biopsy was taken of the antrum to rule out H. pylori with visualization of good hemostasis. The endoscope was then advanced to the pylorus and first and second portion of the duodenum, which appeared normal with no distal obstructions. We then proceeded with balloon dilatation. The balloon was placed in the stomach and pulled back to the area of stricture. We then proceeded with 2 then 4, then 6 atmospheres of pressure with moderate resistance or 20 mm in luminal diameter and left this in place for 60 seconds. The balloon was then desufflated and removed with visualization of good hemostasis as well as no mucosal tears. Endoscope was then slowly withdrawn while taking a second look and suctioning of residual air with no additional findings. The patient tolerated the procedure well. We will recommend the necessary lifestyle and diet accommodation including avoidance of caffeinated beverages, spicy, greasy and acidic foods as well as small and more frequent meals and avoid eating at night. She does have a significant size hiatal hernia; however, due to her body habitus and noncompliance, she would have an acceptable recurrence rates of the hiatal hernia was repaired, so we will also recommend a continued medical management with any weight loss regimen as well. Job ID: [id number] DocumentID: [id number] Dictated Date: 01/02/2021 14:38:27 [employer] Software Developer Date: 01/02/2021 20:07:09 Dictated By: RICHARD LOWE MD MTDD
== END 2021-01-02 15:15 | disposition home or self-care (01) ==
LOC: ENDO 11:25
PROVIDERS: ATTEND Surgery
DX: K21.00 Gastro-esophageal reflux disease with esophagitis, without bleeding (principal); K29.50 Unspecified chronic gastritis without bleeding; K22.2 Esophageal obstruction; K44.9 Diaphragmatic hernia without obstruction or gangrene; F41.9 Anxiety disorder, unspecified; F32.9 Major depressive disorder, single episode, unspecified; E78.00 Pure hypercholesterolemia, unspecified; I10 Essential (primary) hypertension; E03.9 Hypothyroidism, unspecified; Z79.82 Long term (current) use of aspirin; Z79.899 Other long term (current) drug therapy
CPT/HCPCS: 88305

== ENCOUNTER 2021-08-14 16:25 | Emergency (ER) | payer MEDICAID ==
[~2021-08-14] VITALS: Ht 170 cm; Wt 110.0 kg
[~2021-08-14 16:25] MED LIST changes: +DICY20TA PO; +MONT-40 PO; -MONT10TA32 PO
[2021-08-14] MEDS ORDERED: IBUPROFEN 800 MG (MOTRIN) TAB PO ONE (17:45)
[2021-08-14] MEDS ORDERED: ACETAMINOPHEN 325 MG TABLET PO ONE (17:45)
[2021-08-14] MEDS ORDERED: LACTATED RINGERS 1,000 ML IV ONE (18:15)
--- NOTE | 2021-08-14 18:31 | ED General ---
General Chief Complaint: COVID19 Suspect/Confirmed Stated Complaint: CHILLS/WEBBER/FEVER/HIGH BP/SORE THROAT/BODY ACHES Nursing Triage Note: Patient states she has been experiencing fever and chills as well as body aches and fatigue x 2 days. Source of Information: Patient Exam Limitations: No Limitations History of Present Illness Date Seen by Provider: Aug 14, 2021 Time Seen by Provider: 17:22 Initial Comments This 56-year-old woman presents to the emergency room with complaints of flulike symptoms including mild shortness of breath, mild cough, fever, chills, upset stomach with nausea and diarrhea, and fatigue. She has a fever at present. She has oxygen at home for sleep apnea that she uses with CPAP. She also has a pulse oximeter and reports no hypoxia at home. She has been vaccinated for COVID-19. She has been drinking plenty of water but states she still feels dry because of the diarrhea. She also reports some recent dysuria and frequency. Allergies and Home Medications Allergies Coded Allergies: Penicillins (Verified Allergy, Unknown, 08/29/20) lisinopril (Verified Allergy, Unknown, 08/14/21) omeprazole (Verified Allergy, Unknown, 08/14/21) Patient Home Medication List Home Medication List Reviewed: Yes Albuterol Sulfate (Proair Hfa) 8.5 Gm Hfa.aer.ad, 2 PUFF INH Q4H PRN for SHORTNESS OF BREATH, (Reported) Entered as Reported by: RANDOLPH BRITO on 01/18/16 1351 Albuterol Sulfate (Albuterol Sulfate) 2.5 Mg/3 Ml Vial.neb, 2.5 MG IH 4 times a day PRN for wheezing Prescribed by: CORBY IVERSON on 12/12/17 1324 Aspirin (Aspirin) 81 Mg Tab.chew, 81 MG PO DAILY, (Reported) Entered as Reported by: LURDES WILDER on 12/31/20 0951 Atorvastatin Calcium (Atorvastatin Calcium) 40 Mg Tablet, 40 MG PO DAILY, (Reported) Entered as Reported by: LURDES WILDER on 12/31/2051 Azithromycin (Azithromycin) 250 Mg Tablet, 250 MG PO DAILY Prescribed by: RAUL MOREL on 08/14/212111 Black Cohosh Root (Black Cohosh) 200 Mg Capsule, 200 MG PO BID, (Reported) Entered as Reported by: DESTINY BELL on 12/12/17 09 Budesonide/Formoterol Fumarate (Symbicort 80-4.5 Mcg Inhaler) 10.2 Gm Hfa.aer.ad, 2 PUFF IH BID, (Reported) Entered as Reported by: ANN MERINO on 07/07/16 09 Cetirizine HCl (Cetirizine HCl) 10 Mg Tablet, 10 MG PO DAILY, (Reported) Entered as Reported by: ABELARDO SHANKAR on 10/12/18 102 Cranberry Fruit (Cranberry) 450 Mg Tablet, 450 MG PO DAILY, (Reported) Entered as Reported by: LURDES WILDER on 12/31/20 0951 Cyanocobalamin (Vitamin B-12) (Vitamin B12) 2,500 Mcg Tablet, 2,500 MCG PO DAILY, (Reported) Entered as Reported by: DESTINY BELL on 12/12/17 09 Dicyclomine HCl (Dicyclomine HCl) 20 Mg Tablet, 20 MG PO QID, (Reported) Entered as Reported by: DESTINY BELL on 12/12/17 09 Doxepin HCl (Doxepin HCl) 10 Mg Capsule, 10-30 MG PO HS, (Reported) Entered as Reported by: ANN MERINO on 07/07/16 09 Fluticasone Propionate (Fluticasone Propionate) 16 Gm [place].susp, 2 SPRAYS NS BID, (Reported) Entered as Reported by: DESTINY BELL on 12/12/17 09 Folic Acid/Multivit-Min/Lutein (Multi-Vitamin Gummies) 1 Each Tab.chew, 1 EACH PO DAILY, (Reported) Entered as Reported by: DESTINY BELL on 12/12/17 09 Arabic Ginseng Root (Arabic Ginseng) 1,000 Mg Tablet, 1,000 MG PO DAILY, (Reported) Entered as Reported by: LURDES WILDER on 12/31/20 0951 Levothyroxine Sodium (Levothyroxine Sodium) 50 Mcg Tablet, 50 MCG PO DAILY, (Reported) Entered as Reported by: ABELARDO SHANKAR on 10/12/18 1021 Lisinopril (Lisinopril) 10 Mg Tablet, 10 MG PO DAILY, (Reported) Entered as Reported by: ABELARDO SHANKAR on 10/12/18 1021 Magnesium (Magnesium) 30 Mg Tablet, 30 MG PO DAILY, (Reported) Entered as Reported by: DESTINY BELL on 12/12/17 0909 Metoprolol Tartrate (Metoprolol Tartrate) 25 Mg Tablet, 25 MG PO BID, (Reported) Entered as Reported by: LURDES WILDER on 12/31/20 0951 Montelukast Sodium (Montelukast Sodium) 10 Mg Tablet, 10 MG PO HS, (Reported) Entered as Reported by: DESTINY BELL on 12/12/17 09 Niacinamide (Niacin) 500 Mg Tablet, 500 MG PO DAILY, (Reported) Entered as Reported by: LURDES WILDER on 12/31/20 0951 Omeprazole (Omeprazole) 40 Mg Capsule.dr, 40 MG PO DAILY, (Reported) Entered as Reported by: DESTINY BELL on 12/12/17 0903 Ondansetron (Ondansetron Odt) 4 Mg Tab.rapdis, 4 MG PO Q4H PRN for NAUSEA/VOMITING Prescribed by: RAUL MOREL on 08/14/212111 Oxybutynin Chloride (Oxybutynin Chloride) 5 Mg Tablet, 5 MG PO BID, (Reported) Entered as Reported by: DESTINY BELL on 12/12/17 09 Vilazodone Hydrochloride (Viibryd) 20 Mg Tablet, 20 MG PO HS, (Reported) Entered as Reported by: ANN MERINO on 07/07/16 0902 Review of Systems Review of Systems Constitutional: see HPI EENTM: no symptoms reported Respiratory: see HPI Cardiovascular: no symptoms reported Gastrointestinal: see HPI Genitourinary: see HPI : No Musculoskeletal: no symptoms reported Skin: no symptoms reported Psychiatric/Neurological: No Symptoms Reported Hematologic/Lymphatic: No Symptoms Reported Immunological/Allergic: no symptoms reported Past Hfujbgd-Icalsv-Txbyxl Hx Patient Social History Tobacco Use?: No Substance use?: No Alcohol Use?: No Immunizations Up To Date Tetanus Booster (TDap): Unknown First/Initial COVID19 Vaccinat: 03/06/21 Second COVID19 Vaccination Sahil: 04/03/21 COVID19 Vaccine Manager Community Development: MAIN Seasonal Allergies Seasonal Allergies: Yes Past Medical History Surgery/Hospitalization HX: htn, high cholesterol, asthma Surgeries: Yes (LASER CONIZATION OF CERVIX; X 4, ANKLE FX ) Adenoidectomy, Section, Ear Surgery, Orthopedic, Tonsillectomy, Tubal L igation Respiratory: Yes (CPAP AT HS; O2 AT 1L/NC-MOSTLY AT NIGHT) Asthma, Chronic Bronchitis, Sleep Apnea Currently Using CPAP: Yes Currently Using BIPAP: No Cardiac: Yes High Cholesterol, Hypertension Neurological: No 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 Disorders: No Female 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 Disorders: Denies 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, 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 Sexually Transmitted Disease: No HIV/AIDS: No Genitourinary: Yes UTI-Chronic Gastrointestinal: Yes (DYSPHAGIA) Gastroesophageal Reflux, Chronic Constipation, Chronic Diarrhea, Irritable Bowel Musculoskeletal: Yes (KNEES) Arthritis Endocrine: Yes Hypothyroidsim HEENT: No Loss of Vision: Denies Hearing Impairment: Denies Cancer: Yes (LASER CONZATION) Cervical Did You Recieve Any Treatments: Yes What Type of Treatment Did You: Surgical Intervention Psychosocial: Yes (POLYSUBSTANCE ABUSE) Sleep Difficulties, Anxiety, Bipolar, Depression Integumentary: No Blood Disorders: No Adverse Reaction/Blood Tranf: No Family Medical History Diabetes mellitus 19 MOTHER Diabetes, Hypertension Physical Exam Vital Signs Vital Signs - First Documented Capillary Refill : Less Than 3 Seconds Height, Weight, BMI Height: 5'7.00" Weight: 246lbs. 0.0oz. [id number]; 38.00 BMI Method:Stated General Appearance: No Apparent Distress, WD/WN, Other (Mildly ill-appearing) HEENT: PERRL/EOMI, TMs Normal, Normal ENT Inspection, Other (Mucous membranes somewhat dry) Neck: Normal Inspection; No JVD Respiratory: No Accessory Muscle Use, No Respiratory Distress, Crackles (Faint in the left lower lung, clearing with deep inspiration) Cardiovascular: No Edema, No Murmur, Tachycardia (Regular) Gastrointestinal: Normal Bowel Sounds, Non Tender, Soft Extremity: Normal Inspection, No Pedal Edema Neurologic/Psychiatric: Alert, Oriented x3, No Motor/Sensory Deficits, Normal Mood/Affect, 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 Norm as Tested Skin: Normal Color, Warm/Dry Progress/Results/Core Measures Suspected Sepsis SIRS Temperature: Pulse: 118 Respiratory Rate: 18 Laboratory Tests 08/14/21 18:29: White Blood Count 13.9H Blood Pressure 171 /94 Mean: 119 Laboratory Tests 08/14/21 18:29: Creatinine 0.88, Platelet Count 259, Total Bilirubin 0.5 Results/Orders Lab Results Laboratory Tests Test 08/14/21 17:40 08/14/21 18:25 08/14/21 18:29 Range/Units Influenza Type A Antigen NEGATIVE NEGATIVE Influenza Type B Antigen NEGATIVE NEGATIVE Urine Color YELLOW Urine Clarity SL CLOUDY Urine pH 8.0 5-9 Urine Specific [place] 1.015 L 1.016-1.022 Urine Protein TRACE H NEGATIVE Urine Glucose (UA) NEGATIVE NEGATIVE Urine Ketones NEGATIVE NEGATIVE Urine Nitrite NEGATIVE NEGATIVE Urine Bilirubin NEGATIVE NEGATIVE Urine Urobilinogen 0.2 < = 1.0 MG/DL Urine Leukocyte Esterase TRACE H NEGATIVE Urine RBC (Auto) NEGATIVE NEGATIVE Urine RBC NONE /HPF Urine WBC 0-2 /HPF Urine Squamous Epithelial Cells 2-5 /HPF Urine Crystals PRESENT H /LPF Urine Amorphous Sediment MOD PAVAN PHOSPHATE H /LPF Urine Bacteria TRACE /HPF Urine Casts NONE /LPF Urine Mucus NEGATIVE /LPF Urine Culture Indicated NO White Blood Count 13.9 H 4.3-11.0 10^3/uL Red Blood Count 4.72 3.80-5.11 10^6/uL Hemoglobin 13.1 11.5-16.0 g/dL Hematocrit 40 35-52 % Mean Corpuscular Volume 85 80-99 fL Mean Corpuscular Hemoglobin 28 25-34 pg Mean Corpuscular Hemoglobin Concent 33 32-36 g/dL Red Cell Distribution Width 13.4 10.0-14.5 % Platelet Count 259 130-400 10^3/uL Mean Platelet Volume 9.6 9.0-12.2 fL Immature Granulocyte % (Auto) 0 % Neutrophils (%) (Auto) 79 H 42-75 % Lymphocytes (%) (Auto) 13 12-44 % Monocytes (%) (Auto) 7 0-12 % Eosinophils (%) (Auto) 0 0-10 % Basophils (%) (Auto) 0 0-10 % Neutrophils # (Auto) 11.0 H 1.8-7.8 10^3/uL Lymphocytes # (Auto) 1.8 1.0-4.0 10^3/uL Monocytes # (Auto) 0.9 0.0-1.0 10^3/uL Eosinophils # (Auto) 0.0 0.0-0.3 10^3/uL Basophils # (Auto) 0.1 0.0-0.1 10^3/uL Immature Granulocyte # (Auto) 0.1 0.0-0.1 10^3/uL Sodium Level 138 135-145 MMOL/L Potassium Level 3.7 3.6-5.0 MMOL/L Chloride Level 104 98-107 MMOL/L Carbon Dioxide Level 21 21-32 MMOL/L Anion Gap 13 5-14 MMOL/L Blood Urea Nitrogen 8 7-18 MG/DL Creatinine 0.88 0.60-1.30 MG/DL Estimat Glomerular Filtration Rate 77 BUN/Creatinine Ratio 9 Glucose Level 121 H 70-105 MG/DL Calcium Level 8.8 8.5-10.1 MG/DL Corrected Calcium 9.0 8.5-10.1 MG/DL Magnesium Level 2.1 1.6-2.4 MG/DL Total Bilirubin 0.5 0.1-1.0 MG/DL Aspartate Amino Transf (AST/SGOT) 13 5-34 U/L Alanine Aminotransferase (ALT/SGPT) 20 0-55 U/L Alkaline Phosphatase 82 40-136 U/L C-Reactive Protein High Sensitivity 7.50 H 0.00-0.50 MG/DL Total Protein 6.9 6.4-8.2 GM/DL Albumin 3.8 3.2-4.5 GM/DL My Orders Orders - RAUL JOE MD Influenza A & B Antigens (08/14/21 18:01) Cbc With Automated Diff (08/14/21 18:12) Comprehensive Metabolic Panel (08/14/21 18:12) Hs C Reactive Protein (08/14/21 18:12) Magnesium (08/14/21 18:12) Ua Culture If Indicated (08/14/21 18:12) Ed Iv/Invasive Line Start (08/14/21 18:12) Lactated Ringers (Lr 1000 Ml Iv Solution (08/14/21 18:15) Chest 1 View, Ap/Pa Only (08/14/21 18:12) Ondansetron Injection (Zofran Injectio (08/14/21 18:45) Azithromycin Tablet (Zithromax Tablet) (08/14/21 21:15) Medications Given in ED Vital Signs/I&O 08/14/21 08/14/21 08/14/21 08/14/21 16:54 16:54 16:59 17:42 Temp 38.1 38.1 38.1 Pulse 118 118 Resp 18 18 B/P (MAP) 171/94 (119) 171/94 Pulse Ox 94 94 O2 Delivery Room Air Room Air Room Air 08/14/21 08/14/21 19:02 21:26 Temp 38.8 35.9 Pulse 87 Resp 16 B/P (MAP) 106/63 Pulse Ox 98 O2 Delivery Room Air Capillary Refill : Less Than 3 Seconds Blood Pressure Mean: 119 Progress Note #1: Time: 18:32 Progress Note Fever was treated with Tylenol and ibuprofen. We will hydrate her with a liter of LR. Nausea will be treated with Zofran. Influenza rapid swab is pending. Send out COVID-19 swab is pending. Labs and chest x-ray are pending. Progress Note #2: Time: 21:03 Progress Note Patient was feeling much better after treatment. Work-up did not reveal any specific source of infection. She did have some subtle crackles in the left lower lung. A azithromycin was therefore prescribed even though chest x-ray did not reveal an obvious pneumonia. First dose of a azithromycin was given in the ER. Send out Covid test was pending. Patient was instructed to quarantine until the results of that test is known, likely tomorrow. Diagnostic Imaging Diagonstic Imaging: Xray Plain Films/CT/US/NM/MRI: chest Comments Chest x-ray viewed by me and report reviewed. See report below: NAME: JUAN CRUZ [facility] REC#: [id number] PT STATUS: REG ER : 1965 PHYSICIAN: RAUL JOE MD ADMIT DATE: 08/14/21/ER Signed Date of Exam:08/14/21 CHEST 1 VIEW, AP/PA ONLY EXAMINATION: Chest 1 view. HISTORY: Cough. Shortness of breath. Fever. COMPARISON: 12/05/2019. FINDINGS: The lung volumes are normal. No focal consolidation is seen. No large pleural effusion or pneumothorax is seen. The cardiomediastinal silhouette is normal in size and contour. No acute osseous abnormality is seen. IMPRESSION: No acute pleuroparenchymal process. Dictated by: Dictated on workstation # [id number] Dict: 08/14/211951 Trans: 08/14/211954 [facility] [id number] Interpreted by: MARLO PENA DO Electronically signed by: MARLO PENA DO 08/14/211954 Departure Impression Primary Impression: Flu-like symptoms Additional Impressions: Diarrhea Qualified Codes: R19.7 - Diarrhea, unspecified Person under investigation for COVID-19 Disposition: 01 HOME, SELF-CARE Condition: Improved Departure-Patient Inst. Decision time for Depature: 21:04 Referrals: NO,LOCAL PHYSICIAN (PCP) Primary Care Physician PAYTON PORTER (Family) Primary Care Physician Patient Instructions: COVID-19 Overview Add. Discharge Instructions: Drink plenty of clear liquids to stay well-hydrated. Use the Zofran (ondansetron) as prescribed for nausea and vomiting. Start with a clear liquid diet and gradually advance your diet with small quantities of bland food as tolerated. Avoid fatty or greasy foods and dairy products for the next couple of days as they may worsen diarrhea. Complete your antibiotic as prescribed. There were some crackles heard on your left lower lung on exam which could be early pneumonia. Remain in quarantine until the results of your COVID-19 test is known. It will likely be resulted sometime tomorrow. Check your oxygen level often throughout the day, especially if you are feeling short of breath. Return to care if you are requiring increased oxygen support. Use oxygen to keep your oxygen saturations greater than 92%. Adjust flow upward if needed. Call with questions or concerns. Continue all other medications as previously prescribed. Return to the ER if you have worsening symptoms. All discharge instructions reviewed with patient and/or family. Voiced understanding. Scripts Ondansetron (Ondansetron Odt) 4 Mg Tab.rapdis 4 MG PO Q4H PRN for NAUSEA/VOMITING, #10 TAB Prov: RAUL JOE MD 08/14/21 Azithromycin (Azithromycin) 250 Mg Tablet 250 MG PO DAILY, #4 TAB 0 Refills Prov: RAUL JOE MD 08/14/21 RAUL JOE MD Aug 14, 2021 18:30
[2021-08-14 18:38] LABS: BILIRUBIN,URINE NEGATIVE (NEGATIVE); CLARITY,URINE SL CLOUDY; COLOR,URINE YELLOW; GLUCOSE, URINE (UA) NEGATIVE (NEGATIVE); KETONES,URINE NEGATIVE (NEGATIVE); LEUKOCYTE ESTERASE ,URINE TRACE (NEGATIVE); NITRITE,URINE NEGATIVE (NEGATIVE); PROTEIN,URINE TRACE (NEGATIVE)
[2021-08-14 18:40] LABS: BASOPHILS # (AUTO) 0.1 10^3/uL (0.0-0.1); BASOPHILS % (AUTO) 0 % (0-10); EOSINOPHILS % (AUTO) 0 % (0-10); HEMATOCRIT 40 % (35-52); HEMOGLOBIN 13.1 g/dL (11.5-16.0); LYMPHOCYTES # (AUTO) 1.8 10^3/uL (1.0-4.0); LYMPHOCYTES % (AUTO) 13 % (12-44); MEAN CORPUSCULAR HEMOGLOBIN 28 pg (25-34); MEAN CORPUSCULAR HGB CONC 33 g/dL (32-36); MEAN CORPUSCULAR VOLUME 85 fL (80-99); MEAN PLATELET VOLUME 9.6 fL (9.0-12.2); MONOCYTES # (AUTO) 0.9 10^3/uL (0.0-1.0); MONOCYTES % (AUTO) 7 % (0-12); NEUTROPHILS % (AUTO) 79 % (42-75); PLATELET COUNT 259 10^3/uL (130-400); WHITE BLOOD COUNT 13.9 10^3/uL (4.3-11.0)
[2021-08-14] MEDS ORDERED: ONDANSETRON 4 MG/2 ML (SDV) Z0FRAN IVP ONE (18:45)
[2021-08-14 18:51] LABS: ALBUMIN 3.8 GM/DL (3.2-4.5); POTASSIUM 3.7 MMOL/L (3.6-5.0)
[2021-08-14 18:52] LABS: CALCIUM 8.8 MG/DL (8.5-10.1)
[2021-08-14 18:54] LABS: TOTAL PROTEIN 6.9 GM/DL (6.4-8.2)
[2021-08-14 18:55] LABS: AMORPHOUS SEDIMENT,UR MOD AMOR PHOSPHATE /LPF; BACTERIA,URINE TRACE /HPF; WBC,URINE 0-2 /HPF
[2021-08-14 18:55] LABS: BILIRUBIN,TOTAL 0.5 MG/DL (0.1-1.0)
[2021-08-14 18:57] LABS: CREATININE SERUM 0.88 MG/DL (0.60-1.30)
[2021-08-14 19:00] LABS: MAGNESIUM 2.1 MG/DL (1.6-2.4)
--- NOTE | 2021-08-14 19:54 | Diagnostic Imaging Report ---
EXAMINATION: Chest 1 view. HISTORY: Cough. Shortness of breath. Fever. COMPARISON: 12/05/2019. FINDINGS: The lung volumes are normal. No focal consolidation is seen. No large pleural effusion or pneumothorax is seen. The cardiomediastinal silhouette is normal in size and contour. No acute osseous abnormality is seen. IMPRESSION: No acute pleuroparenchymal process. Dictated by: Dictated on workstation # [id number]
[2021-08-14] MEDS ORDERED: AZIT250T12 PO (21:12)
[2021-08-14] MEDS ORDERED: ONDA4TAB11 PO (21:12)
[2021-08-14] MEDS ORDERED: AZITHROMYCIN 250 MG TAB (ZITHROMAX) PO ONE (21:15)
[2021-08-14 21:26] VITALS: BP 106/63
== END 2021-08-14 21:27 | disposition home or self-care (01) ==
LOC: EDUNIT# 16:25 → ER 16:27
DX: R06.02 Shortness of breath (principal); R19.7 Diarrhea, unspecified; R11.2 Nausea with vomiting, unspecified; R50.9 Fever, unspecified; G47.30 Sleep apnea, unspecified; I10 Essential (primary) hypertension; J45.909 Unspecified asthma, uncomplicated; E78.00 Pure hypercholesterolemia, unspecified; E03.9 Hypothyroidism, unspecified; Z99.89 Dependence on other enabling machines and devices; Z79.899 Other long term (current) drug therapy; Z79.890 Hormone replacement therapy; Z20.822 Contact with and (suspected) exposure to COVID-19
CPT/HCPCS: 36415; 71045; 80053; 81000; 83735; 85025; 86141; 87635; 87804

== ENCOUNTER → 2021-09-21 | Outpatient (CLI) | payer MEDICAID ==
[~2021-09-21] MED LIST changes: +ONDA4TAB11 PO
--- NOTE | 2021-09-22 12:33 | Diagnostic Imaging Report ---
INDICATION: Routine screening. COMPARISON: 08/27/2020 and 05/15/2019. TECHNIQUE: 2D and 3D bilateral screening mammography was performed with CAD. FINDINGS: Scattered fibroglandular densities are identified bilaterally. Scattered benign-appearing calcifications are noted bilaterally. No dominant mass or malignant-appearing microcalcifications are seen. The axillae are unremarkable. IMPRESSION: No mammographic features suspicious for malignancy are identified. ACR BI-RADS Category 2: Benign findings. Result letter will be mailed to the patient. Note: At least 10% of breast cancer is not imaged by mammography. Dictated by: Dictated on workstation # [id number]
== END ==
LOC: RAD 14:45
PROVIDERS: ATTEND Nurse Practitioner
DX: Z12.31 Encounter for screening mammogram for malignant neoplasm of breast (principal)
CPT/HCPCS: 77063; 77067

== ENCOUNTER → 2021-09-25 | Outpatient (CLI) | payer MEDICAID | LOC: CARD 15:00 | PROVIDERS: ATTEND Internal Medicine Cardiovascular Disease | DX: I08.0 Rheumatic disorders of both mitral and aortic valves (principal) | CPT/HCPCS: 93306 ==

== ENCOUNTER → 2022-03-31 | Outpatient (CLI) | payer MEDICAID | LOC: CARD 13:00 | PROVIDERS: ATTEND Internal Medicine Cardiovascular Disease | DX: R55 Syncope and collapse (principal) | CPT/HCPCS: 93225; 93226 ==

== ENCOUNTER → 2022-04-13 | Outpatient (CLI) | payer MEDICAID ==
--- NOTE | 2022-04-13 15:48 | Diagnostic Imaging Report ---
INDICATION: Syncopal episode 9 days ago. Headache since. EXAMINATION: CT brain without contrast on 04/13/2022. COMPARISON: 07/06/2016. FINDINGS: There is no acute hemorrhage or infarct. There is no mass, mass effect, or midline shift. The right ventricle is prominent compared to the left but stable from previous imaging. The osseous structures appear intact. The remaining sinuses and mastoid air cells are clear. IMPRESSION: Chronic findings with no acute intracranial process. Dictated by: Dictated on workstation # [id number]
== END ==
LOC: RAD 13:02
PROVIDERS: ATTEND Internal Medicine Cardiovascular Disease
DX: R51.9 Headache, unspecified (principal); R55 Syncope and collapse
CPT/HCPCS: 70450

== ENCOUNTER 2022-04-20 08:00 | Day surgery (SDC) | payer MEDICAID ==
[2022-04-20] VITALS (9 sets, daily range): BP systolic 102–125; BP diastolic 58–78
[~2022-04-20] VITALS: Ht 170.2 cm; Wt 94.0 kg
[2022-04-20 07:28] LABS: HEMATOCRIT 40 % (35-52); MEAN CORPUSCULAR HEMOGLOBIN 28 pg (25-34); MEAN CORPUSCULAR HGB CONC 32 g/dL (32-36); MEAN CORPUSCULAR VOLUME 86 fL (80-99); MEAN PLATELET VOLUME 9.8 fL (9.0-12.2); PLATELET COUNT 282 10^3/uL (130-400); WHITE BLOOD COUNT 7.8 10^3/uL (4.3-11.0)
[2022-04-20 07:51] LABS: BILIRUBIN,TOTAL 0.7 MG/DL (0.1-1.0); CALCIUM 9.4 MG/DL (8.5-10.1); CREATININE SERUM 0.78 MG/DL (0.60-1.30); TOTAL PROTEIN 7.2 GM/DL (6.4-8.2)
[2022-04-20 07:55] LABS: PROTHROMBIN TIME PATIENT 13.1 SEC (12.2-14.7)
[~2022-04-20 08:00] MED LIST changes: +ASPI-1238 PO; +HEParin (CATH LAB) 2,000 ML IV ONE; +LIDOCAINE 1% INJ 30 ML (XYLOCAINE) VIAL ONE; +LOSA25TA41 PO; +MILK175T2 PO; +NS IV 1000 ML 1,000 ML IV SCH; +NS IV 1000 ML 1,000 ML ONE; +OLOP5DRO20 OP; +PANT40TA52 PO; +SENN25TA10 PO; +SIME125C78 PO; +TURM500T PO; +VILA20TA2 PO; +[UNRECOGNIZED DRUG - CODE] PO; +fentaNYL INJ 100 MCG/2 ML AMP ONE
[2022-04-20] MEDS ORDERED: MIDAZOLAM 5 MG/5 ML (VERSED) VIAL ONE (08:01)
--- NOTE | 2022-04-20 09:06 | Cardiac Procedure Note-CS/ASA ---
Pre-Procedure Note Pre-Op Procedure Note Date of Available H&P: Apr 12, 2022 Date H&P Reviewed: Apr 20, 2022 Time H&P Reviewed: 08:30 History & Physical: No changes noted Conscious Sedation Pre-Proced ASA Score 3 For ASA 3 and 4: Consider anesthesia and medical clearance. Also, for patients with a history of failed moderate sedation consider anesthesia. Airway Lungs Heart ASA score ASA 1: a normal healthy patient ASA 2: a patient with a mild systemic disease (mid diabetes, controlled hypertension, obesity ASA 3: a patient with a severe systemic disease that limits activity (angina, COPD, prior Myocardial infarction) ASA 4: a patient with an incapacitating disease that is a constant threat to life (CHF, renal failure) ASA 5: a moribund patient not expected to survive 24 hrs. (ruptured aneurysm) ASA 6: a declared brain- patient whose organs are being harvested. For emergent operations, add the letter E after the classification Mallampati Classification Grade 2 Sedation Plan Analgesia, Amnesia, Plan communicated to team members The patient is an appropriate candidate to undergo the planned procedure, sedation, and anesthesia. The patient immediately re-assessed prior to indication. FABIO MEDINA MD FACP FACC CCDS Apr 20, 2022 09:06
--- NOTE | 2022-04-20 09:11 | Discharge Inst-Post CATH ---
Discharge Inst-CATH/EP Post Cardiac Cath/EP D/C Inst Follow Up/Plan F/u with Dr Zapien in one week ACTIVITY * Go Home directly and rest. * Limit activity of the leg (or wrist if it was used) for 7 days including aerobics, swimming, jogging, bicycling, etc. * Restrict stair-climbing for 7 days if possible, if not, climb up with your non-cath leg, then bring together on the same step. * Avoid lifting, pushing, pulling or excessive movement of the affected e xtremity for 7 days. * Customary sexual activity may be resumed after 2 days-use caution not to use a position that strains or causes pain to the affected extremity. * No driving for 24 hours. * NO SMOKING. * Avoid straining for bowel movements for 7 days. * Gentle walking on level ground is allowed. * Returning to work will depend on the type of procedure and the results. Your doctor will discuss this with you. CALL YOUR DOCTOR FOR ANY OF THE FOLLOWING: *If bleeding from the puncture site occurs- Apply gentle pressure to site with clean cloth and call your doctor or EMS. * If a knot or lump forms under the skin, increases in size, or causes pain. * If bruising appears to be worsening or moving further down your leg instead of disappearing. * Temperature above 101 F. CARE OF YOUR GROIN INCISION; * Bruising or purple discoloration of the skin near the puncture site is common. * You may shower only, no bathtub bathing for 5 days. Be careful to avoid slipping as your leg may feel stiff. * If a closure device was used on your femoral artery, please see the attached guide regarding care of the device and your leg. * Leave dressing on FOR 24 hours. CARE OF YOUR WRIST INCISION; * Bruising or purple discoloration of the skin near the puncture site is common. * You may shower. * DO NOT submerge wrist. * Leave dressing on FOR 24 hours. FABIO ZAPIEN MD [facility] CCDS Apr 20, 2022 09:11
--- NOTE | 2022-04-20 09:12 | Discharge Inst-Cardiology ---
Discharge Inst-Cardiac Discharge Medications Continued Medications: Albuterol Sulfate (Proair Hfa) 8.5 Gm Hfa.aer.ad 2 PUFF INH Q4H PRN for SHORTNESS OF BREATH, INHALER Albuterol Sulfate (Albuterol Sulfate) 2.5 Mg/3 Ml Vial.neb 2.5 MG IH 4 times a day PRN for wheezing, #60 EA Atorvastatin Calcium (Atorvastatin Calcium) 40 Mg Tablet 40 MG PO HS, TAB Black Cohosh Root (Black Cohosh) 200 Mg Capsule 200 MG PO BID Budesonide/Formoterol Fumarate (Symbicort 80-4.5 Mcg Inhaler) 10.2 Gm Hfa.aer.ad 2 PUFF IH BID, INHALER LAST FILLED 03-30-16 Cetirizine HCl (Cetirizine HCl) 10 Mg Tablet 10 MG PO DAILY, TAB Cranberry Fruit (Cranberry) 450 Mg Tablet 450 MG PO DAILY, TAB Cyanocobalamin (Vitamin B-12) (Vitamin B12) 2,500 Mcg Tablet 2500 MCG PO DAILY, TAB Dicyclomine HCl (Dicyclomine HCl) 20 Mg Tablet 20 MG PO QID, TAB Docusate Calcium (Stool Softener) 240 Mg Capsule 240 MG PO DAILY, CAP Doxepin HCl (Doxepin HCl) 10 Mg Capsule 10-30 MG PO HS, CAP Fluticasone Propionate (Fluticasone Propionate) 16 Gm [place].susp 2 SPRAYS NS BID, SPRAY Folic Acid/Multivit-Min/Lutein (Multi-Vitamin Gummies) 1 Each Tab.chew 1 EACH PO DAILY, TAB Levothyroxine Sodium (Levothyroxine Sodium) 50 Mcg Tablet 50 MCG PO DAILY, TAB Magnesium (Magnesium) 30 Mg Tablet 30 MG PO DAILY Milk Thistle Seed Extract (Milk Thistle) 175 Mg Tablet 175 MG PO DAILY, TAB Montelukast Sodium (Montelukast Sodium) 10 Mg Tablet 10 MG PO HS, TAB Olopatadine HCl (Pataday) 0.1 % Drops 5 ML OP PRN for DRY EYES, DROPS Pantoprazole Sodium (Pantoprazole Sodium) 40 Mg Tablet.dr 40 MG PO DAILY, TAB Sennosides (Laxative) 25 Mg Tablet 25 MG PO DAILY, TAB Simethicone (Simethicone) 125 Mg Capsule 125 MG PO NOON, CAP Turmeric Root Extract (Turmeric) 500 Mg Tablet 500 MG PO DAILY, TAB Vilazodone HCl (Vilazodone HCl) 20 Mg Tablet 20 MG PO DAILY, TAB Discontinued Medications: Aspirin (Aspirin EC) 81 Mg Tablet.dr 81 MG PO DAILY, TAB Losartan Potassium (Losartan Potassium) 25 Mg Tablet 25 MG PO DAILY, TAB Metoprolol Tartrate (Metoprolol Tartrate) 25 Mg Tablet 25 MG PO BID, TAB FABIO MEDINA MD [facility] [place] CCDS Apr 20, 2022 09:12
[2022-04-20] MEDS ORDERED: NS IV 1000 ML 1,000 ML IV SCH (09:15)
[2022-04-20] MEDS ORDERED: PATIENT MAY USE OWN MEDS, ALL PO SCH (09:15)
--- NOTE | 2022-04-20 10:32 | CARDIAC CATHETERIZATION ---
DATE OF SERVICE: 04/20/2022 CARDIAC CATHETERIZATION REPORT The patient is a 56-year-old lady with multiple coronary artery disease risk factors and has been experiencing syncope and shortness of breath. Cardiac catheterization was carried out today for cardiac evaluation. Informed consent was obtained. DESCRIPTION OF PROCEDURE: She was brought to the cardiac catheterization laboratory in a fasting state. Right groin was prepared and draped in the usual sterile fashion. Lidocaine 1% was used for local anesthesia. Modified Seldinger technique was used to advance a 5-Spanish sheath in the right femoral artery. Angiography of the right femoral artery was carried out through the sheath, 5-Spanish JL4 catheter was used for left coronary angiography, 5-Spanish JR4 catheter was used for right coronary angiography, 5-Spanish pigtail catheter was used for left heart catheterization and left ventricular angiography. At the end, Mynx was used to achieve hemostasis following sheath removal. She tolerated the procedure well. HEMODYNAMICS: Left ventricular end-diastolic pressure following coronary angiography was 18 mmHg. There is no significant pressure gradient on pullback across the aortic valve. LEFT VENTRICULAR ANGIOGRAPHY: Left ventricular angiography was carried out in the right anterior oblique projection. Global left ventricular systolic function with normal regional wall motion abnormalities seen. Left ventricular ejection fraction approximately 60%. CORONARY ANGIOGRAPHY: Left main coronary artery, left anterior descending artery, left circumflex artery, right coronary artery do not exhibit angiographically significant obstructive disease. Right coronary artery is dominant. CONCLUSIONS: 1. No angiographically significant coronary artery disease. 2. Normal regional wall motion. 3. Mild elevation of left ventricular end-diastolic pressure (18 mmHg). DISCUSSION AND RECOMMENDATIONS: Risk factor modification has been advised. Outpatient followup is advised. Following discontinuation of beta blockers, she has not had recurrence of syncope. If symptoms are recurrent, we will consider implantable loop recorder implantation. Job ID: [id number] DocumentID: [id number] Dictated Date: 04/20/2022 09:00:42 Finance Associate Date: 04/20/2022 10:31:39 Dictated By: FABIO MEDINA MD, MA, FACP, FACC,
== END 2022-04-20 13:00 | disposition home or self-care (01) ==
LOC: CATH 08:00 → SDC 09:25 → CATH 13:00
PROVIDERS: ATTEND Internal Medicine Cardiovascular Disease
DX: I25.10 Atherosclerotic heart disease of native coronary artery without angina pectoris (principal); E66.9 Obesity, unspecified; Z68.32 Body mass index [BMI] 32.0-32.9, adult; Z87.891 Personal history of nicotine dependence; I10 Essential (primary) hypertension; G47.33 Obstructive sleep apnea (adult) (pediatric); Z79.899 Other long term (current) drug therapy; K58.9 Irritable bowel syndrome, unspecified; K21.00 Gastro-esophageal reflux disease with esophagitis, without bleeding; E03.9 Hypothyroidism, unspecified; I27.29 Other secondary pulmonary hypertension; I34.0 Nonrheumatic mitral (valve) insufficiency
CPT/HCPCS: 80053; 80061; 85027; 85610; 85730; 87081; 93005; 93458; C1760; C1894; 36415

== ENCOUNTER → 2022-11-25 | Outpatient (CLI) | payer MEDICAID ==
[~2022-11-25] MED LIST changes: +ALBU8.5H6 INH; -HEParin (CATH LAB) 2,000 ML IV ONE; -LIDOCAINE 1% INJ 30 ML (XYLOCAINE) VIAL ONE; -NS IV 1000 ML 1,000 ML IV SCH; -NS IV 1000 ML 1,000 ML ONE; -RT-ALBUINH INH; -fentaNYL INJ 100 MCG/2 ML AMP ONE
--- NOTE | 2022-11-25 16:10 | Diagnostic Imaging Report ---
INDICATION: Right 3rd finger injury. TIME OF EXAM: 1:04 PM. FINDINGS: Three views of the right 3rd finger were obtained. Alignment is normal. Phalanges are intact. No fracture is seen. Soft tissues are unremarkable. IMPRESSION: No acute bony abnormality is detected. Dictated by: Dictated on workstation # [id number]
--- NOTE | 2022-11-25 16:11 | Diagnostic Imaging Report ---
INDICATION: Fall with right knee pain. TIME OF EXAM: 1:07 PM. FINDINGS: Three views of right knee were obtained. There is tricompartmental degenerative change with mild joint space narrowing and marginal spurring, greatest involving the lateral compartment. There is spurring of the tibial spines. No fracture, dislocation or effusion is identified. IMPRESSION: Degenerative changes. No acute bony abnormality is detected. Dictated by: Dictated on workstation # [id number]
== END ==
LOC: RAD 12:39
PROVIDERS: ATTEND Family Medicine
DX: M17.11 Unilateral primary osteoarthritis, right knee (principal); M79.644 Pain in right finger(s)
CPT/HCPCS: 73140; 73562

== ENCOUNTER → 2022-12-02 | Outpatient (CLI) | payer MEDICAID ==
--- NOTE | 2022-12-02 16:27 | Diagnostic Imaging Report ---
INDICATION: Bilateral 3-D screening mammograms. Comparison dates are 09/21/2021 and 08/27/2020 There is mild breast parenchymal density, bilaterally. No new dominant mass or suspicious calcification is seen. Overall, there has been no adverse change. IMPRESSION: Category 1, negative mammogram. Physical examination and annual mammographic followup recommended. ACR BI-RADS Category 1: Negative. Result letter will be mailed to the patient. Note: At least 10% of breast cancer is not imaged by mammography. Dictated by: Dictated on workstation # [id number]
== END ==
LOC: RAD 14:50
PROVIDERS: ATTEND Nurse Practitioner
DX: Z12.31 Encounter for screening mammogram for malignant neoplasm of breast (principal)
CPT/HCPCS: 77063; 77067

== ENCOUNTER 2023-03-11 12:50 | Emergency (ER) | payer MEDICAID ==
[~2023-03-11] VITALS: Ht 165 cm; Wt 96.1 kg
--- NOTE | 2023-03-11 13:01 | ED Upper Extremity ---
General Chief Complaint: Laceration Stated Complaint: RT ARM LACERATION Source: patient Exam Limitations: no limitations (BETY REICH APRN) History of Present Illness Date Seen by Provider: Mar 11, 2023 Time Seen by Provider: 12:56 Initial Comments 57-year-old female presents to the ER with 2 lacerations to right forearm. She states that she cut it on a metal paneling around noon today. Patient is uncertain of her last tetanus, states it was given it here. Records indicate that last tetanus was given in 2011. (BETY REICH APRN) Allergies and Home Medications Allergies Coded Allergies: Penicillins (Verified Allergy, Unknown, 08/29/20) lisinopril (Verified Allergy, Unknown, 08/14/21) omeprazole (Verified Allergy, Unknown, 08/14/21) Patient Home Medication List Home Medication List Reviewed: Yes (BETY REICH APRN) Albuterol Sulfate (Ventolin Hfa) 8.5 Gm Hfa.aer.ad, 2 PUFF INH Q4H PRN for SHORTNESS OF BREATH, (Reported) Entered as Reported by: RANDOLPH BRITO on 01/18/16 1351 Albuterol Sulfate (Albuterol Sulfate) 2.5 Mg/3 Ml Vial.neb, 2.5 MG IH 4 times a day PRN for wheezing Prescribed by: CORBY IVERSON on 12/12/17 1324 Atorvastatin Calcium (Atorvastatin Calcium) 40 Mg Tablet, 40 MG PO HS, (Reported) Entered as Reported by: LURDES WILDER on 12/31/20 0951 Black Cohosh Root (Black Cohosh) 200 Mg Capsule, 200 MG PO BID, (Reported) Entered as Reported by: DESTINY BELL on 12/12/17 0909 Budesonide/Formoterol Fumarate (Symbicort 80-4.5 Mcg Inhaler) 10.2 Gm Hfa.aer.ad, 2 PUFF IH BID, (Reported) Entered as Reported by: ANN MERINO on 07/07/16 0902 Cetirizine HCl (Cetirizine HCl) 10 Mg Tablet, 10 MG PO DAILY, (Reported) Entered as Reported by: ABELARDO SHANKAR on 10/12/18 1021 Cranberry Fruit (Cranberry) 450 Mg Tablet, 450 MG PO DAILY, (Reported) Entered as Reported by: LURDES WILDER on 12/31/20 0951 Cyanocobalamin (Vitamin B-12) (Vitamin B12) 2,500 Mcg Tablet, 2,500 MCG PO DAILY, (Reported) Entered as Reported by: DESTINY BELL on 12/12/17 09 Dicyclomine HCl (Dicyclomine HCl) 20 Mg Tablet, 20 MG PO QID, (Reported) Entered as Reported by: DESTINY BLEL on 12/12/17 09 Docusate Calcium (Stool Softener) 240 Mg Capsule, 240 MG PO DAILY, (Reported) Entered as Reported by: DANNY TILLEY on 04/20/22 0754 Doxepin HCl (Doxepin HCl) 10 Mg Capsule, 10-30 MG PO HS, (Reported) Entered as Reported by: ANN MERINO on 07/07/16 0902 Fluticasone Propionate (Fluticasone Propionate) 16 Gm Tryon.susp, 2 SPRAYS NS BID, (Reported) Entered as Reported by: DESTINY BELL on 12/12/17 09 Folic Acid/Multivit-Min/Lutein (Multi-Vitamin Gummies) 1 Each Tab.chew, 1 EACH PO DAILY, (Reported) Entered as Reported by: DESTINY BELL on 12/12/17 09 Levothyroxine Sodium (Levothyroxine Sodium) 50 Mcg Tablet, 50 MCG PO DAILY, (Reported) Entered as Reported by: ABELARDO SHANKAR on 10/12/18 1021 Magnesium (Magnesium) 30 Mg Tablet, 30 MG PO DAILY, (Reported) Entered as Reported by: DESTINY BELL on 12/12/17 09 Milk Thistle Seed Extract (Milk Thistle) 175 Mg Tablet, 175 MG PO DAILY, (Reported) Entered as Reported by: DANNY TILLEY on 04/20/22 075 Montelukast Sodium (Montelukast Sodium) 10 Mg Tablet, 10 MG PO HS, (Reported) Entered as Reported by: DESTINY BELL on 12/12/17 09 Olopatadine HCl (Pataday) 0.1 % Drops, 5 ML OP for DRY EYES, (Reported) Entered as Reported by: DANNY TILLEY on 04/20/22 075 Pantoprazole Sodium (Pantoprazole Sodium) 40 Mg Tablet.dr, 40 MG PO DAILY, (Reported) Entered as Reported by: DANNY TILLEY on 04/20/22753 Sennosides (Laxative) 25 Mg Tablet, 25 MG PO DAILY, (Reported) Entered as Reported by: DANNY TILLEY on 04/20/22753 Simethicone (Simethicone) 125 Mg Capsule, 125 MG PO NOON, (Reported) Entered as Reported by: DANNY TILLEY on 04/20/22753 Turmeric Root Extract (Turmeric) 500 Mg Tablet, 500 MG PO DAILY, (Reported) Entered as Reported by: DANNY TILLEY on 04/20/22753 Vilazodone HCl (Vilazodone HCl) 20 Mg Tablet, 20 MG PO DAILY, (Reported) Entered as Reported by: DANNY TILLEY on 04/20/22753 Review of Systems Constitutional: see HPI Skin: see HPI (BETY REICH APRN) Past Rssjnol-Kiqghq-Qzsdag Hx Immunizations Up To Date Tetanus Booster (TDap): Unknown First/Initial COVID19 Vaccinat: 03/06/21 Second COVID19 Vaccination Sahil: 04/03/21 (BETY REICH APRN) Seasonal Allergies Seasonal Allergies: Yes (BETY REICH APRN) Past Medical History Surgery/Hospitalization HX: htn, high cholesterol, asthma Surgeries: Yes (LASER CONIZATION OF CERVIX; X 4, ANKLE FX ) Section, Orthopedic, Tonsillectomy, Tubal Ligation Respiratory: Yes (CPAP AT HS; O2 AT 1L/NC-MOSTLY AT NIGHT) Asthma, Sleep Apnea Currently Using CPAP: Yes Currently Using BIPAP: No Cardiac: Yes Hypertension, Syncope Neurological: No Headaches /Migraines 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 Disorders: No Female 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 Disorders: Denies BAR STAFF History: Tubal Ligation, Menopausal Sexually Transmitted Disease: No HIV/AIDS: No Genitourinary: Yes UTI-Chronic Gastrointestinal: Yes (DYSPHAGIA) Gastroesophageal Reflux, Ulcer, Irritable Bowel Musculoskeletal: Yes (KNEES) Arthritis Endocrine: Yes Hypothyroidsim HEENT: No Loss of Vision: Denies Hearing Impairment: Denies Cancer: Yes (LASER CONZATION) Cervical Did You Recieve Any Treatments: Yes What Type of Treatment Did You: Surgical Intervention Psychosocial: Yes (POLYSUBSTANCE ABUSE) Sleep Difficulties, Anxiety, Bipolar, Depression Integumentary: No Blood Disorders: No Adverse Reaction/Blood Tranf: No (BETY REICH APRN) Family Medical History Diabetes mellitus 19 MOTHER Diabetes, Hypertension (BETY REICH APRN) Physical Exam Vital Signs Vital Signs - First Documented 03/11/23 12:56 Temp 36.9 Pulse 89 Resp 20 B/P (MAP) 128/70 (89) Pulse Ox 98 O2 Delivery Room Air (BUCK DAVIS DO) Vital Signs Capillary Refill : (BETY REICH APRN) Height, Weight, BMI Height: 5'7.00" Weight: 246lbs. 0.0oz. [id number]; 32.44 BMI Method:Stated General Appearance: WD/WN, no apparent distress Neck: supple, normal inspection Cardiovascular: regular rate, rhythm Respiratory: lungs clear, normal breath sounds, no respiratory distress, no accessory muscle use Elbow/Forearm: Right (2 lacerations) Neurologic/Psychiatric: alert, normal mood/affect Skin: normal color, warm/dry (BETY REICH APRN) Procedures/Interventions Wound Location: Upper Extremities Other Wound Location Right forearm -2 lacerations, one is linear and about 2.5 cm, second is a flap approximately 7 cm. Wound Length (cm): 9.5 Wound's Depth, Shape: linear, flap Irrigated w/ Saline (ccs): 250 Anesthesia: 1% Lidocaine Volume Anesthetic (ccs): 8 Wound Debrided: minimal Suture: Ethlion Suture Size: 4-0 Number of Sutures: 18 (BETY REICH APRN) Progress/Results/Core Measures Results/Orders Medications Given in ED Current Medications Medications Dose Ordered Sig/Matthias Route Start Time Stop Time Status Last Admin Dose Admin Diphtheria/ Tetanus/Acell Pertussis 0.5 ml ONCE ONCE IM 03/11/23 13:15 03/11/23 13:16 DC 03/11/23 13:13 0.5 ML Lidocaine HCl 10 ml ONCE ONCE INJ 03/11/23 13:15 03/11/23 13:16 DC 03/11/23 13:14 10 ML (NORY DAVISA Minnie DO) Vital Signs/I&O 03/11/23 03/11/23 12:56 14:07 Temp 36.9 Pulse 89 Resp 20 B/P (MAP) 128/70 (89) 127/78 Pulse Ox 98 O2 Delivery Room Air (BUCK DAVIS DO) Progress Progress Note : Progress Note Patient evaluated, resting comfortably in bed, no acute distress. Laceration was repaired with sutures, see procedure note. Tetanus updated. Discharge instructions and return precautions provided. (BETY REICH APRN) Departure Impression Primary Impression: Laceration Disposition: 01 HOME, SELF-CARE Condition: Stable Departure-Patient Inst. Decision time for Depature: 14:01 (BETY REICH APRN) Referrals: PAYTON PORTER (PCP/Family) Primary Care Physician Patient Instructions: Laceration Repair With Stitches ED Add. Discharge Instructions: Keep the wound clean and dry. May apply Vaseline or Neosporin to help prevent scarring. You may wash your arm, let soap and water run over it, do not scrub. Do not soak your arm. Return in 7 to 10 days to have the sutures removed. Return for signs of infection including redness, swelling, discolored odorous drainage, or any other new, concerning, or worsening symptoms. All discharge instructions reviewed with patient and/or family. Voiced understanding. ATTENDING PHYSICIAN NOTE: I WAS PHYSICALLY PRESENT ER PHYSICIAN, BUT I WAS NOT INVOLVED IN ANY DECISION MAKING OR ANY CARE OF THIS PATIENT, AND I AM NOT COLLABORATING PHYSICIAN. (BUCK DAVIS DO) BETY REICH APRN Mar 11, 2023 13:01 BUCK DAVIS DO Mar 11, 2023 17:39
[2023-03-11] MEDS ORDERED: Tetanus/Diphtheria/Pertussis (Acell) ADULT Vaccine 0.5 ML IM ONE (13:15)
[2023-03-11] MEDS ORDERED: LIDOCAINE 1% INJ 10 ML VIAL INJ ONE (13:15)
[2023-03-11 14:07] VITALS: BP 127/78
== END 2023-03-11 14:07 | disposition home or self-care (01) ==
LOC: EDUNIT# 12:50 → ER 12:51
DX: S51.811A Laceration without foreign body of right forearm, initial encounter (principal); G47.30 Sleep apnea, unspecified; Z23 Encounter for immunization; Z99.89 Dependence on other enabling machines and devices; W26.8XXA Contact with other sharp object(s), not elsewhere classified, initial encounter
CPT/HCPCS: 12034; 90715

== ENCOUNTER 2023-03-18 14:21 | Emergency (ER) | payer MEDICAID ==
[~2023-03-18] VITALS: Ht 167 cm; Wt 103.0 kg
[2023-03-18 14:57] VITALS: BP 144/79
== END 2023-03-18 14:58 | disposition home or self-care (01) ==
LOC: EDUNIT# 14:21 → ER 14:23
DX: Z48.02 Encounter for removal of sutures (principal)